=== PATIENT | male | born 1955 | race Hispanic/Latino ===

== ENCOUNTER 2019-08-21 10:08 | Inpatient (IN) | payer MEDICARE, OTHER ==
[~2019-08-21] VITALS: Ht 175.3 cm; Wt 75.7 kg
[~2019-08-21 10:08] MED LIST: Z.0.PREVACID30 MG PO; Z.0.TRICOR145 MG PO; Z.1.BENICAR HCT 401 PO
[2019-08-21] MEDS ORDERED: PANTOPRAZOLE 40 MG 10ML VIAL IV STA (10:33)
[2019-08-21] MEDS ORDERED: SODIUM CHLORIDE 0.9% 1000ML 1,000 ML IV STA (10:33)
[2019-08-21] MEDS ORDERED: ALBUTEROL SULFATE HFA 8GM INHALATION AEROSOL INH PRN (11:00)
[2019-08-21] MEDS ORDERED: SODIUM CHLORIDE 0.9% 1000ML 1,000 ML IV SCH (11:12)
[2019-08-21] MEDS ORDERED: ONDANSETRON HCL INJ 2MG/ML 2ML 2 MG/ML VIAL IV PRN ×2 (11:15→13:30)
[2019-08-21 11:18] LABS: BASOPHILS % 0.1 % (0.0-1.0); HEMATOCRIT 39.6 % (38.2-49.6); HEMOGLOBIN 13.7 g/dL (14.0-18.0); LYMPHOCYTES # (AUTO) 0.9 (1.0-3.2); LYMPHOCYTES % 6.6 % (18.0-39.1); MEAN CORPUSCULAR HEMOGLOBIN 29.2 pg (28-32); MEAN CORPUSCULAR HGB CONC 34.6 g/dL (31-35); MEAN CORPUSCULAR VOLUME 84.4 fL (81-99); MONOCYTES # (AUTO) 0.5 (0.2-0.8); MONOCYTES % 3.5 % (4.4-11.3); NEUTROPHILS # (AUTO) 12.1 (2.1-6.9); NEUTROPHILS % 88.3 % (38.7-80.0); PLATELET COUNT 240 x10e3/uL (140-360); RED BLOOD COUNT 4.69 x10e6/uL (4.3-5.7); RED CELL DISTRIBUTION WIDTH 12.9 % (11.7-14.4)
[2019-08-21 11:34] LABS: INFLUENZAE A&B ANTIGEN (RAPID) NEGATIVE (NEGATIVE)
[2019-08-21 11:35] LABS: STREPTOCOCCUS GRP A ANTIGEN NEGATIVE (NEGATIVE)
[2019-08-21 11:43] LABS: INR 1.09; PROTHROMBIN TIME 14.8 seconds (11.9-14.5)
[2019-08-21 11:44] LABS: PARTIAL THROMBOPLASTIN TIME 36.9 seconds (23.8-35.5)
[2019-08-21 11:55] LABS: ALANINE AMINOTRANSFERASE 24 IU/L (0-55); ALBUMIN 3.1 g/dL (3.5-5.0); ALBUMIN/GLOBULIN RATIO 0.7 (0.8-2.0); ALKALINE PHOSPHATASE 58 IU/L (40-150); ANION GAP 15.8 mmol/L (8-16); BLOOD UREA NITROGEN 8 mg/dL (7-26); BUN/CREATININE RATIO 8 (6-25); CALCIUM 9.1 mg/dL (8.4-10.2); CARBON DIOXIDE 22 mmol/L (22-29); CHLORIDE 101 mmol/L (98-107); CREATINE KINASE 26 IU/L (30-200); CREATININE, SERUM 0.95 mg/dL (0.72-1.25); EST GLOMERULAR FILTRATION RATE > 60 ML/MIN (60-); GLUCOSE 103 mg/dL (74-118); POTASSIUM 3.8 mmol/L (3.5-5.1); SODIUM 135 mmol/L (136-145)
[2019-08-21 12:01] LABS: B-TYPE NATRIURETIC PEPTIDE2 37.4 pg/mL (0-100)
[2019-08-21] MEDS: ASPIRIN 81 MG ENTERIC COATED PO SCH (12:07)
[2019-08-21] MEDS: AZITHROMYCIN 500MG/NS 250 ML 250 ML IV SCH (12:07)
[2019-08-21] MEDS: CEFTRIAXONE SOD 1 GM/NS 50 ML 50 ML IV SCH (12:07)
--- NOTE | 2019-08-21 12:11 | Diagnostic Imaging Report ---
EXAM: CHEST SINGLE (PORTABLE) DATE: 08/21/2019 10:33 AM INDICATION: Weakness COMPARISON: None FINDINGS: The trachea is midline. There are mildly prominent interstitial markings present. Lungs are otherwise symmetrically expanded without evidence for large focal consolidation, pneumothorax, or significant pleural effusion. The cardiomediastinal silhouette is within normal limits. Atherosclerotic calcifications are noted within the aortic arch. No acute osseous abnormality is identified. IMPRESSION: Mildly increased interstitial markings which are nonspecific but can be seen in the setting of edema. No other acute cardiopulmonary process identified. Signed by: Dr. Larry Lisa MD on 08/21/2019 12:07 PM
--- NOTE | 2019-08-21 12:21 | NUR ---
RT at bedside performing blood gas.
--- NOTE | 2019-08-21 12:57 | NUR ---
Nursing report called to Claudette SILVA.
[2019-08-21] MEDS ORDERED: ACETAMINOPHEN 325 MG TAB PO ONE (13:00)
[2019-08-21 13:52] LABS: ABG PCO2 29 mmHg (41-51); ABG PH 7.43 (7.31-7.41)
[2019-08-21 13:53] LABS: ABG HCO3 19 mmol/L (23-28)
[2019-08-21 14:05] VITALS: BP 136/68
[2019-08-21] MEDS: METRONIDAZOLE 500MG/NS 100ML 100 ML IV SCH ×3 (14:15→22:00)
[2019-08-21 14:18] VITALS: BP 136/68
--- NOTE | 2019-08-21 14:45 | NUR ---
patient arrived to unit via stretcher. patient ambulated from stretcher to bed without difficulty. o2 checked- 91 % on room air. placed on 2L via NC and o2 now at 96%. rr- 29. oriented to room and call light. patient instructed to place mask on face when staff enters his room. PHILIPP.
[2019-08-21] MEDS ORDERED: ALBUTEROL SULF 0.083% NEB SOLN 3 ML NEB NEB SCH (15:00)
--- NOTE | 2019-08-21 15:08 | Consultation ---
DATE OF CONSULTATION: REASON FOR CONSULTATION: Pneumonia, concern about COVID-19. HISTORY OF PRESENT ILLNESS: This is a 64-year-old male, who has history of throat cancer, was diagnosed in 2015, treated with surgery, comes in with 2 weeks of fever, chills, hurting all over, one episode of diarrhea yesterday, not feeling too well since we are in the mid of COVID-19 pandemic. The patient is being admitted. The patient who is just not feeling well in general. No other complaints except for what mentioned above. PAST MEDICAL HISTORY: As above. PAST SURGICAL HISTORY: As above. ALLERGIES: NKA. SOCIAL HISTORY: There is no smoking, drug abuse, or alcohol abuse. FAMILY HISTORY: Otherwise noncontributory. LABORATORY DATA: White count on admission 13.7, hemoglobin 13.7, platelet 240. All his upper respiratory panel are still pending. Influenza A and B antigen were negative. Group A was negative. His sodium 135, potassium 3.8, creatinine 0.95. His BNP was 37. He had chest x-ray, which was ordered and showed interstitial marking, nonspecific, could be edema versus other. PHYSICAL EXAMINATION: GENERAL: Currently alert, oriented. VITAL SIGNS: Temperature of 100.3, heart rate 118, respiration 24. HEENT: Normocephalic. NECK: Supple. CHEST: Few crackles bilateral. HEART: S1, S2. No S3, S4, or murmur. ABDOMEN: Soft. EXTREMITIES: No edema. SKIN: No rash. IMPRESSION: 1. Fever, chills, body aches, concerned about viral infection, concerned about COVID. We will place patient on isolation, test been sent. Unfortunately, it is taking us more than two days to get the result. 2. Concern about other infections such as bacterial. We will put the patient on Rocephin and azithromycin. Observe the patient clinically. Agree with IV fluid. Recheck CBC. Recheck chemistry panel. Discussed with the patient. Discussed with all the medical team. MD PATRICK Oakley/MALIA /[id number]
[2019-08-21 15:33] LABS: BILIRUBIN,URINE NEGATIVE (NEGATIVE); CLARITY,URINE SL CLOUDY (CLEAR); COLOR,URINE STRAW (YELLOW); KETONES,URINE TRACE (NEGATIVE); LEUKOCYTE ESTERASE ,URINE NEGATIVE (NEGATIVE); NITRITE,URINE NEGATIVE (NEGATIVE); PROTEIN,URINE DIPSTICK TRACE (NEGATIVE); URINE UROBILINOGEN 0.2 mg/dL (0.2 - 1)
[2019-08-21 15:54] LABS: BACTERIA,URINE FEW /HPF
--- NOTE | 2019-08-21 16:01 | NUR ---
patient's called. updated on plan of care.
--- NOTE | 2019-08-21 16:02 | NUR ---
per pharmacy staff, they will changing order for nebulizer to hand held inhaler with [facility] and will deliver to unit.
[2019-08-21] MEDS ORDERED: LOSARTAN POTAS100 MG PO (16:19)
[2019-08-21] MEDS ORDERED: PANTOPRAZOLE SO40 MG PO (16:19)
[2019-08-21 16:46] VITALS: BP 103/58
--- NOTE | 2019-08-21 18:18 | NUR ---
patient resting in bed, hr now 89. denies any concerns. states he does feel "a little better" patients son called and updated, per patient request.
[2019-08-21] MEDS: ALBUTEROL SULFATE HFA 8GM INHALATION AEROSOL INH SCH ×2 (19:00→23:00)
--- NOTE | 2019-08-21 19:00 | NUR ---
Report received from morning nurse. Pt alert, no acute distress. Denies pain at this time. Call light within reach. Will continue to monitor on isolation precautions.
--- NOTE | 2019-08-21 19:59 | History and Physical ---
PRIMARY CARE DOCTOR: Dr. Damon Larose. CHIEF COMPLAINT: Shortness of breath. HISTORY OF PRESENT ILLNESS: This is a 64-year-old male who started not feeling well about 10 days ago with some subjective warmth and headache. The patient also has some very mild cough, very mild myalgia. Subsequently through telemedicine, Dr. Larose prescribed some steroids and antibiotics, however it caused more headache and diarrhea. So, he stopped taking the antibiotics, but still the patient has diarrhea for the last two days. No abdominal pain. Last night, he thinks that he had about 10 bouts of diarrhea. This morning, he still is having diarrhea. The patient denies chest pain, some shortness of breath, again very mild cough and myalgia. The patient is also nauseated and vomited once. The patient lives with his who is feeling well at this time. In the emergency room, the patient had a temperature of 100.3. PAST MEDICAL AND SURGICAL HISTORY: 1. Hypertension. 2. Reflux. 3. Dyslipidemia. 4. Hypertension. 5. Throat cancer. 6. Appendectomy. SOCIAL HISTORY: He does not smoke. FAMILY HISTORY: Hypertension. REVIEW OF SYSTEMS: A 10-point review of system obtained and nothing else is significant other than what is stated in HPI. PHYSICAL EXAMINATION: VITAL SIGNS: Temperature 100.3, pulse 113, respiratory rate as high as 41, and blood pressure 118/69. GENERAL: No acute distress. HEENT: Anicteric. Oropharynx is dry. SKIN: No rash. LUNGS: Clear. HEART: Tachycardic. Normal S1, S2. ABDOMEN: Soft, nondistended, nontender. MUSCULOSKELETAL: Painless range of motion. NEUROLOGIC: Alert and oriented x3. Cranial nerves II through XII intact. PSYCHIATRIC: No depression. No hallucination. LABORATORY DATA: White count 13.7, hemoglobin 13.7, and platelet count 240. INR 1.09, PTT 37. Sodium 135, creatinine 0.95. Rapid influenza screen is negative. Chest x-ray shows possible edema. CPK is negative. Troponin is negative. ASSESSMENT: 1. Severe dehydration due to diarrhea given recent antibiotic and recent possibility of Clostridium difficile colitis, now I empirically started IV Flagyl. We discussed with Dr. Mckinney. Ideally, we would like to get an abdominal CT. However, potentially complete COVID test comes back. 2. Mild upper respiratory infection symptoms. Again, COVID test is pending. Empirically, the patient is on Rocephin and azithromycin. 3. Hypertension, stable. 4. Sinus tachycardia, again due to severe dehydration. 5. Shortness of breath could be respiratory compensation, specifically his tachypnea. 6. Gastrointestinal and deep venous thrombosis prophylaxis. We will start him on heparin subcu. MD PALMER Camacho/MALIA /[id number] cc: Damon Larose
[2019-08-21 20:00] VITALS: BP 118/63
--- NOTE | 2019-08-21 20:25 | Consultation ---
DATE OF CONSULTATION: 08/21/2019 Pulmonary Medicine Consult REASON FOR REFERRAL: Hypoxemia. HISTORY OF PRESENT ILLNESS: Mr. Marcus is a pleasant 64-year-old gentleman with shortness of breath. The patient originally was having myalgias and bony aches about a week ago. He had fever and cough at that time. The patient had about 10 days of symptoms he estimates and he even went to his doctor about a week ago. When he went to his doctor, he was found to have need for antibiotics and he was also given some prednisone. The antibiotic was Omnicef. The patient without significant respiratory distress at that time. He initially got better but than started to feel worse. The patient comes to the emergency room. He is hypoxemic with saturations in the high 80s percentile range, I am told. Chest x-ray, bilateral mild lung patchy infiltrates. The patient additionally has some associated diarrhea kind of symptoms. He is admitted and I am consulted. PAST MEDICAL HISTORY: 1. Hypertension. 2. Heart disease. 3. Throat cancer. 4. GERD. 5. Appendectomy. MEDICATIONS: Medication list reviewed per the chart record. ALLERGIES: FOR THE CHART RECORD. SOCIAL HISTORY: Smoking no history. No drugs. The patient lives with his , he is 64 years old, he live in single-story home. For about two months, he is living in house only once a week and he is not seeing his family as part of social distancing. He goes to [employer] about once weekly with his . REVIEW OF SYSTEMS: GENERAL: No weight changes. OPHTHALMOLOGIC: No double vision. ENT: No mouth ulcers. ENDOCRINE: No known thyroid disease. PULMONARY: No asthma. CARDIAC: No heart attack. GI: The patient has no blood in stool. : No blood in urine. DERMATOLOGIC: No rash. NEUROLOGIC: No seizures. PSYCHIATRIC: No depression. OBJECTIVE: VITAL SIGNS: Temperature 101.1 in emergency room. Vital signs as noted per the chart record. 88% saturation on room air FiO2. GENERAL: In no jenni respiratory distress, but he is pale in bed. HEENT: Normocephalic and atraumatic. NECK: Supple. Throat midline. LUNGS: Bilateral air entry with limited auscultation. No jenni wheezes. CARDIOVASCULAR: S1, S2. No murmurs, rubs, or gallops. ABDOMEN: Soft and nontender. EXTREMITIES: No clubbing, no cyanosis. There is no edema. INTEGUMENT: No rash or purpura. LABORATORY DATA: White count 14, hemoglobin 14. Sodium 135, albumin 3.1, lactic acid 1.9. Influenza antigen screening negative. Streptococcal throat screen negative. IMPRESSION AND PLAN: 1. Hypoxemia, presumed secondary to lung injury. 2. Atypical pneumonia, more likely influenza or post influenza pneumonitis. Onset of symptoms 10 days ago, rule out other atypical respiratory infections, which seem plausible and prevalent. COVID-19 in community pandemic. 3. Hypoxemia, moderate. 4. Reported diarrhea, possibly antibiotic associated versus secondary to atypical infection. 5. History of hypertension. 6. History of throat cancer. 7. History of gastroesophageal reflux disease. 8. Respiratory droplet isolation with adjustments for aerosolizing procedures. Empiric antibiotics for pneumonia. Get sputum cultures. Get respiratory PCR panel. The patient will also have COVID-19 PCR sent off. DVT prophylaxis. Follow up markers of DIC and systemic inflammation closely. For the short term, the patient will need more history regarding throat cancer, which I did not get initially while I was investigating the process. We will follow along closely. Thank you very much, Dr. Santos and Dr. Larose, for allowing me a chance to participate in care of Mr. Marcus. Please call for questions. MD BRANDON Vyas/MALIA /[id number]
[2019-08-21 20:59] VITALS: BP 118/63
[2019-08-21] MEDS: HEPARIN SOD (PORCINE) 5,000 UNIT/ML VIAL SC SCH (21:00)
[2019-08-22] VITALS (7 sets, daily range): BP systolic 126–177; BP diastolic 60–88
[2019-08-22] MEDS: ACETAMINOPHEN 325 MG TAB PO PRN (00:30)
--- NOTE | 2019-08-22 00:30 | NUR ---
Pt c/o headache 2/10 and being cold, shivering noted. Temp 99.8. Admin prn Tylenol. Bed low and locked. telephone within reach to call nurse.
[2019-08-22] MEDS: ALBUTEROL SULFATE HFA 8GM INHALATION AEROSOL INH SCH ×5 (03:00→19:00)
[2019-08-22] MEDS: METRONIDAZOLE 500MG/NS 100ML 100 ML IV SCH ×3 (06:00→21:43)
[2019-08-22 06:17] LABS: BASOPHILS % 0.1 % (0.0-1.0); HEMATOCRIT 33.2 % (38.2-49.6); HEMOGLOBIN 11.4 g/dL (14.0-18.0); LYMPHOCYTES # (AUTO) 0.9 (1.0-3.2); LYMPHOCYTES % 11.9 % (18.0-39.1); MEAN CORPUSCULAR HGB CONC 34.3 g/dL (31-35); MEAN CORPUSCULAR VOLUME 84.5 fL (81-99); MONOCYTES # (AUTO) 0.4 (0.2-0.8); MONOCYTES % 5.1 % (4.4-11.3); NEUTROPHILS # (AUTO) 5.9 (2.1-6.9); NEUTROPHILS % 82.2 % (38.7-80.0); PLATELET COUNT 235 x10e3/uL (140-360); RED BLOOD COUNT 3.93 x10e6/uL (4.3-5.7); RED CELL DISTRIBUTION WIDTH 13.1 % (11.7-14.4)
[2019-08-22 06:39] LABS: CREATINE KINASE MB 0.5 ng/mL (0-5.0)
--- NOTE | 2019-08-22 06:40 | NUR ---
Pt resting in bed with eyes closed, HOB 45 degrees, RR 34 unlabored. No acute distress noted.
[2019-08-22 06:46] LABS: FERRITIN 958.13 ng/mL (21.81-274.66)
--- NOTE | 2019-08-22 07:03 | NUR ---
received change of shift report from PM nurse. pt awake, alert, oriented X3, ambulating to bathroom. tachypnea noted with RR at 32. pt also c/o diarrhea at this time and worsening SOB with ambulation. will inform .
[2019-08-22 07:08] LABS: ALANINE AMINOTRANSFERASE 21 IU/L (0-55); ALBUMIN 2.4 g/dL (3.5-5.0); ALBUMIN/GLOBULIN RATIO 0.6 (0.8-2.0); ALKALINE PHOSPHATASE 46 IU/L (40-150); ANION GAP 12.9 mmol/L (8-16); BLOOD UREA NITROGEN 8 mg/dL (7-26); BUN/CREATININE RATIO 11 (6-25); CALCIUM 8.4 mg/dL (8.4-10.2); CARBON DIOXIDE 20 mmol/L (22-29); CHLORIDE 110 mmol/L (98-107); CREATININE, SERUM 0.72 mg/dL (0.72-1.25); EST GLOMERULAR FILTRATION RATE > 60 ML/MIN (60-); GLUCOSE 91 mg/dL (74-118); POTASSIUM 3.9 mmol/L (3.5-5.1); SODIUM 139 mmol/L (136-145)
[2019-08-22] MEDS: HEPARIN SOD (PORCINE) 5,000 UNIT/ML VIAL SC SCH ×2 (08:07→21:00)
--- NOTE | 2019-08-22 08:42 | NUR ---
Dr. Santos paged regarding pt's elevated D-Dimer result. left message; awaiting callback.
[2019-08-22] MEDS: CEFTRIAXONE SOD 1 GM/NS 50 ML 50 ML IV SCH (11:21)
[2019-08-22] MEDS: AZITHROMYCIN 500MG/NS 250 ML 250 ML IV SCH (12:41)
--- NOTE | 2019-08-22 13:46 | NUR ---
Pulmonary Medicine DATE 08/22/2019 SUBJECTIVE: Diarrhea this AM again NS at 100/hr energy overall very low, but minimally better no cough REVIEW OF SYSTEMS: No weight changes. no rash OBJECTIVE: VITAL SIGNS: Vital signs as noted per the chart record. GENERAL: no jenni respiratory distress, but he is pale and weak in bed HEENT: Normocephalic and atraumatic. NECK: Supple. Throat midline. LUNGS: Bilateral air entry with no rhonchi. No jenni wheezes. CARDIOVASCULAR: S1, S2. No murmurs, rubs, or gallops. ABDOMEN: Soft and nontender. EXTREMITIES: No clubbing, no cyanosis. no edema. INTEGUMENT: No rash or purpura. LABORATORY DATA: cr 0.72, wbc 7.2, hct 33, plt 235 IMPRESSION AND PLAN: 1. Hypoxemia, acute lung injury. 2. Atypical pneumonia, more likely influenza or post influenza pneumonitis. Onset of symptoms 7-10 days ago, rule out other atypical respiratory infections, which seem plausible and prevalent. COVID-19 actively in community pandemic. 3. Hypoxemia, moderate. 4. Reported diarrhea, possible antibiotic associated vs secondary to atypical infection. 5. History of hypertension. 6. History of throat cancer. 7. History of gastroesophageal reflux disease. Respiratory droplet isolation +/- adjustments for aerosolizing procedures. Empiric antibiotics for pneumonia. --F/u sputum cultures. --negative respiratory PCR panel. --follow up COVID-19 PCR --check legionella Ag DVT prophylaxis. Follow up markers of DIC and systemic inflammation closely. Thank you very much, Dr. Santos and Dr. Larose, for allowing me a chance to participate in care of Mr. Marcus. Please call for questions.
--- NOTE | 2019-08-22 17:07 | Diagnostic Imaging Report ---
EXAM: CHEST SINGLE (PORTABLE) DATE: 08/22/2019 5:00 AM INDICATION: Pneumonia COMPARISON: 08/21/2019 FINDINGS: There are increased interstitial and airspace opacities present bilaterally, slightly more prominent than the prior examination. There is no evidence for lobar consolidation, pneumothorax, or significant pleural effusion. The cardiomediastinal silhouette is stable in appearance. No acute osseous abnormality is identified. IMPRESSION: Increased bilateral interstitial airspace opacities. Findings are nonspecific but can be seen in the setting of edema versus an atypical or viral infectious/inflammatory process. Signed by: Dr. Larry Lisa MD on 08/22/2019 5:04 PM
--- NOTE | 2019-08-22 19:10 | NUR ---
Report received from morning nurse. Pt alert, no acute distress. Denies pain at this time. Call light within reach. Will continue to monitor on isolation precautions.
[2019-08-23] VITALS (8 sets, daily range): BP systolic 136–170; BP diastolic 68–97
[2019-08-23] MEDS: ALBUTEROL SULFATE HFA 8GM INHALATION AEROSOL INH SCH ×3 (03:00→10:39)
[2019-08-23] MEDS: ACETAMINOPHEN 325 MG TAB PO PRN (04:50)
--- NOTE | 2019-08-23 04:50 | NUR ---
Pt c/o headache 08/29. Admin prn Tylenol.
[2019-08-23] MEDS: METRONIDAZOLE 500MG/NS 100ML 100 ML IV SCH ×3 (05:45→21:05)
--- NOTE | 2019-08-23 06:25 | NUR ---
Pt lying in bed, HOB 45 degrees, RR 32 unlabored. No acute distress noted.
--- NOTE | 2019-08-23 07:04 | NUR ---
received change of shift report from PM nurse. pt resting in bed, Semi-wise's, RR even and nonlabored, no signs of distress. will continue to monitor.
[2019-08-23 07:34] LABS: BASOPHILS % 0.2 % (0.0-1.0); EOSINOPHILS % 0.2 % (0.0-6.0); HEMATOCRIT 32.9 % (38.2-49.6); HEMOGLOBIN 11.4 g/dL (14.0-18.0); LYMPHOCYTES # (AUTO) 0.8 (1.0-3.2); LYMPHOCYTES % 16.5 % (18.0-39.1); MEAN CORPUSCULAR HGB CONC 34.7 g/dL (31-35); MEAN CORPUSCULAR VOLUME 83.7 fL (81-99); MONOCYTES # (AUTO) 0.5 (0.2-0.8); MONOCYTES % 11.5 % (4.4-11.3); NEUTROPHILS # (AUTO) 3.2 (2.1-6.9); NEUTROPHILS % 70.7 % (38.7-80.0); PLATELET COUNT 265 x10e3/uL (140-360); RED BLOOD COUNT 3.93 x10e6/uL (4.3-5.7); RED CELL DISTRIBUTION WIDTH 12.9 % (11.7-14.4)
[2019-08-23 07:53] LABS: ALANINE AMINOTRANSFERASE 24 IU/L (0-55); ALBUMIN 2.3 g/dL (3.5-5.0); ALBUMIN/GLOBULIN RATIO 0.6 (0.8-2.0); ALKALINE PHOSPHATASE 43 IU/L (40-150); ANION GAP 14.5 mmol/L (8-16); BLOOD UREA NITROGEN 6 mg/dL (7-26); BUN/CREATININE RATIO 9 (6-25); CALCIUM 8.4 mg/dL (8.4-10.2); CARBON DIOXIDE 20 mmol/L (22-29); CHLORIDE 106 mmol/L (98-107); CREATININE, SERUM 0.65 mg/dL (0.72-1.25); EST GLOMERULAR FILTRATION RATE > 60 ML/MIN (60-); GLUCOSE 103 mg/dL (74-118); POTASSIUM 3.5 mmol/L (3.5-5.1); SODIUM 137 mmol/L (136-145)
[2019-08-23] MEDS: ASPIRIN 81 MG ENTERIC COATED PO SCH (08:50)
[2019-08-23] MEDS: HEPARIN SOD (PORCINE) 5,000 UNIT/ML VIAL SC SCH ×2 (09:05→21:32)
--- NOTE | 2019-08-23 10:04 | NUR ---
informed Dr. Santos of negative COVID results; he states Dr. Mckinney will decide on pt's placement. will page Dr. Mckinney.
--- NOTE | 2019-08-23 10:27 | NUR ---
still awaiting callback from Dr. Mckinney regarding negative COVID-19 results.
--- NOTE | 2019-08-23 10:35 | NUR ---
spoke with KAYLEY Maguire for Dr. Mckinney regarding pt's results; Luca states he will come see the patient shortly.
--- NOTE | 2019-08-23 11:20 | Diagnostic Imaging Report ---
EXAMINATION: CHEST SINGLE (PORTABLE) INDICATION: Pneumonia, hypoxia COMPARISON: Chest radiograph 08/22/2019 FINDINGS: LINES/TUBES:EKG leads overlie the chest. LUNGS:Slight interval increase in bilateral predominantly peripheral hazy airspace opacities. PLEURA:No pleural effusion or pneumothorax. MEDIASTINUM:The cardiomediastinal silhouette appears unchanged in size and shape. Atherosclerotic calcifications of the thoracic aorta. BONES/SOFT TISSUES:No acute osseous injury. ABDOMEN:No free air under the diaphragm. IMPRESSION: Slight increase in bilateral predominantly peripheral hazy airspace opacities, concerning for atypical pneumonia Signed by: Edu Whitney MD on 08/23/2019 11:17 AM
--- NOTE | 2019-08-23 11:42 | NUR ---
paged Dr. Santos regarding pt's elevated blood pressure of 170/83; awaiting callback.
[2019-08-23] MEDS: AZITHROMYCIN 500MG/NS 250 ML 250 ML IV SCH (11:58)
[2019-08-23] MEDS ORDERED: LOSARTAN POTASSIUM 100 MG TAB PO ONE (12:45)
--- NOTE | 2019-08-23 12:49 | NUR ---
report given to SHIRA Ramos on Med Surg 3. will transport pt to room 299 via wheelchair.
--- NOTE | 2019-08-23 13:11 | NUR ---
Pulmonary Medicine DATE 08/23/2019 SUBJECTIVE: 4 episodes of BMs soft, not watery CXR bilateral pneumonitis increased mildly pt still weak overall REVIEW OF SYSTEMS: No weight changes. no rash OBJECTIVE: VITAL SIGNS: Vital signs as noted per the chart record. GENERAL: no jenni respiratory distress, but he is pale and weak in bed HEENT: Normocephalic and atraumatic. NECK: Supple. Throat midline. LUNGS: Bilateral air entry with no rhonchi. No jenni wheezes. CARDIOVASCULAR: S1, S2. No murmurs, rubs, or gallops. ABDOMEN: Soft and nontender. EXTREMITIES: No clubbing, no cyanosis. no edema. INTEGUMENT: No rash or purpura. LABORATORY DATA: k 3.5, cr 0.66, hco3 20. wbc 4.5. hct 33, plt 265 IMPRESSION AND PLAN: 1. Hypoxemia, acute lung injury. 2. Atypical pneumonia, more likely influenza or post influenza pneumonitis. Onset of symptoms 7-10 days ago, rule out other atypical respiratory infections, which seem plausible and prevalent. COVID-19 actively in community pandemic. --COVID negative --respiratory PCR negative --influenza Ag negative 3. Hypoxemia, moderate. 4. Reported diarrhea, possible antibiotic associated vs secondary to atypical infection. 5. History of hypertension. 6. History of throat cancer. 7. History of gastroesophageal reflux disease. Respiratory droplet isolation Empiric antibiotics for pneumonia. --F/u sputum cultures. Pending ID & susc --follow up legionella Ag Check chest CT noncontrast DVT prophylaxis. Follow up markers of DIC and systemic inflammation closely. Thank you very much, Dr. Santos and Dr. Larose, for allowing me a chance to participate in care of Mr. Marcus. Please call for questions.
--- NOTE | 2019-08-23 13:45 | NUR ---
Pt received at this time. Pt is aox4 and able to verbalize needs. Denies any pain at this time. Pt continues on 2L/NC at this time. Pt continues to be short of breath at times. Pt continues on IV abt per ID at this time.
[2019-08-23] MEDS: CEFTRIAXONE SOD 1 GM/NS 50 ML 50 ML IV SCH (13:57)
--- NOTE | 2019-08-23 14:10 | NUR ---
called and spoke with pt's with pt's permission; informed her pt moved to [facility] and gave new room number and contact information.
--- NOTE | 2019-08-23 14:57 | Progress Note ---
DATE: SUBJECTIVE: Mr. Marcus still feeling about the same. Still having some shortness of breath and some cough. The patient has no fever since admission. REVIEW OF SYSTEMS: Otherwise unremarkable. His sputum cultures and blood cultures are negative. His serology came back all negative for viruses including COVID-19. PHYSICAL EXAMINATION: GENERAL: Alert and oriented. VITAL SIGNS: Stable, currently afebrile. HEENT: He is not icteric. NECK: Supple. CHEST: Few crackles. COR: S1 and S2. No S3, S4, or murmur. ABDOMEN: Soft. IMPRESSION: Community-acquired pneumonia, but I am concerned that the patient has history of cancer and this could be malignancy, it was spread, so we discussed with Pulmonary. We will keep him on antibiotic. We will get CT of the chest. Also, the patient can be removed from isolation at the present time. MD PATRICK Oakley/MALIA /[id number]
--- NOTE | 2019-08-23 15:10 | Diagnostic Imaging Report ---
EXAM: CT Chest WITHOUT intravenous contrast 08/23/2019 12:38 PM INDICATION: Pneumonia COMPARISON: Chest radiograph 08/23/2019 TECHNIQUE: Chest was scanned utilizing a multidetector helical scanner from the lung apex through the level of the adrenal glands without administration of IV contrast. Coronal and sagittal reformations were obtained. Routine protocol was performed. IV CONTRAST: None RADIATION DOSE: Total DLP: 560.8 mGy*cm. Dose modulation, iterative reconstruction, and/or weight based adjustment of the mA/kV was utilized to reduce the radiation dose to as low as reasonably achievable. COMPLICATIONS: None FINDINGS: LINES/ TUBES: None. LUNGS AND AIRWAYS: The central airways are patent. There are bilateral lower lung predominant and predominantly peripheral areas of groundglass opacity and consolidation. PLEURA: The pleural spaces are clear. HEART AND MEDIASTINUM: The thyroid gland is normal. No mediastinal, hilar or axillary lymphadenopathy. The heart is normal in size.. There is no pericardial effusion. UPPER ABDOMEN: Cholelithiasis without CT evidence of cholecystitis. No other acute findings. BONES: No acute osseous injury. No suspicious lytic or blastic lesions. SOFT TISSUES: Unremarkable. IMPRESSION: Bilateral lower lung and peripheral predominant areas of groundglass opacity and consolidation consistent with atypical viral pneumonia. Cholelithiasis without CT evidence of cholecystitis. Signed by: Edu Whitney MD on 08/23/2019 3:07 PM
[2019-08-23] MEDS ORDERED: POTASSIUM CHLORIDE 20 MEQ TAB CR PO SCH (15:45)
[2019-08-23] MEDS: CHOLESTYRAMINE 4 GM PACKET PO SCH (16:39)
--- NOTE | 2019-08-23 19:25 | NUR ---
received report from day nurse. patient is resting comfortably in the bed. bed is in the lowest position and call light is within reach. denies pain or discomfort. continues on oxygen via the nasal cannula. will continue to monitor patient.
[2019-08-24] VITALS (8 sets, daily range): BP systolic 122–176; BP diastolic 69–95
--- NOTE | 2019-08-24 04:30 | NUR ---
patients blood pressure has been rechecked and found to be 169/88. patient is resting comfortably in the bed. bed is in the lowest position and call light is within reach. will continue to monitor patient.
[2019-08-24] MEDS: METRONIDAZOLE 500MG/NS 100ML 100 ML IV SCH ×3 (05:46→21:58)
--- NOTE | 2019-08-24 06:45 | NUR ---
patient is resting comfortably in the bed. bed is in lowest position and call light is within reach. no complaints of pain or discomfort noted.
[2019-08-24 07:01] LABS: FREE THYROXINE INDEX 2.7706 (1.4-3.8); THYROID STIMULATING HORMONE 0.751 uIU/mL (0.350-4.940)
--- NOTE | 2019-08-24 07:40 | NUR ---
PATIENT IS AWAKE, ALERT, AND IN STABLE CONDITION WITH NO S/S OF RESPIRATORY DISTRESS. PATIENT C/O HEADACHE 07/29- PATIENT DOES NOT WANT ANY PAIN MEDICATION AT THIS TIME. O2 AND TELEMETRY APPLIED. CALL LIGHT IS WITHIN REACH, PATIENT INSTRUCTED TO CALL FOR ASSISTANCE NEEDED.
[2019-08-24] MEDS: LOSARTAN POTASSIUM 100 MG TAB PO SCH (08:20)
[2019-08-24] MEDS: ASPIRIN 81 MG ENTERIC COATED PO SCH (08:20)
[2019-08-24] MEDS: CHOLESTYRAMINE 4 GM PACKET PO SCH ×2 (08:20→17:29)
[2019-08-24] MEDS: HEPARIN SOD (PORCINE) 5,000 UNIT/ML VIAL SC SCH ×2 (08:22→21:59)
[2019-08-24] MEDS: CEFTRIAXONE SOD 1 GM/NS 50 ML 50 ML IV SCH (11:24)
[2019-08-24] MEDS: AZITHROMYCIN 500MG/NS 250 ML 250 ML IV SCH (12:50)
--- NOTE | 2019-08-24 19:20 | NUR ---
PATIENT IS AWAKE, ALERT, AND IN STABLE CONDITION WITH NO S/S OF RESPIRATORY DISTRESS.NO PAIN VOICED. O2 AND TELEMETRY APPLIED. CALL LIGHT IS WITHIN REACH, PATIENT INSTRUCTED TO CALL FOR ASSISTANCE NEEDED. BEDSIDE SHIFT REPORT GIVEN TO ONCOMING NURSE.
--- NOTE | 2019-08-24 19:30 | NUR ---
RECEIVED REPORT FROM DAY NURSE. PATIENT IS RESTING COMFORTABLY IN THE BED. BED IS IN LOWEST POSITION AND CALL LIGHT IS WITHIN REACH. WILL CONTINUE TO MONITOR PATIENT.
--- NOTE | 2019-08-24 20:16 | NUR ---
Pulmonary Medicine DATE 08/24/2019 SUBJECTIVE: Still weak CT chest noted- no surprises, diffuse ground glass opacities no resp distress eats some REVIEW OF SYSTEMS: No weight changes. no rash OBJECTIVE: VITAL SIGNS: Vital signs as noted per the chart record. GENERAL: no jenni respiratory distress, but he is pale and weak in bed HEENT: Normocephalic and atraumatic. NECK: Supple. Throat midline. LUNGS: Bilateral air entry with no rhonchi. No jenni wheezes. CARDIOVASCULAR: S1, S2. No murmurs, rubs, or gallops. ABDOMEN: Soft and nontender. EXTREMITIES: No clubbing, no cyanosis. no edema. INTEGUMENT: No rash or purpura. LABORATORY DATA: k 3.5, cr 0.65 IMPRESSION AND PLAN: 1. Hypoxemia, acute lung injury. 2. Atypical pneumonia, more likely viral (such as influenza or post influenza pneumonitis). Onset of symptoms 7-10 days ago, possible other atypical respiratory infections, which seem plausible and prevalent. COVID-19 actively in community pandemic. --COVID negative --respiratory PCR negative --influenza Ag negative 3. Hypoxemia, moderate. 4. Reported diarrhea, possible antibiotic associated vs secondary to atypical infection. 5. History of hypertension. 6. History of throat cancer. 7. History of gastroesophageal reflux disease. Respiratory droplet isolation Empiric antibiotics for pneumonia. --F/u sputum cultures. Pending ID & susc --follow up legionella Ag consider rechecking ldh level Check chest CT noncontrast DVT prophylaxis. Follow up markers of DIC and systemic inflammation closely. Thank you very much, Dr. Santos and Dr. Larose, for allowing me a chance to participate in care of Mr. Marcus. Please call for questions.
[2019-08-25] VITALS (10 sets, daily range): BP systolic 115–157; BP diastolic 66–83
[2019-08-25] MEDS: ACETAMINOPHEN 325 MG TAB PO PRN ×2 (01:05→08:14)
[2019-08-25] MEDS: METRONIDAZOLE 500MG/NS 100ML 100 ML IV SCH ×3 (05:22→21:48)
[2019-08-25] MEDS: ALBUTEROL SULFATE HFA 8GM INHALATION AEROSOL INH SCH ×5 (07:00→23:00)
[2019-08-25] MEDS ORDERED: METHYLPREDNISOLONE SOD SUCC 125 MG/2ML VIAL IV NR (08:11)
[2019-08-25] MEDS: CHOLESTYRAMINE 4 GM PACKET PO SCH ×2 (08:14→16:19)
[2019-08-25] MEDS: ASPIRIN 81 MG ENTERIC COATED PO SCH (08:14)
[2019-08-25] MEDS: LOSARTAN POTASSIUM 100 MG TAB PO SCH (08:14)
[2019-08-25] MEDS: HEPARIN SOD (PORCINE) 5,000 UNIT/ML VIAL SC SCH ×2 (08:15→21:48)
--- NOTE | 2019-08-25 08:38 | NUR ---
CALLED AND SPOKE WITH DR. ALEJANDRA REGARDING PATIENT'S CURRENT STATUS AND RR OF 40-44. PATIENT WAS ON 2L NC UPON RN'S ASSESSMENT BUT STARTED TO S/S OF LABORED BREATHING. RESP TECH INFORMED AND INCREASED 02 TO 5L NC. PATIENT IS RESPONSIVE TO VERBAL DEMANDS. PATIENT C/O HEADACHE. RECEIVED ORDER FOR STAT LAB ORDERS. DR. ALEJANDRA WILL CALL TO SPEAK WITH DR. CAMPOS REGARDING PATIENT'S CURRENT SITUATION AND CARE PLAN.
[2019-08-25 08:56] LABS: HEMOGLOBIN 9.7 g/dL (14.0-18.0); LYMPHOCYTES # (AUTO) 0.9 (1.0-3.2); MEAN CORPUSCULAR HGB CONC 33.4 g/dL (31-35); MEAN CORPUSCULAR VOLUME 83.8 fL (81-99); MONOCYTES # (AUTO) 0.8 (0.2-0.8); NEUTROPHILS # (AUTO) 7.8 (2.1-6.9); PLATELET COUNT 382 x10e3/uL (140-360); RED BLOOD COUNT 3.46 x10e6/uL (4.3-5.7)
[2019-08-25 09:20] LABS: ALANINE AMINOTRANSFERASE 23 IU/L (0-55); ALBUMIN 2.2 g/dL (3.5-5.0); ALBUMIN/GLOBULIN RATIO 0.5 (0.8-2.0); ALKALINE PHOSPHATASE 42 IU/L (40-150); ANION GAP 15.7 mmol/L (8-16); BLOOD UREA NITROGEN 7 mg/dL (7-26); BUN/CREATININE RATIO 10 (6-25); CALCIUM 8.7 mg/dL (8.4-10.2); CARBON DIOXIDE 19 mmol/L (22-29); CHLORIDE 104 mmol/L (98-107); CREATININE, SERUM 0.68 mg/dL (0.72-1.25); EST GLOMERULAR FILTRATION RATE > 60 ML/MIN (60-); GLUCOSE 92 mg/dL (74-118); POTASSIUM 3.7 mmol/L (3.5-5.1); SODIUM 135 mmol/L (136-145)
--- NOTE | 2019-08-25 09:22 | NUR ---
PATIENT TRANSFERRED TO [facility] ROOM 187 PER BED WITH RN, PCT, AND RESPIRATORY. PATIENT IN STABLE CONDITION AND TRANSPORTED WITH BIPAP. RR 36. PATIENT CHART AND INFORMATION GIVEN TO THE RECEIVING NURSE. NEW ORDER RECEIVED BY DR. ALEJANDRA UPON TRANSPORTATION TO SWAB THE PATIENT FOR COVID.
--- NOTE | 2019-08-25 10:23 | NUR ---
WAS CALLED TO ASSESS PATIENT BECAUSE OF SHORTNESS OF BREATH. FOUND PATIENT BREATHING 40+ BREATHS PER MINUTE AND OXYGEN SATURATION OF 81% ON 2L/ NC. SPOKE WITH NURSE JOHN AND ACCORDING TO THE COVID 19 TEST IT CAME BACK NEGATIVE. NURSE CALLED DR. ALEJANDRA AND HE ORDERED A BIPAP 15/5 100%. 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 SHE TOLD ME THAT SINCE HE IS ON A BIPAP HE NEEDED TO GO TO [facility]. PT TRANSFERRED TO [facility] PER HOSPITAL POLICY.
[2019-08-25] MEDS: AZITHROMYCIN 500MG/NS 250 ML 250 ML IV SCH (11:44)
[2019-08-25] MEDS: CEFTRIAXONE SOD 1 GM/NS 50 ML 50 ML IV SCH (11:44)
--- NOTE | 2019-08-25 14:05 | NUR ---
Pulmonary Medicine DATE 08/25/2019 SUBJECTIVE: patient with tachypnea on NC given bipap 15/5, 100% fio2. 16 rr RR in 30's but he is comfortable REVIEW OF SYSTEMS: No weight changes. no rash OBJECTIVE: VITAL SIGNS: Vital signs as noted per the chart record. GENERAL: weak in bed , ao x 3 HEENT: Normocephalic and atraumatic. NECK: Supple. Throat midline. LUNGS: Bilateral air entry with no rhonchi. No jenni wheezes. CARDIOVASCULAR: S1, S2. No murmurs, rubs, or gallops. ABDOMEN: Soft and nontender. EXTREMITIES: No clubbing, no cyanosis. no edema. INTEGUMENT: No rash or purpura. LABORATORY DATA: k 3.7, cr 0.68. wbc 9.65, hct 29, plt 382 IMPRESSION AND PLAN: 1. Hypoxemia, acute lung injury. 2. Atypical pneumonia, more likely viral (such as influenza or post influenza pneumonitis). Onset of symptoms 7-10 days ago, possible other atypical respiratory infections, which seem plausible and prevalent. COVID-19 actively in pandemic, COVID related family contact 08/05/19 --COVID PCR negative x 1 --respiratory PCR negative --influenza Ag negative 3. Hypoxemia, moderate. 4. Reported diarrhea, possible antibiotic associated vs secondary to atypical infection. 5. History of hypertension. 6. History of throat cancer. 7. History of gastroesophageal reflux disease. 8. acute respiratory failure, bipap salvage Respiratory droplet isolation Empiric antibiotics for pneumonia. --sputum cultures. yeast so far. check coccidio, cryptococcal, histoplasmosis ag --follow up legionella Ag recheck ldh, ddimer, lfts level bipap salvage DVT prophylaxis. Follow up markers of DIC and systemic inflammation closely. Thank you very much, Dr. Santos and Dr. Larose, for allowing me a chance to participate in care of Mr. Marcus. Please call for questions.
--- NOTE | 2019-08-25 14:29 | Progress Note ---
DATE: SUBJECTIVE: Mr. Mckinley Marcus became ill, but short of breath overnight, BiPAP was started. He was moved to telemetry unit. When I saw the patient, he was up in his bed, BiPAP on, to me he looks about the same in terms of shortness of breath. No new complaints. OBJECTIVE: VITAL SIGNS: Reviewed. He is afebrile. Heart rate is 104, respirations 26, and blood pressure 149/78. The patient had no fever since admission on August 20. Also, the patient is telling me now that his had COVID-19 back on August 01 and she has been sick. He did not tell me this information before. Discussed with Internal Medicine. Discussed with Pulmonary. His CAT scan showed bilateral lower lung and peripheral predominant areas, ground-glass opacities. IMPRESSION: Abnormal CAT scan, respiratory failure, whether or not this is an acute infection versus acute respiratory distress syndrome. The first COVID-19 was negative. We will repeat another one, preferably coughing. So, we can get a better sensitivity. In the meantime, we are going to move the patient to negative pressure airway room because there is a concern he may end up on a ventilator, should he infected, we can obtain a deep sample from his lung to be tested again. In the meantime, he is on azithromycin, ceftriaxone, and methylprednisolone. As expected that his white count will go up. LABORATORY DATA: Reviewed. White count 9.65, hemoglobin 9.7, and platelets of 282,000. We will keep a close eye on this patient. Case was discussed with medical team. MD PATRICK Oakley/MALIA /[id number]
[2019-08-25] MEDS ORDERED: METHYLPREDNISOLONE SOD SUCC 40 MG/ML VIAL 1ML IV NR (20:00)
[2019-08-26] VITALS (22 sets, daily range): BP systolic 78–154; BP diastolic 61–85
[2019-08-26] MEDS: ALBUTEROL SULFATE HFA 8GM INHALATION AEROSOL INH SCH ×5 (03:00→20:00)
[2019-08-26] MEDS: METRONIDAZOLE 500MG/NS 100ML 100 ML IV SCH ×3 (06:10→21:17)
[2019-08-26] MEDS: CHOLESTYRAMINE 4 GM PACKET PO SCH (09:00)
[2019-08-26] MEDS: LOSARTAN POTASSIUM 100 MG TAB PO SCH (09:55)
[2019-08-26] MEDS: HEPARIN SOD (PORCINE) 5,000 UNIT/ML VIAL SC SCH ×2 (09:55→21:18)
[2019-08-26] MEDS: ASPIRIN 81 MG ENTERIC COATED PO SCH (09:55)
[2019-08-26] MEDS: CEFTRIAXONE SOD 1 GM/NS 50 ML 50 ML IV SCH (12:30)
[2019-08-26] MEDS ORDERED: SODIUM CHLORIDE 0.9% 250ML 250 ML ONE (12:33)
[2019-08-26] MEDS: AZITHROMYCIN 500MG/NS 250 ML 250 ML IV SCH (13:00)
--- NOTE | 2019-08-26 13:30 | NUR ---
Pulmonary Medicine DATE 08/26/2019 SUBJECTIVE: eats well off bipap last night nrb 98-100% saturation RR 20-30's today REVIEW OF SYSTEMS: No weight changes. no rash OBJECTIVE: VITAL SIGNS: Vital signs as noted per the chart record. GENERAL: weak in bed , ao x 3 HEENT: Normocephalic and atraumatic. NECK: Supple. Throat midline. LUNGS: Bilateral air entry with no rhonchi. No jenni wheezes. CARDIOVASCULAR: S1, S2. No murmurs, rubs, or gallops. ABDOMEN: Soft and nontender. EXTREMITIES: No clubbing, no cyanosis. no edema. INTEGUMENT: No rash or purpura. LABORATORY DATA: k 3.7, cr 0.68, wbc 9.65, hct 29, plt 382 IMPRESSION AND PLAN: 1. Hypoxemia, acute lung injury. 2. Atypical pneumonia, more likely viral (such as influenza or post influenza pneumonitis). Onset of symptoms 7-10 days ago, possible other atypical respiratory infections, which seem plausible and prevalent. COVID-19 actively in pandemic, COVID related family contact 08/05/19 --COVID PCR negative x 1 --respiratory PCR negative --influenza Ag negative 3. Hypoxemia, moderate. 4. Reported diarrhea, possible antibiotic associated vs secondary to atypical infection. 5. History of hypertension. 6. History of throat cancer. 7. History of gastroesophageal reflux disease. 8. acute respiratory failure, bipap salvage Empiric antibiotics for pneumonia. --sputum cultures with bonny. --follow up legionella Ag --repeat COVID test sent. oxygen per protocol. sparing doses of steroids prn, no redose now DVT prophylaxis. Follow up markers of DIC and systemic inflammation closely. Thank you very much, Dr. Santos and Dr. Larose, for allowing me a chance to participate in care of Mr. Marcus. Please call for questions.
--- NOTE | 2019-08-26 15:57 | Progress Note ---
DATE: SUBJECTIVE: Mr. Marcus is feeling better today. His breathing is better. REVIEW OF SYSTEMS: Otherwise unremarkable. LABORATORY DATA: Still pending. White count 9.65. Serologies for PCR. COVID-19 still pending. PHYSICAL EXAMINATION: GENERAL: He is currently alert. VITAL SIGNS: Stable, currently afebrile. HEENT: Not icteric. NECK: Supple. CHEST: Few crackles. COR: S1, S2. ABDOMEN: Soft. IMPRESSION: Shortness of breath. Bilateral pulmonary infiltrate. It could be inflammatory process of the lungs. It could be due to some viral infection a couple of weeks ago since COVID-19 maybe it was, but so far there is no evidence of the virus infection, I will await the 2nd PCR, certainly that is negative then makes it less likely. From Infectious Disease point of view, continue supportive care. Today, he looks much better. Discussed with the medical team. We will follow with you. MD PATRICK Oakley/MALIA /[id number]
[2019-08-27] VITALS (25 sets, daily range): BP systolic 125–159; BP diastolic 60–95
[2019-08-27] MEDS: ALBUTEROL SULFATE HFA 8GM INHALATION AEROSOL INH SCH ×7 (03:00→23:00)
[2019-08-27] MEDS: METRONIDAZOLE 500MG/NS 100ML 100 ML IV SCH ×3 (05:10→22:00)
[2019-08-27] MEDS: HEPARIN SOD (PORCINE) 5,000 UNIT/ML VIAL SC SCH (09:00)
[2019-08-27] MEDS: LOSARTAN POTASSIUM 100 MG TAB PO SCH (09:00)
--- NOTE | 2019-08-27 09:19 | NUR ---
Dr. Luciano notified of pts decreased O2 sats and pt placed on Bipap at this time. Per Dr. Luciano keep pt on bipap, continue to monitor, notify MD of any further changes in status. will continue to monitor
[2019-08-27] MEDS: ASPIRIN 81 MG ENTERIC COATED PO SCH (10:21)
--- NOTE | 2019-08-27 11:49 | NUR ---
Dr. Luciano notified of SIRS/Sepsis code alert. may follow protocol except no IV fluids d/t ARDS per MD. waiting on COVID19 results, will place labs and continue to monitor
--- NOTE | 2019-08-27 12:33 | NUR ---
Pulmonary Medicine DATE 08/27/2019 SUBJECTIVE: patient walked to commode, went back on bipap with SOB after bipap ongoing 03/10, 16 rr hemodynamics stable REVIEW OF SYSTEMS: No weight changes. no rash OBJECTIVE: VITAL SIGNS: Vital signs as noted per the chart record. GENERAL: weak in bed , ao x 3 HEENT: Normocephalic and atraumatic. NECK: Supple. Throat midline. LUNGS: Bilateral air entry with no rhonchi. No jenni wheezes. CARDIOVASCULAR: S1, S2. No murmurs, rubs, or gallops. ABDOMEN: Soft, nontender. EXTREMITIES: No clubbing, no cyanosis. no edema. INTEGUMENT: No rash or purpura. LABORATORY DATA: no new updates IMPRESSION AND PLAN: 1. Hypoxemia, acute lung injury. 2. Atypical pneumonia, more likely viral (such as influenza or post influenza pneumonitis). Onset of symptoms 7-10 days ago, possible other atypical respiratory infections, which seem plausible and prevalent. COVID-19 actively in pandemic, COVID related family contact 08/05/19 --COVID PCR negative x 1 --respiratory PCR negative --influenza Ag negative 3. Hypoxemia, moderate. 4. Reported diarrhea, possible antibiotic associated vs secondary to atypical infection. 5. History of hypertension. 6. History of throat cancer. 7. History of gastroesophageal reflux disease. 8. acute respiratory failure, bipap salvage Empiric antibiotics for pneumonia. --sputum cultures with bonny. encourage expectoration --legionella Ag negative --repeat COVID test sent. follow up oxygen per protocol. sparing doses of steroids prn, no redose now Important that patient receives positive pressure to lungs when dyspneic. he should NOT overwork his lungs Bed positioning maneuvers encouraged DVT prophylaxis. Follow up markers of DIC and systemic inflammation closely. Thank you very much, Dr. Santos and Dr. Larose, for allowing me a chance to participate in care of Mr. Marcus. Please call for questions.
--- NOTE | 2019-08-27 12:35 | NUR ---
Dr. Santos notified of pt status. MD in house and will be here shortly to further assess pt. continue to monitor
[2019-08-27] MEDS: CEFTRIAXONE SOD 1 GM/NS 50 ML 50 ML IV SCH (13:00)
[2019-08-27] MEDS: AZITHROMYCIN 500MG/NS 250 ML 250 ML IV SCH (14:29)
--- NOTE | 2019-08-27 16:41 | Progress Note ---
DATE: SUBJECTIVE: Today, Mr. Marcus became of more short of breath. Again, discussed with critical Care at length again and reviewed all his lab. The repeat COVID19 is still pending. The patient also have some cough today. I again. I reviewed all his cultures still pending. LABORATORY DATA: I reviewed his lab. White count 9.065. Last time, his sodium 135, potassium 3.7. His BNP was 37 couple days ago. He had a chest CT on the 3rd, which showed bilateral lower lobe opacity. IMPRESSION: Arm become progressively worse concern of his fluid overload. His initial COVID19 is negative. We will recheck it again, who would change the antibiotic to vancomycin and cefepime because I am concerned about the healthcare associated pneumonia now. Discontinue with Rocephin and continue azithromycin. Continue supportive care. Discussed at length with Dr. Luciano. MD PATRICK Oakley/MALIA /[id number]
[2019-08-27] MEDS: VANCOMYCIN 1GM/NS 250 ML 250 ML IV SCH (16:59)
[2019-08-27] MEDS: ENOXAPARIN SOD INJ 40 MG/0.4 ML SYR SC SCH (16:59)
--- NOTE | 2019-08-27 18:13 | NUR ---
Nutrition Screen Note RD Recommendation for Physician: - Continue current diet Plan of Care: RD following, monitoring for tolerance and adequacy Nutrition reason for involvement: LOS Primary Diagnose(s): viral PNA, hypoxia, diarrhea, dehydration PMH: HTN, reflux, dyslipidemia, HTN, throat cancer Ht: 69 in Wt: 185.31 lb BMI: 27.4 kg/m2 IBW: [address] Assessment: (08/26) 64 YOM admitted for viral PNA, hypoxia, diarrhea, and dehydration. Pt evaluated today per LOS. Pt PUI for Covid-19, test results remain pending. Unable to speak with pt via phone 2/2 very SOB and requiring BiPAP. 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 Pt with 75% meal intake prior to BiPAP use. Chart reviewed. Labs and meds reviewed. Will monitor and continue to follow. Current Diet: Cardiac Malnutrition Evaluation (08/27/19) The patient does not meet criteria for a specified degree of malnutrition at this time. Will re-evaluate at follow-up as appropriate. Unable to complete assessment. Diet Education Needs Assessment: Diet education not indicated at this time. Diet tolerance: tolerating po Nutrition Care Level: Low Signed: Valarie Bridges RD, LD, [facility]
[2019-08-27] MEDS: CEFEPIME 2 GM/NS 0.9% 100 ML 100 ML IV SCH (22:00)
[2019-08-28] VITALS (26 sets, daily range): BP systolic 122–180; BP diastolic 71–99
[2019-08-28] MEDS: ALBUTEROL SULFATE HFA 8GM INHALATION AEROSOL INH SCH ×6 (03:00→23:00)
[2019-08-28] MEDS: VANCOMYCIN 1GM/NS 250 ML 250 ML IV SCH ×2 (03:00→15:00)
--- NOTE | 2019-08-28 05:42 | NUR ---
Received patient on Bipap, has remained on bipap the whole night, tachypneic saturations above 92 calm in bed, no complaints raised. Positive for covid 19
[2019-08-28] MEDS: METRONIDAZOLE 500MG/NS 100ML 100 ML IV SCH ×3 (06:00→21:08)
[2019-08-28] MEDS: CEFEPIME 2 GM/NS 0.9% 100 ML 100 ML IV SCH ×3 (06:00→23:15)
[2019-08-28 06:11] LABS: ALANINE AMINOTRANSFERASE 15 IU/L (0-55); ALBUMIN 2.1 g/dL (3.5-5.0); ALBUMIN/GLOBULIN RATIO 0.5 (0.8-2.0); ALKALINE PHOSPHATASE 50 IU/L (40-150); ANION GAP 13.3 mmol/L (8-16); BLOOD UREA NITROGEN 11 mg/dL (7-26); BUN/CREATININE RATIO 16 (6-25); CALCIUM 8.4 mg/dL (8.4-10.2); CARBON DIOXIDE 24 mmol/L (22-29); CHLORIDE 112 mmol/L (98-107); CREATININE, SERUM 0.69 mg/dL (0.72-1.25); EST GLOMERULAR FILTRATION RATE > 60 ML/MIN (60-); GLUCOSE 100 mg/dL (74-118); MAGNESIUM 2.4 MG/DL (1.3-2.1); PHOSPHORUS 3.1 MG/DL (2.3-4.7); POTASSIUM 4.3 mmol/L (3.5-5.1); SODIUM 145 mmol/L (136-145)
[2019-08-28 06:59] LABS: BASOPHILS % 0.1 % (0.0-1.0); EOSINOPHILS # (AUTO) 0.1 (0.0-0.4); EOSINOPHILS % 0.8 % (0.0-6.0); HEMATOCRIT 32.8 % (38.2-49.6); HEMOGLOBIN 11.3 g/dL (14.0-18.0); LYMPHOCYTES # (AUTO) 0.6 (1.0-3.2); LYMPHOCYTES % 6.5 % (18.0-39.1); MEAN CORPUSCULAR HGB CONC 34.5 g/dL (31-35); MEAN CORPUSCULAR VOLUME 84.3 fL (81-99); MONOCYTES # (AUTO) 0.5 (0.2-0.8); NEUTROPHILS # (AUTO) 8.5 (2.1-6.9); NEUTROPHILS % 86.6 % (38.7-80.0); PLATELET COUNT 388 x10e3/uL (140-360); RED BLOOD COUNT 3.89 x10e6/uL (4.3-5.7); RED CELL DISTRIBUTION WIDTH 13.2 % (11.7-14.4)
--- NOTE | 2019-08-28 08:00 | NUR ---
Took patient off BIPAP to asses for weaning. Placed patient on NRB mask at 100% with 15L flow. Patient rapidly deteriorated with increased RR 42 and decreased of Sp02 to 86%. I returned patient to BIPAP. Patient respiratory status improved on BIPAP. Patient is currently stable on BIPAP RN notified that only closed circuit/dual limb BIPAP/Vent is recommend for patients with positive COVID19.
[2019-08-28] MEDS: LOSARTAN POTASSIUM 100 MG TAB PO SCH ×2 (08:03→08:48)
[2019-08-28] MEDS: ASPIRIN 81 MG ENTERIC COATED PO SCH ×2 (08:03→08:48)
--- NOTE | 2019-08-28 09:58 | Diagnostic Imaging Report ---
EXAMINATION: CHEST SINGLE (PORTABLE) INDICATION: Respiratory distress COMPARISON: Chest CT 08/23/2019, chest radiograph 08/23/2019 FINDINGS: LINES/TUBES:EKG leads overlie the chest. LUNGS:Worsening bilateral airspace opacities left greater than right. PLEURA:No pleural effusion or pneumothorax. MEDIASTINUM:The cardiomediastinal silhouette appears unchanged in size and shape. Atherosclerotic calcifications of the thoracic aorta. BONES/SOFT TISSUES:No acute osseous injury. ABDOMEN:No free air under the diaphragm. IMPRESSION: Worsening bilateral airspace opacities. Signed by: Edu Whitney MD on 08/28/2019 9:54 AM
[2019-08-28] MEDS: AZITHROMYCIN 500MG/NS 250 ML 250 ML IV SCH (12:00)
--- NOTE | 2019-08-28 12:00 | Progress Note ---
DATE: SUBJECTIVE: Mr. Marcus' COVID-19 second test came back positive, which we suspected that. The patient has been on droplet isolation. His respiratory status remains about the same. His chest x-ray shows worsening opacities. PHYSICAL EXAMINATION: VITAL SIGNS: The patient is afebrile, but tachypneic. HEENT: He is not icteric. NECK: Supple. CHEST: Few crackles. IMPRESSION: 1. COVID-19, present on admission. 2. Acute respiratory distress syndrome, progressing. 3. Discussed with medical team, concerned about pneumonia. He is currently on vancomycin and cefepime. Supportive care as ordered. We will follow. MD PATRICK Oakley/MALIA /[id number]
--- NOTE | 2019-08-28 12:20 | NUR ---
1219: PT'S SPOUSE UPDATED ON PT'S CARE.
--- NOTE | 2019-08-28 15:07 | NUR ---
Pulmonary Medicine DATE 08/28/2019 SUBJECTIVE: not eating SOB, didnt come of bipap for more than a few minutes 15/8 bipap, 16 rr. 12 MV, leak 35, rr 28 REVIEW OF SYSTEMS: No weight changes. no rash OBJECTIVE: VITAL SIGNS: Vital signs as noted per the chart record. GENERAL: weak in bed , ao x 3 HEENT: Normocephalic and atraumatic. NECK: Supple. Throat midline. LUNGS: Bilateral air entry with no rhonchi. No jenni wheezes. CARDIOVASCULAR: S1, S2. No murmurs, rubs, or gallops. ABDOMEN: Soft, nontender. EXTREMITIES: No clubbing, no cyanosis. no edema. INTEGUMENT: No rash or purpura. LABORATORY DATA: k 4.3, cr 0.69. wbc 9.8. hct 33. plt 388. inr 1.09 IMPRESSION AND PLAN: 1. Hypoxemia, acute lung injury. ARDS in evolution 2. COVID pneumonitis 3. Hypoxemic respiratory failure, acute. bipap salvage 4. Reported diarrhea, possible antibiotic associated vs secondary to atypical infection. 5. History of hypertension. 6. History of throat cancer. 7. History of gastroesophageal reflux disease. 8. acute respiratory failure, bipap salvage Empiric antibiotics for pneumonia. oxygen per protocol. sparing doses of steroids prn, no redose now Important that patient receives positive pressure to lungs when dyspneic. he should NOT overwork his lungs --Bed positioning maneuvers encouraged --discussed advanced directives with the patient. Nursing discussed with the . need to clarify soon --bipap salvage, intubate if needed. --trial of diuretics --trial of steroid dosing DVT prophylaxis. Follow up markers of DIC and systemic inflammation closely. Thank you very much, Dr. Santos and Dr. Larose, for allowing me a chance to participate in care of Mr. Marcus. Please call for questions. >30 min direct care and assessment today, multiple coordination
[2019-08-28] MEDS ORDERED: FUROSEMIDE INJ 10 MG/ML 2 ML VIAL IV ONE (15:45)
[2019-08-28] MEDS: METHYLPREDNISOLONE SOD SUCC 125 MG/2ML VIAL IV SCH (16:45)
[2019-08-28] MEDS: ENOXAPARIN SOD INJ 40 MG/0.4 ML SYR SC SCH (16:45)
[2019-08-28] MEDS ORDERED: AMINO ACIDS IV SCH (17:00)
[2019-08-28] MEDS ORDERED: ELECTROLYTES IV SCH (17:00)
[2019-08-28] MEDS ORDERED: GLYCERIN IV SCH (17:00)
[2019-08-28] MEDS: PERIPHERAL TPN FORMULA 1 BAG IV SCH (19:40)
[2019-08-28] MEDS ORDERED: PERIPHERAL TPN FORMULA 1 BAG IV SCH (20:00)
[2019-08-28] MEDS ORDERED: SODIUM CHLORIDE 0.9% 250ML 250 ML ONE (20:59)
[2019-08-28] MEDS: ASCORBIC ACID 500 MG TAB PO SCH (21:00)
--- NOTE | 2019-08-28 23:06 | NUR ---
Read ABG results to Dr. Luciano. No new orders received. Addendum: 08/29/19 at 0238 by Donna Rai RN MD notified of tachypnea/O2 sats.
[2019-08-29] VITALS (28 sets, daily range): BP systolic 109–191; BP diastolic 62–87
[2019-08-29] MEDS: ALBUTEROL SULFATE HFA 8GM INHALATION AEROSOL INH SCH ×6 (03:00→23:00)
[2019-08-29] MEDS: METHYLPREDNISOLONE SOD SUCC 125 MG/2ML VIAL IV SCH (05:00)
[2019-08-29] MEDS: METRONIDAZOLE 500MG/NS 100ML 100 ML IV SCH ×3 (05:11→22:11)
[2019-08-29 05:24] LABS: BASOPHILS % 0.1 % (0.0-1.0); HEMATOCRIT 34.1 % (38.2-49.6); HEMOGLOBIN 11.5 g/dL (14.0-18.0); LYMPHOCYTES # (AUTO) 0.4 (1.0-3.2); LYMPHOCYTES % 2.9 % (18.0-39.1); MEAN CORPUSCULAR HEMOGLOBIN 28.8 pg (28-32); MEAN CORPUSCULAR HGB CONC 33.7 g/dL (31-35); MEAN CORPUSCULAR VOLUME 85.3 fL (81-99); MONOCYTES # (AUTO) 0.4 (0.2-0.8); MONOCYTES % 2.6 % (4.4-11.3); NEUTROPHILS # (AUTO) 13.9 (2.1-6.9); NEUTROPHILS % 93.7 % (38.7-80.0); PLATELET COUNT 396 x10e3/uL (140-360); RED CELL DISTRIBUTION WIDTH 13.2 % (11.7-14.4)
[2019-08-29 05:44] LABS: ANION GAP 13.1 mmol/L (8-16); BLOOD UREA NITROGEN 18 mg/dL (7-26); BUN/CREATININE RATIO 25 (6-25); CALCIUM 8.9 mg/dL (8.4-10.2); CARBON DIOXIDE 23 mmol/L (22-29); CHLORIDE 114 mmol/L (98-107); CREATININE, SERUM 0.72 mg/dL (0.72-1.25); EST GLOMERULAR FILTRATION RATE > 60 ML/MIN (60-); GLUCOSE 168 mg/dL (74-118); POTASSIUM 4.1 mmol/L (3.5-5.1); SODIUM 146 mmol/L (136-145)
[2019-08-29] MEDS: CEFEPIME 2 GM/NS 0.9% 100 ML 100 ML IV SCH ×3 (06:00→23:17)
[2019-08-29] MEDS: VANCOMYCIN 1GM/NS 250 ML 250 ML IV SCH ×2 (06:28→14:50)
[2019-08-29 08:08] LABS: ABG PCO2 35 mmHg (35-45)
[2019-08-29 08:09] LABS: ABG HCO3 21 mmol/L (21-29)
[2019-08-29 08:10] LABS: ABG BASE EXCESS -2.9 mmol/L (-2 - 3); ABG OXYGEN SATURATION 95.5 % (96-97)
--- NOTE | 2019-08-29 08:40 | NUR ---
RT IN RM. PT SWITCHED FROM BI-PAP TO NON-REBREATHER AT THIS TIME. O2 SAT 96%
[2019-08-29] MEDS: ASCORBIC ACID 500 MG TAB PO SCH ×3 (09:00→23:17)
[2019-08-29] MEDS: LOSARTAN POTASSIUM 100 MG TAB PO SCH (09:00)
[2019-08-29] MEDS: ASPIRIN 81 MG ENTERIC COATED PO SCH (09:00)
[2019-08-29] MEDS: ZINC SULFATE 50 MG CAP PO SCH (09:00)
--- NOTE | 2019-08-29 09:00 | NUR ---
PT REFUSED ZINC PO CAPSULES. PT STATES, "THEY ARE TO BIG."
--- NOTE | 2019-08-29 09:40 | NUR ---
SUPPLIES FOR MOUTH CARE GIVEN TO PT.
--- NOTE | 2019-08-29 10:06 | Diagnostic Imaging Report ---
EXAM: CHEST SINGLE (PORTABLE) DATE: 08/29/2019 5:00 AM INDICATION: Pneumonia, hypoxia COMPARISON: 08/28/2019 FINDINGS: The trachea is midline. Again identified are patchy bilateral, left greater than right-sided, airspace opacities which are grossly unchanged from the prior examination. There is no evidence for pneumothorax or significant pleural effusion. The cardiomediastinal silhouette is stable in appearance. No acute osseous abnormality is identified. IMPRESSION: No significant interval change from 08/28/2019. Grossly stable appearing bilateral airspace opacities. Signed by: Dr. Larry Lisa MD on 08/29/2019 10:03 AM
[2019-08-29] MEDS ORDERED: DEXTROSE 50% SYRINGE 50 ML IV PRN (11:15)
--- NOTE | 2019-08-29 11:20 | NUR ---
DR. ALEJANDRA AT BS SPEAKING WITH PT
[2019-08-29] MEDS: AZITHROMYCIN 500MG/NS 250 ML 250 ML IV SCH (11:52)
[2019-08-29] MEDS: INSULIN REGULAR, HUMAN 100 UNIT/1 ML 3ML VIAL SQ SCH ×3 (12:24→21:00)
--- NOTE | 2019-08-29 12:24 | NUR ---
REG INSULIN 3U SUB Q GIVEN TO PT'S RUE. PT TOLERATED WELL
--- NOTE | 2019-08-29 12:31 | NUR ---
DR. CAMPOS INFORMED OF PT'S LAB VALUES AND OVERALL CONDITION. DR. CAMPOS IN PT'S RM SPEAKING WITH PT
--- NOTE | 2019-08-29 13:11 | Progress Note ---
DATE: SUBJECTIVE: Mr. Marcus seems a bit better today. Oxygenation seems to be doing better. He seems more comfortable. He is complaining of difficulty with swallowing. There was yeast in the culture. LABORATORY DATA: His labs today; white count 14.7, hemoglobin 11. Sodium 146, creatinine 0.72. PHYSICAL EXAMINATION: GENERAL: He is currently alert, comfortable. VITAL SIGNS: Stable, currently afebrile. HEENT: Not icteric. NECK: Supple. CHEST: Clear. COR: S1, S2. No S3, S4, or murmur. ABDOMEN: Soft. IMPRESSION: 1. COVID-19 infection, acute pneumonia. 2. Concern to early acute respiratory distress syndrome. 3. Concern to esophagitis. We will start him on Diflucan. 4. Concern to healthcare associated pneumonia. Continue current IV antibiotic. Clinically, seems to be better. 5. The patient having some brownish sputum, coughing. I think that is progress bacterial pneumonia. Discussed with the patient. Clinically, seems to be getting better today. MD PATRICK Oakley/MALIA /[id number]
--- NOTE | 2019-08-29 13:51 | NUR ---
demonstrated to pt deep breathing exercises to increase spo2. encouraged pt not to take nrb off due to significant decreases in o2 sat. pt demonstarted deep breathing exercise. 02 sat 92%. will monitor closely.
--- NOTE | 2019-08-29 14:00 | NUR ---
Pulmonary Medicine DATE 08/29/2019 SUBJECTIVE: npo now off bipap ppn at 42/ hr iv bm x 1 slightly better CXR no changes, bilateral mod to large pneumonia REVIEW OF SYSTEMS: No weight changes. no rash OBJECTIVE: VITAL SIGNS: Vital signs as noted per the chart record. GENERAL: weak in bed , ao x 3 HEENT: Normocephalic and atraumatic. NECK: Supple. Throat midline. LUNGS: Bilateral air entry with no rhonchi. No jenni wheezes. CARDIOVASCULAR: S1, S2. No murmurs, rubs, or gallops. ABDOMEN: Soft, nontender. EXTREMITIES: No clubbing, no cyanosis. no edema. INTEGUMENT: No rash or purpura. LABORATORY DATA: k 4.1, hco3 23, cr 0.72. wbc 1.47. hct 34, plt 396 IMPRESSION AND PLAN: 1. Hypoxemia, acute lung injury. ARDS in evolution 2. COVID pneumonitis 3. Hypoxemic respiratory failure, acute. bipap salvage / off bipap? 4. diarrhea, COVID related 5. hypertension. 6. History of throat cancer. 7. gastroesophageal reflux disease. 8. acute respiratory failure, bipap salvage Empiric antibiotics for pneumonia., stop when ID ok oxygen per protocol. --escalate diet as feasible sparing doses of steroids prn, no redose now sparing doses of diuretics prn, not now Important that patient receives positive pressure to lungs when dyspneic. he should NOT overwork his lungs --Bed positioning maneuvers encouraged --discussed advanced directives with the patient. Nursing discussed with the . --bipap salvage prn, intubate prn. Hopefully he is starting to improve? DVT prophylaxis. Follow up markers of DIC and systemic inflammation closely. Thank you very much, Dr. Santos and Dr. Larose, for allowing me a chance to participate in care of Mr. Marcus. Please call for questions.
[2019-08-29] MEDS: FLUCONAZOLE 200 MG/100 ML 100 ML IV SCH (16:55)
[2019-08-29] MEDS: PERIPHERAL TPN FORMULA 1 BAG IV SCH (20:00)
[2019-08-29] MEDS: ENOXAPARIN INJ 80 MG/0.8 ML SYR SC SCH (22:10)
[2019-08-30] VITALS (16 sets, daily range): BP systolic 84–176; BP diastolic 57–92
[2019-08-30] MEDS: ALBUTEROL SULFATE HFA 8GM INHALATION AEROSOL INH SCH ×4 (03:00→15:00)
[2019-08-30] MEDS: VANCOMYCIN 1GM/NS 250 ML 250 ML IV SCH ×2 (04:00→15:21)
[2019-08-30 04:38] LABS: BASOPHILS % 0.1 % (0.0-1.0); HEMATOCRIT 35.9 % (38.2-49.6); HEMOGLOBIN 11.9 g/dL (14.0-18.0); LYMPHOCYTES # (AUTO) 0.6 (1.0-3.2); LYMPHOCYTES % 2.4 % (18.0-39.1); MEAN CORPUSCULAR HEMOGLOBIN 28.4 pg (28-32); MEAN CORPUSCULAR HGB CONC 33.1 g/dL (31-35); MEAN CORPUSCULAR VOLUME 85.7 fL (81-99); MONOCYTES # (AUTO) 1.1 (0.2-0.8); MONOCYTES % 4.3 % (4.4-11.3); NEUTROPHILS # (AUTO) 24.5 (2.1-6.9); NEUTROPHILS % 92.4 % (38.7-80.0); PLATELET COUNT 418 x10e3/uL (140-360); RED BLOOD COUNT 4.19 x10e6/uL (4.3-5.7); RED CELL DISTRIBUTION WIDTH 13.2 % (11.7-14.4)
[2019-08-30 04:56] LABS: BLOOD UREA NITROGEN 23 mg/dL (7-26); BUN/CREATININE RATIO 34 (6-25); CALCIUM 8.8 mg/dL (8.4-10.2); CARBON DIOXIDE 20 mmol/L (22-29); CHLORIDE 121 mmol/L (98-107); CREATININE, SERUM 0.68 mg/dL (0.72-1.25); EST GLOMERULAR FILTRATION RATE > 60 ML/MIN (60-); GLUCOSE 151 mg/dL (74-118); SODIUM 150 mmol/L (136-145)
[2019-08-30] MEDS: METRONIDAZOLE 500MG/NS 100ML 100 ML IV SCH ×3 (06:00→21:42)
[2019-08-30] MEDS: LOSARTAN POTASSIUM 100 MG TAB PO SCH (06:00)
[2019-08-30] MEDS: CEFEPIME 2 GM/NS 0.9% 100 ML 100 ML IV SCH ×3 (06:33→21:42)
[2019-08-30] MEDS: INSULIN REGULAR, HUMAN 100 UNIT/1 ML 3ML VIAL SQ SCH ×4 (07:30→23:00)
--- NOTE | 2019-08-30 09:01 | NUR ---
Spoke with Dr Luciano, made aware of patient condition and VS. Orders rec'd. PRN Hydralazine IV administered. RT to bedside.
[2019-08-30] MEDS ORDERED: HYDRALAZINE HCL 20 MG/ML VIAL IV PRN (09:15)
[2019-08-30] MEDS: ASCORBIC ACID 500 MG TAB PO SCH ×3 (09:36→21:00)
[2019-08-30] MEDS: ZINC SULFATE 50 MG CAP PO SCH (09:36)
[2019-08-30] MEDS: ASPIRIN 81 MG ENTERIC COATED PO SCH (09:36)
[2019-08-30] MEDS: ENOXAPARIN INJ 80 MG/0.8 ML SYR SC SCH ×2 (09:37→21:00)
[2019-08-30] MEDS ORDERED: EPINEPHRINE HCL SYRINGE ONE (10:51)
[2019-08-30] MEDS ORDERED: PROPOFOL IV EMULSION 10MG/ML 100 ML ONE ×2 (10:52→15:59)
[2019-08-30] MEDS ORDERED: SUCCINYLCHOLINE 200 MG/10 ML SYR IV STA (12:56)
[2019-08-30] MEDS ORDERED: VECURONIUM BROMIDE FOR INJ 20 MG VIAL IV STA (13:09)
[2019-08-30] MEDS ORDERED: ETOMIDATE 2 MG/ML 10 ML INJ IV ONE (13:15)
[2019-08-30] MEDS ORDERED: METHYLPREDNISOLONE SOD SUCC 40 MG/ML VIAL 1ML IV ONE (13:15)
[2019-08-30] MEDS ORDERED: FUROSEMIDE INJ 10 MG/ML 2 ML VIAL IV ONE (13:15)
--- NOTE | 2019-08-30 13:57 | NUR ---
Pulmonary Medicine DATE 08/30/2019 SUBJECTIVE: patient worse. daughter in law updated. on NRB much of yesterday. some bipap today, poor tolerance due to dryness/salivary issues eventually needing intubation this AM. he was not ready for extended palliation. no difficulty on tube insertion reported. on ppn 42/hr REVIEW OF SYSTEMS: No weight changes. no rash OBJECTIVE: VITAL SIGNS: Vital signs as noted per the chart record. GENERAL: increased RR HEENT: Normocephalic and atraumatic. NECK: Supple. Throat midline. LUNGS: Bilateral air entry with no rhonchi. No jenni wheezes. CARDIOVASCULAR: S1, S2. No murmurs, rubs, or gallops. ABDOMEN: Soft, nontender. EXTREMITIES: No clubbing, no cyanosis. no edema. INTEGUMENT: No rash or purpura. LABORATORY DATA: k 4.0, cr 0.68. wbc 27, hct 35, plt 418 IMPRESSION AND PLAN: 1. Hypoxemia, acute lung injury. ARDS 2. COVID pneumonitis 3. Hypoxemic respiratory failure, acute. bipap salvage / off bipap? 4. diarrhea, COVID related 5. hypertension. 6. History of throat cancer. 7. gastroesophageal reflux disease. 8. acute respiratory failure, intubated Intubated Ventilator management, start PEEP 10, routinely titrate FIO2 first and then PEEP Empiric antibiotics per ID finish PPN start NGT feeds sparing doses of steroids prn, rx 1 dose sparing doses of diuretics, rx 1 dose DVT prophylaxis. Follow up markers of DIC and systemic inflammation closely. Empiric anticoagulation Very guarded prognosis, single organ failure Thank you very much, Dr. Santos and Dr. Larose, for allowing me a chance to participate in care of Mr. Marcus. Please call for questions.
--- NOTE | 2019-08-30 13:58 | NUR ---
PULMONARY/CCM >80 MIN IN DIRECT care today, coordination and management. see associated progress note from today 08/30/19 for further details.
[2019-08-30] MEDS: AZITHROMYCIN 500MG/NS 250 ML 250 ML IV SCH (14:05)
[2019-08-30] MEDS ORDERED: METOPROLOL TARTRATE INJ 1 MG/ML VIAL IV PRN (14:30)
--- NOTE | 2019-08-30 14:50 | Diagnostic Imaging Report ---
History: Status post endotracheal intubation, viral pneumonia Comparison: 08/29/2019 Findings: Interval endotracheal intubation. The tip of the endotracheal tube is 3.4 cm proximal to the shruthi. There is moderate subcutaneous emphysema in the neck. This appears new since the prior study. No pneumothorax is identified. There are diffuse bilateral pulmonary opacities, similar in appearance allowing for differences in technique. No pleural effusions or pneumothorax are identified. Heart shadow normal in size. Thoracic aorta tortuous. Partially imaged nasogastric tube passes below the diaphragm with the tip in the region of the stomach or duodenum. Signed by: Antwon Mario MD on 08/30/2019 2:47 PM
[2019-08-30] MEDS: FLUCONAZOLE 200 MG/100 ML 100 ML IV SCH (17:54)
[2019-08-30] MEDS: PROPOFOL IV EMULSION 10MG/ML 100 ML IV SCH (17:54)
--- NOTE | 2019-08-30 18:50 | Progress Note ---
DATE: SUBJECTIVE: Mr. Marcus is getting progressively worse. He is going to be intubated, discussed with critical care. He is on full-dose Lovenox. His blood cultures showed enterococcus. Sputum showed Bess parapsilosis. His white count today is 26, hemoglobin 11.9. Clostridium difficile is negative. COVID was positive. PHYSICAL EXAMINATION: GENERAL: He is intubated. VITAL SIGNS: Stable. HEENT: Not icteric. CHEST: Few crackles. COR: S1, S2. ABDOMEN: Soft. IMPRESSION: 1. Sepsis. 2. Respiratory failure. 3. The patient comes in with COVID-19, bacteremia contamination versus true. The patient is currently on vancomycin and cefepime. Continue the same. 4. Hypernatremia, to be addressed by critical care. 5. Diabetes. We will follow. Beverley Mckinney MD ZS/MODL /[id number]
--- NOTE | 2019-08-30 19:12 | Diagnostic Imaging Report ---
EXAMINATION: CHEST SINGLE (PORTABLE) INDICATION: ^compare ^[id number] ^[id number] COMPARISON: None FINDINGS: AP view TUBES and LINES: Stable position of the endotracheal and infradiaphragmatic NG/OG tube. LUNGS: Lungs are well inflated. Worsening diffuse bilateral central and peripheral consolidations. PLEURA: No pleural effusion or pneumothorax. HEART AND MEDIASTINUM: The cardiomediastinal silhouette is unremarkable. BONES AND SOFT TISSUES: No acute osseous lesion. Soft tissues are unremarkable. UPPER ABDOMEN: No free air under the diaphragm. IMPRESSION: Worsening diffuse bilateral central and peripheral consolidations. Signed by: Dr. Rae Figueroa M.D. on 08/30/2019 7:09 PM
[2019-08-30] MEDS: PERIPHERAL TPN FORMULA 1 BAG IV SCH (20:29)
[2019-08-30] MEDS: HYDROXYCHLOROQUINE SULFATE 200 MG TAB PO SCH (21:00)
[2019-08-31] VITALS (25 sets, daily range): BP systolic 85–152; BP diastolic 50–80
[2019-08-31 00:14] LABS: HEMOGLOBIN 9.7 g/dL (14.0-18.0)
[2019-08-31] MEDS: VANCOMYCIN 1GM/NS 250 ML 250 ML IV SCH ×2 (03:39→15:00)
[2019-08-31 05:38] LABS: BASOPHILS % 0.1 % (0.0-1.0); HEMATOCRIT 28.7 % (38.2-49.6); HEMOGLOBIN 9.5 g/dL (14.0-18.0); LYMPHOCYTES # (AUTO) 0.7 (1.0-3.2); LYMPHOCYTES % 3.7 % (18.0-39.1); MEAN CORPUSCULAR HGB CONC 33.1 g/dL (31-35); MEAN CORPUSCULAR VOLUME 87.5 fL (81-99); MONOCYTES # (AUTO) 0.8 (0.2-0.8); MONOCYTES % 4.2 % (4.4-11.3); NEUTROPHILS # (AUTO) 16.6 (2.1-6.9); NEUTROPHILS % 91.3 % (38.7-80.0); PLATELET COUNT 288 x10e3/uL (140-360); RED BLOOD COUNT 3.28 x10e6/uL (4.3-5.7); RED CELL DISTRIBUTION WIDTH 13.9 % (11.7-14.4)
[2019-08-31] MEDS: CEFEPIME 2 GM/NS 0.9% 100 ML 100 ML IV SCH ×3 (06:00→22:02)
[2019-08-31] MEDS: METRONIDAZOLE 500MG/NS 100ML 100 ML IV SCH (06:00)
[2019-08-31 06:01] LABS: ALANINE AMINOTRANSFERASE 8 IU/L (0-55); ALBUMIN 1.8 g/dL (3.5-5.0); ALBUMIN/GLOBULIN RATIO 0.5 (0.8-2.0); ALKALINE PHOSPHATASE 52 IU/L (40-150); ANION GAP 8.5 mmol/L (8-16); BLOOD UREA NITROGEN 35 mg/dL (7-26); BUN/CREATININE RATIO 41 (6-25); CALCIUM 7.9 mg/dL (8.4-10.2); CARBON DIOXIDE 23 mmol/L (22-29); CHLORIDE 124 mmol/L (98-107); CREATINE KINASE 27 IU/L (30-200); CREATININE, SERUM 0.85 mg/dL (0.72-1.25); EST GLOMERULAR FILTRATION RATE > 60 ML/MIN (60-); GLUCOSE 145 mg/dL (74-118); LACTATE DEHYDROGENASE 307 IU/L (125-220); MAGNESIUM 2.8 MG/DL (1.3-2.1); PHOSPHORUS 4.3 MG/DL (2.3-4.7); POTASSIUM 4.5 mmol/L (3.5-5.1); SODIUM 151 mmol/L (136-145)
--- NOTE | 2019-08-31 06:38 | NUR ---
Patient on sedation, fentanyl and propofol. Vitals stable
--- NOTE | 2019-08-31 06:53 | Consultation ---
DATE OF CONSULTATION: 08/29/2019 Pulmonary Medicine Consult REASON FOR REFERRAL: Abnormal chest radiography. HISTORY OF PRESENT ILLNESS: Mr. Marcus is a pleasant 64-year-old gentleman with DICTATION ENDS HERE MD BRANDON Vyas/MALIA /[id number]
[2019-08-31] MEDS: ALBUTEROL SULFATE HFA 8GM INHALATION AEROSOL INH SCH ×3 (07:00→11:27)
[2019-08-31] MEDS: ASPIRIN 81 MG ENTERIC COATED PO SCH (09:00)
[2019-08-31] MEDS: ASCORBIC ACID 500 MG TAB PO SCH ×3 (09:00→21:00)
[2019-08-31] MEDS: HYDROXYCHLOROQUINE SULFATE 200 MG TAB PO SCH ×2 (09:00→18:27)
[2019-08-31] MEDS: FAMOTIDINE 20 MG/2 ML VIAL IV SCH (09:00)
[2019-08-31] MEDS: LOSARTAN POTASSIUM 100 MG TAB PO SCH (09:00)
[2019-08-31] MEDS: ZINC SULFATE 50 MG CAP PO SCH (09:00)
[2019-08-31] MEDS: ENOXAPARIN INJ 80 MG/0.8 ML SYR SC SCH ×2 (09:00→21:00)
--- NOTE | 2019-08-31 10:07 | Diagnostic Imaging Report ---
EXAMINATION: CHEST SINGLE (PORTABLE) INDICATION: ^resp failure ^[id number] ^[id number] COMPARISON: 4 03/10/2004 at 02/09/2020 FINDINGS: AP view TUBES and LINES: Stable endotracheal and NG/OG tubes. LUNGS: Lungs are well inflated. Worsening bilateral, mainly peripheral, alveolar consolidations. PLEURA: No pleural effusion or pneumothorax. HEART AND MEDIASTINUM: The cardiac silhouette is prominent. Stable small amount of bilateral pneumomediastinum. BONES AND SOFT TISSUES: No acute osseous lesion. Moderate amount of subcutaneous emphysema in both supraclavicular regions remain unchanged. UPPER ABDOMEN: No free air under the diaphragm. IMPRESSION: Worsening bilateral mainly peripheral consolidations consistent with worsening bilateral pneumonia. Stable bilateral supraclavicular subcutaneous emphysema and small bilateral pneumomediastinum. Signed by: Dr. Rae Figueroa M.D. on 08/31/2019 10:04 AM
--- NOTE | 2019-08-31 13:29 | Progress Note ---
DATE: SUBJECTIVE: Mr. Marcus is in intensive care unit. He is intubated. LABORATORY DATA: Reviewed. His cultures showed Enterococcus. His white count is 18.19, hemoglobin 9.5 with a platelet of 288. His sodium 151, potassium 4.5 with a creatinine of 0.85. PHYSICAL EXAMINATION: GENERAL: He is intubated, sedated. VITAL SIGNS: Stable. There is no fever. HEENT: Normocephalic. CHEST: Few crackles. COR: S1 and S2. No S3, S4, or murmur. ABDOMEN: Soft. Bowel sounds present. No tenderness. EXTREMITIES: No edema. IMPRESSION: 1. COVID-19. 2. Respiratory failure. 3. Acute respiratory distress syndrome, bacteremia. 4. History of hypertension. 5. History of throat cancer, status post radiation, status post chemo years ago, which I think is adding to the current complicated situation we are dealing with him. Continue supportive care. MD PATRICK Oakley/MALIA /[id number]
[2019-08-31] MEDS: INSULIN REGULAR, HUMAN 100 UNIT/1 ML 3ML VIAL SQ SCH ×4 (13:51→18:26)
[2019-08-31] MEDS: VECURONIUM BROMIDE FOR INJ 20 MG VIAL IV PRN (14:00)
--- NOTE | 2019-08-31 16:09 | NUR ---
Pulmonary Medicine DATE 08/31/2019 SUBJECTIVE: 96% saturation low normal bp tube feeds 20/hr now propofol 20/ + fentanyl 175/. patient with mild awakening trial. 22/420/95/10. pk 27, mv 9, rrr 22 REVIEW OF SYSTEMS: No weight changes. no rash OBJECTIVE: VITAL SIGNS: Vital signs as noted per the chart record. GENERAL: intubated, on ventilator HEENT: Normocephalic and atraumatic. NECK: Supple. Throat midline. LUNGS: Bilateral air entry with no rhonchi. No jenni wheezes. CARDIOVASCULAR: S1, S2. No murmurs, rubs, or gallops. ABDOMEN: Soft, nontender. EXTREMITIES: No clubbing, no cyanosis. no edema. INTEGUMENT: No rash or purpura. LABORATORY DATA: k 4.5, cr 0.86. wbc 18, hct 28, plt 288. IMPRESSION AND PLAN: 1. Hypoxemia, acute lung injury. ARDS 2. COVID pneumonitis 3. Hypoxemic respiratory failure, acute. bipap salvage / off bipap? 4. diarrhea, COVID related 5. hypertension. 6. History of throat cancer. 7. gastroesophageal reflux disease. 8. acute respiratory failure, intubated 9. enterococcus bacteremia NOS Intubated Ventilator management, routinely titrate down FIO2 first and then PEEP Empiric antibiotics per ID Continue NGT feeds, dc PPN sparing doses of steroids prn sparing doses of diuretics DVT prophylaxis. Follow up markers of DIC and systemic inflammation closely. Empiric anticoagulation Very guarded prognosis, single organ failure Thank you very much, Dr. Santos and Dr. Larose, for allowing me a chance to participate in care of Mr. Marcus. Please call for questions.
[2019-08-31 17:00] LABS: ABG HCO3 22 mmol/L (22-26); ABG PCO2 47 mmHg (35-45); ABG PH 7.29 (7.35-7.45)
[2019-08-31] MEDS: FENTANYL CITRATE INJ 2,000 MCG in SODIUM CHLORIDE 0.9% 250ML 210 ML IV PRN (17:00)
[2019-08-31] MEDS: PROPOFOL IV EMULSION 10MG/ML 100 ML IV SCH ×2 (17:15→23:00)
[2019-08-31] MEDS ORDERED: ETOMIDATE 2 MG/ML 10 ML INJ IV ONE (17:28)
[2019-08-31] MEDS ORDERED: WATER STERILE 10 ML VIAL ONE (17:28)
[2019-08-31] MEDS ORDERED: SUCCINYLCHOLINE CHLORIDE 20 MG/ML 10ML VIAL ONE (17:28)
[2019-08-31] MEDS: FLUCONAZOLE 200 MG/100 ML 100 ML IV SCH (18:27)
[2019-09-01] VITALS (21 sets, daily range): BP systolic 98–149; BP diastolic 52–68
[2019-09-01] MEDS: VANCOMYCIN 1GM/NS 250 ML 250 ML IV SCH ×2 (03:00→14:12)
[2019-09-01] MEDS: FENTANYL CITRATE INJ 2,000 MCG in SODIUM CHLORIDE 0.9% 250ML 210 ML IV PRN (05:00)
[2019-09-01 05:55] LABS: BASOPHILS % 0.1 % (0.0-1.0); EOSINOPHILS # (AUTO) 0.1 (0.0-0.4); EOSINOPHILS % 0.7 % (0.0-6.0); HEMATOCRIT 31.2 % (38.2-49.6); HEMOGLOBIN 10.1 g/dL (14.0-18.0); LYMPHOCYTES # (AUTO) 0.6 (1.0-3.2); MEAN CORPUSCULAR HEMOGLOBIN 28.9 pg (28-32); MEAN CORPUSCULAR HGB CONC 32.4 g/dL (31-35); MEAN CORPUSCULAR VOLUME 89.4 fL (81-99); MONOCYTES # (AUTO) 0.7 (0.2-0.8); MONOCYTES % 4.5 % (4.4-11.3); NEUTROPHILS # (AUTO) 14.3 (2.1-6.9); NEUTROPHILS % 89.6 % (38.7-80.0); PLATELET COUNT 285 x10e3/uL (140-360); RED BLOOD COUNT 3.49 x10e6/uL (4.3-5.7); RED CELL DISTRIBUTION WIDTH 14.4 % (11.7-14.4)
[2019-09-01] MEDS: INSULIN REGULAR, HUMAN 100 UNIT/1 ML 3ML VIAL SQ SCH ×4 (06:00→18:00)
[2019-09-01] MEDS: CEFEPIME 2 GM/NS 0.9% 100 ML 100 ML IV SCH ×3 (06:00→22:30)
[2019-09-01 06:21] LABS: ANION GAP 10.2 mmol/L (8-16); BLOOD UREA NITROGEN 32 mg/dL (7-26); BUN/CREATININE RATIO 43 (6-25); CALCIUM 7.8 mg/dL (8.4-10.2); CARBON DIOXIDE 22 mmol/L (22-29); CHLORIDE 126 mmol/L (98-107); CREATININE, SERUM 0.74 mg/dL (0.72-1.25); EST GLOMERULAR FILTRATION RATE > 60 ML/MIN (60-); GLUCOSE 126 mg/dL (74-118); POTASSIUM 4.2 mmol/L (3.5-5.1); SODIUM 154 mmol/L (136-145)
[2019-09-01] MEDS: PROPOFOL IV EMULSION 10MG/ML 100 ML IV SCH ×3 (07:07→23:00)
[2019-09-01] MEDS: ASPIRIN 81 MG ENTERIC COATED PO SCH (08:06)
[2019-09-01] MEDS: ASCORBIC ACID 500 MG TAB PO SCH ×3 (08:37→21:30)
[2019-09-01] MEDS: FAMOTIDINE 20 MG/2 ML VIAL IV SCH (08:37)
[2019-09-01] MEDS: HYDROXYCHLOROQUINE SULFATE 200 MG TAB PO SCH ×2 (08:37→18:46)
[2019-09-01] MEDS: ZINC SULFATE 50 MG CAP PO SCH (08:38)
[2019-09-01] MEDS: ENOXAPARIN INJ 80 MG/0.8 ML SYR SC SCH ×2 (08:38→21:30)
[2019-09-01] MEDS: LOSARTAN POTASSIUM 100 MG TAB PO SCH (09:34)
[2019-09-01] MEDS: ALBUTEROL SULFATE HFA 8GM INHALATION AEROSOL INH SCH ×2 (09:34→09:35)
[2019-09-01] MEDS: WATER STERILE FOR IRRIG 1000 ML PLCT IR SCH ×2 (14:12→18:46)
--- NOTE | 2019-09-01 16:12 | Progress Note ---
DATE: History and Physical and Progress Note SUBJECTIVE: Mr. Marcus remains in Intensive Care Unit on the vent. However, his vent setting is improving. His oxygenation also seemed to show some sign of improvement. His white count is down to 16.01. PHYSICAL EXAMINATION: GENERAL: Intubated, sedated. VITAL SIGNS: Stable, running 101. HEENT: He is not icteric. NECK: Supple. CHEST: Crackles bilaterally. HEART: S1, S2. No S3, S4, murmurs. ABDOMEN: Soft. Positive bowel sounds. No tenderness. EXTREMITIES: No edema. IMPRESSION: 1. COVID-19 present on admission. 2. Respiratory failure. 3. Concern about aspiration pneumonia. PLAN: Continue with IV antibiotics as ordered. He is on cefepime and vancomycin for 7 days and fluconazole for additional 14 days for possibility of esophagitis. Continue supportive care. MD PATRICK Oakley/MALIA /[id number]
--- NOTE | 2019-09-01 16:15 | NUR ---
Pulmonary Medicine DATE 09/01/2019 SUBJECTIVE: 22/420/65/10 pk 18-30, mv 9 tube feeds 40/hr water 40q 2 hrs 92% sat hastings in place propofol 35/ fentanyl 175/ REVIEW OF SYSTEMS: No weight changes. no rash OBJECTIVE: VITAL SIGNS: Vital signs as noted per the chart record. GENERAL: intubated, on ventilator HEENT: Normocephalic and atraumatic. NECK: Supple. Throat midline. LUNGS: Bilateral air entry with no rhonchi. No jenni wheezes. CARDIOVASCULAR: S1, S2. No murmurs, rubs, or gallops. ABDOMEN: Soft, nontender. EXTREMITIES: No clubbing, no cyanosis. no edema. INTEGUMENT: No rash or purpura. LABORATORY DATA: k 4.2, cr 0.74. wbc 16, hct 31, plt 285. IMPRESSION AND PLAN: 1. Hypoxemia, acute lung injury. ARDS 2. COVID pneumonitis 3. Hypoxemic respiratory failure, acute. Intubated 4. diarrhea, COVID related 5. hypertension. 6. History of throat cancer. 7. gastroesophageal reflux disease. 8. acute respiratory failure, intubated 9. enterococcus bacteremia NOS Intubated Ventilator management, routinely titrate down FIO2 first and then PEEP Empiric antibiotics per ID Continue NGT feeds sparing doses of steroids prn sparing doses of diuretics mild water replacement DVT prophylaxis. Follow up markers of DIC and systemic inflammation closely. Empiric anticoagulation Very guarded prognosis, single organ failure Thank you very much, Dr. Santos and Dr. Larose, for allowing me a chance to participate in care of Mr. Marcus. Please call for questions.
[2019-09-01] MEDS: FLUCONAZOLE 200 MG/100 ML 100 ML IV SCH (16:54)
[2019-09-01] MEDS: ACETAMINOPHEN 325 MG TAB PO PRN (22:00)
[2019-09-02] VITALS (24 sets, daily range): BP systolic 84–147; BP diastolic 46–67
[2019-09-02] MEDS: FENTANYL CITRATE INJ 2,000 MCG in SODIUM CHLORIDE 0.9% 250ML 210 ML IV PRN ×2 (02:40→15:00)
[2019-09-02] MEDS: VANCOMYCIN 1GM/NS 250 ML 250 ML IV SCH ×2 (03:47→14:09)
[2019-09-02] MEDS: PROPOFOL IV EMULSION 10MG/ML 100 ML IV SCH ×4 (04:00→22:30)
[2019-09-02 05:27] LABS: BASOPHILS % 0.1 % (0.0-1.0); EOSINOPHILS # (AUTO) 0.3 (0.0-0.4); EOSINOPHILS % 1.8 % (0.0-6.0); HEMATOCRIT 30.7 % (38.2-49.6); HEMOGLOBIN 9.8 g/dL (14.0-18.0); LYMPHOCYTES # (AUTO) 0.9 (1.0-3.2); LYMPHOCYTES % 5.4 % (18.0-39.1); MEAN CORPUSCULAR HEMOGLOBIN 28.8 pg (28-32); MEAN CORPUSCULAR HGB CONC 31.9 g/dL (31-35); MEAN CORPUSCULAR VOLUME 90.3 fL (81-99); MONOCYTES # (AUTO) 0.4 (0.2-0.8); MONOCYTES % 2.4 % (4.4-11.3); NEUTROPHILS # (AUTO) 14.8 (2.1-6.9); PLATELET COUNT 218 x10e3/uL (140-360); RED CELL DISTRIBUTION WIDTH 14.6 % (11.7-14.4)
[2019-09-02 05:46] LABS: ANION GAP 9.3 mmol/L (8-16); BLOOD UREA NITROGEN 36 mg/dL (7-26); BUN/CREATININE RATIO 32 (6-25); CALCIUM 7.5 mg/dL (8.4-10.2); CARBON DIOXIDE 21 mmol/L (22-29); CHLORIDE 124 mmol/L (98-107); EST GLOMERULAR FILTRATION RATE > 60 ML/MIN (60-); GLUCOSE 140 mg/dL (74-118); POTASSIUM 4.3 mmol/L (3.5-5.1); SODIUM 150 mmol/L (136-145)
[2019-09-02 05:54] LABS: CREATININE, SERUM 1.14 mg/dL (0.72-1.25)
[2019-09-02] MEDS: INSULIN REGULAR, HUMAN 100 UNIT/1 ML 3ML VIAL SQ SCH ×5 (06:00→23:46)
[2019-09-02] MEDS: CEFEPIME 2 GM/NS 0.9% 100 ML 100 ML IV SCH ×2 (06:18→13:30)
[2019-09-02] MEDS: WATER STERILE FOR IRRIG 1000 ML PLCT IR SCH ×2 (06:18)
[2019-09-02] MEDS: FAMOTIDINE 20 MG/2 ML VIAL IV SCH (08:00)
[2019-09-02] MEDS: ENOXAPARIN INJ 80 MG/0.8 ML SYR SC SCH ×2 (08:00→20:37)
[2019-09-02] MEDS: LOSARTAN POTASSIUM 100 MG TAB PO SCH (09:00)
--- NOTE | 2019-09-02 10:15 | Diagnostic Imaging Report ---
EXAMINATION: CHEST SINGLE (PORTABLE) INDICATION: Endotracheal tube placement COMPARISON: Chest radiograph 08/31/2019 FINDINGS: LINES/TUBES:ET tube terminates 5.5 cm above the shruthi. Enteric tube with tip and side-port in the stomach. EKG leads overlie the chest. LUNGS:The lungs are moderately inflated. Persistent diffuse bilateral airspace opacities. PLEURA:No pleural effusion or pneumothorax. MEDIASTINUM:The cardiomediastinal silhouette appears normal in size and shape. BONES/SOFT TISSUES:No acute osseous injury. ABDOMEN:No free air under the diaphragm. IMPRESSION: Lines and tubes as above. Unchanged diffuse bilateral airspace opacities, consistent with pneumonia/ARDS. Signed by: Edu Whitney MD on 09/02/2019 10:12 AM
[2019-09-02] MEDS: ASPIRIN 81 MG ENTERIC COATED PO SCH (10:49)
[2019-09-02] MEDS: ASCORBIC ACID 500 MG TAB PO SCH ×3 (10:49→20:37)
[2019-09-02] MEDS: ZINC SULFATE 50 MG CAP PO SCH (10:49)
[2019-09-02] MEDS: HYDROXYCHLOROQUINE SULFATE 200 MG TAB PO SCH ×2 (10:49→16:06)
[2019-09-02] MEDS ORDERED: SODIUM CHLORIDE 0.9% 250ML 250 ML ONE (12:29)
[2019-09-02 12:35] LABS: ABG PH 7.34 (7.35-7.45)
[2019-09-02 12:36] LABS: ABG BASE EXCESS -5.1 mmol/L (-2 - 3); ABG HCO3 20 mmol/L (21-29); ABG OXYGEN SATURATION 92.4 % (96-97); ABG PCO2 38 mmHg (35-45)
--- NOTE | 2019-09-02 13:08 | NUR ---
Pulmonary Medicine DATE 09/02/2019 SUBJECTIVE: 22/420/60/12 7.34/38/67/20 tube feeds held, OGT out. 40cc/hr vital 1.2 water 35/hr + 600/day flushes SVT 9 beats REVIEW OF SYSTEMS: No weight changes. no rash OBJECTIVE: VITAL SIGNS: Vital signs as noted per the chart record. GENERAL: intubated, on ventilator HEENT: Normocephalic and atraumatic. NECK: Supple. Throat midline. LUNGS: Bilateral air entry with no rhonchi. No jenni wheezes. CARDIOVASCULAR: S1, S2. No murmurs, rubs, or gallops. ABDOMEN: Soft, nontender. EXTREMITIES: No clubbing, no cyanosis. no edema. INTEGUMENT: No rash or purpura. LABORATORY DATA: k 4.3, cr 1.14. wbc 16.6. hct 30, plt 218. IMPRESSION AND PLAN: 1. Hypoxemia, acute lung injury. ARDS 2. COVID pneumonitis 3. Hypoxemic respiratory failure, acute. Intubated 4. diarrhea, COVID related 5. hypertension. 6. History of throat cancer. 7. gastroesophageal reflux disease. 8. acute respiratory failure, intubated 9. enterococcus bacteremia NOS 10. SVT 8 beats Intubated maintain Ventilator management, routinely titrate down FIO2 first and then PEEP Empiric antibiotics per ID Continue NGT feeds sparing doses of steroids prn intermittent doses of diuretics, sparing fluid loading DVT prophylaxis. Follow up markers of DIC and systemic inflammation closely. Empiric anticoagulation Very guarded prognosis, single organ failure Thank you very much, Dr. Santos and Dr. Larose, for allowing me a chance to participate in care of Mr. Marcus. Please call for questions.
--- NOTE | 2019-09-02 13:57 | NUR ---
Nutrition Intervention Note RD Recommendation for Physician: - In light of Propofol dose, recommend TF change to Vital HP with goal rate of 50 ml/hr (provides 1200 kcal and 105 gm protein)- provides adequate protein. Additional kcal to come from Propofol. - Water flushes and fluid management per MD. Plan of Care: RD following, monitoring for tolerance and adequacy. TF rec's. Nutrition reason for involvement: Follow up Primary Diagnose(s): viral PNA, hypoxia, diarrhea, dehydration PMH: HTN, reflux, dyslipidemia, HTN, throat cancer GI: LBM 09/01 Skin: wound to face, no PU Labs: 09/01: Na 150, KJ 4.3, BUN 36, Cr 1.14, Gluc 140, POC Gluc 125-165, Ca 7.5 Meds: plaquenil, vitamin C 500 mg TID, zinc sulfate, pepcid, abx, zofran Ht: 69 in Wt: 185.31 lb BMI: 27.4 kg/m2 IBW: [address] Assessment: 09/01: Follow up. Pt re-evaluated today for follow up and now due to intubation. Pt intubated 08/29, remains on vent and sedated with propofol and fentanyl. No pressors currently. Pt on TF of Vital AF infusing at goal rate per documentation in chart. TF rec's discussed with SHIRA Kerns. Attempted to call MD, no answer. TF rec's provided pending pt continues on Propofol. Chart reviewed. Will continue to monitor. (08/26) 64 YOM admitted for viral PNA, hypoxia, diarrhea, and dehydration. Pt evaluated today per LOS. Pt PUI for Covid-19, test results remain pending. Unable to speak with pt via phone 2/2 very SOB and requiring BiPAP. 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 Pt with 75% meal intake prior to BiPAP use. Chart reviewed. Labs and meds reviewed. Will monitor and continue to follow. Malnutrition Evaluation (08/27/19) The patient does not meet criteria for a specified degree of malnutrition at this time. Will re-evaluate at follow-up as appropriate. Unable to complete assessment. Nutrition Prescription (Diet Order): TF of Vital AF at 50 ml/hr Estimated Nutritional Needs: 5211-5486 calories/day (18-20 kcal/kg CBW) 106-162 g protein/day (1.5-2 g pro/kg CBW) Diet Adequacy: Meeting calorie needs, not meeting protein needs Diet Tolerance: tolerating TF Diet Education Needs Assessment: Diet education not indicated at this time. Nutrition Care Level: Mod Nutrition Diagnosis: Inadequate energy and protein intake related to respiratory status as evidenced by progression of BiPAP to intubation currently requiring EN. Goal: Patient will meet 75-100% of estimated needs by follow up Progress: Progressing Interventions: - Composition, Rate, Route, IVF, Prescription medications, Recommended Modifications, Collaboration with other providers Monitoring/Evaluation: - Total energy intake, Total protein intake, Formula/Solution, Prescription medication Signed: Valarie Bridges RD, LD, CNSC
[2019-09-02] MEDS: FLUCONAZOLE 200 MG/100 ML 100 ML IV SCH (16:06)
--- NOTE | 2019-09-02 17:12 | NUR ---
Chest x ray ordered this AM along with KUB to check NGT and ETT placement. FIO2 weaned to 60%. Wound care order placed per protocol due to open skin breakdown noted on nose. Per Dr. Luciano cancel additional Water flushes q6 and decrease tube feeding hourly flushes to 25 ml/hr. TF goal 50ml/hr per Dr. Luciano. Pt had one loose BM during shift, marco care done. Will continue to monitor the patient.
--- NOTE | 2019-09-02 19:17 | Progress Note ---
DATE: SUBJECTIVE: Mr. Marcus remains in intensive care unit, intubated. PHYSICAL EXAMINATION: GENERAL: He is currently sedated. VITAL SIGNS: Stable, afebrile. His vent setting reviewed. HEENT: Not icteric. NECK: Supple. CHEST: Crackles, bilateral coarse. ABDOMEN: Soft. Bowel sounds present. No tenderness. EXTREMITIES: No edema. IMPRESSION: COVID-19 present on admission, respiratory failure, acute respiratory distress syndrome, concerned about aspiration pneumonia. I am going to discontinue the cefepime, vancomycin, and chloroquine. Reassess in the morning. We will follow up clinically. MD PATRICK Oakley/MALIA /[id number]
[2019-09-03] VITALS (25 sets, daily range): BP systolic 84–137; BP diastolic 48–71
[2019-09-03] MEDS: INSULIN REGULAR, HUMAN 100 UNIT/1 ML 3ML VIAL SQ SCH ×3 (06:00→18:00)
[2019-09-03 06:50] LABS: ANION GAP 10.6 mmol/L (8-16); CALCIUM 7.5 mg/dL (8.4-10.2); CREATININE, SERUM 2.72 mg/dL (0.72-1.25); POTASSIUM 4.6 mmol/L (3.5-5.1)
[2019-09-03] MEDS: LOSARTAN POTASSIUM 100 MG TAB PO SCH (08:29)
[2019-09-03] MEDS: ASCORBIC ACID 500 MG TAB PO SCH ×3 (08:32→21:33)
[2019-09-03] MEDS: PROPOFOL IV EMULSION 10MG/ML 100 ML IV SCH ×3 (08:33→18:25)
[2019-09-03] MEDS: ZINC SULFATE 50 MG CAP PO SCH (08:46)
[2019-09-03] MEDS: ASPIRIN 81 MG ENTERIC COATED PO SCH (08:46)
[2019-09-03] MEDS: FAMOTIDINE 20 MG/2 ML VIAL IV SCH (08:46)
[2019-09-03] MEDS: ENOXAPARIN INJ 80 MG/0.8 ML SYR SC SCH (08:46)
[2019-09-03] MEDS ORDERED: ALBUMIN 5% 0.05 GM/ML BTL IV ONE ×2 (11:15)
[2019-09-03] MEDS ORDERED: BUMETANIDE INJ 0.25MG/ML 4ML VIAL IV ONE (11:15)
[2019-09-03 12:34] LABS: CLARITY,URINE CLOUDY (CLEAR); COLOR,URINE YELLOW (YELLOW); LEUKOCYTE ESTERASE ,URINE NEGATIVE (NEGATIVE); NITRITE,URINE NEGATIVE (NEGATIVE)
[2019-09-03 12:35] LABS: BILIRUBIN,URINE NEGATIVE (NEGATIVE); KETONES,URINE TRACE (NEGATIVE); PROTEIN,URINE DIPSTICK 1+ (NEGATIVE); URINE UROBILINOGEN 0.2 mg/dL (0.2 - 1)
[2019-09-03 12:43] LABS: BACTERIA,URINE MANY /HPF; EPITHELIAL CELLS,URINE FEW /LPF; RBC,URINE 21-50 /HPF (0-5)
--- NOTE | 2019-09-03 12:58 | NUR ---
Pulmonary Medicine DATE 09/03/2019 SUBJECTIVE: 22/420/65/12 93% sat UOP dropped in the morning, creatinine elevated tube feeds 50/hr water 25/hr propofol 30/, fentanyl 100/hr REVIEW OF SYSTEMS: No weight changes. no rash OBJECTIVE: VITAL SIGNS: Vital signs as noted per the chart record. GENERAL: intubated, on ventilator HEENT: Normocephalic and atraumatic. NECK: Supple. Throat midline. LUNGS: Bilateral air entry with no rhonchi. No jenni wheezes. CARDIOVASCULAR: S1, S2. No murmurs, rubs, or gallops. ABDOMEN: Soft, nontender. EXTREMITIES: No clubbing, no cyanosis. no edema. INTEGUMENT: No rash or purpura. LABORATORY DATA: k 4.6, cr 2.7, bun 55. wbc 17,hct 31, plt 218 IMPRESSION AND PLAN: 1. Hypoxemia, acute lung injury. ARDS 2. COVID pneumonitis 3. Hypoxemic respiratory failure, acute. Intubated 4. diarrhea, COVID related 5. hypertension. 6. History of throat cancer. 7. gastroesophageal reflux disease. 8. acute respiratory failure, intubated 9. enterococcus bacteremia NOS 10. SVT 8 beats 11. jocy, ?toxic Intubated maintain Ventilator management, routinely titrate down FIO2 first and then PEEP Empiric antibiotics per ID Continue NGT feeds sparing doses of steroids prn intermittent doses of diuretics, sparing fluid loading DVT prophylaxis. Follow up markers of DIC and systemic inflammation closely. Empiric anticoagulation Very guarded prognosis Thank you very much, Dr. Santos and Dr. Larose, for allowing me a chance to participate in care of Mr. Marcus. Please call for questions.
--- NOTE | 2019-09-03 13:00 | Diagnostic Imaging Report ---
HISTORY: ^ELEVATED CREAT COMPARISON: None. TECHNIQUE: Grayscale and color spectral Doppler ultrasound of the kidneys and bladder. FINDINGS: The right kidney measures 11.9 x 6 x 4.4 cm. Cortical thickness measures 1.5 cm. Dromedary hump. No sonographically evident mass or hydronephrosis. Renal artery and vein are patent. The left kidney measures 11.6 x 6.5 x 6.1 cm. Cortical thickness measures 1.6 cm. Dromedary hump. No sonographically evident mass or hydronephrosis. Renal artery and vein are patent. Bladder: Unremarkable. IMPRESSION : Normal renal ultrasound. Signed by: Jeffery Candelario MD on 09/03/2019 12:57 PM
--- NOTE | 2019-09-03 13:05 | NUR ---
WOUND CARE CONSULT FOR 69 YO MALE HX OF VIRAL PNEU,HYPOXIA, DIARRHEA,DEHYDRATION STEPHANY 12 ON MODERATE PUP STATUS AND INTERVENTIONS AND ALTERNATING PRESSURE MATTRESS LABS: WBC-16.60 HGB_9.8 GLUCOSE-135 SKIN ASSESSMENT COMPLETE PATIENT PRESENTS WITH HEALING STAGE 2 PRESSURE INSULT R/T MASK AREA HAS NO DEPTH WITH NEW EPITHELIAL TISSUE PRESENT MEASUREMENT 2CM X.5CM SHINEY PINK SURFACE RECOMMENDATIONS: NURSING TO CONTINUE TO MAINTAIN STRICT PUP STATUS AND INTERVENTIONS AND ALTERNATING PRESSURE MATTRESS NURSING TO CONTINUE TO ASSIST PATIENT OUT OF BED FOR MEALS AND MUCH TOLERATED NURSING TO CONTINUE TO ASSIST PATIENT NEEDED WITH MEALS AND NUTRITIONAL SUPPLEMENTS TO ENSURE PROPER REQUIREMENTS FOR HEALING NURSING TO CONTINUE TO OFFLOAD FEET AND HEELS NEEDED WITH PILLOW SUSPENSION WHEN IN BED NURSING TO CLEAN AREA ON NOSE WITH NORMAL SALINE DAILY AND LEAVE OPEN TO AIR PROTENT WITH FOAM OR DUODERM IF MASK NEEDED AGAIN Addendum: 09/03/19 at 1314 by Georges Luna RN Amended: Links added.
--- NOTE | 2019-09-03 13:57 | Diagnostic Imaging Report ---
TECHNIQUE: Frontal view of the chest. INDICATION: ^ett ^[id number] ^[id number] COMPARISON: Prior day. IMPRESSION: Lines and hardware: Stable. Heart and mediastinum: Stable. Lungs and pleura: Slight improved aeration of the lung apices. Otherwise, stable bilateral patchy airspace opacities. No pleural effusion. No pneumothorax. Soft tissues and bones: No acute abnormality. Signed by: Jeffery Candelario MD on 09/03/2019 1:53 PM
[2019-09-03] MEDS ORDERED: DEXTROSE 5% 1,000 ML IV SCH (14:15)
[2019-09-03] MEDS: DEXTROSE 5% 1,000 ML IV SCH (15:45)
--- NOTE | 2019-09-03 16:41 | NUR ---
[facility] CALLED TO DR. OG
[2019-09-03] MEDS ORDERED: FLUCONAZOLE 100 MG/NS 50 ML 50 ML IV SCH (17:00)
[2019-09-03] MEDS: VECURONIUM BROMIDE FOR INJ 20 MG VIAL IV PRN ×2 (17:22→17:29)
--- NOTE | 2019-09-03 17:44 | NUR ---
Dr. Santos notified of low urine output and pt's AM creatinine and bun. RN reviewed pt's medications being given and doses were changed per Dr. Santos's orders. Dr. Luciano ordered proning for 12-16 hrs, Dr. Luciano aware of morning lab results. Orders given to consult Dr. Ramos. Dr. Ramos called and informed of new consult. Orders given for renal US, urinalysis, BNP, CK, Albumin and bumex. Dr. Ramos at bedside giving orders for NGT free water flushes and D5W drip. Pt desaturated while turning, FIO2 increased to 80% by respiratory at bedside. Will continue to monitor. Plans to prone patient at 1900.
--- NOTE | 2019-09-03 19:05 | NUR ---
Dr. Ramos informed of maintaining low urine output and poor access venous access. gave orders for trialysis catheter.
[2019-09-03 20:06] LABS: CREATININE,URINE RANDOM 109.61 mg/dL (63-166)
--- NOTE | 2019-09-03 20:17 | Consultation ---
DATE OF CONSULTATION: 09/03/2019 HISTORY OF PRESENT ILLNESS: This is a 64-year-old gentleman, currently in the ICU, critically ill with acute respiratory failure, hypoxia, underlying ARDS secondary to COVID-19 also bacteremic with enterococcus faecalis, complicated UTI with Bess in his urine, has worsening kidney function, decreased urine output, which is why renal has been consulted. He is currently intubated, sedated. He is not on any pressors. Has an indwelling Malagon catheter. Apparently for details as far as history of presenting illness is concerned please see Dr. Mckinney, Dr. Luciano and Dr. Santos's note, but apparently patient and his both attended a of their aunt, who of COVID-19 and then shortly a few days later started developing fever, diarrhea, headache, myalgia and cough, which is why he presented to the hospital and then progressive worsening of respiratory status was subsequently transferred to ICU and intubated, found to have COVID-19 positive. His is also COVID-19 positive in the hospital. He has past history of throat cancer status post XRT, history of prior hypertension, dyslipidemia. He is not a smoker. No history of any alcohol use. No history of recent kidney problem. LABORATORY TEST: At the moment shows a white count of 16.6 with 89% neutrophilia, 5.4% lymphocytes. Lymphocytes had been lower 2.4% on the and what appears to be on the differential the lymphocytes 0.6 and has persistently been a bit lymphopenic. His last blood gas done on the , 7.34, 38, 67, bicarb 20. His chemistry shows sodium 148, potassium 4.6, chloride 124, bicarbonate 18, anion gap 10.6, BUN 55, creatinine 2.7, glucose 135. He has a BNP level of 338. He has a C-reactive protein of 22.3. He has a CK of 338, and glucose of 135, has a calcium of 7.5. He has a BNP level of 22. He has an LDH of 349. He has a C-reactive protein which is elevated at 95, this was on the . ALLERGIES: HE HAS NO DRUG ALLERGIES. MEDICATIONS: He was on Plaquenil, which was stopped on the . He was on losartan, which was stopped today. His enoxaparin was DC'd also. He has was on vancomycin, which has been stopped as well. He is on cefepime, which was stopped earlier. But he has been on fluconazole, cefepime, and vancomycin. He is also receiving enteric-coated aspirin, ascorbic acid 500 mg daily. He is on enoxaparin 80 mg subcu daily. He is on Pepcid IV. He is on insulin sliding scale protocol, ondansetron p.r.n., metoprolol p.r.n., as well as zinc sulfate. His last Vanco level was 4 on the . Rheumatoid factor 33. EARL screen was negative. C diff was negative. Initially, he had presented with dehydration and diarrhea. Urine Legionella was negative. Initial coronavirus on the was negative and then on the it was repeated, it was positive. He has not had any noncontrast procedure done. His last CT chest was on the . Recently, he just had a kidney ultrasound, shows 11.9 cm and 11.6 cm kidneys. Bladder was unremarkable. SOCIAL HISTORY: As above. FAMILY HISTORY: Negative for kidney disease. PHYSICAL EXAMINATION: GENERAL: The patient remains intubated, bearded gentleman, sedated. VITAL SIGNS: Blood pressure 91/55, pulse rate 79, afebrile, oxygen saturation 95%. He is on 64% FiO2. Otherwise, orally intubated. LUNGS: Harsh vesicular breath sounds. Air entry equal bilaterally. HEART: S1, S2 audible. ABDOMEN: Soft, nontender. LOWER EXTREMITY: No edema. Ankle protectors noted. IMPRESSION AND PLAN: Hypernatremia, hyperkalemia, free water deficit. Sodium 148, chloride 124 with evidence of normal anion gap acidosis, likely distal renal tubular acidosis, multifactorial. Creatinine 2.7 started rising from the 13th. The patient has several episodes of hypotension, systolic blood pressure dropping in the 80s. I have sent urine studies included urine electrolytes. He has an elevated CK, enterococcus faecalis in the blood as well as urine culture positive. No recent blood gas with his multiorgan the etiology of hypernatremia, hyperkalemia, free water deficit, multifactorial acute rise in serum creatinine, likely due to ATN, probably perfusion related ischemic acute tubular necrosis due to hypotension, it could be due to sepsis as well. Must rule out drug toxicity. We will plan on obtaining a vancomycin level, must also rule out drug-induced nephropathies but there is no peripheral eosinophilia noted. Plan on hydrating entirely with free water. Discussed with RN. IV albumin for now. Start dextrose 5%. Consider repeating blood gas. Overall prognosis is extremely poor given his age, comorbidities, multiorgan failure, COVID positivity, enterococcus bacteremia. Currently no acute indications for dialysis. Discussed with Dr. Santos. Discussed with Dr. Mckinney. The LDH and CRP also impart a relatively poor prognosis given his COVID positivity and CT scan findings. Anyways, I will attempt to correct dehydration and convert oliguric phase to nonoliguric phase. Bere Ramos MD SAK/MODL /[id number]
[2019-09-03] MEDS: FENTANYL CITRATE INJ 2,000 MCG in SODIUM CHLORIDE 0.9% 250ML 210 ML IV PRN (20:51)
[2019-09-04] VITALS (23 sets, daily range): BP systolic 88–128; BP diastolic 51–70
[2019-09-04] MEDS: DEXTROSE 5% 1,000 ML IV SCH (00:39)
[2019-09-04] MEDS: PROPOFOL IV EMULSION 10MG/ML 100 ML IV SCH (01:51)
[2019-09-04] MEDS: INSULIN REGULAR, HUMAN 100 UNIT/1 ML 3ML VIAL SQ SCH ×6 (06:00→23:15)
[2019-09-04 06:20] LABS: BASOPHILS % 0.1 % (0.0-1.0); EOSINOPHILS # (AUTO) 0.3 (0.0-0.4); EOSINOPHILS % 1.9 % (0.0-6.0); HEMATOCRIT 30.7 % (38.2-49.6); HEMOGLOBIN 9.5 g/dL (14.0-18.0); LYMPHOCYTES # (AUTO) 0.8 (1.0-3.2); MEAN CORPUSCULAR HEMOGLOBIN 28.1 pg (28-32); MEAN CORPUSCULAR HGB CONC 30.9 g/dL (31-35); MEAN CORPUSCULAR VOLUME 90.8 fL (81-99); MONOCYTES # (AUTO) 0.5 (0.2-0.8); MONOCYTES % 3.7 % (4.4-11.3); NEUTROPHILS # (AUTO) 11.9 (2.1-6.9); NEUTROPHILS % 85.7 % (38.7-80.0); PLATELET COUNT 237 x10e3/uL (140-360); RED BLOOD COUNT 3.38 x10e6/uL (4.3-5.7); RED CELL DISTRIBUTION WIDTH 15.3 % (11.7-14.4)
[2019-09-04 06:25] LABS: ALBUMIN 1.3 g/dL (3.5-5.0); ALBUMIN/GLOBULIN RATIO 0.3 (0.8-2.0); ANION GAP 12.2 mmol/L (8-16); CREATININE, SERUM 4.57 mg/dL (0.72-1.25); POTASSIUM 5.2 mmol/L (3.5-5.1)
[2019-09-04] MEDS ORDERED: SOD POLYSTYRENE SULFONATE SUSP 15 GM/60 ML BTL PO ONE (08:10)
[2019-09-04] MEDS ORDERED: LACTULOSE SYRUP 20 GM/30 ML UDC PO ONE (08:10)
[2019-09-04] MEDS ORDERED: BUMETANIDE INJ 0.25MG/ML 4ML VIAL IV ONE (08:15)
[2019-09-04] MEDS ORDERED: NOREPINEPHRINE 8 MG/D5W 250 ML 250 ML ONE (08:44)
[2019-09-04] MEDS: ASPIRIN 81 MG ENTERIC COATED PO SCH (09:00)
[2019-09-04 09:21] LABS: ANISOCYTOSIS SLIGHT; EOSINOPHILS % (MANUAL) 4 % (0-7); LYMPHOCYTES % (MANUAL) 13 % (19-48); MONOCYTES % (MANUAL) 6 % (3.4-9.0); NEUTROPHILS % (MANUAL) 77 % (40-74); PLATELET ESTIMATE ADEQUATE; PLATELET MORPHOLOGY COMMENT FEW LARGE; RBC MORPHOLOGY COMMENT NORMAL
[2019-09-04 09:22] LABS: PLATELET CLUMPS FEW
[2019-09-04] MEDS ORDERED: MANNITOL 25% 12.5GM/50ML 50 ML ONE (09:33)
[2019-09-04] MEDS ORDERED: HEPARIN SOD (PORCINE) 1000 UNIT/ML SDV ONE (09:33)
[2019-09-04 09:46] LABS: INR 1.31; PROTHROMBIN TIME 17.2 seconds (11.9-14.5)
[2019-09-04] MEDS ORDERED: MANNITOL 25% 12.5GM/50 ML VIAL IV ONE (09:50)
[2019-09-04] MEDS: SODIUM BICARBONATE 8.4% 150 ML in DEXTROSE 5% 1,000 ML IV SCH ×2 (10:48→22:55)
[2019-09-04] MEDS: ENOXAPARIN INJ 80 MG/0.8 ML SYR SC SCH (10:48)
[2019-09-04] MEDS: FAMOTIDINE 20 MG/2 ML VIAL IV SCH (10:49)
[2019-09-04] MEDS: ASCORBIC ACID 500 MG TAB PO SCH ×3 (10:49→20:12)
--- NOTE | 2019-09-04 11:54 | NUR ---
Pulmonary Medicine DATE 09/04/2019 SUBJECTIVE: pressors started this AM levophed 10/ d5w + hco3 iv at 70/hr fentanyl 200/ propofol 25/ REVIEW OF SYSTEMS: No weight changes. no rash OBJECTIVE: VITAL SIGNS: Vital signs as noted per the chart record. GENERAL: intubated, on ventilator HEENT: Normocephalic and atraumatic. NECK: Supple. Throat midline. LUNGS: Bilateral air entry with no rhonchi. No jenni wheezes. CARDIOVASCULAR: S1, S2. No murmurs, rubs, or gallops. ABDOMEN: Soft, nontender. EXTREMITIES: No clubbing, no cyanosis. no edema. INTEGUMENT: No rash or purpura. LABORATORY DATA: k 5.2, cr 4.5. hco3 17. wbc 14, hct 31, plt 237. IMPRESSION AND PLAN: 1. Hypoxemia, acute lung injury. ARDS 2. COVID pneumonitis 3. Hypoxemic respiratory failure, acute. Intubated 4. diarrhea, COVID related 5. hypertension. 6. History of throat cancer. 7. gastroesophageal reflux disease. 8. acute respiratory failure, intubated 9. enterococcus bacteremia NOS 10. SVT 8 beats 11. JULIETTE, ?toxic 12. shock, distributive/septic Intubated maintain Ventilator management, routinely titrate down FIO2 first and then PEEP Pressors titrate Continue proning, goal 16 hrs / day Empiric antibiotics per ID Continue NGT feeds sparing doses of steroids prn intermittent doses of diuretics, sparing fluid loading DVT prophylaxis. Follow up markers of DIC and systemic inflammation closely. Empiric anticoagulation Thank you very much, Dr. Santos and Dr. Larose, for allowing me a chance to participate in care of Mr. Marcus. Please call for questions.
--- NOTE | 2019-09-04 12:08 | Diagnostic Imaging Report ---
PROCEDURE: Non-tunneled dialysis catheter placement Procedural Personnel Attending physician(s): Edu Whitney MD Fellow physician(s): None Resident physician(s): None Advanced practice provider(s): None Pre-procedure diagnosis: Acute kidney injury, hypotension Post-procedure diagnosis: Same Indication: Performance of hemodialysis Additional clinical history: None Complications: No immediate complications. IMPRESSION: Insertion of right-sided non-tunneled triple-lumen temporary dialysis catheter. Plan: Chest radiograph to confirm positioning prior to use. PROCEDURE SUMMARY: - Venous access with ultrasound guidance - Non-tunneled central venous catheter insertion with sonographic guidance - Additional procedure(s): None PROCEDURE DETAILS: Pre-procedure Consent: Informed consent for the procedure including risks, benefits and alternatives was obtained and time-out was performed prior to the procedure. Preparation (MIPS): The site was prepared and draped using all elements of maximal sterile barrier technique including sterile gloves, sterile gown, cap, mask, large sterile sheet, sterile ultrasound probe cover, hand hygiene and cutaneous antisepsis with 2% chlorhexidine. Medical reason for site preparation exception (MIPS): Not applicable Anesthesia/sedation Level of anesthesia/sedation: No sedation Anesthesia/sedation administered by: Independent trained observer under attending supervision with continuous monitoring of the patient?s level of consciousness and physiologic status Access Local anesthesia was administered. The vessel was sonographically evaluated and determined to be patent. Real time ultrasound was used to visualize needle entry into the vessel and a permanent image was stored. Vein accessed: Internal jugular vein Access technique: Micropuncture set with 21 gauge needle Catheter placement The access site was dilated and the catheter was placed into the vein over a wire. A sterile dressing was applied. Catheter placed: Bard Trialysis Catheter size (Hungarian): 14 Catheter length (cm): 15 Catheter flush: Heparin (1000 units/mL) Catheter securement technique: Non-absorbable suture Contrast Contrast agent: None Contrast volume (mL): NA Radiation Dose None Additional Details Additional description of procedure: None Equipment details: None Specimens removed: None Estimated blood loss (mL): Less than 10 Standardized report: [email or web address] Attestation Signer name: Edu Whitney MD I attest that I was present for the entire procedure. I reviewed the stored images and agree with the report as written. Signed by: Edu Whitney MD on 09/04/2019 12:05 PM
--- NOTE | 2019-09-04 12:16 | Diagnostic Imaging Report ---
EXAMINATION: CHEST XRAY LINE PLACEMENT INDICATION: Line placement COMPARISON: Chest radiograph 09/03/2019 FINDINGS: LINES/TUBES:Endotracheal tube terminates 5.5 cm above the shruthi. Interval placement of right IJ temporary dialysis catheter with tip in the superior vena cava. Enteric tube courses below the diaphragm with side port in the stomach and tip not visualized. EKG leads overlie the chest. LUNGS:Lung volumes are low. Unchanged bilateral airspace and interstitial opacities. PLEURA:No pleural effusion or pneumothorax. MEDIASTINUM:The cardiomediastinal silhouette appears unchanged in size and shape. Atherosclerotic calcifications of the thoracic aorta. BONES/SOFT TISSUES:No acute osseous injury. ABDOMEN:No free air under the diaphragm. IMPRESSION: Right IJ nontunneled dialysis catheter terminates in the superior vena cava. Catheter is ready for immediate use. Other lines and tubes unchanged. Unchanged bilateral airspace and interstitial opacities, consistent with known atypical pneumonia. Signed by: Edu Whitney MD on 09/04/2019 12:12 PM
--- NOTE | 2019-09-04 13:00 | Progress Note ---
DATE: SUBJECTIVE: Mr. Marcus remains in intensive care unit, intubated. Discussed with Pulmonary. Discuss with Renal. His vent settings reviewed. Laboratory data reviewed. OBJECTIVE: VITAL SIGNS: Reviewed. No fever. Heart rate 123, respirations 22. HEENT: Intubated and sedated. CHEST: Few rhonchi. HEART: S1 and S2. ABDOMEN: Soft. LABORATORY DATA: His white count is 13.93, hemoglobin 9.5. Sodium 133, potassium 4.2 with creatinine 4.6. IMPRESSION: 1. Coronavirus disease 2019 pneumonia. 2. Acute respiratory distress syndrome. 3. Oahhw-jb-yavtvwx kidney disease. 4. History of throat cancer, status post radiation. PLAN: Continue supportive care. Recheck CBC. Recheck Chem panel. MD PATRICK Oakley/MODL /[id number]
[2019-09-04] MEDS ORDERED: SODIUM CHLORIDE 0.9% 1000ML 1,000 ML ONE (13:11)
[2019-09-04] MEDS: FUROSEMIDE INJ 400 MG in MANNITOL 20% 500ML 500 ML IV SCH (14:00)
[2019-09-04] MEDS ORDERED: SODIUM CHLORIDE 0.9% 1000ML 1,000 ML IV ONE (15:40)
--- NOTE | 2019-09-04 19:00 | NUR ---
Report received from Herb Barfield RN.
[2019-09-04] MEDS: PROPOFOL IV EMULSION 10 MG/ML 50 ML VIAL IV SCH (20:13)
--- NOTE | 2019-09-04 21:00 | NUR ---
Please note that when turning position is documented as "CHAIR" it means the pt is in PRONE position per MD orders.
[2019-09-04] MEDS ORDERED: ONDANSETRON HCL INJ 2MG/ML 2ML 2 MG/ML VIAL IV PRN (21:30)
[2019-09-05] VITALS (22 sets, daily range): BP systolic 84–162; BP diastolic 50–82
--- NOTE | 2019-09-05 | NUR ---
Pts son and daughter in law present on outside of hospital (pts room window) viewing the pt. (D/t COVID-19 visitation restrictions.)
[2019-09-05] MEDS: PROPOFOL IV EMULSION 10 MG/ML 50 ML VIAL IV SCH ×2 (01:15→20:06)
[2019-09-05] MEDS: FENTANYL CITRATE INJ 2,000 MCG in SODIUM CHLORIDE 0.9% 250ML 210 ML IV PRN ×2 (01:39→20:06)
[2019-09-05 05:50] LABS: BASOPHILS % 0.1 % (0.0-1.0); EOSINOPHILS # (AUTO) 0.1 (0.0-0.4); EOSINOPHILS % 1.1 % (0.0-6.0); HEMATOCRIT 27.6 % (38.2-49.6); LYMPHOCYTES # (AUTO) 0.5 (1.0-3.2); LYMPHOCYTES % 4.8 % (18.0-39.1); MEAN CORPUSCULAR HEMOGLOBIN 29.1 pg (28-32); MEAN CORPUSCULAR HGB CONC 32.6 g/dL (31-35); MEAN CORPUSCULAR VOLUME 89.3 fL (81-99); MONOCYTES # (AUTO) 0.6 (0.2-0.8); MONOCYTES % 5.4 % (4.4-11.3); NEUTROPHILS # (AUTO) 9.6 (2.1-6.9); NEUTROPHILS % 86.2 % (38.7-80.0); PLATELET COUNT 235 x10e3/uL (140-360); RED BLOOD COUNT 3.09 x10e6/uL (4.3-5.7); RED CELL DISTRIBUTION WIDTH 15.5 % (11.7-14.4)
[2019-09-05] MEDS: INSULIN REGULAR, HUMAN 100 UNIT/1 ML 3ML VIAL SQ SCH ×3 (06:00→18:00)
[2019-09-05 06:14] LABS: ANION GAP 15.9 mmol/L (8-16); CALCIUM 7.6 mg/dL (8.4-10.2); CREATININE, SERUM 5.66 mg/dL (0.72-1.25); POTASSIUM 5.9 mmol/L (3.5-5.1)
--- NOTE | 2019-09-05 07:00 | NUR ---
Bedside report given to Herb Barfield RN. Reminded him the 12 hour shlomo for prone position stops at 0900.
[2019-09-05 07:51] LABS: MAGNESIUM 2.2 MG/DL (1.3-2.1); PHOSPHORUS 9.6 MG/DL (2.3-4.7)
[2019-09-05] MEDS: ASPIRIN 81 MG ENTERIC COATED PO SCH (09:00)
[2019-09-05] MEDS: FAMOTIDINE 20 MG/2 ML VIAL IV SCH (09:43)
[2019-09-05] MEDS: FUROSEMIDE INJ 400 MG in MANNITOL 20% 500ML 500 ML IV SCH (09:43)
[2019-09-05 09:54] LABS: ALBUMIN 1.2 g/dL (3.5-5.0); BILIRUBIN,DIRECT 0.8 mg/dL (0.0-0.5)
--- NOTE | 2019-09-05 09:57 | Diagnostic Imaging Report ---
EXAM: CHEST SINGLE (PORTABLE) DATE: 09/05/2019 5:00 AM INDICATION: Pneumonia COMPARISON: 09/04/2019 FINDINGS: Endotracheal tube terminates approximately 5.5 cm above the shruthi. Right IJ tunnel dialysis catheter identified in stable position. Enteric tube noted coursing below the diaphragm. There are unchanged diffusely increased airspace and interstitial opacities present bilaterally. There is no evidence for pneumothorax or significant pleural effusion. The cardiomediastinal silhouette is partially obscured but appears grossly stable in appearance. No acute osseous abnormality is identified. IMPRESSION: No significant interval change from 09/04/2019. Unchanged diffusely increased bilateral airspace and interstitial opacities. Signed by: Dr. Larry Lisa MD on 09/05/2019 9:54 AM
[2019-09-05 10:32] LABS: EOSINOPHILS % (MANUAL) 1 % (0-7); LYMPHOCYTES % (MANUAL) 6 % (19-48); MONOCYTES % (MANUAL) 11 % (3.4-9.0); MYELOCYTES % (MANUAL) 1 % (0-0); NEUTROPHILS % (MANUAL) 76 % (40-74); NUCLEATED RED BLOOD CELLS 2
[2019-09-05 10:33] LABS: ANISOCYTOSIS SLIGHT; PLATELET ESTIMATE ADEQUATE; PLATELET MORPHOLOGY COMMENT FEW EDTA CLUMPING; RBC MORPHOLOGY COMMENT NORMAL
[2019-09-05 10:34] LABS: METAMYELOCYTES % (MANUAL) 3 % (0-0)
[2019-09-05] MEDS ORDERED: INSULIN REGULAR, HUMAN 100 UNIT/1 ML 3ML VIAL IV ONE (10:45)
[2019-09-05] MEDS ORDERED: DEXTROSE 50% SYRINGE 50 ML IV ONE (10:45)
[2019-09-05] MEDS ORDERED: LACTULOSE SYRUP 20 GM/30 ML UDC PO ONE (11:00)
[2019-09-05] MEDS ORDERED: SOD POLYSTYRENE SULFONATE SUSP 15 GM/60 ML BTL PO ONE (11:00)
[2019-09-05] MEDS ORDERED: CALCIUM GLUCONATE 10% INJ 4.65 MEQ in SODIUM CHLORIDE 0.9% 50ML 50 ML IV ONE (11:00)
[2019-09-05] MEDS: ENOXAPARIN INJ 80 MG/0.8 ML SYR SC SCH (11:19)
--- NOTE | 2019-09-05 11:52 | NUR ---
Pulmonary Medicine DATE 09/05/2019 SUBJECTIVE: vasopressin 0.06/. off levophed due to tachycardia tube feels tolerated, 40/hr water 400 cc q 4 hrs intubated on ventilator 22/420/70/12 patient proned yesterday evening fentanyl 250/, propofol 17. hypotension considerations. patient does awaken sufficiently per nurse REVIEW OF SYSTEMS: No weight changes. no rash OBJECTIVE: VITAL SIGNS: Vital signs as noted per the chart record. GENERAL: intubated, on ventilator HEENT: Normocephalic, atraumatic. NECK: Supple. Throat midline. LUNGS: Bilateral air entry with no rhonchi. No jenni wheezes. CARDIOVASCULAR: S1, S2. No murmurs, rubs, or gallops. ABDOMEN: Soft, nontender. EXTREMITIES: No clubbing, no cyanosis. no edema. INTEGUMENT: No rash or purpura. LABORATORY DATA: k 5.9, hco3 19, cr 5.6, bun 66 wbc 11, hct 28, plt 235 IMPRESSION AND PLAN: 1. Hypoxemia, acute lung injury. ARDS 2. COVID pneumonitis 3. Hypoxemic respiratory failure, acute. Intubated 4. diarrhea, COVID related 5. hypertension. 6. History of throat cancer. 7. gastroesophageal reflux disease. 8. acute respiratory failure, intubated 9. enterococcus bacteremia NOS 10. SVT 8 beats 11. JULIETTE, ?toxic ?hypotensive 12. shock, distributive/septic Intubated maintain Ventilator management, routinely titrate down FIO2 first and then PEEP Pressors titrate recheck ABG with renal failure nephrology management of acidosis, potassium noted Continue proning, goal 16 hrs / day Empiric antibiotics per ID Continue NGT feeds sparing doses of steroids prn DVT prophylaxis. Follow up markers of DIC and systemic inflammation closely. Empiric anticoagulation Thank you very much, Dr. Santos and Dr. Larose, for allowing me a chance to participate in care of Mr. Marcus. Please call for questions.
[2019-09-05] MEDS: ASCORBIC ACID 500 MG TAB PO SCH ×3 (11:55→20:05)
--- NOTE | 2019-09-05 12:18 | NUR ---
WOUND CARE CONSULT FOR 64 YO MALE HX OF VIRAL PNEU POSITIVE COVID 19 STEPHANY 10 ON STRICT PUP STATUS AND INTERVENTIONS AND ALTERNATING MATTRESS LABS: WBC-11.17 HGB_9 GLUCOSE-127 SKIN ASSESSMENT COMPLETE PATIENT PRESENTS WITH SACRAL DTI 8CM X 12.5CM DARK PURPLE LEFT EAR DTI 2.5CM X1CM DARK PURPLE PATIENT DEBILITATED STATUS SECONDARY TO HIGHLY IMPAIRED TISSUE PERFUSION AND COMPENSATORY SHUNTING MINIMAL PRESSURE TO AREAS REQUIRE MINIMAL TIME FOR TISSUE INSULT NURSING CONTINUE FREQUENT TURNS AND OFFLOADING MUCH PATIENT CAN SAFELY TOLERATE PRESSURE POINT ASSESSMENT RECOMMENDATIONS: NURSING TO CONTINUE TO MAINTAIN STRICT PUP STATUS AND INTERVENTIONS AND ALTERNATING PRESSURE MATTRESS NURSING TO CONTINUE TO ASSIST PATIENT WITH NUTRITION AND SUPPLEMENTS TO ENSURE PROPER REQUIREMENTS FOR HEALING NURSING TO CONTINUE TO OFFLOAD FEET AND HEELS NEEDED WITH PILLOW SUSPENSION WHEN IN BED NURSING TO CLEAN SACRAL DTI WITH NORMAL SALINE DAILY AND APPLY VENELEX OINTMENT AND ALLEVYN FOAM DRESSING NURSING TO CLEAN LEFT EAR DTI WITH NORMAL SALINE DAILY AND APPLY VENELEX OINTMENT AND LEAVE OPEN TO AIR MAINTAIN OFFLOADING Addendum: 09/05/19 at 1234 by Georges Luna RN Amended: Links added.
--- NOTE | 2019-09-05 12:43 | Progress Note ---
DATE: SUBJECTIVE: Mr. Marcus remains in intensive care unit. Remains on the ventilator. He is not making urine output. His laboratory data reviewed. His chart reviewed. Discussed with medical team. PHYSICAL EXAMINATION: GENERAL: Intubated and sedated. VITAL SIGNS: Stable. HEENT: Not icteric. NECK: Supple. CHEST: Few crackles. COR: S1-S2. No murmurs. ABDOMEN: Soft. IMPRESSION: 1. Respiratory failure. 2. Renal failure. 3. COVID-19, present on admission. 4. History of throat cancer, status post radiation. PLAN: Prognosis is poor. We will obtain a PCR of COVID-19 from the endotracheal site to see if there is any infection. MD PATRICK Oakley/MODL /[id number]
[2019-09-05] MEDS ORDERED: ALBUMIN 25% 12.5GM 50ML 150 ML IV ONE (13:32)
[2019-09-05] MEDS ORDERED: NOREPINEPHRINE 8 MG/D5W 250 ML 250 ML ONE (13:33)
[2019-09-05] MEDS ORDERED: SODIUM CHLORIDE 0.9% 1000ML 2,000 ML IV PRN (16:30)
[2019-09-05] MEDS ORDERED: HEPARIN SOD (PORCINE) 1000 UNIT/ML SDV IV PRN (16:30)
[2019-09-05] MEDS ORDERED: ALBUMIN 25% 12.5GM 0.25 GM/ML BTL IV PRN (16:30)
[2019-09-05] MEDS: SODIUM BICARBONATE 8.4% 150 ML in DEXTROSE 5% 1,000 ML IV SCH (17:22)
--- NOTE | 2019-09-05 19:00 | NUR ---
Bedside report received from Herb Barfield RN. HD completed today per report and 2L was removed per report.
--- NOTE | 2019-09-05 19:16 | NUR ---
Per shift report from Herb Barfield RN the pt is not tolerating prone position at this time. Addendum: 09/05/19 at 1916 by Venessa Low RN Amended: Links added.
[2019-09-05] MEDS: VASOPRESSIN 100 UNIT in DEXTROSE 5% 100ML 100 ML IV PRN (20:06)
[2019-09-06] VITALS (23 sets, daily range): BP systolic 82–186; BP diastolic 51–94
[2019-09-06] MEDS: PROPOFOL IV EMULSION 10 MG/ML 50 ML VIAL IV SCH ×5 (04:15→22:30)
[2019-09-06] MEDS: FENTANYL CITRATE INJ 2,000 MCG in SODIUM CHLORIDE 0.9% 250ML 210 ML IV PRN ×3 (04:15→21:08)
[2019-09-06] MEDS: INSULIN REGULAR, HUMAN 100 UNIT/1 ML 3ML VIAL SQ SCH ×4 (05:41→18:00)
[2019-09-06] MEDS: VECURONIUM BROMIDE FOR INJ 20 MG VIAL IV PRN ×2 (05:41→23:37)
--- NOTE | 2019-09-06 06:47 | NUR ---
Saumya SILVA to receive report on the pt.
[2019-09-06 08:12] LABS: ABG HCO3 23 mmol/L (22-26); ABG PCO2 50 mmHg (35-45); ABG PH 7.26 (7.35-7.45)
[2019-09-06] MEDS: ASCORBIC ACID 500 MG TAB PO SCH ×3 (08:33→22:05)
[2019-09-06] MEDS: BALSAM PERU/CASTOR OIL 60 GM OINT...G. TP SCH (08:33)
[2019-09-06] MEDS: ASPIRIN 81 MG ENTERIC COATED PO SCH (08:33)
[2019-09-06] MEDS: FAMOTIDINE 20 MG/2 ML VIAL IV SCH (08:33)
--- NOTE | 2019-09-06 09:14 | NUR ---
PROGRESS [id number]
[2019-09-06 10:18] LABS: BASOPHILS % 0.3 % (0.0-1.0); EOSINOPHILS # (AUTO) 0.4 (0.0-0.4); EOSINOPHILS % 5.3 % (0.0-6.0); HEMATOCRIT 24.6 % (38.2-49.6); HEMOGLOBIN 8.1 g/dL (14.0-18.0); LYMPHOCYTES # (AUTO) 0.6 (1.0-3.2); LYMPHOCYTES % 7.2 % (18.0-39.1); MEAN CORPUSCULAR HEMOGLOBIN 28.4 pg (28-32); MEAN CORPUSCULAR HGB CONC 32.9 g/dL (31-35); MEAN CORPUSCULAR VOLUME 86.3 fL (81-99); MONOCYTES # (AUTO) 0.4 (0.2-0.8); MONOCYTES % 5.3 % (4.4-11.3); NEUTROPHILS # (AUTO) 6.3 (2.1-6.9); NEUTROPHILS % 79.7 % (38.7-80.0); PLATELET COUNT 190 x10e3/uL (140-360); RED BLOOD COUNT 2.85 x10e6/uL (4.3-5.7); RED CELL DISTRIBUTION WIDTH 14.9 % (11.7-14.4)
--- NOTE | 2019-09-06 10:22 | Diagnostic Imaging Report ---
EXAMINATION: CHEST SINGLE (PORTABLE) INDICATION: Pneumonia COMPARISON: Chest radiograph 09/05/2019 FINDINGS: LINES/TUBES:Right IJ temp or dialysis catheter terminates at the superior cavoatrial junction. Endotracheal tube terminates 5 cm above the shruthi. Enteric tube projects below the diaphragm with tip not visualized. EKG leads overlie the chest. LUNGS:The lungs are moderately inflated. Unchanged bilateral airspace opacities. PLEURA:No pleural effusion or pneumothorax. MEDIASTINUM:The cardiomediastinal silhouette appears unchanged in size and shape. Atherosclerotic calcifications of the thoracic aorta. BONES/SOFT TISSUES:No acute osseous injury. ABDOMEN:No free air under the diaphragm. IMPRESSION: No significant interval change. Signed by: Edu Whitney MD on 09/06/2019 10:19 AM
[2019-09-06 10:24] LABS: ANION GAP 13.8 mmol/L (8-16); CALCIUM 7.8 mg/dL (8.4-10.2); CREATININE, SERUM 5.53 mg/dL (0.72-1.25); POTASSIUM 3.8 mmol/L (3.5-5.1)
[2019-09-06] MEDS ORDERED: ALTEPLASE RECOMBINANT 2 MG/2 ML VIAL IV ONE (10:25)
[2019-09-06 12:44] LABS: ANISOCYTOSIS SLIGHT; EOSINOPHILS % (MANUAL) 2 % (0-7); LYMPHOCYTES % (MANUAL) 10 % (19-48); MONOCYTES % (MANUAL) 4 % (3.4-9.0); MYELOCYTES % (MANUAL) 2 % (0-0); NEUTROPHILS % (MANUAL) 82 % (40-74); NUCLEATED RED BLOOD CELLS 1; PLATELET ESTIMATE ADEQUATE; PLATELET MORPHOLOGY COMMENT NORMAL; RBC MORPHOLOGY COMMENT NORMAL
--- NOTE | 2019-09-06 12:56 | NUR ---
Pulmonary Medicine DATE 09/06/2019 SUBJECTIVE: vasopressin 0.03/min HD yesterday 2 Liters off intubated, on ventilator 22/420/65/12 bicarbonate 50/hr iv fentanyl 250/, propofol 25/ --> held now tube feeds with 120 cc residual, slowed to 15/ hr REVIEW OF SYSTEMS: No weight changes. no rash OBJECTIVE: VITAL SIGNS: Vital signs as noted per the chart record. GENERAL: intubated, on ventilator HEENT: Normocephalic, atraumatic. NECK: Supple. Throat midline. LUNGS: Bilateral air entry with no rhonchi. No jenni wheezes. CARDIOVASCULAR: S1, S2. No murmurs, rubs, or gallops. ABDOMEN: Soft, nontender. EXTREMITIES: No clubbing, no cyanosis. no edema. INTEGUMENT: No rash or purpura. LABORATORY DATA: k 3.8, cr 5.53. wbc 8, hct 24, plt 190. IMPRESSION AND PLAN: 1. Hypoxemia, acute lung injury. ARDS 2. COVID pneumonitis 3. Hypoxemic respiratory failure, acute. Intubated 4. diarrhea, COVID related 5. hypertension. 6. History of throat cancer. 7. gastroesophageal reflux disease. 8. acute respiratory failure, intubated 9. enterococcus bacteremia NOS 10. SVT 8 beats 11. JULIETTE, toxic/hypotensive 12. shock, distributive/septic Intubated maintain Ventilator management, routinely titrate down FIO2 first and then PEEP Continue proning, goal 16 hrs / day Pressors titrate, wean off as tolerated recheck ABG with renal failure nephrology providing intermittent HD as needed Empiric antibiotics per ID Continue NGT feeds as tolerated sparing doses of steroids prn DVT prophylaxis. Follow up markers of DIC and systemic inflammation closely. Consider resuming anticoagulation once safe Thank you very much, Dr. Santos and Dr. Larose, for allowing me a chance to participate in care of Mr. Marcus. Please call for questions.
[2019-09-06] MEDS ORDERED: FUROSEMIDE INJ 10 MG/ML 10 ML VIAL IV ONE (15:15)
[2019-09-06] MEDS: SODIUM BICARBONATE 8.4% 150 ML in DEXTROSE 5% 1,000 ML IV SCH (15:15)
--- NOTE | 2019-09-06 16:02 | NUR ---
Nutrition Intervention Note RD Recommendation for Physician: - Continue Nepro. Recommend decreasing goal rate to 40 mL/hr due to propofol rate (provides 1728 kcal, 78 g protein, and 698 mL water) meets 100% estimated kcal needs and 74% of estimated protein needs -Recommend providing 3 packets/day of Beneprotein as medically appropriate which would meet 91% of estimated protein needs - Water flushes and fluid management per MD. Plan of Care: RD following, monitoring for tolerance and adequacy. TF rec's. Nutrition reason for involvement: Follow up Primary Diagnose(s): viral PNA, hypoxia, diarrhea, dehydration PMH: HTN, reflux, dyslipidemia, HTN, throat cancer GI: Last recorded BM 09/05 x 2 Skin: sacral and left ear deep tissue injury per wound care note Labs: 09/05: Na 134, BUN 54, Cr 5.53, Glu 147, Ca 7.8, Phos 9.6 (09/04), Mg 2.2 (09/04) 09/01: Na 150, K 4.3, BUN 36, Cr 1.14, Gluc 140, POC Gluc 125-165, Ca 7.5 Meds: insulin, propofol, fentanyl, Vitamin C, vasopressin, metoprolol, hydralazine, zofran Ht: 69 in Wt: 215 lbs (09/05) 179 lbs (09/01) 185.31 lb (08/25) Suspect possible weight error or fluid related BMI: 31.8 kg/m2 IBW: [address] Assessment: 09/05: Follow up. Pt remains mechanically ventilated with propofol and fentanyl. Pt is now receiving HD due to renal failure. Pt was also previously in the prone position as mentioned in pts chart. Spoke to RN, who stated that pt is receiving 15 mL/hr of propofol (provides 396 kcal) and is not in the prone position at this time. Pt is also receiving Nepro @ 30 mL/hr per RN and tolerating tube feeding. Will continue to monitor. 09/01: Follow up. Pt re-evaluated today for follow up and now due to intubation. Pt intubated 08/29, remains on vent and sedated with propofol and fentanyl. No pressors currently. Pt on TF of Vital AF infusing at goal rate per documentation in chart. TF rec's discussed with SHIRA Kerns. Attempted to call MD, no answer. TF rec's provided pending pt continues on Propofol. Chart reviewed. Will continue to monitor. (08/26) 64 YOM admitted for viral PNA, hypoxia, diarrhea, and dehydration. Pt evaluated today per LOS. Pt PUI for Covid-19, test results remain pending. Unable to speak with pt via phone 2/2 very SOB and requiring BiPAP. 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 Pt with 75% meal intake prior to BiPAP use. Chart reviewed. Labs and meds reviewed. Will monitor and continue to follow. Malnutrition Evaluation (08/27/19) The patient does not meet criteria for a specified degree of malnutrition at this time. Will re-evaluate at follow-up as appropriate. Unable to complete assessment. Nutrition Prescription (Diet Order): Nepro @ goal rate of 50 mL/hr and water flush of 25 mL/hr Estimated Nutritional Needs: 0234-0308 calories/day (20-25 kcal/kg) Weight used: 179 lbs 106-162 g protein/day (1.3-2 g pro/kg) Weight used: 179 lbs Diet Adequacy: Meeting calorie needs, not meeting protein needs Diet Tolerance: tolerating TF Diet Education Needs Assessment: Diet education not indicated at this time. Nutrition Care Level: Mod Nutrition Diagnosis: Inadequate energy and protein intake related to respiratory status as evidenced by progression of BiPAP to intubation currently requiring EN. Goal: Patient will meet 75-100% of estimated needs by follow up Progress: Progressing Interventions: - Composition, Rate, Route, Recommended Modifications, Collaboration with other providers Monitoring/Evaluation: - Total energy intake, Total protein intake, Formula/Solution, Prescription medication Signed: Kathy Rojas RD, LD
--- NOTE | 2019-09-06 16:03 | Progress Note ---
DATE: SUBJECTIVE: Mr. Marcus remains in Intensive Care Unit. He is intubated. PHYSICAL EXAMINATION: VITAL SIGNS: Stable. Afebrile. Temperature 97.7, heart rate 95, and respiration 22. HEENT: Normocephalic, intubated. CHEST: Few rhonchi. COR: S1, S2. No S3, S4, or murmur. ABDOMEN: Soft. LABORATORY DATA: White count 7.9, hemoglobin 8.1. Sodium 134, creatinine 5.53. The patient did have hemodialysis yesterday. IMPRESSION: 1. COVID-19 sepsis. 2. COVID-19 pneumonia with acute respiratory distress syndrome. 3. His repeat PCR was positive on . He is currently on hemodialysis and on ventilator. Continue with supportive care. 4. Bacteremia contamination, probably we will recheck blood cultures. MD PATRICK Oakley/MODL /[id number]
[2019-09-06] MEDS: FUROSEMIDE INJ 100 MG in SODIUM CHLORIDE 0.9% 100 ML 90 ML IV SCH ×2 (17:00→22:45)
--- NOTE | 2019-09-06 17:54 | Diagnostic Imaging Report ---
EXAMINATION: CHEST XRAY LINE PLACEMENT INDICATION: ^CENTRAL LINE PLACEMENT ^[id number] ^[id number] ^Y COMPARISON: 09/06/2019 FINDINGS: TUBES and LINES: Right internal jugular central venous catheter with distal tip at the right atrial/superior vena cava junction. Left internal jugular central venous catheter with distal tip at the right atrial/superior vena cava junction. Endotracheal tube with distal tip 5 cm above the shruthi. Enteric tube with distal tip not seen below the [id number] of the image. LUNGS:The lungs are moderately inflated. Unchanged bilateral airspace opacities. PLEURA:No pleural effusion or pneumothorax. MEDIASTINUM:The cardiomediastinal silhouette appears unchanged in size and shape. Atherosclerotic calcifications of the thoracic aorta. BONES/SOFT TISSUES:No acute osseous injury. ABDOMEN:No free air under the diaphragm. IMPRESSION: Right internal jugular central venous catheter with distal tip at the right atrial/superior vena cava junction. Left internal jugular central venous catheter with distal tip at the right atrial/superior vena cava junction. Endotracheal tube with distal tip 5 cm above the shruthi. Enteric tube with distal tip not seen below the [id number] of the image. Unchanged bilateral airspace opacities. Signed by: Dr. Judah Mtz M.D. on 09/06/2019 5:51 PM
[2019-09-06] MEDS ORDERED: NOREPINEPHRINE 8 MG/D5W 250 ML 250 ML IV PRN (18:45)
--- NOTE | 2019-09-06 19:04 | NUR ---
R Trialysis catheter not giving back blood, Dr. Santos informed and gave orders for cath nuris. Dr. Santos notified of poor venous access. gave orders central line placement. Pt's called and telephone consent obtained with Mikayla SILVA. Dr. Ramos called with lab results, no orders for dialysis today, Bicarb drip decreased to 50ml/hr. Per Dr. Santos and rashida hold sedation to see pt response to stimuli. Sedation held pt did not respond to stimuli, HR became elevated 120's, BP 180's systolic, and respirations in 30's breathing over the vent. Sedation restarted due to vital signs. Orders given to give Lasix slow iv push and start drip. Per Dr. Luciano ok for Dr. Cathy Hernandez to insert central line. Dr. Cathy Hernandez inserted Left triple lumen IJ at bedside. Chest x ray obtained for placement. Dr. Luciano informed of x ray results, orders given to use line. notified of low blood pressure 80/53 with Vasopressin running, MD gave orders for Levophed. Levophed drip started. Pt to be proned tonight per Dr. Luciano.
--- NOTE | 2019-09-06 19:58 | Operative Report ---
DATE OF PROCEDURE: SURGEON: Idris Hernandez MD PROCEDURE: Central line placement under ultrasound guidance. PREOPERATIVE DIAGNOSIS: Respiratory failure and COVID-19. POSTOPERATIVE DIAGNOSIS: Respiratory failure and COVID-19. CONSENT: Consent was obtained from the next of kin. ANESTHESIA: 1% lidocaine was used for local anesthesia. DESCRIPTION OF PROCEDURE: The patient was placed in a supine position. The left neck was prepped sterilely. Full-length sterile drape, sterile gown, and sterile gloves were used. The left internal jugular vein was located with the ultrasound machine. 1% lidocaine was used to localize skin. Ultrasound was then used to localize the left internal jugular vein. The left internal jugular vein was cannulated under direct visualization on the first attempt. A wire was passed through the needle. Skin was then dilated. A triple-lumen catheter was passed over the wire by the Seldinger technique. All the ports flushed. COMPLICATIONS: None. ESTIMATED BLOOD LOSS: None. Idris Hernandez MD [facility]LIN[facility] /[id number]
[2019-09-06] MEDS: NOREPINEPHRINE 8 MG/D5W 250 ML 250 ML IV PRN (23:40)
[2019-09-07] VITALS (39 sets, daily range): BP systolic 73–222; BP diastolic 52–95
[2019-09-07] MEDS: PROPOFOL IV EMULSION 10 MG/ML 50 ML VIAL IV SCH ×4 (02:40→20:15)
[2019-09-07] MEDS: FUROSEMIDE INJ 100 MG in SODIUM CHLORIDE 0.9% 100 ML 90 ML IV SCH (04:15)
[2019-09-07] MEDS: VASOPRESSIN 100 UNIT in DEXTROSE 5% 100ML 100 ML IV PRN (05:05)
[2019-09-07] MEDS: INSULIN REGULAR, HUMAN 100 UNIT/1 ML 3ML VIAL SQ SCH ×5 (06:10→23:47)
[2019-09-07 06:39] LABS: ALBUMIN 1.7 g/dL (3.5-5.0); ALBUMIN/GLOBULIN RATIO 0.4 (0.8-2.0); ANION GAP 15.8 mmol/L (8-16); CREATININE, SERUM 6.33 mg/dL (0.72-1.25); POTASSIUM 3.8 mmol/L (3.5-5.1)
[2019-09-07] MEDS: FAMOTIDINE 20 MG/2 ML VIAL IV SCH (08:05)
[2019-09-07] MEDS: BALSAM PERU/CASTOR OIL 60 GM OINT...G. TP SCH (08:05)
[2019-09-07] MEDS: VECURONIUM BROMIDE FOR INJ 20 MG VIAL IV PRN (08:30)
[2019-09-07] MEDS: ASCORBIC ACID 500 MG TAB PO SCH ×3 (08:49→23:47)
[2019-09-07] MEDS: ASPIRIN 81 MG ENTERIC COATED PO SCH (08:49)
--- NOTE | 2019-09-07 11:00 | NUR ---
Dr. Luciano informed of ABG results and D Dimer results.
[2019-09-07] MEDS ORDERED: MORPHINE SULFATE INJ 4 MG/ML INJ 1ML IV PRN (11:30)
--- NOTE | 2019-09-07 11:46 | Progress Note ---
DATE: 09/07/2019 Nephrology Followup Note SUBJECTIVE: The patient was in prone position in the ICU on pressors on the vent in view of COVID-19 positivity. I saw the patient from outside the glass doors. No issues reported overnight after talking to the nurse. I's and O's 3598 in and 90 out. OBJECTIVE: VITAL SIGNS: Blood pressure 133/66, respirations 22, heart rate 91, temperature 95.8. GENERAL: The patient was seen from outside of the glass doors in prone position on the vent, sedated and intubated. LABS: Sodium 133, potassium 3.8, chloride 94, CO2 of 27, BUN 62, creatinine 6.3, glucose 142, albumin 1.7. Hemoglobin yesterday 8.1, hematocrit 24.6. IMPRESSION: 1. Acute kidney injury requiring dialysis with no significant urine output. 2. Anemia. 3. COVID-19 positive, sepsis and septic shock with multisystem organ failure. 4. Respiratory failure, intubated. PLAN: Dialysis later today. Continue present treatment. Further recommendations to follow. The patient will be dialyzed for 3 hours since this is his 2nd treatment. 140 sodium, 35 bicarb, 3 potassium, 2.5 calcium, 250-300 blood flow, 500-600 dialysate flow with UF of 1-2 L as tolerated. Further recommendations to follow. Franchesca Corona MD [facility]/MODL /[id number]
[2019-09-07] MEDS: SODIUM BICARBONATE 8.4% 150 ML in DEXTROSE 5% 1,000 ML IV SCH (15:15)
[2019-09-07] MEDS: FENTANYL CITRATE INJ 2,000 MCG in SODIUM CHLORIDE 0.9% 250ML 210 ML IV PRN (15:18)
[2019-09-07] MEDS ORDERED: DEXMEDETOMIDINE 200MCG/NS 50ML 50 ML IV PRN (16:15)
--- NOTE | 2019-09-07 16:32 | NUR ---
Pulmonary Medicine DATE 09/07/2019 SUBJECTIVE: VENTILATOR adjusted peak pressures increased to 45-48 proned PRVC /420/55/12 , adjusted to PC AC //12 off pressors transiently, vasopressin 0.02/, levophed 2/ small airway secretions usually, but seen to plug requiring emergent suctioning REVIEW OF SYSTEMS: cant get, intubated OBJECTIVE: VITAL SIGNS: Vital signs as noted per the chart record. GENERAL: intubated, on ventilator HEENT: Normocephalic, atraumatic. NECK: Supple. Throat midline. LUNGS: Bilateral air entry with no rhonchi. No jenni wheezes. CARDIOVASCULAR: S1, S2. No murmurs, rubs, or gallops. ABDOMEN: Soft, nontender. EXTREMITIES: No clubbing, no cyanosis. no edema. INTEGUMENT: No rash or purpura. LABORATORY DATA: k 3.8, hco3 27, bun 62, cr 6.33. wbc 7.9, hct 24.6. plt 190. IMPRESSION AND PLAN: 1. Hypoxemia, acute lung injury. ARDS 2. COVID pneumonitis 3. Hypoxemic respiratory failure, acute. Intubated 4. diarrhea, COVID related 5. hypertension. 6. History of throat cancer. 7. gastroesophageal reflux disease. 8. acute respiratory failure, intubated 9. enterococcus bacteremia NOS 10. SVT 8 beats 11. JULIETTE, toxic/hypotensive 12. shock, distributive/septic Intubated maintain Ventilator management, routinely titrate down FIO2 first and then PEEP lung protective ventilation. today goal about 9-12 L/min minute ventilation --ABG prn --suction prn --paralyze prn with backup rate and MV observation for variable mechanics when paralyzed add mucomyst for secretions will give a dose of steroids for increasing pressures. unclear benefit for ATC steroids, pt would be in late ARDS timeframe clearly Continue proning, goal 16 hrs / day Pressors titrate, wean off as tolerated recheck ABG PRN with renal failure nephrology providing intermittent HD as needed Empiric antibiotics per ID Continue NGT feeds as tolerated DVT prophylaxis. Follow up markers of DIC and systemic inflammation closely. Consider resuming anticoagulation once safe Thank you very much, Dr. Santos and Dr. Larose, for allowing me a chance to participate in care of Mr. Marcus. Please call for questions.
--- NOTE | 2019-09-07 16:37 | NUR ---
pulmonary medicine seen and examined today. see earlier note for details. resume anticoagulation >30 min direct care and coordination today.
[2019-09-07] MEDS ORDERED: METHYLPREDNISOLONE SOD SUCC 125 MG/2ML VIAL IV NR (17:00)
[2019-09-07] MEDS ORDERED: VECURONIUM BROMIDE FOR INJ 20 MG VIAL IV NR (17:00)
[2019-09-07] MEDS: ENOXAPARIN INJ 80 MG/0.8 ML SYR SC SCH (17:19)
--- NOTE | 2019-09-07 17:58 | NUR ---
Dr. Ramos informed of AM lab results, MD order dialysis for today. RN explained to doctor that pt has been placed in prone position for next 12 hrs. MD stated to do dialysis tonight once placed in supine position. Orders given to d/c lasix drip. Pt had low core temp and RN was unable to get axillary temp reading. Pt placed on john hugger at this time. John hugger removed when pt temp 98.6. Wound care done to sacral wound. Pt placed on pressure support ventilation per Dr. Luciano (RT at bedside), orders given to give additional dose of paralytic at this time and start on Precedex drip.
[2019-09-07] MEDS ORDERED: ACETYLCYSTEINE 200 MG/ML 4ML VIAL INH SCH (19:00)
[2019-09-07] MEDS ORDERED: SODIUM CHLORIDE 0.9% 1000ML 1,000 ML ONE (22:31)
[2019-09-08] VITALS (53 sets, daily range): BP systolic 106–191; BP diastolic 57–96
[2019-09-08] MEDS ORDERED: DEXMEDETOMIDINE HCL 200 MCG in SODIUM CHLORIDE 0.9% 50ML 48 ML IV PRN (00:15)
[2019-09-08] MEDS: PROPOFOL IV EMULSION 10 MG/ML 50 ML VIAL IV SCH ×6 (01:20→22:13)
[2019-09-08] MEDS: FENTANYL CITRATE INJ 2,000 MCG in SODIUM CHLORIDE 0.9% 250ML 210 ML IV PRN ×3 (02:00→22:13)
[2019-09-08] MEDS: VECURONIUM BROMIDE FOR INJ 20 MG VIAL IV PRN ×2 (02:08→11:56)
[2019-09-08 05:37] LABS: BASOPHILS % 0.3 % (0.0-1.0); EOSINOPHILS % 0.1 % (0.0-6.0); HEMATOCRIT 25.1 % (38.2-49.6); HEMOGLOBIN 8.4 g/dL (14.0-18.0); LYMPHOCYTES # (AUTO) 0.5 (1.0-3.2); LYMPHOCYTES % 4.7 % (18.0-39.1); MEAN CORPUSCULAR HEMOGLOBIN 28.5 pg (28-32); MEAN CORPUSCULAR HGB CONC 33.5 g/dL (31-35); MEAN CORPUSCULAR VOLUME 85.1 fL (81-99); MONOCYTES # (AUTO) 0.2 (0.2-0.8); MONOCYTES % 1.4 % (4.4-11.3); NEUTROPHILS # (AUTO) 9.9 (2.1-6.9); NEUTROPHILS % 87.3 % (38.7-80.0); PLATELET COUNT 237 x10e3/uL (140-360); RED BLOOD COUNT 2.95 x10e6/uL (4.3-5.7); RED CELL DISTRIBUTION WIDTH 14.6 % (11.7-14.4)
--- NOTE | 2019-09-08 05:50 | NUR ---
Placed back into prone position at 0500 with RT and multiple nurses at beside.
[2019-09-08] MEDS: INSULIN REGULAR, HUMAN 100 UNIT/1 ML 3ML VIAL SQ SCH ×3 (06:00→18:00)
[2019-09-08 06:01] LABS: ANION GAP 18.1 mmol/L (8-16); CALCIUM 7.9 mg/dL (8.4-10.2); CREATININE, SERUM 4.76 mg/dL (0.72-1.25); POTASSIUM 4.1 mmol/L (3.5-5.1)
[2019-09-08 06:20] LABS: ABG HCO3 26 mmol/L (22-26); ABG PCO2 56 mmHg (35-45); ABG PH 7.27 (7.35-7.45)
[2019-09-08] MEDS: ASCORBIC ACID 500 MG TAB PO SCH ×3 (08:24→22:12)
[2019-09-08] MEDS: BALSAM PERU/CASTOR OIL 60 GM OINT...G. TP SCH (08:24)
[2019-09-08] MEDS: FAMOTIDINE 20 MG/2 ML VIAL IV SCH (08:24)
[2019-09-08] MEDS: ASPIRIN 81 MG ENTERIC COATED PO SCH (08:25)
--- NOTE | 2019-09-08 08:40 | Diagnostic Imaging Report ---
EXAMINATION: CHEST SINGLE (PORTABLE) INDICATION: ^pneumonia ^[id number] ^[id number] COMPARISON: 09/06/2019 FINDINGS: TUBES and LINES: Stable lines: Right internal jugular central venous catheter with distal tip at the right atrial/superior vena cava junction. Left internal jugular central venous catheter with distal tip at the right atrial/superior vena cava junction. Endotracheal tube with distal tip 4.6 cm above the shruthi. Enteric tube with distal tip not included, below the [id number] of the image. LUNGS:The lungs are moderately inflated. Stable extensive bilateral airspace opacities. Bilateral small pleural effusions. PLEURA:No pneumothorax. MEDIASTINUM:The cardiomediastinal silhouette is mildly enlarged. Atherosclerotic calcifications of the thoracic aorta. BONES/SOFT TISSUES:No acute osseous injury. ABDOMEN:No free air under the diaphragm. IMPRESSION: 1. Stable supporting tubes and lines. 2. No significant change in extensive bilateral airspace opacities and bilateral small pleural effusions. Signed by: Dr. Osito Hunter M.D. on 09/08/2019 8:36 AM
[2019-09-08] MEDS: ENOXAPARIN INJ 80 MG/0.8 ML SYR SC SCH (16:17)
--- NOTE | 2019-09-08 18:00 | NUR ---
Pt laying in prone position. Dr. Luciano informed of ABG results this morning. No new orders. Will continue to monitor patient.
--- NOTE | 2019-09-08 18:02 | NUR ---
Pulmonary Medicine DATE 09/08/2019 SUBJECTIVE: Ventilator PC AC 30//60/12 MV 11 L/.min pk 40 TV 370 HD 2 L out yesterday UOP 100 cc yesterday tube feeds tolerated, being held often when proned out of caution propofol 20, fentanyl 250/ off pressors REVIEW OF SYSTEMS: cant get, intubated OBJECTIVE: VITAL SIGNS: Vital signs as noted per the chart record. GENERAL: intubated, on ventilator HEENT: Normocephalic, atraumatic. NECK: Supple. Throat midline. LUNGS: Bilateral air entry with no rhonchi. No jenni wheezes. CARDIOVASCULAR: S1, S2. No murmurs, rubs, or gallops. ABDOMEN: Soft, nontender. EXTREMITIES: No clubbing, no cyanosis. no edema. INTEGUMENT: No rash or purpura. LABORATORY DATA: k 4.1, cr 4.76, wbc 11, hct 25, plt 237. IMPRESSION AND PLAN: 1. Hypoxemia, acute lung injury. ARDS. 2. COVID pneumonitis 3. Hypoxemic respiratory failure, acute. Intubated 4. diarrhea, COVID related 5. hypertension. 6. History of throat cancer. 7. gastroesophageal reflux disease. 8. acute respiratory failure, intubated 9. enterococcus bacteremia NOS 10. SVT 8 beats 11. JULIETTE, toxic/hypotensive 12. shock, distributive/septic Intubated maintain Ventilator management, routinely titrate down FIO2 first and then PEEP. On PC AC, maintain minute ventilation goals lung protective ventilation. todays goal about 9-12 L/min minute ventilation --ABG prn --suction prn --paralyze prn with backup rate and MV observation for variable mechanics when paralyzed add mucomyst nebulized for secretions PRN steroids for increasing pressures. unclear benefit for ATC steroids, pt is in the late ARDS timeframe Continue proning, goal 16 hrs / day Pressors maintain off as tolerated recheck ABG PRN with renal failure and PC AC ventilation nephrology providing intermittent HD as needed Empiric antibiotics per ID Continue NGT feeds as tolerated DVT prophylaxis. Follow up markers of DIC and systemic inflammation closely. Consider resuming anticoagulation once safe Thank you very much, Dr. Santos and Dr. Larose, for allowing me a chance to participate in care of Mr. Marcus. Please call for questions.
[2019-09-09] VITALS (45 sets, daily range): BP systolic 72–184; BP diastolic 45–88
[2019-09-09] MEDS: PROPOFOL IV EMULSION 10 MG/ML 50 ML VIAL IV SCH ×7 (02:06→21:28)
[2019-09-09 05:06] LABS: BASOPHILS % 0.3 % (0.0-1.0); EOSINOPHILS % 0.2 % (0.0-6.0); HEMATOCRIT 23.7 % (38.2-49.6); HEMOGLOBIN 8.1 g/dL (14.0-18.0); LYMPHOCYTES # (AUTO) 0.9 (1.0-3.2); LYMPHOCYTES % 6.2 % (18.0-39.1); MEAN CORPUSCULAR HEMOGLOBIN 28.7 pg (28-32); MEAN CORPUSCULAR HGB CONC 34.2 g/dL (31-35); MONOCYTES # (AUTO) 0.7 (0.2-0.8); NEUTROPHILS # (AUTO) 11.6 (2.1-6.9); NEUTROPHILS % 80.4 % (38.7-80.0); PLATELET COUNT 301 x10e3/uL (140-360); RED BLOOD COUNT 2.82 x10e6/uL (4.3-5.7); RED CELL DISTRIBUTION WIDTH 14.3 % (11.7-14.4)
[2019-09-09 05:25] LABS: CALCIUM 7.7 mg/dL (8.4-10.2); CREATININE, SERUM 5.91 mg/dL (0.72-1.25)
[2019-09-09] MEDS: VECURONIUM BROMIDE FOR INJ 20 MG VIAL IV PRN (05:45)
[2019-09-09] MEDS: INSULIN REGULAR, HUMAN 100 UNIT/1 ML 3ML VIAL SQ SCH ×4 (06:00→17:33)
--- NOTE | 2019-09-09 06:42 | NUR ---
Patient turned to prone position at 0600. RT and multiple RNs at the bedside.
[2019-09-09 08:07] LABS: BAND NEUTROPHILS % (MANUAL) 2 %; LYMPHOCYTES % (MANUAL) 6 % (19-48); MONOCYTES % (MANUAL) 1 % (3.4-9.0); MYELOCYTES % (MANUAL) 2 % (0-0); NEUTROPHILS % (MANUAL) 89 % (40-74); NUCLEATED RED BLOOD CELLS 2
[2019-09-09 08:08] LABS: POLYCHROMASIA FEW
[2019-09-09 08:09] LABS: POIKILOCYTOSIS SLIGHT
[2019-09-09 08:10] LABS: PLATELET ESTIMATE ADEQUATE; PLATELET MORPHOLOGY COMMENT FEW GIANT; RBC MORPHOLOGY COMMENT NORMAL; TEAR DROP CELLS FEW
[2019-09-09 08:11] LABS: ABG HCO3 27 mmol/L (22-26); ABG PCO2 58 mmHg (35-45); ABG PH 7.28 (7.35-7.45)
[2019-09-09] MEDS: FENTANYL CITRATE INJ 2,000 MCG in SODIUM CHLORIDE 0.9% 250ML 210 ML IV PRN ×2 (08:30→15:00)
--- NOTE | 2019-09-09 08:59 | Diagnostic Imaging Report ---
History: Pneumonia Comparison: 08/30/2019 chest radiograph Findings: A left jugular catheter is present, with its tip in the superior vena cava region. Right jugular catheter tip is also in the SVC region. Endotracheal tube tip is 5 cm proximal to the shruthi. Question small left apical pneumothorax, projecting in the medial left supraaortic region and possibly overlying the left posterior third rib. There are diffuse bilateral pulmonary opacities suggestive of pneumonia and/or pulmonary edema. These are more diffuse than on the prior radiograph. No pleural effusions. The heart shadow is normal in size. Thoracic aorta mildly tortuous. Nasogastric tube is in the region of the stomach. Impression: 1. Question small left apical pneumothorax. 2. Diffuse bilateral pulmonary opacities, increased since the prior study. Signed by: Antwon Mario MD on 09/09/2019 8:56 AM
[2019-09-09] MEDS: ASCORBIC ACID 500 MG TAB PO SCH ×2 (09:00→15:00)
[2019-09-09] MEDS: ASPIRIN 81 MG ENTERIC COATED PO SCH (09:00)
[2019-09-09] MEDS: FAMOTIDINE 20 MG/2 ML VIAL IV SCH (09:44)
[2019-09-09] MEDS: BALSAM PERU/CASTOR OIL 60 GM OINT...G. TP SCH (09:45)
[2019-09-09] MEDS ORDERED: DILTIAZEM HCL 5 MG/ML 5 ML VIAL IV STA (11:00)
--- NOTE | 2019-09-09 14:31 | NUR ---
Pulmonary Medicine DATE 09/09/2019 SUBJECTIVE: Ventilator PC AC //60/12 MV 9 L/.min pk 38-40 TV 310 fentanyl 275/ propofol 50/ tube feeds tolerated, being held often when proned out of caution REVIEW OF SYSTEMS: cant get, intubated OBJECTIVE: VITAL SIGNS: Vital signs as noted per the chart record. GENERAL: intubated, on ventilator HEENT: Normocephalic, atraumatic. NECK: Supple. Throat midline. LUNGS: Bilateral air entry with no rhonchi. No jenni wheezes. CARDIOVASCULAR: S1, S2. No murmurs, rubs, or gallops. ABDOMEN: Soft, nontender. EXTREMITIES: No clubbing, no cyanosis. no edema. INTEGUMENT: No rash or purpura. LABORATORY DATA: na 133, k 4.0, hco3 26. bun 71, cr 5.91. wbc 14, hct 24, plt 301. IMPRESSION AND PLAN: 1. Hypoxemia, acute lung injury. ARDS. 2. COVID pneumonitis 3. Hypoxemic respiratory failure, acute. Intubated 4. diarrhea, COVID related 5. hypertension. 6. History of throat cancer. 7. gastroesophageal reflux disease. 8. acute respiratory failure, intubated 9. enterococcus bacteremia NOS 10. SVT 8 beats 11. JULIETTE, toxic/hypotensive 12. shock, distributive/septic 13. suspected pneumothorax Intubated maintain Ventilator management, routinely titrate down FIO2 first and then PEEP. On PC AC, maintain minute ventilation goals lung protective ventilation. todays goal about 9-12 L/min minute ventilation --ABG prn --suction prn --paralyze prn with backup rate and MV observation for variable mechanics when paralyzed continue mucomyst nebulized for secretions PRN steroids for increasing pressures. unclear benefit for ATC steroids, pt is in the late ARDS timeframe Continue proning, goal 16 hrs / day Pressors maintain off as tolerated recheck ABG PRN with renal failure and PC AC ventilation nephrology providing intermittent HD as needed Empiric antibiotics per ID Continue NGT feeds as tolerated DVT prophylaxis. Follow up markers of DIC and systemic inflammation closely. anticoagulation continue repeat CXR, place chest tube if indicated Thank you very much, Dr. Santos and Dr. Larose, for allowing me a chance to participate in care of Mr. Marcus. Please call for questions. >30 min direct care today, multiple overview and coordination
[2019-09-09] MEDS ORDERED: AMIODARONE HCL 900 MG in DEXTROSE 5% 500ML 500 ML IV SCH (15:00)
[2019-09-09 16:01] LABS: ABG HCO3 24 mmol/L (22-26); ABG PCO2 70 mmHg (35-45); ABG PH 7.14 (7.35-7.45)
--- NOTE | 2019-09-09 17:12 | Diagnostic Imaging Report ---
EXAMINATION: CHEST SINGLE (PORTABLE) INDICATION: Pneumonia, pneumothorax COMPARISON: Multiple prior chest radiograph most recently 09/09/2019 FINDINGS: LINES/TUBES:Endotracheal tube, enteric tube, left IJ central venous catheter, and right IJ temporary dialysis catheter all appear unchanged. EKG leads overlie the chest. LUNGS:The lungs are moderately inflated. Unchanged bilateral airspace opacities. PLEURA:Unchanged left apical pneumothorax measures up to 16 mm maximal thickness. MEDIASTINUM:The cardiomediastinal silhouette appears unchanged in size and shape. BONES/SOFT TISSUES:No acute osseous injury. ABDOMEN:No free air under the diaphragm. IMPRESSION: Stable left apical pneumothorax measures up to 16 mm in maximal thickness. Unchanged bilateral airspace opacities consistent with known atypical pneumonia. Signed by: Edu Whitney MD on 09/09/2019 5:09 PM
[2019-09-09] MEDS: NOREPINEPHRINE 8 MG/D5W 250 ML 250 ML IV PRN ×2 (17:33→23:20)
[2019-09-09] MEDS: ENOXAPARIN INJ 80 MG/0.8 ML SYR SC SCH (18:22)
--- NOTE | 2019-09-09 18:58 | Progress Note ---
DATE: SUBJECTIVE: Mr. Marcus remains intubated. OBJECTIVE: GENERAL: Intubated. HEENT: Not icteric. NECK: Supple. CHEST: Crackles bilaterally. COR: S1, S2. ABDOMEN: Soft. LABORATORY DATA: His white count is 14 and hemoglobin 8. Sodium 133. The patient's airway pressure revealed increased pressure. IMPRESSION: 1. ARDS, probably fibrotic change in state, COVID-19. 2. Acute on chronic kidney disease, now on dialysis. PLAN: Prognosis is extremely poor. Concerned also about aspiration pneumonia. We will follow. Family aware. MD PATRICK Oakley/MODL /[id number]
--- NOTE | 2019-09-09 19:22 | NUR ---
Notified Dr. Luciano of repeat CXR results reading pneumothorax- MD already aware. No new orders received.
[2019-09-10] VITALS (40 sets, daily range): BP systolic 100–148; BP diastolic 45–76
[2019-09-10] MEDS: ASCORBIC ACID 500 MG TAB PO SCH ×4 (00:08→21:00)
[2019-09-10] MEDS: FENTANYL CITRATE INJ 2,000 MCG in SODIUM CHLORIDE 0.9% 250ML 210 ML IV PRN ×3 (00:08→18:15)
[2019-09-10] MEDS: PROPOFOL IV EMULSION 10 MG/ML 50 ML VIAL IV SCH ×4 (01:16→18:15)
[2019-09-10] MEDS: NOREPINEPHRINE 8 MG/D5W 250 ML 250 ML IV PRN (01:31)
[2019-09-10 05:23] LABS: BASOPHILS # (AUTO) 0.1 (0.0-0.1); BASOPHILS % 0.6 % (0.0-1.0); EOSINOPHILS # (AUTO) 0.4 (0.0-0.4); EOSINOPHILS % 2.6 % (0.0-6.0); HEMATOCRIT 23.7 % (38.2-49.6); LYMPHOCYTES # (AUTO) 1.9 (1.0-3.2); MEAN CORPUSCULAR HEMOGLOBIN 29.1 pg (28-32); MEAN CORPUSCULAR HGB CONC 33.8 g/dL (31-35); MEAN CORPUSCULAR VOLUME 86.2 fL (81-99); MONOCYTES # (AUTO) 0.8 (0.2-0.8); MONOCYTES % 4.8 % (4.4-11.3); NEUTROPHILS # (AUTO) 10.6 (2.1-6.9); PLATELET COUNT 283 x10e3/uL (140-360); RED BLOOD COUNT 2.75 x10e6/uL (4.3-5.7); RED CELL DISTRIBUTION WIDTH 14.6 % (11.7-14.4)
[2019-09-10 05:40] LABS: ANION GAP 14.6 mmol/L (8-16); CALCIUM 7.7 mg/dL (8.4-10.2); CREATININE, SERUM 4.73 mg/dL (0.72-1.25); POTASSIUM 3.6 mmol/L (3.5-5.1)
[2019-09-10] MEDS: INSULIN REGULAR, HUMAN 100 UNIT/1 ML 3ML VIAL SQ SCH ×4 (05:46→18:00)
--- NOTE | 2019-09-10 06:01 | Diagnostic Imaging Report ---
EXAMINATION: CHEST SINGLE (PORTABLE) INDICATION: Query pneumothorax COMPARISON: Chest radiograph 09/08/2019. FINDINGS: LINES/TUBES:Endotracheal tube, enteric tube, left IJ central venous catheter, and right IJ temporary dialysis catheter all appear unchanged. EKG leads overlie the chest. LUNGS:The lungs are moderately inflated. Slightly improved bilateral bilateral airspace opacities. PLEURA:Unchanged left apical pneumothorax measures up to 16 mm maximal thickness. MEDIASTINUM:The cardiomediastinal silhouette appears unchanged in size and shape. BONES/SOFT TISSUES:No acute osseous injury. ABDOMEN:No free air under the diaphragm. IMPRESSION: Stable left apical pneumothorax measures up to 16 mm in maximal thickness. Slightly improved bilateral airspace opacities consistent with known atypical pneumonia. Signed by: Dr. Jeff Briggs MD on 09/10/2019 5:58 AM
--- NOTE | 2019-09-10 07:00 | NUR ---
Received report from SHIRA Thompson.
[2019-09-10 07:58] LABS: ABG HCO3 27 mmol/L (22-26); ABG PCO2 49 mmHg (35-45); ABG PH 7.35 (7.35-7.45)
[2019-09-10] MEDS: ASPIRIN 81 MG ENTERIC COATED PO SCH (08:56)
[2019-09-10] MEDS: FAMOTIDINE 20 MG/2 ML VIAL IV SCH (08:56)
[2019-09-10] MEDS: BALSAM PERU/CASTOR OIL 60 GM OINT...G. TP SCH (08:57)
--- NOTE | 2019-09-10 10:19 | NUR ---
Dr. Gan at bedside. Continue I.V. amiodarone for one more bag and start overlapping PO amiodarone therapy per MD order. Stop i.v. amiodarone after next bag.
[2019-09-10] MEDS ORDERED: LIDOCAINE HCL 2% LOCAL 20 ML VIAL ONE (13:06)
[2019-09-10] MEDS ORDERED: AMIODARONE HCL 360MG 200 ML IV ONE (14:15)
--- NOTE | 2019-09-10 14:56 | NUR ---
OPERATIVE / PROCEDURE NOTE Date: 09/10/19 Procedure: tube thoracostomy, left indication: resp failure, pneumothorax Minute ventilation falling to 4-6 L/min, presumed severe acidosis consent: from family, also emergent anesthesia: 2% lidocaine, 10 cc local Findings: after sterile preparation and drape, the patient had lidocaine injected into ~6 ICS in left mid-axillary line. patient with blunt dissection after the initial superficial scalpel cut, reaching the pleural. Finger inserted and easily swept in place, thereafter the 24 Fr chest tube was inserted at 16 cm and suture at the skin with Silk 0 suture. No large gush of air noted, and no change in ventilator mechanics upon tube insertion. Focus placed on other elements of respiratory care for the low minute ventilation.. EBL: <2 cc Complications: none Impression: successful placement of 24 Fr left chest tube
[2019-09-10] MEDS: AMIODARONE HCL 200 MG TAB PO SCH ×2 (15:00→21:00)
--- NOTE | 2019-09-10 15:00 | NUR ---
Left chest tube inserted by Dr. Luciano at bedside for left sided Pneumothorax and consistent low minute ventilation. Consent obtained from pts. daughter in law. Patient tolerated procedure well, no s/s of distress. Chest tube was connected to low intermittent wall suction at 1345 for one hour. At 1445 chest tube was take off suction and just connected to water seal per Dr. Luciano. Minute ventilation is now improved significantly from 5L to 10.8L.
--- NOTE | 2019-09-10 15:04 | NUR ---
Pulmonary Medicine DATE 09/10/2019 SUBJECTIVE: Ventilator PC AC /60/10 pk 37-40 MV 4-6 L/min TV 200 fentanyl 250 propofol 30/ REVIEW OF SYSTEMS: cant get, intubated OBJECTIVE: VITAL SIGNS: Vital signs as noted per the chart record. GENERAL: intubated, on ventilator HEENT: Normocephalic, atraumatic. NECK: Supple. Throat midline. LUNGS: Bilateral air entry with no rhonchi. No jenni wheezes. CARDIOVASCULAR: S1, S2. No murmurs, rubs, or gallops. ABDOMEN: Soft, nontender. EXTREMITIES: No clubbing, no cyanosis. no edema. INTEGUMENT: No rash or purpura. LABORATORY DATA: na 133, cr 4.73, wbc 16, hct 24, plt 283 IMPRESSION AND PLAN: 1. Hypoxemia, acute lung injury. ARDS. 2. COVID pneumonitis 3. Hypoxemic respiratory failure, acute. Intubated 4. diarrhea, COVID related 5. hypertension. 6. History of throat cancer. 7. gastroesophageal reflux disease. 8. acute respiratory failure, intubated 9. enterococcus bacteremia NOS 10. SVT 8 beats 11. JULIETTE, toxic/hypotensive 12. shock, distributive/septic 13. suspected pneumothorax Intubated maintain Ventilator management, routinely titrate down FIO2 first and then PEEP. On PC AC, maintain minute ventilation goals. d/w RT and nursing. Emergent interventions today to remedy. There was excess cuff leak, no ET tube exchange was warranted. lung protective ventilation. todays goal about 9-12 L/min minute ventilation --ABG prn --suction prn, continue mucomyst nebulized for secretions --paralyze prn with backup rate and MV observation for variable mechanics when paralyzed --permissive hypercapnea PRN steroids for increasing pulmonary pressures. unclear benefit for ATC steroids, pt is in the late ARDS timeframe Pressors maintain off as tolerated recheck ABG PRN with renal failure and PC AC ventilation nephrology providing intermittent HD as needed Empiric antibiotics per ID Continue NGT feeds as tolerated DVT prophylaxis. Follow up markers of DIC and systemic inflammation closely. anticoagulation continue chest tube today Thank you very much, Dr. Santos and Dr. Larose, for allowing me a chance to participate in care of Mr. Marcus. Please call for questions. >30 min direct care today, multiple overview and coordination
--- NOTE | 2019-09-10 16:17 | Diagnostic Imaging Report ---
Chest, portable AP view History: Chest Comparison: 09/09/2019 IMPRESSION: There is been interval insertion of a left chest. No significant residual is identified. The tip of the endotracheal tube terminates 7.7 cm above the shruthi. Left IJ central venous catheter tip terminates at the cavoatrial junction. Right IJ temporary hemodialysis tip terminates at the cavoatrial junction. The lungs demonstrate diffuse interstitial airspace opacity which can be seen in a areas, pulmonary edema, or atypical infection. Signed by: Hill Hou MD on 09/10/2019 4:14 PM
[2019-09-10] MEDS: ENOXAPARIN INJ 80 MG/0.8 ML SYR SC SCH (18:14)
--- NOTE | 2019-09-10 18:45 | NUR ---
Minute volume dropped to 8 again. RT notified. He will come check on patient.
[2019-09-10] MEDS: ACETYLCYSTEINE 200 MG/ML 4ML VIAL INH SCH (19:00)
--- NOTE | 2019-09-10 19:53 | Progress Note ---
DATE: SUBJECTIVE: Mr. Marcus remains on the ventilator, remains on dialysis. LABORATORY DATA: His white count is 15.7, hemoglobin 8.0. The last echo that was done on 16 was detected. PHYSICAL EXAMINATION: GENERAL: Intubated, sedated. VITAL SIGNS: Stable, on ventilator, on hemodialysis. HEENT: Normocephalic. CHEST: Few rhonchi. COR: S1, S2. No S3, S4, or murmur. ABDOMEN: Soft. IMPRESSION: Respiratory failure, COVID-19. Renal failure. We will recheck PCR. We will try to see if we can get him on a study for plasma treatment. We will follow. MD PATRICK Oakley/MODL /[id number]
[2019-09-11] VITALS (25 sets, daily range): BP systolic 89–178; BP diastolic 48–80
[2019-09-11] MEDS: PROPOFOL IV EMULSION 10 MG/ML 50 ML VIAL IV SCH ×5 (01:00→22:32)
[2019-09-11] MEDS: FENTANYL CITRATE INJ 2,000 MCG in SODIUM CHLORIDE 0.9% 250ML 210 ML IV PRN ×3 (02:00→18:16)
[2019-09-11 05:18] LABS: ANION GAP 17.6 mmol/L (8-16); CALCIUM 7.8 mg/dL (8.4-10.2); CREATININE, SERUM 5.85 mg/dL (0.72-1.25); POTASSIUM 3.6 mmol/L (3.5-5.1)
[2019-09-11] MEDS: INSULIN REGULAR, HUMAN 100 UNIT/1 ML 3ML VIAL SQ SCH ×4 (05:57→17:14)
--- NOTE | 2019-09-11 06:13 | Diagnostic Imaging Report ---
EXAMINATION: CHEST SINGLE (PORTABLE) INDICATION: Pneumonia. COMPARISON: Chest radiograph 09/10/2019. FINDINGS: LINES/TUBES:Endotracheal tube, left chest tube, enteric tube, left IJ central venous catheter, and right IJ temporary dialysis catheter all appear unchanged. EKG leads overlie the chest. LUNGS:The lungs are moderately inflated. Persistent bilateral multifocal airspace opacities. PLEURA: Small residual left apical pneumothorax measuring 0.9 cm. MEDIASTINUM:The cardiomediastinal silhouette appears unchanged in size and shape. BONES/SOFT TISSUES:No acute osseous abnormality. ABDOMEN:No free air under the diaphragm. IMPRESSION: Left sided chest tube with small residual 0.9 cm left apical pneumothorax. Other lines and tubes as above. Persistent bilateral airspace opacities consistent with known atypical pneumonia. Signed by: Dr. Jeff Briggs MD on 09/11/2019 6:09 AM
[2019-09-11 06:51] LABS: BASOPHILS # (AUTO) 0.1 (0.0-0.1); BASOPHILS % 0.3 % (0.0-1.0); EOSINOPHILS # (AUTO) 0.8 (0.0-0.4); EOSINOPHILS % 5.2 % (0.0-6.0); HEMATOCRIT 21.4 % (38.2-49.6); HEMOGLOBIN 7.1 g/dL (14.0-18.0); LYMPHOCYTES # (AUTO) 1.4 (1.0-3.2); LYMPHOCYTES % 8.5 % (18.0-39.1); MEAN CORPUSCULAR HEMOGLOBIN 29.1 pg (28-32); MEAN CORPUSCULAR HGB CONC 33.2 g/dL (31-35); MEAN CORPUSCULAR VOLUME 87.7 fL (81-99); MONOCYTES # (AUTO) 0.6 (0.2-0.8); MONOCYTES % 3.7 % (4.4-11.3); NEUTROPHILS # (AUTO) 11.8 (2.1-6.9); PLATELET COUNT 260 x10e3/uL (140-360); RED BLOOD COUNT 2.44 x10e6/uL (4.3-5.7); RED CELL DISTRIBUTION WIDTH 15.2 % (11.7-14.4)
[2019-09-11] MEDS: ACETYLCYSTEINE 200 MG/ML 4ML VIAL INH SCH ×2 (07:00→19:00)
[2019-09-11 07:39] LABS: ANISOCYTOSIS SLIGHT; BAND NEUTROPHILS % (MANUAL) 2 %; EOSINOPHILS % (MANUAL) 1 % (0-7); LYMPHOCYTES % (MANUAL) 9 % (19-48); METAMYELOCYTES % (MANUAL) 1 % (0-0); MONOCYTES % (MANUAL) 4 % (3.4-9.0); MYELOCYTES % (MANUAL) 5 % (0-0); NEUTROPHILS % (MANUAL) 78 % (40-74); NUCLEATED RED BLOOD CELLS 6; POLYCHROMASIA FEW
[2019-09-11 07:41] LABS: PLATELET ESTIMATE ADEQUATE; PLATELET MORPHOLOGY COMMENT FEW LARGE; RBC MORPHOLOGY COMMENT ABNORMAL; TEAR DROP CELLS FEW
[2019-09-11 07:42] LABS: GIANT PLATELETS FEW
[2019-09-11] MEDS: ASPIRIN 81 MG ENTERIC COATED PO SCH (08:15)
[2019-09-11] MEDS: BALSAM PERU/CASTOR OIL 60 GM OINT...G. TP SCH (08:15)
[2019-09-11] MEDS: AMIODARONE HCL 200 MG TAB PO SCH ×3 (08:15→21:20)
[2019-09-11] MEDS: FAMOTIDINE 20 MG/2 ML VIAL IV SCH (08:15)
[2019-09-11] MEDS: ASCORBIC ACID 500 MG TAB PO SCH ×3 (08:15→21:20)
[2019-09-11] MEDS ORDERED: SODIUM CHLORIDE 0.9% 250ML 250 ML IV SCH (09:45)
--- NOTE | 2019-09-11 12:43 | NUR ---
Pulmonary Medicine DATE 09/11/2019 SUBJECTIVE: tube feeds 25/ water 25/hr HD today, 4 L goal COVID negative pc ac /50/10 REVIEW OF SYSTEMS: cant get, intubated OBJECTIVE: VITAL SIGNS: Vital signs as noted per the chart record. GENERAL: intubated, on ventilator HEENT: Normocephalic, atraumatic. NECK: Supple. Throat midline. LUNGS: Bilateral air entry with no rhonchi. No jenni wheezes. CARDIOVASCULAR: S1, S2. No murmurs, rubs, or gallops. ABDOMEN: Soft, nontender. EXTREMITIES: No clubbing, no cyanosis. no edema. INTEGUMENT: No rash or purpura. LABORATORY DATA: na 132, k 3.6, cr 5.86. wbc 16. hct 21, plt 260. 1.31 inr IMPRESSION AND PLAN: 1. Hypoxemia, acute lung injury. ARDS. 2. COVID pneumonitis 3. Hypoxemic respiratory failure, acute. Intubated 4. diarrhea, COVID related 5. hypertension. 6. History of throat cancer. 7. gastroesophageal reflux disease. 8. acute respiratory failure, intubated 9. enterococcus bacteremia NOS 10. SVT 8 beats 11. JULIETTE, toxic/hypotensive 12. shock, distributive/septic 13. suspected pneumothorax Intubated maintain Ventilator management, routinely titrate down FIO2 first and then PEEP. On PC AC, maintain minute ventilation goals. -update ABG, attempt to down titrate minute ventilation if safe lung protective ventilation. todays goal about 9-12 L/min minute ventilation? --ABG prn --suction prn, continue mucomyst nebulized for secretions --paralyze prn with backup rate and MV observation for variable mechanics when paralyzed --permissive hypercapnea PRBC transfuse today x 1 nephrology providing intermittent HD as needed Empiric antibiotics per ID Continue NGT feeds as tolerated DVT prophylaxis. Follow up markers of DIC and systemic inflammation closely. anticoagulation continue continue chest tube Thank you very much, Dr. Santos and Dr. Larose, for allowing me a chance to participate in care of Mr. Marcus. Please call for questions.
[2019-09-11] MEDS: ENOXAPARIN INJ 80 MG/0.8 ML SYR SC SCH (16:06)
[2019-09-11] MEDS: VECURONIUM BROMIDE FOR INJ 20 MG VIAL IV PRN (16:06)
--- NOTE | 2019-09-11 16:13 | NUR ---
Nutrition Intervention Note RD Recommendation for Physician: - Continue Nepro. Recommend goal rate of 35 mL/hr at this time due to current propofol rate (provides 1512 kcal, 68 g protein, and 611 mL water) Recommend providing 3 packets/day of Beneprotein (75 kcal and 18 g protein) as medically appropriate. This would meet 100% estimated kcal and 81% estimated protein needs with tube feeding at goal while on current propofol rate - Recommend to obtain an updated Phos level - Water flushes and fluid management per MD. Plan of Care: RD following, monitoring for tolerance and adequacy. TF rec's. Nutrition reason for involvement: Follow up Primary Diagnose(s): viral PNA, hypoxia, diarrhea, dehydration PMH: HTN, reflux, dyslipidemia, HTN, throat cancer GI: Last recorded BM 09/06 Skin: sacral and left ear deep tissue injury per wound care note Labs: 09/10: Na 132, BUN 64, Creat 5.85, Cl 94, Ca 7.8, Phos 9.6 (09/04) 09/05: Na 134, BUN 54, Cr 5.53, Glu 147, Ca 7.8, Phos 9.6 (09/04), Mg 2.2 (09/04) 09/01: Na 150, K 4.3, BUN 36, Cr 1.14, Gluc 140, POC Gluc 125-165, Ca 7.5 Meds: pepcid, vitamin C, propofol, fentanyl, norepinephrine, vasopressin, insulin, heparin, zofran Ht: 69 in Wt: 221 lbs (09/10) 215 lbs (09/05) 179 lbs (09/01) 185.31 lb (08/25) Suspect possible weight error or fluid related BMI: 32.6 kg/m2 IBW: [address] Assessment: 09/10: Follow up. Pt remains mechanically ventilated and is receiving dialysis. Pt is currently receiving propofol @ 20 mL/hr which provides 528 kcal and is not currently in the prone position. Pt is tolerating tube feeding of Nepro @ 25 mL/hr. Recommend increasing tube feeding rate towards goal as medically appropriate. Provided TF recommendation to RN. Will continue to monitor. 09/05: Follow up. Pt remains mechanically ventilated with propofol and fentanyl. Pt is now receiving HD due to renal failure. Pt was also previously in the prone position as mentioned in pts chart. Spoke to RN, who stated that pt is receiving 15 mL/hr of propofol (provides 396 kcal) and is not in the prone position at this time. Pt is also receiving Nepro @ 30 mL/hr per RN and tolerating tube feeding. Will continue to monitor. 09/01: Follow up. Pt re-evaluated today for follow up and now due to intubation. Pt intubated 08/29, remains on vent and sedated with propofol and fentanyl. No pressors currently. Pt on TF of Vital AF infusing at goal rate per documentation in chart. TF rec's discussed with RN Saumya. Attempted to call MD, no answer. TF rec's provided pending pt continues on Propofol. Chart reviewed. Will continue to monitor. (08/26) 64 YOM admitted for viral PNA, hypoxia, diarrhea, and dehydration. Pt evaluated today per LOS. Pt PUI for Covid-19, test results remain pending. Unable to speak with pt via phone 2/2 very SOB and requiring BiPAP. 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 Pt with 75% meal intake prior to BiPAP use. Chart reviewed. Labs and meds reviewed. Will monitor and continue to follow. Malnutrition Evaluation (08/27/19) The patient does not meet criteria for a specified degree of malnutrition at this time. Will re-evaluate at follow-up as appropriate. Unable to complete assessment. Nutrition Prescription (Diet Order): Nepro @ goal rate of 50 mL/hr and water flush of 25 mL/hr Estimated Nutritional Needs: 3418-7423 calories/day (20-25 kcal/kg) Weight used: 179 lbs 106-162 g protein/day (1.3-2 g pro/kg) Weight used: 179 lbs Diet Adequacy: Not meeting calorie needs, not meeting protein needs Diet Tolerance: tolerating TF Diet Education Needs Assessment: Diet education not indicated at this time. Nutrition Care Level: Moderate Nutrition Diagnosis: Inadequate energy and protein intake related to respiratory status as evidenced by progression of BiPAP to intubation currently requiring EN. Goal: Patient will meet 75-100% of estimated needs by follow up Progress: Progressing Interventions: - Composition, Rate, Route, Recommended Modifications, Collaboration with other providers Monitoring/Evaluation: - Total energy intake, Total protein intake, Formula/Solution, Prescription medication Signed: Kathy Rojas RD, LD
--- NOTE | 2019-09-11 17:07 | NUR ---
Per Dr. Ramos dialysis today and infuse 1 unit PRBC during dialysis. Type and screen sent to lab. Telephone consent for blood transfusion with Sanjuana Marcus done by primary RN and Mikayla SILVA. computer science professor removed 3L and gave [address] Luciano informed of large air leak in chest tube. Md ordered RN to do dressing change on site and order chest x ray. Sedation held per Dr. Luciano's orders. Pt biting tube when suctioned (no gag reflex noted). Pt began to desaturate to 80% and HR increased to 130's, BP systolic 170's. informed of these changes orders to resume sedation. Dr. Luciano informed of ABG results by RT, orders given to RT to wean FIO2 to 40%, Peep decreased to 8, RR increased to 30, Pressure control 26. Awaiting chest x ray findings. Addendum: 09/11/19 at 1914 by Saumya Bronson RN Dr. Mckinney informed of WBC count this AM.
--- NOTE | 2019-09-11 17:16 | Consultation ---
DATE OF CONSULTATION: 09/09/2019 REASON FOR CONSULTATION: COVID positive pneumonia and atrial fibrillation. CHIEF COMPLAINT: COVID positive pneumonia and atrial fibrillation. HISTORY OF PRESENT ILLNESS: This is a 64-year-old male with history of hypertension, reflux, hyperlipidemia, throat cancer, who presented originally to the [facility] ER with complaints of cough, shortness of breath for several days. He was found to have COVID positive. Currently, he is intubated, sedated on prone position. Today, the patient was noted to have runs of atrial fibrillation. Cardiology was consulted to evaluate the patient. He was given Cardizem x1. Currently in sinus rhythm with PACs. Unable to obtain information from family. PAST MEDICAL HISTORY: Hypertension, reflux, hyperlipidemia, throat cancer. PAST SURGICAL HISTORY: Appendectomy. FAMILY HISTORY: Positive for hypertension. SOCIAL HISTORY: No reports of alcohol or tobacco use. REVIEW OF SYSTEMS: Unable to obtain. PHYSICAL EXAMINATION: VITAL SIGNS: Height 69 inches, weight 209 pounds, temperature 98, pulse 119, respiratory rate 28, blood pressure 169/68, pulse ox 97% on the ventilator. GENERAL: The patient is intubated and sedated. No rashes or bruises noted. HEENT: Normocephalic. Right IJ triple-lumen catheter. HEART: Irregular rhythm. LUNGS: Bilateral breath sounds with rhonchi, intubated, sedated. ABDOMEN: Soft, nontender, nondistended. MUSCULOSKELETAL: Sedated. VASCULAR: +2 radial pulses. NEUROLOGIC: Unable to assess. LABORATORY DATA: White count 14, hemoglobin 8.1, hematocrit 23, platelets of 301. Sodium 133, potassium 4.0, chloride 93, bicarb 26, BUN 71, and creatinine is 5.9. COVID positive. Chest x-ray showing small left apical pneumothorax. ASSESSMENT: 1. Positive COVID-19. 2. Pneumonia. 3. Respiratory failure. 4. Acute renal failure, intermittent hemodialysis therapy. 5. Atrial fibrillation. PLAN: The patient presents with cough and shortness of breath. Positive COVID and respiratory failure, vented and sedated. He was noted to have runs of AFib today. Cardiology was consulted. Currently in sinus rhythm, PACs. We will start amiodarone drip for rhythm control. Intermittent Cardizem for heart rate control. We will continue to monitor and further recommendations as course progresses. Thank you very much for this consult. Dictated by Antwon Condado, CATEGORY MANAGER Lynette Gan MD DC/MALIA /[id number]
[2019-09-11 17:24] LABS: ABG HCO3 29 mmol/L (22-26); ABG PCO2 73 mmHg (35-45)
--- NOTE | 2019-09-11 17:26 | Diagnostic Imaging Report ---
EXAMINATION: CHEST SINGLE (PORTABLE) INDICATION: ^Air leak in Chest tube ^[id number] ^1700 COMPARISON: 09/11/2019 at 5:29 AM FINDINGS: AP view TUBES and LINES: Stable endotracheal tube, left IJ central line, right IJ dialysis catheter, and left chest tube. LUNGS: Lungs are well inflated. Diffuse bilateral airspace opacities. PLEURA: Left apical pneumothorax with air gap of 1.7 cm, previously 0.9 cm. Suspected small bilateral pleural effusions. HEART AND MEDIASTINUM: The cardiomediastinal silhouette is enlarged. BONES AND SOFT TISSUES: No acute osseous lesion. Soft tissues are unremarkable. UPPER ABDOMEN: No free air under the diaphragm. IMPRESSION: Left apical pneumothorax, slightly increased when compared to prior x-ray. Unchanged diffuse bilateral airspace opacities, representing edema and/or pneumonia. Signed by: Dr. Shahid Leonard MD on 09/11/2019 5:22 PM
--- NOTE | 2019-09-11 18:38 | NUR ---
Dr. Luciano informed of chest x ray impression, pts vitals and vent settings.
--- NOTE | 2019-09-11 18:52 | Progress Note ---
DATE: SUBJECTIVE: Mr. Marcus remains in intensive care unit intubated. His white count 16.1, hemoglobin 7.1. His COVID-19 repeat on September 09 came back negative on dialysis. PHYSICAL EXAMINATION: GENERAL: Intubated, sedated. VITALS: Stable. Currently, afebrile. HEENT: . NECK: Supple. CHEST: Crackles bilaterally. HEART: S1, S2. No S3, S4. ABDOMEN: Soft. Bowel sounds present. EXTREMITIES: No edema. SKIN: No rash. IMPRESSION: 1. Respiratory failure. 2. COVID-19 present on admission. 3. Acute respiratory distress syndrome. 4. Acute on chronic kidney disease. 5. Renal failure. 6. Anemia. Continue with supportive care. 7. Diabetes. 8. History of pharyngeal cancer, status post radiation. We will follow. MD PATRICK Oakley/MALIA /[id number]
[2019-09-12] VITALS (45 sets, daily range): BP systolic 122–160; BP diastolic 56–82
[2019-09-12] MEDS: FENTANYL CITRATE INJ 2,000 MCG in SODIUM CHLORIDE 0.9% 250ML 210 ML IV PRN (02:44)
[2019-09-12 05:27] LABS: BASOPHILS % 0.3 % (0.0-1.0); EOSINOPHILS # (AUTO) 0.6 (0.0-0.4); HEMATOCRIT 25.7 % (38.2-49.6); HEMOGLOBIN 8.3 g/dL (14.0-18.0); LYMPHOCYTES # (AUTO) 0.7 (1.0-3.2); LYMPHOCYTES % 4.2 % (18.0-39.1); MEAN CORPUSCULAR HEMOGLOBIN 28.6 pg (28-32); MEAN CORPUSCULAR HGB CONC 32.3 g/dL (31-35); MEAN CORPUSCULAR VOLUME 88.6 fL (81-99); MONOCYTES # (AUTO) 0.6 (0.2-0.8); MONOCYTES % 3.8 % (4.4-11.3); NEUTROPHILS # (AUTO) 12.7 (2.1-6.9); NEUTROPHILS % 79.9 % (38.7-80.0); PLATELET COUNT 215 x10e3/uL (140-360); RED CELL DISTRIBUTION WIDTH 16.7 % (11.7-14.4)
[2019-09-12 05:46] LABS: ALBUMIN 1.8 g/dL (3.5-5.0); ALBUMIN/GLOBULIN RATIO 0.4 (0.8-2.0); ANION GAP 13.8 mmol/L (8-16); CALCIUM 8.4 mg/dL (8.4-10.2); CREATININE, SERUM 4.4 mg/dL (0.72-1.25); POTASSIUM 3.8 mmol/L (3.5-5.1)
[2019-09-12] MEDS: INSULIN REGULAR, HUMAN 100 UNIT/1 ML 3ML VIAL SQ SCH ×4 (06:00→17:59)
[2019-09-12] MEDS: ACETYLCYSTEINE 200 MG/ML 4ML VIAL INH SCH ×2 (07:00→19:00)
--- NOTE | 2019-09-12 07:00 | Diagnostic Imaging Report ---
EXAMINATION: CHEST SINGLE (PORTABLE) INDICATION: Pneumonia. COMPARISON: Chest radiograph 09/11/2019. FINDINGS: LINES/TUBES:Endotracheal tube, left chest tube, enteric tube, left IJ central venous catheter, and right IJ temporary dialysis catheter all appear unchanged. EKG leads overlie the chest. LUNGS:The lungs are moderately inflated. Bilateral airspace opacities, slightly decreased on the left. PLEURA: Decreased small left apical pneumothorax, now measuring 0.6 cm. MEDIASTINUM:The cardiomediastinal silhouette appears unchanged in size and shape. BONES/SOFT TISSUES:No acute osseous abnormality. ABDOMEN:No free air under the diaphragm. IMPRESSION: Left sided chest tube with decreased small 0.6 cm left apical pneumothorax. Other lines and tubes as above. Bilateral airspace opacities, slightly decreased on the left compatible with atypical pneumonia. Signed by: Dr. Jeff Briggs MD on 09/12/2019 6:57 AM
[2019-09-12] MEDS: FAMOTIDINE 20 MG/2 ML VIAL IV SCH (08:07)
[2019-09-12] MEDS: BALSAM PERU/CASTOR OIL 60 GM OINT...G. TP SCH (08:07)
[2019-09-12] MEDS: ASCORBIC ACID 500 MG TAB PO SCH ×3 (08:07→21:00)
[2019-09-12] MEDS: AMIODARONE HCL 200 MG TAB PO SCH ×3 (08:07→21:58)
[2019-09-12] MEDS: ASPIRIN 81 MG ENTERIC COATED PO SCH (08:07)
[2019-09-12] MEDS: PROPOFOL IV EMULSION 10 MG/ML 50 ML VIAL IV SCH ×3 (08:13→13:31)
[2019-09-12 11:45] LABS: ANISOCYTOSIS SLIGHT; EOSINOPHILS % (MANUAL) 4 % (0-7); LYMPHOCYTES % (MANUAL) 4 % (19-48); MONOCYTES % (MANUAL) 2 % (3.4-9.0); MYELOCYTES % (MANUAL) 2 % (0-0); NEUTROPHILS % (MANUAL) 87 % (40-74); NUCLEATED RED BLOOD CELLS 7
[2019-09-12 11:46] LABS: POLYCHROMASIA FEW
[2019-09-12 11:48] LABS: PLATELET ESTIMATE ADEQUATE; PLATELET MORPHOLOGY COMMENT NORMAL; POIKILOCYTOSIS SLIGHT; RBC MORPHOLOGY COMMENT NORMAL
--- NOTE | 2019-09-12 13:49 | NUR ---
Pulmonary Medicine DATE 09/12/2019 SUBJECTIVE: propofol 14/ fentanyl 125/ tube feeds 35/hr water 35/hr chest tube with small air leak, reports was possible larger yesterday PM (?PEEP was higher) intubated, on ventilator 20/26/40/5 PC AC PEEP and oxygen significantly decreased since yesterday REVIEW OF SYSTEMS: cant get, intubated OBJECTIVE: VITAL SIGNS: Vital signs as noted per the chart record. GENERAL: intubated, on ventilator HEENT: Normocephalic, atraumatic. NECK: Supple. Throat midline. LUNGS: Bilateral air entry, decreased exam. CARDIOVASCULAR: S1, S2. No murmurs, rubs, or gallops. ABDOMEN: Soft, nontender. EXTREMITIES: No clubbing, no cyanosis. no edema. INTEGUMENT: No rash or purpura. LABORATORY DATA: Na 133, k 3.8, cr 4.4. wbc 15.9, hct 26, plt 215 IMPRESSION AND PLAN: 1. Hypoxemia, acute lung injury. ARDS. 2. COVID pneumonitis 3. Hypoxemic respiratory failure, acute. Intubated 4. diarrhea, COVID related 5. hypertension. 6. History of throat cancer. 7. gastroesophageal reflux disease. 8. acute respiratory failure, intubated 9. enterococcus bacteremia NOS 10. SVT 8 beats 11. JULIETTE, toxic/hypotensive 12. shock, distributive/septic 13. suspected pneumothorax Intubated maintain Ventilator management --continue to downtitrate FiO2 to 40% or less --goal of zero PEEP with pneumothorax if tolerated --Intermittent ABG, attempt to down titrate minute ventilation if safe. todays goal about 9-12 L/min minute ventilation. --If intermittent ABG's show heavy CO2 retention, we will recommend tracheostomy for facilitating management of the fibrotic lungs. ID / infection control managing infection risk --suction prn, continue mucomyst nebulized for secretions --paralyze prn with backup rate and MV observation for variable mechanics when paralyzed nephrology providing intermittent HD as needed Empiric antibiotics per ID Continue NGT feeds as tolerated DVT prophylaxis. Follow up markers of DIC and systemic inflammation closely. anticoagulation continue continue chest tube, follow air leak Thank you very much, Dr. Santos and Dr. Larose, for allowing me a chance to participate in care of Mr. Marcus. Please call for questions.
[2019-09-12] MEDS: ENOXAPARIN INJ 80 MG/0.8 ML SYR SC SCH (16:14)
[2019-09-13] VITALS (24 sets, daily range): BP systolic 105–170; BP diastolic 57–88
[2019-09-13] MEDS: FENTANYL CITRATE INJ 2,000 MCG in SODIUM CHLORIDE 0.9% 250ML 210 ML IV PRN (02:33)
[2019-09-13] MEDS: PROPOFOL IV EMULSION 10 MG/ML 50 ML VIAL IV SCH ×4 (02:35→20:09)
[2019-09-13 05:41] LABS: BASOPHILS % 0.3 % (0.0-1.0); EOSINOPHILS # (AUTO) 0.5 (0.0-0.4); EOSINOPHILS % 3.3 % (0.0-6.0); HEMATOCRIT 26.9 % (38.2-49.6); HEMOGLOBIN 8.7 g/dL (14.0-18.0); LYMPHOCYTES # (AUTO) 0.6 (1.0-3.2); MEAN CORPUSCULAR HEMOGLOBIN 28.6 pg (28-32); MEAN CORPUSCULAR HGB CONC 32.3 g/dL (31-35); MEAN CORPUSCULAR VOLUME 88.5 fL (81-99); MONOCYTES # (AUTO) 0.7 (0.2-0.8); MONOCYTES % 4.6 % (4.4-11.3); NEUTROPHILS # (AUTO) 12.7 (2.1-6.9); NEUTROPHILS % 82.9 % (38.7-80.0); PLATELET COUNT 239 x10e3/uL (140-360); RED BLOOD COUNT 3.04 x10e6/uL (4.3-5.7); RED CELL DISTRIBUTION WIDTH 17.6 % (11.7-14.4)
[2019-09-13 06:00] LABS: ANION GAP 15.3 mmol/L (8-16); CALCIUM 8.7 mg/dL (8.4-10.2); CREATININE, SERUM 5.27 mg/dL (0.72-1.25); MAGNESIUM 2.3 MG/DL (1.3-2.1); PHOSPHORUS 8.6 MG/DL (2.3-4.7); POTASSIUM 4.3 mmol/L (3.5-5.1)
[2019-09-13] MEDS: INSULIN REGULAR, HUMAN 100 UNIT/1 ML 3ML VIAL SQ SCH ×5 (06:00→23:24)
[2019-09-13] MEDS: ACETYLCYSTEINE 200 MG/ML 4ML VIAL INH SCH (07:00)
--- NOTE | 2019-09-13 07:10 | Diagnostic Imaging Report ---
EXAMINATION: CHEST SINGLE (PORTABLE) INDICATION: Chest tube. COMPARISON: Chest radiograph 09/12/2019. FINDINGS: LINES/TUBES:Endotracheal tube, left chest tube, enteric tube, left IJ central venous catheter, and right IJ temporary dialysis catheter all appear unchanged. EKG leads overlie the chest. LUNGS:The lungs are moderately inflated. Slightly increased bilateral diffuse airspace opacities. PLEURA: Decreased trace left pneumothorax. MEDIASTINUM:The cardiomediastinal silhouette appears unchanged in size and shape. BONES/SOFT TISSUES:No acute osseous abnormality. ABDOMEN:No free air under the diaphragm. IMPRESSION: Left sided chest tube with decreased now trace left pneumothorax. Other lines and tubes as above. Bilateral airspace opacities, slightly increased, compatible with atypical pneumonia, possibly with superimposed pulmonary edema. Signed by: Dr. Jeff Briggs MD on 09/13/2019 7:07 AM
[2019-09-13] MEDS ORDERED: HEPARIN SOD (PORCINE) 1000 UNIT/ML SDV ONE (07:52)
--- NOTE | 2019-09-13 08:17 | Progress Note ---
DATE: SUBJECTIVE: Mr. Marcus remains in intensive care unit, very slow weaning. His repeat COVID-19 was negative. Discussed with the critical care. PHYSICAL EXAMINATION: GENERAL: Intubated and sedated. VITAL SIGNS: Stable, currently afebrile. HEENT: Not icteric. NECK: Supple. CHEST: Few crackles bilateral. HEART: S1 and S2. No S3, S4, or murmurs. ABDOMEN: Soft. IMPRESSION: 1. Acute respiratory distress syndrome, concerned that he may be going to the fibrotic stage. 2. End-stage renal disease, on hemodialysis. 3. COVID-19. 4. History of hypertension. 5. History of throat cancer. 6. We will recheck COVID-19 on Monday. He is off antibiotics so far stable. We will follow. MD PATRICK Oakley/MODL /[id number]
[2019-09-13] MEDS ORDERED: HEPARIN SOD (PORCINE) 1000 UNIT/ML SDV IV PRN (08:30)
[2019-09-13] MEDS: BALSAM PERU/CASTOR OIL 60 GM OINT...G. TP SCH (09:00)
[2019-09-13] MEDS: ASPIRIN 81 MG ENTERIC COATED PO SCH (09:00)
[2019-09-13] MEDS: AMIODARONE HCL 200 MG TAB PO SCH ×3 (09:00→21:00)
[2019-09-13] MEDS: FAMOTIDINE 20 MG/2 ML VIAL IV SCH (09:00)
[2019-09-13] MEDS: ASCORBIC ACID 500 MG TAB PO SCH ×3 (09:00→21:00)
[2019-09-13 09:33] LABS: ABG PO2 77 mmHg (80-90)
[2019-09-13 10:40] LABS: ABG PO2 67 mmHg (80-90)
[2019-09-13 10:47] LABS: ABG PO2 68 mmHg (80-105)
[2019-09-13 11:01] LABS: ABG PO2 84 mmHg (80-105)
[2019-09-13 11:04] LABS: ABG PO2 64 mmHg (80-105)
[2019-09-13 11:08] LABS: ABG PO2 85 mmHg (80-105)
--- NOTE | 2019-09-13 14:36 | NUR ---
Pulmonary Medicine DATE 09/13/2019 SUBJECTIVE: HD today, 5 L negative, 3.5 hrs duration tube feeds 35/hr, water 25/hr propofol 20, fentanyl 125/ intubated, on ventilator 30/26/40/4 some nouth bleeding REVIEW OF SYSTEMS: cant get, intubated OBJECTIVE: VITAL SIGNS: Vital signs as noted per the chart record. GENERAL: intubated, on ventilator HEENT: Normocephalic, atraumatic. NECK: Supple. Throat midline. LUNGS: Bilateral air entry, decreased exam. CARDIOVASCULAR: S1, S2. No murmurs, rubs, or gallops. ABDOMEN: Soft, nontender. EXTREMITIES: No clubbing, no cyanosis. no edema. INTEGUMENT: No rash or purpura. LABORATORY DATA: na 132, k 4.3, bun 60, cr 6.27. wbc 15, hct 27, plt 239. IMPRESSION AND PLAN: 1. Hypoxemia, acute lung injury. ARDS. 2. COVID pneumonitis 3. Hypoxemic respiratory failure, acute. Intubated 4. diarrhea, COVID related 5. hypertension. 6. History of throat cancer. 7. gastroesophageal reflux disease. 8. acute respiratory failure, intubated 9. enterococcus bacteremia NOS 10. SVT 8 beats 11. JULIETTE, toxic/hypotensive 12. shock, distributive/septic 13. pneumothorax s/p left chest tube Intubated maintain Ventilator management --continue to downtitrate FiO2 to 40% or less --goal of zero PEEP for pneumothorax if tolerated --Intermittent ABG, attempt to down titrate minute ventilation if safe. todays goal about 9-12 L/min minute ventilation. --If intermittent ABG's show heavy CO2 retention, we will recommend tracheostomy for facilitating management of the fibrotic lungs. ID / infection control managing infection risk, another COVID test was sent yesterday --suction prn, dc mucomyst --paralyze prn with backup rate and MV observation for variable mechanics when paralyzed nephrology providing intermittent HD as needed --renal to try lasix iv drip to acheive renal recovery Empiric antibiotics per ID Continue NGT feeds as tolerated DVT prophylaxis. Follow up markers of DIC and systemic inflammation closely. anticoagulation decrease, restore when bleeding better continue chest tube, follow air leak Thank you very much, Dr. Santos and Dr. Larose, for allowing me a chance to participate in care of Mr. Marcus. Please call for questions.
[2019-09-13] MEDS: FUROSEMIDE INJ 250 MG in SODIUM CHLORIDE 0.9% 250ML 225 ML IV SCH (18:44)
[2019-09-13] MEDS: ENOXAPARIN 30 MG/0.3 ML SYR SC SCH (18:44)
--- NOTE | 2019-09-13 19:03 | Progress Note ---
DATE: SUBJECTIVE: Mr. Marcus remains in intensive care unit, slowly being weaned. OBJECTIVE: GENERAL: Intubated and sedated. VITAL SIGNS: Stable. HEENT: Not icteric. NECK: Supple. CHEST: Few crackles. HEART: S1, S2. ABDOMEN: Soft. IMPRESSION: Coronavirus disease-19, acute respiratory distress syndrome, slowly improving. White count is coming down, looks stable. We will recheck Coronavirus disease-19 again. The last one on the was negative, is pending. On hemodialysis. Stable from Infectious Disease's point of view so far. Await the test. MD PATRICK Oakley/MODL /[id number]
[2019-09-13] MEDS ORDERED: FENTANYL CITRATE/PF 100MCG/2 ML INJ IV PRN (20:30)
[2019-09-14] VITALS (21 sets, daily range): BP systolic 98–163; BP diastolic 56–88
[2019-09-14 05:13] LABS: BASOPHILS % 0.2 % (0.0-1.0); EOSINOPHILS # (AUTO) 0.7 (0.0-0.4); EOSINOPHILS % 5.3 % (0.0-6.0); HEMATOCRIT 25.9 % (38.2-49.6); HEMOGLOBIN 8.3 g/dL (14.0-18.0); LYMPHOCYTES # (AUTO) 0.4 (1.0-3.2); LYMPHOCYTES % 2.9 % (18.0-39.1); MEAN CORPUSCULAR HEMOGLOBIN 28.8 pg (28-32); MEAN CORPUSCULAR VOLUME 89.9 fL (81-99); MONOCYTES # (AUTO) 0.9 (0.2-0.8); MONOCYTES % 6.8 % (4.4-11.3); NEUTROPHILS # (AUTO) 10.9 (2.1-6.9); NEUTROPHILS % 81.6 % (38.7-80.0); PLATELET COUNT 257 x10e3/uL (140-360); RED BLOOD COUNT 2.88 x10e6/uL (4.3-5.7); RED CELL DISTRIBUTION WIDTH 18.2 % (11.7-14.4)
[2019-09-14 05:33] LABS: CALCIUM 8.7 mg/dL (8.4-10.2); CREATININE, SERUM 4.2 mg/dL (0.72-1.25)
[2019-09-14] MEDS: INSULIN REGULAR, HUMAN 100 UNIT/1 ML 3ML VIAL SQ SCH ×3 (06:00→18:00)
[2019-09-14] MEDS: FUROSEMIDE INJ 250 MG in SODIUM CHLORIDE 0.9% 250ML 225 ML IV SCH ×2 (06:35→19:04)
[2019-09-14] MEDS: PROPOFOL IV EMULSION 10 MG/ML 50 ML VIAL IV SCH ×4 (07:32→22:21)
[2019-09-14] MEDS: ASPIRIN 81 MG ENTERIC COATED PO SCH (09:00)
[2019-09-14] MEDS: ASCORBIC ACID 500 MG TAB PO SCH ×3 (10:12→20:07)
[2019-09-14] MEDS: AMIODARONE HCL 200 MG TAB PO SCH ×3 (10:12→20:07)
[2019-09-14] MEDS: FAMOTIDINE 20 MG/2 ML VIAL IV SCH (10:12)
--- NOTE | 2019-09-14 11:34 | NUR ---
progress note [id number]
[2019-09-14] MEDS: BALSAM PERU/CASTOR OIL 60 GM OINT...G. TP SCH (13:16)
--- NOTE | 2019-09-14 13:41 | Progress Note ---
DATE: SUBJECTIVE: Mr. Marcus remains in intensive care unit. He is intubated. He is showing signs of improvement. He has no fever. His repeat COVID-19 is still pending, but he is overall improving. OBJECTIVE: VITAL SIGNS: Stable, afebrile. HEENT: Not icteric. NECK: Supple. CHEST: Crackles bilateral. HEART: S1 and S2. No S3, S4, or murmurs. ABDOMEN: Soft. IMPRESSION: 1. Acute respiratory distress syndrome, COVID-19, slowly better. 2. [id number] kidney disease also seems to be improving. Sodium 139, his creatinine 4.2. 3. Diabetes. 4. From Infectious Disease point of view, continue supportive care. Await recheck. We will follow. MD PATRICK Oakley/MODL /[id number]
--- NOTE | 2019-09-14 16:49 | NUR ---
Pulmonary Medicine DATE 09/14/2019 SUBJECTIVE: /40/4 pc ac mv 12 now, earlier was to 7 pH ~7.23 feeds 35/hr, water 25/hr propofol 40/ fentanyl 125/ lasix 20/ UOP ~10 ml / hr REVIEW OF SYSTEMS: cant get, intubated OBJECTIVE: VITAL SIGNS: Vital signs as noted per the chart record. GENERAL: intubated, on ventilator HEENT: Normocephalic, atraumatic. NECK: Supple. Throat midline. LUNGS: Bilateral air entry, decreased exam. CARDIOVASCULAR: S1, S2. No murmurs, rubs, or gallops. ABDOMEN: Soft, nontender. EXTREMITIES: No clubbing, no cyanosis. no edema. INTEGUMENT: No rash or purpura. LABORATORY DATA: na 133, k 4.0, cr 4.2 wbc 13, hct 26, plt 257. IMPRESSION AND PLAN: 1. Hypoxemia, acute lung injury. ARDS, evolving fibrosis 2. COVID pneumonitis 3. Hypoxemic respiratory failure, acute. Intubated 4. diarrhea, COVID related 5. hypertension. 6. Hx throat cancer. 7. gastroesophageal reflux disease. 8. acute respiratory failure, intubated 9. enterococcus bacteremia NOS 10. SVT 8 beats 11. JULIETTE, toxic/hypotensive 12. shock, distributive/septic. resolved. 13. pneumothorax s/p left chest tube Intubated maintain Ventilator management --continue to downtitrate FiO2 to 40% or less --goal of zero PEEP for pneumothorax if tolerated --Intermittent ABG, attempt to down titrate minute ventilation if safe. todays goal about 9-12 L/min minute ventilation. --Recommend tracheostomy for facilitating management of the fibrotic lungs. ID / infection control managing infection risk, another COVID test pending --suction prn, dc mucomyst nephrology providing intermittent HD as needed --renal to try lasix iv drip to acheive renal recovery Empiric antibiotics per ID Continue NGT feeds as tolerated DVT prophylaxis. Follow up markers of DIC and systemic inflammation closely. anticoagulation decrease, restore when bleeding better continue chest tube, follow air leak next abg tonight Thank you very much, Dr. Santos and Dr. Larose, for allowing me a chance to participate in care of Mr. Marcus. Please call for questions. >30 min in direct care/coordination including with laboratory, RT, RT director for blood gas and safety issues
[2019-09-14] MEDS: ENOXAPARIN 30 MG/0.3 ML SYR SC SCH (18:45)
--- NOTE | 2019-09-14 19:00 | NUR ---
Report received from Herb Barfield RN. Pt on propofol, fentanyl, and lasix infusions. Left chest tube to water seal he reported 25ml out during am shift. Malagon to gravity - 225ml output during am shift. No proning pt at this time d/t chest as reported. SPO2% low 90's per report. Episodes of ST reported during am shift. Last HD 4-24 with reported 5L removed.
--- NOTE | 2019-09-14 20:09 | NUR ---
RT collecting ABG at this time.
[2019-09-14 20:56] LABS: ABG HCO3 26 mmol/L (22-26); ABG PCO2 50 mmHg (35-45); ABG PH 7.32 (7.35-7.45)
--- NOTE | 2019-09-14 23:08 | NUR ---
Pts SPO2 is 87%. RT present and assessing the pt. Peep now at 2 (previously decreased by RT to 0).
[2019-09-15] VITALS (23 sets, daily range): BP systolic 80–126; BP diastolic 49–65
[2019-09-15] MEDS: PROPOFOL IV EMULSION 10 MG/ML 50 ML VIAL IV SCH ×6 (02:38→22:30)
[2019-09-15] MEDS: FENTANYL 2,000 MCG/250 ML BAG IV PRN ×2 (03:42→15:35)
--- NOTE | 2019-09-15 04:35 | NUR ---
AM blood specimen collected and given to filling station laborer/signing agent.
[2019-09-15] MEDS: INSULIN REGULAR, HUMAN 100 UNIT/1 ML 3ML VIAL SQ SCH ×4 (06:00→18:33)
[2019-09-15 06:22] LABS: ANION GAP 15.2 mmol/L (8-16); CALCIUM 8.8 mg/dL (8.4-10.2); CREATININE, SERUM 4.98 mg/dL (0.72-1.25); POTASSIUM 4.2 mmol/L (3.5-5.1)
--- NOTE | 2019-09-15 06:24 | Diagnostic Imaging Report ---
EXAMINATION: CHEST SINGLE (PORTABLE) INDICATION: CHF. COMPARISON: Chest radiograph 09/13/19. FINDINGS: LINES/TUBES:Endotracheal tube, left chest tube, enteric tube, left IJ central venous catheter, and right IJ temporary dialysis catheter all appear unchanged. EKG leads overlie the chest. LUNGS:The lungs are moderately inflated. Slightly increased bilateral diffuse airspace opacities. PLEURA: Slightly increased 0.6 cm left apical pneumothorax. MEDIASTINUM:The cardiomediastinal silhouette appears unchanged in size and shape. BONES/SOFT TISSUES:No acute osseous abnormality. ABDOMEN:No free air under the diaphragm. IMPRESSION: Left sided chest tube with slightly increased, now 0.6 cm left apical pneumothorax. Other lines and tubes as above. Unchanged bilateral airspace opacities, compatible with atypical pneumonia, possibly with superimposed pulmonary edema. Signed by: Dr. Jeff Briggs MD on 09/15/2019 6:21 AM
[2019-09-15] MEDS: FUROSEMIDE INJ 250 MG in SODIUM CHLORIDE 0.9% 250ML 225 ML IV SCH (08:01)
[2019-09-15] MEDS: BALSAM PERU/CASTOR OIL 60 GM OINT...G. TP SCH (09:00)
[2019-09-15] MEDS: AMIODARONE HCL 200 MG TAB PO SCH ×3 (09:00→21:23)
[2019-09-15] MEDS: FAMOTIDINE 20 MG/2 ML VIAL IV SCH (09:00)
[2019-09-15] MEDS: ASPIRIN 81 MG ENTERIC COATED PO SCH (09:00)
--- NOTE | 2019-09-15 09:49 | NUR ---
INFECTIOUS DISEASE PROGRESS NOTE CC: COVID19 SUBJECTIVE: Mr. Marcus remains in intensive care unit. He is intubated. He is showing signs of improvement. He has no fever. His repeat COVID-19 is still pending, but he is overall improving. ROS: unable to obtain due to condition PHYSICAL EXAM: OBJECTIVE: intubated, sedated VITAL SIGNS: Stable, afebrile. HEENT: Not icteric. NECK: Supple. no JVD CHEST: Crackles bilateral, vent support HEART: S1 and S2. No S3, S4, or murmurs. ABDOMEN: Soft, non-distended LABS: REVIEWED MEDS: PER JUL IMPRESSION: 1. Acute respiratory distress syndrome 2. COVID 19 pneumonitis 3. Hvrcp-dl-ksjuxdb kidney disease 4. Diabetes. 5. Acute Hypoxemic Respiratory failure 6. Enterococcus Bacteremia 7. Pneumothorax s/p left chest tube PLAN: 09/15/19 Supportive care per critical care medicine. Repeat COVID19 test pending. Remains afebrile. DISCUSSED WITH DR NG
[2019-09-15] MEDS ORDERED: SODIUM CHLORIDE 0.9% 1000ML 1,000 ML ONE (16:42)
[2019-09-15] MEDS ORDERED: NOREPINEPHRINE INJ 4MG/4ML 8 MG in DEXTROSE 5% 250ML 242 ML IV SCH (17:00)
[2019-09-15] MEDS ORDERED: VASOPRESSIN 100 UNIT in DEXTROSE 5% 100ML 100 ML IV PRN ×2 (17:00→18:45)
[2019-09-15] MEDS: NOREPINEPHRINE 8 MG/D5W 250 ML 250 ML IV SCH (17:45)
--- NOTE | 2019-09-15 17:45 | NUR ---
Pulmonary Medicine DATE 09/15/2019 SUBJECTIVE: slightly worse blood gas 7. venous pc ac 32 24/45/2 tube feeds 35/hr water 25/hr flushes lasix 20/. UOP ~ 18 cc / hr propofol iv fentanyl patient with asynchronous breathing on weaning meds cvp 10 REVIEW OF SYSTEMS: cant get, intubated OBJECTIVE: VITAL SIGNS: Vital signs as noted per the chart record. GENERAL: intubated, on ventilator HEENT: Normocephalic, atraumatic. NECK: Supple. Throat midline. LUNGS: Bilateral air entry, decreased exam. CARDIOVASCULAR: S1, S2. No murmurs, rubs, or gallops. ABDOMEN: Soft, nontender. EXTREMITIES: No clubbing, no cyanosis. no edema. INTEGUMENT: No rash or purpura. LABORATORY DATA: na 130, k 4.2, co2 24, bun 62, cr 4.98. wbc 13, hct 26, plt 257 IMPRESSION AND PLAN: 1. Hypoxemia, acute lung injury. ARDS, evolving fibrosis 2. COVID pneumonitis 3. Hypoxemic respiratory failure, acute. Intubated 4. diarrhea, COVID related 5. hypertension. 6. Hx throat cancer. 7. gastroesophageal reflux disease. 8. acute respiratory failure, intubated 9. enterococcus bacteremia NOS 10. SVT 8 beats 11. JULIETTE, toxic/hypotensive 12. shock, distributive/septic. resolved. 13. pneumothorax s/p left chest tube Intubated maintain Ventilator management --continue to down titrate FiO2 to 40% or less as tolerated --goal of zero PEEP for pneumothorax if tolerated --Intermittent ABG, attempt to down-titrate minute ventilation if safe. todays goal about 9-12 L/min minute ventilation. --Recommend tracheostomy for facilitating management of the fibrotic lungs. ID / infection control managing infection risk, another COVID test pending --suction prn nephrology providing intermittent HD as needed --dc lasix iv drip for now, not working sufficiently Empiric antibiotics per ID Continue NGT feeds as tolerated DVT prophylaxis. Follow up markers of DIC and systemic inflammation closely. anticoagulation decrease, restore when bleeding better follow BP, pressors if needed continue chest tube, follow air leak. Minimize ventilator pressures as feasible Thank you very much, Dr. Santos and Dr. Larose, for allowing me a chance to participate in care of Mr. Marcus. Please call for questions. >30 min in direct care/coordination
[2019-09-15] MEDS: ENOXAPARIN 30 MG/0.3 ML SYR SC SCH (18:33)
--- NOTE | 2019-09-15 18:55 | Progress Note ---
DATE: Nephrology Dialysis Progress Note SUBJECTIVE: Nephrology events noted and reviewed. Discussed with RN at the bedside and with intensive care physician. The patient is intubated on ventilator. The patient is on COVID-19 isolation. OBJECTIVE: VITAL SIGNS: Blood pressure 101/49, heart rate 90 per minute, and temperature 96.8 degrees Fahrenheit. LUNGS: Diffuse bilateral rales. No breath sounds on the left lung due to pneumothorax. HEART: Normal heart sounds. ABDOMEN: Soft. EXTREMITIES: No edema. LABORATORY FINDINGS: Noted and reviewed. ASSESSMENT AND PLAN: 1. Acute kidney injury secondary to severe sepsis, multiorgan system failure, acute tubular necrosis, ischemic, poor perfusion, dialysis-dependant. The patient will receive hemodialysis per orders. Ultrafiltration as tolerated. 2. Hypotension. Recently, the patient had become hypotensive and is requiring pressor support. 3. Acid base. The patient has a combination of severe respiratory acidosis and a mild high anion gap elevation metabolic acidosis. The patient cannot provide renal compensation, as he is in acute tubular necrosis and he is almost anuric. 4. Monovalent electrolyte. Potassium in range. 5. Anemia. The patient is anemic secondary to acute illness. He may benefit from transfusion for hemodynamic support. 6. Disposition. Treatment of this case is bothering futile treatment, as the patient has advanced age and multisystem organ failure. He is dialysis-dependant and has a pneumothorax. Discussed in details with RN at the bedside and the intensive care physician, and with vocational ed instructor. All questions answered to their satisfaction until they had none. MD JIMMIE Mitchell/MODL /[id number]
--- NOTE | 2019-09-15 19:30 | NUR ---
Received patient on sedation and vasopressin, awaiting dialysis
--- NOTE | 2019-09-15 23:00 | NUR ---
Dialysis ended well, vitals stable UF of 2L
[2019-09-16] VITALS (25 sets, daily range): BP systolic 85–164; BP diastolic 45–74
[2019-09-16] MEDS: FENTANYL 2,000 MCG/250 ML BAG IV PRN ×3 (01:00→22:37)
[2019-09-16] MEDS: PROPOFOL IV EMULSION 10 MG/ML 50 ML VIAL IV SCH ×4 (04:00→17:30)
--- NOTE | 2019-09-16 05:00 | NUR ---
Patient with a large BM, full bath given, dirty linens changed. Remains stable
[2019-09-16 05:01] LABS: BASOPHILS % 0.2 % (0.0-1.0); EOSINOPHILS # (AUTO) 1.3 (0.0-0.4); EOSINOPHILS % 9.6 % (0.0-6.0); HEMATOCRIT 26.3 % (38.2-49.6); HEMOGLOBIN 8.2 g/dL (14.0-18.0); LYMPHOCYTES # (AUTO) 0.7 (1.0-3.2); LYMPHOCYTES % 5.3 % (18.0-39.1); MEAN CORPUSCULAR HEMOGLOBIN 28.9 pg (28-32); MEAN CORPUSCULAR HGB CONC 31.2 g/dL (31-35); MEAN CORPUSCULAR VOLUME 92.6 fL (81-99); MONOCYTES # (AUTO) 1.1 (0.2-0.8); MONOCYTES % 8.5 % (4.4-11.3); NEUTROPHILS # (AUTO) 9.8 (2.1-6.9); NEUTROPHILS % 74.7 % (38.7-80.0); PLATELET COUNT 271 x10e3/uL (140-360); RED BLOOD COUNT 2.84 x10e6/uL (4.3-5.7); RED CELL DISTRIBUTION WIDTH 19.2 % (11.7-14.4)
[2019-09-16 05:21] LABS: ALBUMIN 2.4 g/dL (3.5-5.0); ALBUMIN/GLOBULIN RATIO 0.6 (0.8-2.0); ANION GAP 13.3 mmol/L (8-16); CALCIUM 8.8 mg/dL (8.4-10.2); CREATININE, SERUM 3.34 mg/dL (0.72-1.25); MAGNESIUM 2.2 MG/DL (1.3-2.1); PHOSPHORUS 5.5 MG/DL (2.3-4.7); POTASSIUM 4.3 mmol/L (3.5-5.1)
[2019-09-16] MEDS: INSULIN REGULAR, HUMAN 100 UNIT/1 ML 3ML VIAL SQ SCH ×4 (06:00→17:19)
--- NOTE | 2019-09-16 06:55 | Diagnostic Imaging Report ---
EXAMINATION: CHEST SINGLE (PORTABLE) INDICATION: ARDS. COMPARISON: Chest radiograph 09/15/19. FINDINGS: LINES/TUBES:Endotracheal tube, left chest tube, enteric tube, left IJ central venous catheter, and right IJ temporary dialysis catheter all appear unchanged. EKG leads overlie the chest. LUNGS:The lungs are moderately inflated. Increased diffuse bilateral diffuse airspace opacities. PLEURA: Slightly increased 0.9 cm left apical pneumothorax. MEDIASTINUM:The cardiomediastinal silhouette appears unchanged in size and shape. BONES/SOFT TISSUES:No acute osseous abnormality. ABDOMEN:No free air under the diaphragm. IMPRESSION: Left sided chest tube with slightly increased, now 0.9 cm left apical pneumothorax. Other lines and tubes as above. Increased diffuse bilateral airspace opacities, compatible with atypical pneumonia and ARDS. Signed by: Dr. Jeff Briggs MD on 09/16/2019 6:52 AM
[2019-09-16] MEDS: BALSAM PERU/CASTOR OIL 60 GM OINT...G. TP SCH (08:12)
[2019-09-16] MEDS: ASPIRIN 81 MG ENTERIC COATED PO SCH (08:12)
[2019-09-16] MEDS: AMIODARONE HCL 200 MG TAB PO SCH ×3 (08:12→20:46)
[2019-09-16] MEDS: FAMOTIDINE 20 MG/2 ML VIAL IV SCH (08:12)
[2019-09-16 08:56] LABS: ABG HCO3 31 mmol/L (22-26)
[2019-09-16 09:10] LABS: ABG PCO2 70 mmHg (35-45); ABG PH 7.25 (7.35-7.45)
--- NOTE | 2019-09-16 10:23 | NUR ---
INFECTIOUS DISEASE PROGRESS NOTE CC: COVID19 SUBJECTIVE: Mr. Marcus remains in intensive care unit. He is intubated. He is showing signs of improvement. He has no fever. His repeat COVID-19 is still pending, but he is overall improving. ROS: unable to obtain due to condition PHYSICAL EXAM: GENERAL: intubated, sedated VITAL SIGNS: 96.9, 146/60, 90, 32 HEENT: Not icteric. NECK: Supple. no JVD CV: S1 and S2. No S3, S4, or murmurs. CHEST: Crackles bilateral, vent support ABDOMEN: Soft, non-distended LABS: REVIEWED MEDS: PER [facility] RADIOLOGY: IMPRESSION: Left sided chest tube with slightly increased, now 0.9 cm left apical pneumothorax. Other lines and tubes as above. Increased diffuse bilateral airspace opacities, compatible with atypical pneumonia and ARDS. IMPRESSION: 1. Acute respiratory distress syndrome 2. COVID 19 pneumonitis 3. Itabo-mj-bjrmpyn kidney disease 4. Diabetes. 5. Acute Hypoxemic Respiratory failure 6. Enterococcus Bacteremia (suspected contamination) 7. Pneumothorax s/p left chest tube PLAN: 09/16/19: Repeat COVID19 pending, leukocytosis resolving slowly. Supportive care per critical care team. At this time, no need for antibiotics. 09/15/19 Supportive care per critical care medicine. Repeat COVID19 test pending. Remains afebrile. DISCUSSED WITH DR NG
--- NOTE | 2019-09-16 13:04 | NUR ---
Pulmonary Medicine DATE 09/16/2019 SUBJECTIVE: tube feeds 35/hr on ventilator 32/28/50/5, mv 10, pk 34, rr 32 borderline low oxygen saturations, increasing fio2 today ABG 7.25/70/ CVP 10-14 cm CXR worse milldy infiltrates, 0.9 cm PTX stable HD 2 L off yesterday levophed 1/ vasopressin 0.03/ propofol 40/ fentanyl 200 REVIEW OF SYSTEMS: cant get, intubated OBJECTIVE: VITAL SIGNS: Vital signs as noted per the chart record. GENERAL: intubated, on ventilator HEENT: Normocephalic, atraumatic. NECK: Supple. Throat midline. LUNGS: Bilateral air entry, decreased exam. CARDIOVASCULAR: S1, S2. No murmurs, rubs, or gallops. ABDOMEN: Soft, nontender. EXTREMITIES: No clubbing, no cyanosis. no edema. INTEGUMENT: No rash or purpura. LABORATORY DATA: na 134, k 4.3, cr 3.3, bun 37. wbc 13, hct 26, plt 271. IMPRESSION AND PLAN: 1. Hypoxemia, acute lung injury. ARDS, evolving fibrosis 2. COVID pneumonitis 3. Hypoxemic respiratory failure, acute. Intubated 4. diarrhea, COVID related 5. hypertension. 6. Hx throat cancer. 7. gastroesophageal reflux disease. 8. acute respiratory failure, intubated 9. enterococcus bacteremia NOS 10. SVT 8 beats 11. JULIETTE, toxic/hypotensive 12. shock, distributive/septic. resolved. 13. pneumothorax s/p left chest tube Intubated maintain Ventilator management --continue to down titrate FiO2 to 40% or less as tolerated --goal of zero PEEP for pneumothorax if tolerated. Increased today mildly with hypoxemia increases --Intermittent ABG, attempt to down-titrate minute ventilation if safe. todays goal about 9-12 L/min minute ventilation. --Recommend tracheostomy when oxygenation and BP stabilized-- for facilitating management of the fibrotic lungs. --suction prn nephrology providing intermittent HD as needed Empiric antibiotics per ID Continue NGT feeds as tolerated DVT prophylaxis. Follow up markers of DIC and systemic inflammation closely. anticoagulation decrease, restore when bleeding better follow BP, pressors titrate as needed continue chest tube, follow air leak. Minimize ventilator pressures as feasible Thank you very much, Dr. Santos and Dr. Larose, for allowing me a chance to participate in care of Mr. Marcus. Please call for questions.
--- NOTE | 2019-09-16 13:10 | NUR ---
WOUND CARE CONSULT FOR F/U 64 YO MALE HX OF HYPOX AND VIRAL PNEU STEPHANY 8 0N STRICT PUP STATUS AND INTERVENTIONS AND ALTERNATING PRESSURE MATTRESS SKIN ASSESSMENT COMPLETE PATIENT PRESENTS WITH DARK UNOPENED DISCOLORATION TO BILATERAL KNEES 4CM X4CM LEFT EAR DTI 1CM X.5CM DARK NON DRAINING AREA LEFT HEEL RESOLVED DTI ORIGINALLY DARK BLUISH NOW LIGHT AND BLANCHING 3CM X3CM SACRAL STAGE 2 ULCERATION [id number] X.2CM PINK WOUND BASE DARK EDGES RECOMMENDATIONS: NURSING TO CONTINUE TO MAINTAIN STRICT PUP STATUS AND INTERVENTIONS AND ALTERNATING MATTRESS NURSING TO CONTINUE TO ASSIST PATIENT OUT OF BED FOR MEALS AND MUCH TOLERATED NURSING TO CONTINUE TO ASSIST PATIENT NEEDED WITH MEALS AND NUTRITIONAL SUPPLEMENTS TO ENSURE PROPER REQUIREMENTS FOR HEALING NURSING TO CONTINUE TO OFFLOAD FEET AND HEELS NEEDED WITH PILLOW SUSPENSION WHEN IN BED NURSING TO CLEAN_LEFT EAR DTI WITH NORMAL SALINE DAILY AND APPLY VENELEX OINTMENT AND LEAVE OPEN TO AIR NURSING TO CLEAN SACRAL STAGE 2 ULCERATION WITH NORMAL SALINE DAILY AND APPLY COLLAGEN (FLASH) AND COVER WITH ALLEVYN FOAM DRESSING Addendum: 09/16/19 at 1321 by Georges Luna RN Amended: Links added.
[2019-09-16] MEDS ORDERED: BUMETANIDE INJ 0.25MG/ML 4ML VIAL IV ONE (14:15)
--- NOTE | 2019-09-16 15:40 | NUR ---
Nutrition Intervention Note RD Recommendation for Physician: - In light of HD and Propofol rate, recommend TF change to Vital HP at 55 ml/hr to better meet needs and prevent overfeeding on vent (1320 kcal and 116 gm protein). - Water flushes and fluid management per MD. - Propofol providing an additional 528 lipid kcal/day currently. Plan of Care: RD following, monitoring for tolerance and adequacy. TF rec's. Nutrition reason for involvement: Follow up Primary Diagnose(s): viral PNA, hypoxia, diarrhea, dehydration PMH: HTN, reflux, dyslipidemia, HTN, throat cancer GI: Last recorded BM 09/06 Skin: sacral stage II PU, L heel DTI, L ear DTI Labs: 09/15: Na 134, K 4.3, BUN 37, Cr 3.3, Gluc 166, POC Gluc 180, Phos 5.5, Mg 2.2 09/10: Na 132, BUN 64, Creat 5.85, Cl 94, Ca 7.8, Phos 9.6 (09/04) 09/05: Na 134, BUN 54, Cr 5.53, Glu 147, Ca 7.8, Phos 9.6 (09/04), Mg 2.2 (09/04) 09/01: Na 150, K 4.3, BUN 36, Cr 1.14, Gluc 140, POC Gluc 125-165, Ca 7.5 Meds: amiodarone, insulin, pepcid, zofran IV/Drips: Propofol at 20 ml/hr (providing 528 lipid kcal/day), Fentanyl, Norcuron Ht: 69 in Wt: 221 lbs (09/10) 215 lbs (09/05) 179 lbs (09/01) 185.31 lb (08/25) Suspect possible weight error or fluid related BMI: 32.6 kg/m2 IBW: [address] Assessment: 09/15: Follow up. Pt remains intubated and sedated on fentanyl and propofol. No pressors. Pt received HD yesterday with 2L fluid removal, plan for HD tomorrow per RN. Spoke with SHIRA Kerns regarding TF change to Vital HP to better meet needs with vent and HD as Vital HP will provide adequate protein and prevent overfeeding per current propofol dosage. Change in order pending. No plan to prone at this time per RN. Nepro infusing at 35 ml/hr currently, tolerating per RN. Will continue to monitor. 09/10: Follow up. Pt remains mechanically ventilated and is receiving dialysis. Pt is currently receiving propofol @ 20 mL/hr which provides 528 kcal and is not currently in the prone position. Pt is tolerating tube feeding of Nepro @ 25 mL/hr. Recommend increasing tube feeding rate towards goal as medically appropriate. Provided TF recommendation to RN. Will continue to monitor. 09/05: Follow up. Pt remains mechanically ventilated with propofol and fentanyl. Pt is now receiving HD due to renal failure. Pt was also previously in the prone position as mentioned in pts chart. Spoke to RN, who stated that pt is receiving 15 mL/hr of propofol (provides 396 kcal) and is not in the prone position at this time. Pt is also receiving Nepro @ 30 mL/hr per RN and tolerating tube feeding. Will continue to monitor. 09/01: Follow up. Pt re-evaluated today for follow up and now due to intubation. Pt intubated 08/29, remains on vent and sedated with propofol and fentanyl. No pressors currently. Pt on TF of Vital AF infusing at goal rate per documentation in chart. TF rec's discussed with RN Saumya. Attempted to call MD, no answer. TF rec's provided pending pt continues on Propofol. Chart reviewed. Will continue to monitor. (08/26) 64 YOM admitted for viral PNA, hypoxia, diarrhea, and dehydration. Pt evaluated today per LOS. Pt PUI for Covid-19, test results remain pending. Unable to speak with pt via phone 2/2 very SOB and requiring BiPAP. 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 Pt with 75% meal intake prior to BiPAP use. Chart reviewed. Labs and meds reviewed. Will monitor and continue to follow. Malnutrition Evaluation (09/16/19) The patient does not meet criteria for a specified degree of malnutrition at this time. Will re-evaluate at follow-up as appropriate. Unable to complete assessment. Nutrition Prescription (Diet Order): Nepro at 35 ml/hr at time of visit. Goal rate of 50 ml/hr per current order. (Nepro at 35 ml/hr providing 1512 kcal and 68 gm protein) Estimated Nutritional Needs: 7464-6254 calories/day (20-25 kcal/kg) Weight used: 179 lbs 106-162 g protein/day (1.3-2 g pro/kg) Weight used: 179 lbs Diet Adequacy: Meeting calorie needs (TF + propofol), not meeting protein needs Diet Tolerance: tolerating TF Diet Education Needs Assessment: Diet education not indicated at this time. Nutrition Care Level: Moderate Nutrition Diagnosis: Inadequate energy and protein intake related to respiratory status as evidenced by progression of BiPAP to intubation currently requiring EN. Goal: Patient will meet 75-100% of estimated needs by follow up Progress: Progressing Interventions: - Composition, Rate, Route, Recommended Modifications, Collaboration with other providers Monitoring/Evaluation: - Total energy intake, Total protein intake, Formula/Solution, Prescription medication Signed: Valarie Bridges RD, LD, CNSC
[2019-09-16] MEDS: NOREPINEPHRINE 8 MG/D5W 250 ML 250 ML IV SCH (16:16)
[2019-09-16] MEDS: ENOXAPARIN 30 MG/0.3 ML SYR SC SCH (16:16)
--- NOTE | 2019-09-16 17:30 | NUR ---
Dr. Ramos notified of lab values, chest x ray impression and ordered ABG. ABG results called to dr. Wheat and dr. Luciano. Sedation held this morning at 0900. amf mechanic assessed sacral wound, wound care done to site. Dr. Mckinney notified of latest COVID 19 test results, orders given to d/c isolation. Dr. Mckinney and Dr. Luciano aware of hypotension, orders given to monitor for fevers and CVP. Dr. Luciano informed of dietary's recommendations, no new orders at this time. Dr. Ramos ordered Bumex IV push and was then called later in shift with urine output. ordered Bumex drip. Left chest tube put out 50 ml serous drainage, chest tube at 1450ml, dressing CDI.
[2019-09-16] MEDS: BUMETANIDE 10 MG in SODIUM CHLORIDE 0.9% 100 ML 60 ML IV SCH ×2 (17:32→22:37)
[2019-09-17] VITALS (36 sets, daily range): BP systolic 81–143; BP diastolic 43–73
[2019-09-17] MEDS: PROPOFOL IV EMULSION 10 MG/ML 50 ML VIAL IV SCH ×4 (00:09→19:42)
[2019-09-17] MEDS: BUMETANIDE 10 MG in SODIUM CHLORIDE 0.9% 100 ML 60 ML IV SCH ×4 (04:00→19:42)
[2019-09-17] MEDS: INSULIN REGULAR, HUMAN 100 UNIT/1 ML 3ML VIAL SQ SCH ×4 (06:00→18:00)
[2019-09-17 06:25] LABS: BASOPHILS % 0.3 % (0.0-1.0); EOSINOPHILS # (AUTO) 1.3 (0.0-0.4); EOSINOPHILS % 11.5 % (0.0-6.0); HEMATOCRIT 24.8 % (38.2-49.6); HEMOGLOBIN 7.6 g/dL (14.0-18.0); LYMPHOCYTES # (AUTO) 0.4 (1.0-3.2); LYMPHOCYTES % 3.2 % (18.0-39.1); MEAN CORPUSCULAR HEMOGLOBIN 28.5 pg (28-32); MEAN CORPUSCULAR HGB CONC 30.6 g/dL (31-35); MEAN CORPUSCULAR VOLUME 92.9 fL (81-99); MONOCYTES # (AUTO) 1.1 (0.2-0.8); NEUTROPHILS # (AUTO) 8.1 (2.1-6.9); NEUTROPHILS % 73.4 % (38.7-80.0); PLATELET COUNT 326 x10e3/uL (140-360); RED BLOOD COUNT 2.67 x10e6/uL (4.3-5.7); RED CELL DISTRIBUTION WIDTH 18.8 % (11.7-14.4)
--- NOTE | 2019-09-17 06:37 | Diagnostic Imaging Report ---
EXAMINATION: CHEST SINGLE (PORTABLE) INDICATION: ^chf ^[id number] ^[id number] COMPARISON: 09/16/2019 IMPRESSION: Unchanged endotracheal tube, partially visualized nasogastric tube, right IJ central line, left IJ central line, and left chest tube. Unchanged severe diffuse bilateral lung airspace disease suggestive of severe pulmonary edema and/or pneumonia. Unchanged tiny left apical pneumothorax. Signed by: Corey Perez MD on 09/17/2019 6:34 AM
[2019-09-17] MEDS: FENTANYL 2,000 MCG/250 ML BAG IV PRN ×2 (07:09→17:06)
[2019-09-17] MEDS: VECURONIUM BROMIDE FOR INJ 20 MG VIAL IV PRN (07:29)
[2019-09-17] MEDS: AMIODARONE HCL 200 MG TAB PO SCH ×3 (08:03→20:41)
[2019-09-17] MEDS: BALSAM PERU/CASTOR OIL 60 GM OINT...G. TP SCH (08:03)
[2019-09-17] MEDS: FAMOTIDINE 20 MG/2 ML VIAL IV SCH (08:03)
[2019-09-17] MEDS: ASPIRIN 81 MG ENTERIC COATED PO SCH (08:03)
[2019-09-17 08:27] LABS: ANION GAP 15.7 mmol/L (8-16); CALCIUM 9.4 mg/dL (8.4-10.2); CREATININE, SERUM 4.29 mg/dL (0.72-1.25); POTASSIUM 4.7 mmol/L (3.5-5.1)
--- NOTE | 2019-09-17 11:25 | NUR ---
INFECTIOUS DISEASE PROGRESS NOTE CC: COVID19 SUBJECTIVE: Mr. Marcus remains in intensive care unit. He is intubated. He is showing signs of improvement. He has no fever. His repeat COVID-19 is still pending, but he is overall improving. ROS: unable to obtain due to condition PHYSICAL EXAM: GENERAL: intubated, sedated VITAL SIGNS: 96.9, 146/60, 90, 32 HEENT: Not icteric. NECK: Supple. no JVD CV: S1 and S2. No S3, S4, or murmurs. CHEST: Crackles bilateral, vent support ABDOMEN: Soft, non-distended LABS: REVIEWED MEDS: PER [facility] RADIOLOGY:IMPRESSION: Unchanged endotracheal tube, partially visualized nasogastric tube, right IJ central line, left IJ central line, and left chest tube. Unchanged severe diffuse bilateral lung airspace disease suggestive of severe pulmonary edema and/or pneumonia. Unchanged tiny left apical pneumothorax. IMPRESSION: 1. Acute respiratory distress syndrome 2. COVID 19 pneumonitis 3. Afzhm-vm-ytftaoo kidney disease 4. Diabetes. 5. Acute Hypoxemic Respiratory failure 6. Enterococcus Bacteremia (suspected contamination) 7. Pneumothorax s/p left chest tube PLAN: 09/17/19 Repeat COVID19 both negative. Can d/c droplet precautions. supportive care per ICU team. OFF IV ABT, improving leukocytosis. Monitor clinically. 09/16/19: Repeat COVID19 pending, leukocytosis resolving slowly. Supportive care per critical care team. At this time, no need for antibiotics. 09/15/19 Supportive care per critical care medicine. Repeat COVID19 test pending. Remains afebrile. DISCUSSED WITH DR NG
--- NOTE | 2019-09-17 13:05 | NUR ---
Pulmonary Medicine DATE 09/17/2019 SUBJECTIVE: off pressors tube feeds 35/hr prpofol 30/ fentanyl 200/ nepro 30/ UOP 110/12 hrs 32/28/60/5 PC AC MV 10, rr 33. chest tube x 1 , stable no large air leak gets tachypneic off sedation REVIEW OF SYSTEMS: cant get, intubated OBJECTIVE: VITAL SIGNS: Vital signs as noted per the chart record. GENERAL: intubated, on ventilator HEENT: Normocephalic, atraumatic. NECK: Supple. Throat midline. LUNGS: Bilateral air entry, decreased exam. CARDIOVASCULAR: S1, S2. No murmurs, rubs, or gallops. ABDOMEN: Soft, nontender. EXTREMITIES: No clubbing, no cyanosis. no edema. INTEGUMENT: No rash or purpura. LABORATORY DATA: k 4.7, cr 4.3. wbc 11, hct 24, plt 326 IMPRESSION AND PLAN: 1. Hypoxemia, acute lung injury. evolving ARDS 2. COVID pneumonitis 3. Hypoxemic respiratory failure, acute. Intubated 4. diarrhea, COVID related 5. hypertension. 6. Hx throat cancer. 7. gastroesophageal reflux disease. 8. acute respiratory failure, intubated 9. enterococcus bacteremia NOS 10. SVT 8 beats 11. JULIETTE, toxic/hypotensive 12. shock, distributive/septic. resolved. 13. pneumothorax s/p left chest tube Intubated maintain Ventilator management --continue to down titrate FiO2 to 40% or less as tolerated --goal of zero PEEP for pneumothorax if tolerated. Increased today mildly with hypoxemia increases --Intermittent ABG, attempt to down-titrate minute ventilation if safe. todays goal about 9-12 L/min minute ventilation. --Recommend tracheostomy when oxygenation and BP stabilized-- for facilitating management --suction prn nephrology providing intermittent HD as needed. today goal ~ -3 liters with HD Empiric antibiotics per ID Continue NGT feeds as tolerated DVT prophylaxis. Follow up markers of DIC and systemic inflammation as needed. DVT ppx continue, restore when bleeding better continue chest tube, follow air leak. Minimize ventilator pressures as feasible Thank you very much, Dr. aSntos and Dr. Larose, for allowing me a chance to participate in care of Mr. Marcus. Please call for questions.
[2019-09-17] MEDS: ENOXAPARIN 30 MG/0.3 ML SYR SC SCH (16:06)
[2019-09-17] MEDS ORDERED: MIDAZOLAM HCL 50 MG in SODIUM CHLORIDE 0.9% 100 ML 90 ML IV PRN (16:45)
[2019-09-17] MEDS: NOREPINEPHRINE 8 MG/D5W 250 ML 250 ML IV SCH (17:32)
--- NOTE | 2019-09-17 19:00 | NUR ---
Report received from Saumya SILVA. I was informed that the pt is not tolerating turning on his left side and to only turn him to his back and right side for now.
--- NOTE | 2019-09-17 19:00 | NUR ---
Upon arrival to shift pt desaturating to 85%, RT called to bedside, FIO2 increased to 60%. Dialysis done today 3L removed. Pt became hypotensive after dialysis and core temp dropped below 96F. Pt placed on vasopressin and bairhugger. Dr. Mckinney aware of situation. Pt unable to tolerate turning to left side (begins to desaturate). Dr. Santos updated the family. Pt had 20ml of urine output for the shift.
--- NOTE | 2019-09-17 19:08 | Progress Note ---
DATE: SUBJECTIVE: Mr. Marcus remains in intensive care unit, slowly getting better. PHYSICAL EXAMINATION: GENERAL: He is currently alert. VITAL SIGNS: Stable, afebrile. HEENT: Not icteric. NECK: Supple. CHEST: Few crackles. COR: S1 and S2. No S3, S4, or murmurs. ABDOMEN: Soft. IMPRESSION: 1. COVID-19 and pneumonia, present on admission, seems to be better. 2. Acute kidney injury on chronic kidney disease. 3. Concern about pulmonary fibrosis. 4. Diabetes mellitus. 5. History of throat cancer, status post radiation chemotherapy several years ago. The patient is planned to have trach possibly. Discussed with Critical Care. Currently off antibiotic. We will follow. MD PATRICK Oakley/MODL /[id number]
[2019-09-17] MEDS: MIDAZOLAM HCL 5MG/ML 10ML VIAL 100 ML BAG IV PRN (19:42)
[2019-09-18] VITALS (22 sets, daily range): BP systolic 97–124; BP diastolic 53–66
[2019-09-18] MEDS: FENTANYL 2,000 MCG/250 ML BAG IV PRN ×2 (00:08→09:17)
[2019-09-18] MEDS: BUMETANIDE 10 MG in SODIUM CHLORIDE 0.9% 100 ML 60 ML IV SCH ×6 (00:08→21:09)
[2019-09-18] MEDS: MIDAZOLAM HCL 5MG/ML 10ML VIAL 100 ML BAG IV PRN ×2 (03:12→09:16)
[2019-09-18] MEDS: INSULIN REGULAR, HUMAN 100 UNIT/1 ML 3ML VIAL SQ SCH ×5 (06:00→23:59)
--- NOTE | 2019-09-18 06:24 | Diagnostic Imaging Report ---
EXAMINATION: CHEST SINGLE (PORTABLE) INDICATION: ^ards ^[id number] ^[id number] COMPARISON: 09/17/2019 FINDINGS: AP view TUBES and LINES: Unchanged endotracheal tube, partially visualized nasogastric tube, right IJ central line, left IJ central line, and left chest tube. LUNGS: Unchanged severe diffuse bilateral lung airspace disease. PLEURA: Unchanged tiny left apical pneumothorax. No identifiable right pneumothorax. HEART AND MEDIASTINUM: The cardiomediastinal silhouette remains mostly obscured. BONES AND SOFT TISSUES: No new acute osseous lesion. UPPER ABDOMEN: No free air under the diaphragm. IMPRESSION: Unchanged appearance of the chest. Stable severe bilateral lung airspace disease suggestive of severe pulmonary edema/ARDS. Unchanged tiny left apical pneumothorax. Unchanged chest tubes. Signed by: Corey Perez MD on 09/18/2019 6:21 AM
[2019-09-18] MEDS: ASPIRIN 81 MG ENTERIC COATED PO SCH (09:00)
[2019-09-18] MEDS: BALSAM PERU/CASTOR OIL 60 GM OINT...G. TP SCH (10:03)
[2019-09-18] MEDS: AMIODARONE HCL 200 MG TAB PO SCH ×3 (12:53→21:08)
[2019-09-18] MEDS: FAMOTIDINE 20 MG/2 ML VIAL IV SCH (12:53)
--- NOTE | 2019-09-18 13:07 | NUR ---
Pulmonary Medicine DATE 09/18/2019 SUBJECTIVE: vasopressin 0.01/min bumex 2 / hr, only with 180 cc output tube feeds 35/hr, water 15 cc q 3 hrs versed 8/ fentanyl 200/ 32/28/45%/5 PC AC MV 11, rr 35, pk ~34. chest tube x 1 , no large air leak REVIEW OF SYSTEMS: cant get, intubated OBJECTIVE: VITAL SIGNS: Vital signs as noted per the chart record. GENERAL: intubated, on ventilator HEENT: Normocephalic, atraumatic. NECK: Supple. Throat midline. LUNGS: Bilateral air entry, decreased exam. CARDIOVASCULAR: S1, S2. No murmurs, rubs, or gallops. ABDOMEN: Soft, nontender. EXTREMITIES: No clubbing, no cyanosis. no edema. INTEGUMENT: No rash or purpura. LABORATORY DATA: no new updates IMPRESSION AND PLAN: 1. Hypoxemia, acute lung injury. evolving ARDS 2. COVID pneumonitis 3. Hypoxemic respiratory failure, acute. Intubated 4. diarrhea, COVID related 5. hypertension. 6. Hx throat cancer. 7. gastroesophageal reflux disease. 8. acute respiratory failure, intubated 9. enterococcus bacteremia NOS 10. SVT 8 beats 11. JULIETTE, toxic/hypotensive 12. shock, distributive/septic. resolved. 13. pneumothorax s/p left chest tube Intubated maintain Ventilator management --continue to down titrate FiO2 to 40% or less as tolerated --goal of zero PEEP for pneumothorax if tolerated. --Intermittent ABG, attempt to down-titrate minute ventilation if safe. todays goal about 9-12 L/min minute ventilation. --Recommend tracheostomy for facilitating management --suction prn nephrology providing intermittent HD as needed. Trial of bumex done, to be stopped per report Empiric antibiotics per ID Continue NGT feeds as tolerated DVT prophylaxis. Follow up markers of DIC and systemic inflammation as needed. DVT ppx continue, restore when bleeding better continue chest tube, follow air leak. Minimize ventilator pressures as feasible Thank you very much, Dr. Santos and Dr. Larose, for allowing me a chance to participate in care of Mr. Marcus. Please call for questions.
--- NOTE | 2019-09-18 13:08 | NUR ---
Spoke to Dr. Santos regarding dc plan. States pt will need LTAC eventually, but will need peg/trach first. He has spoken with family regarding prognosis and options and they want to proceed with peg/trach.
--- NOTE | 2019-09-18 15:03 | NUR ---
CALLED [facility] [phone] SPOKE WITH HER ABOUT THE LTAC ORDER, SHE IS GIVING VERBAL PERMISSION FOR RECORDS AND TRANSFER TO [facility].
--- NOTE | 2019-09-18 15:31 | NUR ---
progress [id number]
[2019-09-18] MEDS: NOREPINEPHRINE 8 MG/D5W 250 ML 250 ML IV SCH (17:45)
[2019-09-18] MEDS: ENOXAPARIN 30 MG/0.3 ML SYR SC SCH (17:51)
--- NOTE | 2019-09-18 18:12 | Progress Note ---
DATE: SUBJECTIVE: Mr. Mckinley Marcus remains in intensive care unit, intubated. We have 2 negative COVID-19 and PCR on him. We will repeat his blood culture today to make sure there is no bacteremia, but clinically, he seems to be slowly better. The family decided to go to an LTAC. The patient continued to be on dialysis. Discussed with the medical team my plans. LABORATORY DATA: White count 11.09 and hemoglobin 7.6. He is currently stable, off antibiotic, low-dose vasopressors. IMPRESSION: COVID-19, acute renal failure, acute kidney injury, clinically slowly better. To proceed with the trach and PEG, and then placement to possibly LTAC. MD PATRICK Oakley/MODL /[id number]
[2019-09-19] VITALS (22 sets, daily range): BP systolic 97–172; BP diastolic 50–87
[2019-09-19] MEDS: FENTANYL 2,000 MCG/250 ML BAG IV PRN ×2 (01:33→21:45)
[2019-09-19] MEDS: BUMETANIDE 10 MG in SODIUM CHLORIDE 0.9% 100 ML 60 ML IV SCH (02:02)
[2019-09-19] MEDS: MIDAZOLAM HCL 5MG/ML 10ML VIAL 100 ML BAG IV PRN (03:17)
[2019-09-19 05:28] LABS: BASOPHILS % 0.2 % (0.0-1.0); EOSINOPHILS # (AUTO) 1.3 (0.0-0.4); EOSINOPHILS % 15.6 % (0.0-6.0); LYMPHOCYTES # (AUTO) 0.5 (1.0-3.2); LYMPHOCYTES % 6.2 % (18.0-39.1); MEAN CORPUSCULAR HEMOGLOBIN 28.3 pg (28-32); MEAN CORPUSCULAR HGB CONC 30.1 g/dL (31-35); MEAN CORPUSCULAR VOLUME 93.9 fL (81-99); MONOCYTES % 11.9 % (4.4-11.3); NEUTROPHILS # (AUTO) 5.3 (2.1-6.9); NEUTROPHILS % 64.4 % (38.7-80.0); PLATELET COUNT 391 x10e3/uL (140-360); RED BLOOD COUNT 2.44 x10e6/uL (4.3-5.7); RED CELL DISTRIBUTION WIDTH 18.5 % (11.7-14.4)
[2019-09-19 05:46] LABS: HEMATOCRIT 22.9 % (38.2-49.6); HEMOGLOBIN 6.9 g/dL (14.0-18.0)
[2019-09-19 05:50] LABS: ANION GAP 13.3 mmol/L (8-16); CALCIUM 9.4 mg/dL (8.4-10.2); CREATININE, SERUM 4.08 mg/dL (0.72-1.25); POTASSIUM 4.3 mmol/L (3.5-5.1)
[2019-09-19] MEDS: INSULIN REGULAR, HUMAN 100 UNIT/1 ML 3ML VIAL SQ SCH ×4 (06:00→23:44)
--- NOTE | 2019-09-19 06:27 | Diagnostic Imaging Report ---
EXAMINATION: CHEST SINGLE (PORTABLE) INDICATION: ^pneumothorax COMPARISON: 09/18/2019 FINDINGS: AP view TUBES and LINES: Tubes and lines are unchanged. Endotracheal tube, right IJ central line, left IJ central line, nasogastric tube, and left chest tube. Interval removal of the right chest tube/mediastinal drain. LUNGS: Unchanged diffuse pulmonary airspace disease. PLEURA: The previously seen tiny left apical pneumothorax is no longer discretely identified. HEART AND MEDIASTINUM: The cardiac silhouette is again obscured. BONES AND SOFT TISSUES: No acute osseous lesion. Soft tissues are unremarkable. UPPER ABDOMEN: No free air under the diaphragm. IMPRESSION: The previously seen tiny left apical pneumothorax is no longer discretely identified. Unchanged diffuse pulmonary airspace disease suggestive of severe pulmonary edema/ARDS. Signed by: Corey Perez MD on 09/19/2019 6:24 AM
--- NOTE | 2019-09-19 06:36 | NUR ---
Call to Dr. Rmaos re: am labs. Awaiting call back.
--- NOTE | 2019-09-19 06:37 | NUR ---
Dr. Corona returned called for Dr. Ramos. Advised of am labs. States Dr. aRmos will be in this am an he'll take care of them.
[2019-09-19] MEDS: ASPIRIN 81 MG ENTERIC COATED PO SCH (09:00)
[2019-09-19] MEDS: FAMOTIDINE 20 MG/2 ML VIAL IV SCH (09:00)
[2019-09-19] MEDS: AMIODARONE HCL 200 MG TAB PO SCH ×3 (09:00→21:45)
[2019-09-19] MEDS: BALSAM PERU/CASTOR OIL 60 GM OINT...G. TP SCH (09:00)
[2019-09-19 09:47] LABS: ANISOCYTOSIS MODERATE; BAND NEUTROPHILS % (MANUAL) 1 %; EOSINOPHILS % (MANUAL) 16 % (0-7); LYMPHOCYTES % (MANUAL) 9 % (19-48); MONOCYTES % (MANUAL) 10 % (3.4-9.0); MYELOCYTES % (MANUAL) 2 % (0-0); NEUTROPHILS % (MANUAL) 62 % (40-74)
[2019-09-19 09:48] LABS: OVALOCYTES FEW; POLYCHROMASIA FEW
[2019-09-19 09:49] LABS: PLATELET ESTIMATE SLIGHTLY INCREASED; PLATELET MORPHOLOGY COMMENT FEW GIANT; RBC MORPHOLOGY COMMENT ABNORMAL
--- NOTE | 2019-09-19 10:50 | NUR ---
INFECTIOUS DISEASE PROGRESS NOTE CC: COVID19 SUBJECTIVE: Mr. Marcus remains in intensive care unit. He is intubated. He is showing signs of improvement. He has no fever. His repeat COVID-19 is still pending, but he is overall improving. ROS: unable to obtain due to condition PHYSICAL EXAM: GENERAL: intubated, sedated VITAL SIGNS: 97.5, 101/50, 95, 29 HEENT: Not icteric, normocephalic, atraumatic NECK: Supple. no JVD CV: S1 and S2. No S3, S4 CHEST: Crackles bilateral, vent support ABDOMEN: Soft, non-distended LABS: REVIEWED MEDS: PER [facility] RADIOLOG[facility]:IMPRESSION: The previously seen tiny left apical pneumothorax is no longer discretely identified. Unchanged diffuse pulmonary airspace disease suggestive of severe pulmonary edema/ARDS. IMPRESSION: 1. Acute respiratory distress syndrome 2. COVID 19 pneumonitis 3. Uisfp-qy-yuuaqfj kidney disease on HD 4. Diabetes. 5. Acute Hypoxemic Respiratory failure 6. Enterococcus Bacteremia (suspected contamination) 7. Pneumothorax s/p left chest tube PLAN: 09/19/19: Leukocytosis resolved at this time, afebrile. Droplet precautions D/C'd. On HD per others, right trailysis cath in place. Pending repeat blood cultures. Trach and PEG planned for the future. Monitor off IV ABT. Vent weaning per pulmonary. Supportive care per ICU team. 09/17/19 Repeat COVID19 both negative. Can d/c droplet precautions. supportive care per ICU team. OFF IV ABT, improving leukocytosis. Monitor clinically. 09/16/19: Repeat COVID19 pending, leukocytosis resolving slowly. Supportive care per critical care team. At this time, no need for antibiotics. 09/15/19 Supportive care per critical care medicine. Repeat COVID19 test pending. Remains afebrile. DISCUSSED WITH DR NG
--- NOTE | 2019-09-19 11:41 | NUR ---
FAXED CLINICAL UPDATES TO [facility]
[2019-09-19] MEDS: NOREPINEPHRINE 8 MG/D5W 250 ML 250 ML IV SCH (17:45)
[2019-09-19] MEDS: ENOXAPARIN 30 MG/0.3 ML SYR SC SCH (18:50)
--- NOTE | 2019-09-19 19:00 | NUR ---
Report received. Assumed care. Assessment done. See interventions. Vent settings: FIO2 45%, PEEP 5cm, Rate 32 & Pressure control 26.
--- NOTE | 2019-09-19 19:06 | Consultation ---
DATE OF CONSULTATION: 09/19/2019 CHIEF COMPLAINT: Respiratory failure. HISTORY OF PRESENT ILLNESS: The patient is a 64-year-old male, admitted with progressive respiratory distress and hypoxemia, requiring intubation. Approximately 3 weeks ago, he was found to have ARDS with testing positive for COVID-19. The patient is a candidate for a tracheostomy for continued ventilator management. PAST MEDICAL HISTORY: Significant for hypertension, coronary artery disease, history of throat cancer, treated with radiation therapy, and GERD. PAST SURGICAL HISTORY: Positive for appendectomy. ALLERGIES: NO DRUG ALLERGIES. SOCIAL HABITS: No history of smoking or alcohol use. REVIEW OF SYSTEMS: Unobtainable. PHYSICAL EXAMINATION: VITAL SIGNS: The patient is afebrile. Vital signs are stable. GENERAL: The patient is sedated and intubated. HEENT: He is sedated and intubated. LABORATORY DATA: His chest x-ray show bilateral infiltrates. Lab work revealed white cell count of 8, hemoglobin of 7, and platelet count of 391. INR of 1.3. Creatinine of 4.0. Liver function tests within normal limits. ASSESSMENT: COVID-19 pneumonia with ventilator dependence and multiorgan failure. PLAN: Given the negative COVID-19 testing, the patient is a candidate for tracheostomy and PEG tube placement. We discussed with family. Antwon Garcia MD DNL/MODL /[id number]
--- NOTE | 2019-09-19 19:07 | NUR ---
Pulmonary Medicine DATE 09/19/2019 SUBJECTIVE: versed 4/ fentanyl 175/ hastings in place tube feeds tolerated 32/28/45/5. mv 13 L/min, rr 37, pk 34 low UOP, on Hd REVIEW OF SYSTEMS: cant get, intubated OBJECTIVE: VITAL SIGNS: Vital signs as noted per the chart record. GENERAL: intubated, on ventilator HEENT: Normocephalic, atraumatic. NECK: Supple. Throat midline. LUNGS: Bilateral air entry, decreased exam. CARDIOVASCULAR: S1, S2. No murmurs, rubs, or gallops. ABDOMEN: Soft, nontender. EXTREMITIES: No clubbing, no cyanosis. edema INTEGUMENT: No rash or purpura. LABORATORY DATA: no new updates IMPRESSION AND PLAN: 1. Hypoxemia, acute lung injury. ARDS 2. COVID pneumonitis 3. Hypoxemic respiratory failure, acute/chronic. Intubated 4. diarrhea, COVID related 5. hypertension. 6. Hx throat cancer. 7. gastroesophageal reflux disease. 8. acute respiratory failure, intubated 9. enterococcus bacteremia NOS 10. SVT 8 beats 11. JULIETTE, toxic/hypotensive 12. shock, distributive/septic. resolved. 13. pneumothorax s/p left chest tube Intubated maintain Ventilator management --continue to down titrate FiO2 to 40% or less as tolerated --goal of zero PEEP for pneumothorax if tolerated. --Intermittent ABG, attempt to down-titrate minute ventilation if safe. todays goal about 9-12 L/min minute ventilation. --Recommend tracheostomy for facilitating management --suction prn nephrology providing intermittent HD as needed. Empiric antibiotics per ID Continue NGT feeds as tolerated DVT prophylaxis. Follow up markers of DIC and systemic inflammation as needed. DVT ppx continue, restore when bleeding better continue chest tube, follow air leak. Minimize ventilator pressures as feasible Thank you very much, Dr. Santos and Dr. Larose, for allowing me a chance to participate in care of Mr. Marcus. Please call for questions
[2019-09-20] VITALS (26 sets, daily range): BP systolic 96–153; BP diastolic 50–79
[2019-09-20] MEDS: MIDAZOLAM HCL 5MG/ML 10ML VIAL 100 ML BAG IV PRN ×2 (00:18→14:15)
--- NOTE | 2019-09-20 01:35 | NUR ---
CVP drsg change to left IJ.
--- NOTE | 2019-09-20 03:00 | NUR ---
Complete bed bath given. Cleaned for small loose brown stool. Bed linens changed. Wound care to sacral stage 2 ulcer. Karri alford applied
[2019-09-20] MEDS: INSULIN REGULAR, HUMAN 100 UNIT/1 ML 3ML VIAL SQ SCH ×3 (05:47→16:32)
[2019-09-20] MEDS: FAMOTIDINE 20 MG/2 ML VIAL IV SCH (08:18)
[2019-09-20] MEDS: AMIODARONE HCL 200 MG TAB PO SCH (08:19)
[2019-09-20] MEDS: BALSAM PERU/CASTOR OIL 60 GM OINT...G. TP SCH (08:19)
[2019-09-20] MEDS: FENTANYL 2,000 MCG/250 ML BAG IV PRN ×2 (08:19→18:49)
[2019-09-20] MEDS: ASPIRIN 81 MG ENTERIC COATED PO SCH (08:19)
[2019-09-20 08:32] LABS: BASOPHILS % 0.2 % (0.0-1.0); EOSINOPHILS % 11.3 % (0.0-6.0); HEMATOCRIT 27.2 % (38.2-49.6); HEMOGLOBIN 8.7 g/dL (14.0-18.0); LYMPHOCYTES # (AUTO) 0.7 (1.0-3.2); LYMPHOCYTES % 7.5 % (18.0-39.1); MEAN CORPUSCULAR HEMOGLOBIN 28.9 pg (28-32); MEAN CORPUSCULAR VOLUME 90.4 fL (81-99); MONOCYTES # (AUTO) 1.1 (0.2-0.8); MONOCYTES % 12.5 % (4.4-11.3); NEUTROPHILS % 66.6 % (38.7-80.0); PLATELET COUNT 375 x10e3/uL (140-360); RED BLOOD COUNT 3.01 x10e6/uL (4.3-5.7); RED CELL DISTRIBUTION WIDTH 17.5 % (11.7-14.4)
[2019-09-20 08:51] LABS: ANION GAP 13.1 mmol/L (8-16); CALCIUM 9.4 mg/dL (8.4-10.2); CREATININE, SERUM 3.19 mg/dL (0.72-1.25); POTASSIUM 4.1 mmol/L (3.5-5.1)
--- NOTE | 2019-09-20 10:09 | Diagnostic Imaging Report ---
EXAMINATION: CHEST SINGLE (PORTABLE) INDICATION: ARDS COMPARISON: Multiple prior chest radiograph, most recently 09/19/2019 FINDINGS: LINES/TUBES:Endotracheal tube terminates 4.5 cm above the shruthi. Right IJ central venous catheter terminates in the superior vena cava. Left IJ central venous catheter terminates in the superior vena cava. Left apical chest tube in place. EKG leads overlie the chest. LUNGS:The lung volumes are low. Persistent bilateral diffuse airspace opacities. PLEURA:No pleural effusion or pneumothorax. MEDIASTINUM:The cardiomediastinal silhouette appears unchanged in size and shape. BONES/SOFT TISSUES:No acute osseous injury. ABDOMEN:No free air under the diaphragm. IMPRESSION: Lines and tubes as above. Unchanged bilateral diffuse airspace opacities consistent with clinical picture of ARDS/multifocal pneumonia. Signed by: Edu Whitney MD on 09/20/2019 10:06 AM
--- NOTE | 2019-09-20 14:15 | NUR ---
PT WAS DENIED LTAC DR ALEJANDRA DID A PEER TO PEER, KYRIE DETERMINED PT IS TOO SICK TO GO. WILL RESTART AFTER TRACH PUT BACK IN. CALLED MAU SUTTON SO DR CAMPOS COULD SPEAK ABOUT THE RESPIRATORY DEPARTMENT AT [facility]. MAU WILL CLIRIFY QUESTION AND RETURN HIS CALL WITH ANSWER.
--- NOTE | 2019-09-20 14:36 | NUR ---
Nutrition Intervention Note RD Recommendation for Physician: -In light of HD, recommend modifying tube feeding to Vital AF 1.2 @ goal rate of 65 ml/hr to better meet pt's estimated nutrition needs (provides 1872 kcal and 117 gm protein). - Water flushes and fluid management per MD. Plan of Care: RD following, monitoring for tolerance and adequacy. TF rec's. Nutrition reason for involvement: Follow up Primary Diagnose(s): viral PNA, hypoxia, diarrhea, dehydration PMH: HTN, reflux, dyslipidemia, HTN, throat cancer GI: Last recorded BM 09/16 Skin: sacral stage II PU, L heel DTI, L ear DTI Labs: 09/22: Na 135, K 4.1, BUN 48, Cr 3.19, Glu 102 09/15: Na 134, K 4.3, BUN 37, Cr 3.3, Gluc 166, POC Gluc 180, Phos 5.5, Mg 2.2 09/10: Na 132, BUN 64, Creat 5.85, Cl 94, Ca 7.8, Phos 9.6 (09/04) 09/05: Na 134, BUN 54, Cr 5.53, Glu 147, Ca 7.8, Phos 9.6 (09/04), Mg 2.2 (09/04) 09/01: Na 150, K 4.3, BUN 36, Cr 1.14, Gluc 140, POC Gluc 125-165, Ca 7.5 Meds: fentanyl, pepcid, lovenox, norepinephrine, lovenox, vasopressin, zofran Ht: 69 in Wt: 199 lbs (09/19) 221 lbs (09/10) 215 lbs (09/05) 179 lbs (09/01) 185.31 lb (08/25) Suspect possible weight error or fluid related BMI: 29.4 kg/m2 IBW: [address] Assessment: 09/19: Follow up. Pt remains intubated and is no longer on propofol. Pt is tolerating tube feeding of Nepro @ 35 mL/hr. Pt continues to receive dialysis. Spoke to RN regarding recommendation of modifying formula to Vital AF 1.2 to better meet pt's nutrition needs. Will continue to monitor. 09/15: Follow up. Pt remains intubated and sedated on fentanyl and propofol. No pressors. Pt received HD yesterday with 2L fluid removal, plan for HD tomorrow per RN. Spoke with SHIRA Kerns regarding TF change to Vital HP to better meet needs with vent and HD as Vital HP will provide adequate protein and prevent overfeeding per current propofol dosage. Change in order pending. No plan to prone at this time per RN. Nepro infusing at 35 ml/hr currently, tolerating per RN. Will continue to monitor. 09/10: Follow up. Pt remains mechanically ventilated and is receiving dialysis. Pt is currently receiving propofol @ 20 mL/hr which provides 528 kcal and is not currently in the prone position. Pt is tolerating tube feeding of Nepro @ 25 mL/hr. Recommend increasing tube feeding rate towards goal as medically appropriate. Provided TF recommendation to RN. Will continue to monitor. 09/05: Follow up. Pt remains mechanically ventilated with propofol and fentanyl. Pt is now receiving HD due to renal failure. Pt was also previously in the prone position as mentioned in pts chart. Spoke to RN, who stated that pt is receiving 15 mL/hr of propofol (provides 396 kcal) and is not in the prone position at this time. Pt is also receiving Nepro @ 30 mL/hr per RN and tolerating tube feeding. Will continue to monitor. 09/01: Follow up. Pt re-evaluated today for follow up and now due to intubation. Pt intubated 08/29, remains on vent and sedated with propofol and fentanyl. No pressors currently. Pt on TF of Vital AF infusing at goal rate per documentation in chart. TF rec's discussed with SHIRA Kerns. Attempted to call MD, no answer. TF rec's provided pending pt continues on Propofol. Chart reviewed. Will continue to monitor. (08/26) 64 YOM admitted for viral PNA, hypoxia, diarrhea, and dehydration. Pt evaluated today per LOS. Pt PUI for Covid-19, test results remain pending. Unable to speak with pt via phone 2/2 very SOB and requiring BiPAP. 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 Pt with 75% meal intake prior to BiPAP use. Chart reviewed. Labs and meds reviewed. Will monitor and continue to follow. Malnutrition Evaluation (09/16/19) The patient does not meet criteria for a specified degree of malnutrition at this time. Will re-evaluate at follow-up as appropriate. Unable to complete assessment. Nutrition Prescription (Diet Order): Nepro at 35 ml/hr at time of visit. Goal rate of 50 ml/hr per current order. Estimated Nutritional Needs: [id number] calories/day (20-25 kcal/kg) Weight used: 179 lbs 106-162 g protein/day (1.3-2 g pro/kg) Weight used: 179 lbs Diet Adequacy: Not meeting calorie needs, not meeting protein needs Diet Tolerance: tolerating TF Diet Education Needs Assessment: Diet education not indicated at this time. Nutrition Care Level: Moderate Nutrition Diagnosis: Inadequate energy and protein intake related to respiratory status as evidenced by progression of BiPAP to intubation currently requiring EN. Goal: Patient will meet 75-100% of estimated needs by follow up Progress: Progressing Interventions: - Composition, Rate, Route, Recommended Modifications, Collaboration with other providers Monitoring/Evaluation: - Total energy intake, Total protein intake, Formula/Solution, Prescription medication Signed: Kathy Rojas RD, LD
--- NOTE | 2019-09-20 15:46 | NUR ---
Pulmonary Medicine DATE 09/20/2019 SUBJECTIVE: fentanyl 200/ versed 4/ UOP low 97% saturation, ventilator 32/26/45/5 HD 4 L out yesterday chest tube no air leak water 15 q 3 hrs REVIEW OF SYSTEMS: cant get, intubated OBJECTIVE: VITAL SIGNS: Vital signs as noted per the chart record. GENERAL: intubated, on ventilator HEENT: Normocephalic, atraumatic. NECK: Supple. Throat midline. LUNGS: Bilateral air entry, decreased exam. CARDIOVASCULAR: S1, S2. No murmurs, rubs, or gallops. ABDOMEN: Soft, nontender. EXTREMITIES: No clubbing, no cyanosis. edema INTEGUMENT: No rash or purpura. LABORATORY DATA: no new updates IMPRESSION AND PLAN: 1. Hypoxemia, acute lung injury. ARDS 2. COVID pneumonitis 3. Hypoxemic respiratory failure, acute/chronic. Intubated 4. diarrhea, COVID related 5. hypertension. 6. Hx throat cancer. 7. gastroesophageal reflux disease. 8. acute respiratory failure, intubated 9. enterococcus bacteremia NOS 10. SVT 8 beats 11. JULIETTE, toxic/hypotensive 12. shock, distributive/septic. resolved. 13. pneumothorax s/p left chest tube Intubated maintain Ventilator management --continue to down titrate FiO2 to 40% or less as tolerated --goal of zero PEEP for pneumothorax if tolerated. --Intermittent ABG, attempt to down-titrate minute ventilation if safe. NEXT blood gas today --Recommend tracheostomy for facilitating management . PEG being recommended --suction prn nephrology providing intermittent HD as needed. Empiric antibiotics per ID Continue NGT feeds as tolerated DVT prophylaxis. Follow up markers of DIC and systemic inflammation as needed. DVT ppx continue continue chest tube, follow air leak. Minimize ventilator pressures as feasible Thank you very much, Dr. Santos and Dr. Larose, for allowing me a chance to participate in care of Mr. Marcus. Please call for questions
[2019-09-20] MEDS: ENOXAPARIN 30 MG/0.3 ML SYR SC SCH (16:35)
--- NOTE | 2019-09-20 17:06 | Progress Note ---
DATE: SUBJECTIVE: Mr. Mckinley Marcus remains in the intensive care unit, slowly being weaned. He is on FiO2 of 45%. He is off the pressors today. His PEEP of 5. LABORATORY DATA: White count 9.03, hemoglobin 8.7. His repeat blood cultures no growth. PHYSICAL EXAMINATION: GENERAL: He is intubated, sedated. VITAL SIGNS: Stable, afebrile. HEENT: Not icteric. NECK: Supple. CHEST: Clear bilateral. COR: S1, S2. No S3, S4, or murmur. ABDOMEN: Soft. Bowel sounds present. No tenderness. EXTREMITIES: No edema. SKIN: No rash. IMPRESSION: 1. COVID-19, clinically better. 2. Acute respiratory distress syndrome, seem to be slowly better. He is going to have a PEG and trach next week and probably LTAC for prolonged weaning. 3. Acute kidney injury, seems to be better. 4. Underlying history of throat cancer. 5. History of gastroesophageal reflux disease. 6. 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 7. Bacteremia contamination, stable from Infectious Disease point of view. No new recommendation. MD PATRICK Oakley/MALIA /[id number]
[2019-09-20] MEDS: NOREPINEPHRINE 8 MG/D5W 250 ML 250 ML IV SCH (17:45)
[2019-09-20] MEDS ORDERED: FENTANYL CITRATE INJ 2,000 MCG in SODIUM CHLORIDE 0.9% 250ML 210 ML IV PRN (21:15)
--- NOTE | 2019-09-20 23:41 | NUR ---
Dr. Akins notified of consult.
[2019-09-21] VITALS (25 sets, daily range): BP systolic 103–143; BP diastolic 55–77
[2019-09-21] MEDS: MIDAZOLAM HCL 5MG/ML 10ML VIAL 100 ML BAG IV PRN ×2 (02:45→20:09)
[2019-09-21 05:15] LABS: BASOPHILS % 0.3 % (0.0-1.0); EOSINOPHILS # (AUTO) 1.5 (0.0-0.4); EOSINOPHILS % 17.1 % (0.0-6.0); HEMATOCRIT 28.1 % (38.2-49.6); HEMOGLOBIN 8.4 g/dL (14.0-18.0); LYMPHOCYTES # (AUTO) 0.7 (1.0-3.2); LYMPHOCYTES % 7.8 % (18.0-39.1); MEAN CORPUSCULAR HGB CONC 29.9 g/dL (31-35); MEAN CORPUSCULAR VOLUME 93.7 fL (81-99); MONOCYTES % 11.8 % (4.4-11.3); NEUTROPHILS # (AUTO) 5.3 (2.1-6.9); NEUTROPHILS % 61.4 % (38.7-80.0); PLATELET COUNT 383 x10e3/uL (140-360); RED CELL DISTRIBUTION WIDTH 17.4 % (11.7-14.4)
[2019-09-21 05:45] LABS: ALBUMIN 1.9 g/dL (3.5-5.0); ALBUMIN/GLOBULIN RATIO 0.4 (0.8-2.0); ANION GAP 13.4 mmol/L (8-16); CALCIUM 10.2 mg/dL (8.4-10.2); CREATININE, SERUM 3.9 mg/dL (0.72-1.25); POTASSIUM 4.4 mmol/L (3.5-5.1)
[2019-09-21] MEDS: INSULIN REGULAR, HUMAN 100 UNIT/1 ML 3ML VIAL SQ SCH ×4 (06:00→17:28)
[2019-09-21 06:11] LABS: MAGNESIUM 2.5 MG/DL (1.3-2.1); PHOSPHORUS 7.2 MG/DL (2.3-4.7)
[2019-09-21] MEDS: FENTANYL 2,000 MCG/250 ML BAG IV PRN ×2 (06:35→20:09)
[2019-09-21] MEDS: BALSAM PERU/CASTOR OIL 60 GM OINT...G. TP SCH (08:08)
[2019-09-21] MEDS: FAMOTIDINE 20 MG/2 ML VIAL IV SCH (08:08)
[2019-09-21] MEDS: AMIODARONE HCL 200 MG TAB PO SCH (09:13)
[2019-09-21] MEDS ORDERED: HEPARIN SOD (PORCINE) 1000 UNIT/ML SDV IV PRN (10:00)
--- NOTE | 2019-09-21 16:28 | NUR ---
Pulmonary Medicine DATE 09/21/2019 SUBJECTIVE: vbg 7.23/71 32/26/40/5 pc ac ---> pk 21, rr 39, mv 13 versed 3, fentanyl 150/ hd 3.5 L negative today reported with lots of urine yesterday? CXR with large pneumonitis tube feeds 35/ water 15 q 3 hrs REVIEW OF SYSTEMS: cant get, intubated OBJECTIVE: VITAL SIGNS: Vital signs as noted per the chart record. GENERAL: intubated, on ventilator HEENT: Normocephalic, atraumatic. NECK: Supple. Throat midline. LUNGS: Bilateral air entry, decreased exam. CARDIOVASCULAR: S1, S2. No murmurs, rubs, or gallops. ABDOMEN: Soft, nontender. EXTREMITIES: No clubbing, no cyanosis. edema INTEGUMENT: No rash or purpura. LABORATORY DATA: k 3.4, bun 61, cr 3.9. wbc 9, hct 28 IMPRESSION AND PLAN: 1. Hypoxemia, acute lung injury. ARDS 2. COVID pneumonitis 3. Hypoxemic respiratory failure, acute/chronic. Intubated 4. diarrhea, COVID related 5. hypertension. 6. Hx throat cancer. 7. gastroesophageal reflux disease. 8. acute respiratory failure, intubated 9. enterococcus bacteremia NOS 10. SVT 8 beats 11. JULIETTE, toxic/hypotensive 12. shock, distributive/septic. resolved. 13. pneumothorax s/p left chest tube Intubated maintain Ventilator management --lowest PEEP for pneumothorax as tolerated. --Intermittent ABG, attempt to down-titrate minute ventilation if safe. NEXT blood gas prior to possible surgery given the mildly acidotic baseline --Recommend tracheostomy for facilitating management. --suction prn nephrology providing intermittent HD as needed. Continue NGT feeds as tolerated, PEG being recommended DVT prophylaxis. Follow up markers of DIC and systemic inflammation as needed. DVT ppx continue continue chest tube, follow air leak. Minimize ventilator pressures as feasible Thank you very much, Dr. Santos and Dr. Larose, for allowing me a chance to participate in care of Mr. Marcus. Please call for questions
[2019-09-21] MEDS: NOREPINEPHRINE 8 MG/D5W 250 ML 250 ML IV SCH (17:24)
[2019-09-22] VITALS (26 sets, daily range): BP systolic 100–189; BP diastolic 53–97
[2019-09-22 05:17] LABS: BASOPHILS # (AUTO) 0.1 (0.0-0.1); BASOPHILS % 0.6 % (0.0-1.0); EOSINOPHILS # (AUTO) 1.3 (0.0-0.4); EOSINOPHILS % 14.3 % (0.0-6.0); HEMATOCRIT 28.8 % (38.2-49.6); HEMOGLOBIN 9.1 g/dL (14.0-18.0); LYMPHOCYTES # (AUTO) 0.9 (1.0-3.2); LYMPHOCYTES % 9.9 % (18.0-39.1); MEAN CORPUSCULAR HEMOGLOBIN 28.7 pg (28-32); MEAN CORPUSCULAR HGB CONC 31.6 g/dL (31-35); MEAN CORPUSCULAR VOLUME 90.9 fL (81-99); MONOCYTES # (AUTO) 1.1 (0.2-0.8); MONOCYTES % 11.8 % (4.4-11.3); NEUTROPHILS # (AUTO) 5.5 (2.1-6.9); NEUTROPHILS % 61.7 % (38.7-80.0); PLATELET COUNT 400 x10e3/uL (140-360); RED BLOOD COUNT 3.17 x10e6/uL (4.3-5.7); RED CELL DISTRIBUTION WIDTH 17.4 % (11.7-14.4)
[2019-09-22 05:45] LABS: ANION GAP 11.7 mmol/L (8-16); CALCIUM 9.2 mg/dL (8.4-10.2); CREATININE, SERUM 3.14 mg/dL (0.72-1.25); POTASSIUM 3.7 mmol/L (3.5-5.1)
[2019-09-22] MEDS: INSULIN REGULAR, HUMAN 100 UNIT/1 ML 3ML VIAL SQ SCH ×4 (06:00→16:27)
--- NOTE | 2019-09-22 06:16 | Diagnostic Imaging Report ---
EXAMINATION: CHEST SINGLE (PORTABLE) INDICATION: ^pneumonia ^[id number] ^0500 COMPARISON: 09/20/2019 FINDINGS: AP view TUBES and LINES: Unchanged endotracheal tube, bilateral internal jugular vein central lines, left chest tube, and nasogastric tube. LUNGS: Unchanged severe bilateral pulmonary airspace disease. PLEURA: Unchanged small left apical pneumothorax with maximum gap of 1.2 cm. HEART AND MEDIASTINUM: The cardiomediastinal silhouette remains mostly obscured. BONES AND SOFT TISSUES: No acute osseous lesion. Soft tissues are unremarkable. UPPER ABDOMEN: No free air under the diaphragm. IMPRESSION: No interval changes. Stable severe pulmonary airspace disease again consistent with multifocal pneumonia and ARDS. Unchanged small left apical pneumothorax. The left chest tube is in unchanged position. Signed by: Corey Perez MD on 09/22/2019 6:13 AM
--- NOTE | 2019-09-22 06:30 | NUR ---
This AM, patient's BP suddenly elevated to 200/100, HR 120s, O2 sats dropped- all sustained. Increased FiO2 per protocol. Notified Dr. Luciano, no new orders received.
--- NOTE | 2019-09-22 06:35 | Diagnostic Imaging Report ---
EXAMINATION: CHEST SINGLE (PORTABLE) INDICATION: ^DESAT ON VENT, CHEST TUBE ^[id number] ^0610 COMPARISON: 09/22/2019 FINDINGS: AP view TUBES and LINES: Unchanged endotracheal tube, bilateral internal jugular vein central lines, left chest tube, and nasogastric tube. LUNGS: Unchanged severe bilateral pulmonary airspace disease. PLEURA: Unchanged small left apical pneumothorax. HEART AND MEDIASTINUM: The cardiac silhouette remains mostly obscured. BONES AND SOFT TISSUES: No acute osseous lesion. Soft tissues are unremarkable. UPPER ABDOMEN: No free air under the diaphragm. IMPRESSION: No interval change when compared to the previous radiograph from earlier this morning. Unchanged severe pulmonary airspace disease consistent with multifocal pneumonia and ARDS. Unchanged small left apical pneumothorax with stable chest tube. Signed by: Corey Perez MD on 09/22/2019 6:32 AM
[2019-09-22] MEDS: AMIODARONE HCL 200 MG TAB PO SCH (08:07)
[2019-09-22] MEDS: BALSAM PERU/CASTOR OIL 60 GM OINT...G. TP SCH (08:07)
[2019-09-22] MEDS: FENTANYL 2,000 MCG/250 ML BAG IV PRN ×2 (08:07→22:15)
[2019-09-22] MEDS: FAMOTIDINE 20 MG/2 ML VIAL IV SCH (08:07)
[2019-09-22] MEDS: MIDAZOLAM HCL 5MG/ML 10ML VIAL 100 ML BAG IV PRN ×2 (09:35→22:15)
[2019-09-22] MEDS: NOREPINEPHRINE 8 MG/D5W 250 ML 250 ML IV SCH (13:35)
--- NOTE | 2019-09-22 16:41 | NUR ---
Pulmonary Medicine DATE 09/21/2019 SUBJECTIVE: transient elevated bp to 200 NOS Pupils equals, normal dolls eyes. limited neuro eval 32/26/40/5 pk 35, rr 39, mv 13 chest tube x 1 tube feeds 35/hr versed 4,fentanyl 150/ some fever 100.6 yesterday pm REVIEW OF SYSTEMS: cant get, intubated OBJECTIVE: VITAL SIGNS: Vital signs as noted per the chart record. GENERAL: intubated, on ventilator HEENT: Normocephalic, atraumatic. NECK: Supple. Throat midline. LUNGS: Bilateral air entry, decreased exam. CARDIOVASCULAR: S1, S2. No murmurs, rubs, or gallops. ABDOMEN: Soft, nontender. EXTREMITIES: No clubbing, no cyanosis. edema INTEGUMENT: No rash or purpura. LABORATORY DATA: k 4.3, cr 0.56 wbc 9.5, hct 30, plt 283 IMPRESSION AND PLAN: 1. Hypoxemia, acute lung injury. ARDS 2. COVID pneumonitis 3. Hypoxemic respiratory failure, acute/chronic. Intubated 4. diarrhea, COVID related 5. hypertension. 6. Hx throat cancer. 7. gastroesophageal reflux disease. 8. acute respiratory failure, intubated 9. enterococcus bacteremia NOS 10. SVT 8 beats 11. JULIETTE, toxic/hypotensive 12. shock, distributive/septic. resolved. 13. pneumothorax s/p left chest tube Intubated maintain Ventilator management --lowest PEEP for pneumothorax as tolerated. --Intermittent ABG, down-titrate minute ventilation if safe. NEXT blood gas prior to possible surgery given the mildly acidotic baseline --Recommend tracheostomy for facilitating management. Trying to optimize for anesthesia, surgeon to discuss. Consider repeat blood gas prior to OR. --suction prn nephrology providing intermittent HD as needed. Continue NGT feeds as tolerated, PEG being recommended DVT prophylaxis. Follow up markers of DIC and systemic inflammation as needed. DVT ppx continue continue chest tube, follow air leak. Minimize ventilator pressures as feasible Thank you very much, Dr. Santos and Dr. Larose, for allowing me a chance to participate in care of Mr. Marcus. Please call for questions
[2019-09-23] VITALS (24 sets, daily range): BP systolic 69–173; BP diastolic 45–85
[2019-09-23 05:31] LABS: BASOPHILS # (AUTO) 0.1 (0.0-0.1); BASOPHILS % 0.6 % (0.0-1.0); EOSINOPHILS # (AUTO) 1.5 (0.0-0.4); EOSINOPHILS % 18.7 % (0.0-6.0); HEMATOCRIT 29.1 % (38.2-49.6); LYMPHOCYTES # (AUTO) 0.8 (1.0-3.2); LYMPHOCYTES % 9.9 % (18.0-39.1); MEAN CORPUSCULAR HEMOGLOBIN 28.4 pg (28-32); MEAN CORPUSCULAR HGB CONC 30.9 g/dL (31-35); MEAN CORPUSCULAR VOLUME 91.8 fL (81-99); MONOCYTES # (AUTO) 0.9 (0.2-0.8); NEUTROPHILS # (AUTO) 4.6 (2.1-6.9); NEUTROPHILS % 58.8 % (38.7-80.0); PLATELET COUNT 389 x10e3/uL (140-360); RED BLOOD COUNT 3.17 x10e6/uL (4.3-5.7); RED CELL DISTRIBUTION WIDTH 17.3 % (11.7-14.4)
[2019-09-23 05:44] LABS: INR 1.11
[2019-09-23 05:45] LABS: PARTIAL THROMBOPLASTIN TIME 38.3 seconds (23.8-35.5)
[2019-09-23 05:50] LABS: ANION GAP 13.8 mmol/L (8-16); CALCIUM 9.8 mg/dL (8.4-10.2); CREATININE, SERUM 3.68 mg/dL (0.72-1.25); POTASSIUM 3.8 mmol/L (3.5-5.1)
[2019-09-23] MEDS: INSULIN REGULAR, HUMAN 100 UNIT/1 ML 3ML VIAL SQ SCH ×5 (06:00→23:57)
--- NOTE | 2019-09-23 06:25 | NUR ---
Paged Dr. Akins through answering service regarding this AM's labs/PT value per Md's request. Awaiting return call.
[2019-09-23] MEDS: MIDAZOLAM HCL 5MG/ML 10ML VIAL 100 ML BAG IV PRN ×2 (07:33→19:06)
[2019-09-23] MEDS: FAMOTIDINE 20 MG/2 ML VIAL IV SCH (08:08)
[2019-09-23] MEDS: AMIODARONE HCL 200 MG TAB PO SCH (08:08)
--- NOTE | 2019-09-23 09:20 | NUR ---
ASSESSMENT: Spiritual distress Telephonic visit-Pt's anxious concerning her 's illness. Pt's states, "this (COVID-19) has been a life changing experience." Pt's states their family and friends "have been praying" and she "believes in miracles." Pt's states her recovered from cancer diagnosed in 2012. Pt's states she and her brother (lives w/ them) have recovered. Intervention: Provided empathic listening and facilitated storytelling and illness review. 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 Outcome: Pt's expressed appreciation for call. Will continue to follow as able. DANIELLE ESTEVEZ Traveling Phlebotomist Spiritual Care Department O: [phone]
[2019-09-23] MEDS: BALSAM PERU/CASTOR OIL 60 GM OINT...G. TP SCH (09:50)
[2019-09-23] MEDS: FENTANYL 2,000 MCG/250 ML BAG IV PRN ×2 (09:59→23:15)
--- NOTE | 2019-09-23 11:47 | NUR ---
Updated clinicals faxed to [facility] at [phone].
[2019-09-23] MEDS: NOREPINEPHRINE 8 MG/D5W 250 ML 250 ML IV SCH ×2 (11:59→22:24)
[2019-09-23] MEDS ORDERED: FUROSEMIDE INJ 100 MG in SODIUM CHLORIDE 0.9% 100 ML 90 ML IV SCH (12:15)
--- NOTE | 2019-09-23 13:34 | Diagnostic Imaging Report ---
Bilateral chest ultrasound History: Pleural effusion Technique/findings: Limited bilateral chest ultrasound was performed to evaluate for pleural effusion. This demonstrated no left pleural effusion and a tiny trace right pleural effusion. IMPRESSION: Tiny trace right pleural effusion, insufficient for safe performance of thoracentesis. No left pleural effusion. Signed by: Edu Whitney MD on 09/23/2019 1:31 PM
--- NOTE | 2019-09-23 13:46 | NUR ---
Pulmonary Medicine DATE 09/23/2019 SUBJECTIVE: versed 4, fentanyl 150/ tube feeds tolerated, now on hold URINE continues 950/12hrs, 700 / 12 hrs US with small right pleural effusion pcac 32/26/40/5 REVIEW OF SYSTEMS: cant get, intubated OBJECTIVE: VITAL SIGNS: Vital signs as noted per the chart record. GENERAL: intubated, on ventilator HEENT: Normocephalic, atraumatic. NECK: Supple. Throat midline. LUNGS: Bilateral air entry, decreased exam. CARDIOVASCULAR: S1, S2. No murmurs, rubs, or gallops. ABDOMEN: Soft, nontender. EXTREMITIES: No clubbing, no cyanosis. edema INTEGUMENT: No rash or purpura. LABORATORY DATA: k 3.8, cr 3.68, wbc 8, hct 29, plt 389. IMPRESSION AND PLAN: 1. Hypoxemia, acute lung injury. ARDS 2. COVID pneumonitis 3. Hypoxemic respiratory failure, acute/chronic. Intubated 4. diarrhea, COVID related 5. hypertension. 6. Hx throat cancer. 7. gastroesophageal reflux disease. 8. acute respiratory failure, intubated 9. enterococcus bacteremia NOS 10. SVT 8 beats 11. JULIETTE, toxic/hypotensive 12. shock, distributive/septic. resolved. 13. pneumothorax s/p left chest tube Intubated maintain Ventilator management --lowest PEEP for pneumothorax as tolerated. --Intermittent ABG, down-titrate minute ventilation if safe. --Recommend tracheostomy for facilitating management. Trying to optimize for anesthesia, surgeon discussing. --suction prn nephrology providing intermittent HD as needed. Continue NGT feeds as tolerated, PEG being recommended DVT prophylaxis. Follow up markers of DIC and systemic inflammation as needed. DVT ppx continue continue chest tube, follow air leak. Minimize ventilator pressures as feasible Thank you very much, Dr. Santos and Dr. Larose, for allowing me a chance to participate in care of Mr. Marcus. Please call for questions
[2019-09-23] MEDS: BUMETANIDE 10 MG in SODIUM CHLORIDE 0.9% 100 ML 60 ML IV SCH (14:07)
[2019-09-23] MEDS ORDERED: BUPIVACAINE 0.5%/EPI 30 ML SDV INJ ONE (14:12)
--- NOTE | 2019-09-23 16:43 | NUR ---
Pt returned from OR. S/P peg and trach. Vitals 97.9, 128, 167/80, O2 sat 82. Anesthesia and respiratory therapy present. FIO2 increased, fentanyl increased to 200mcg, versed increased to 6mg. Scant bleeding to the surgical sites. Will monitor.
[2019-09-23] MEDS: DILTIAZEM HCL 5 MG/ML 5 ML VIAL IV PRN (18:14)
[2019-09-23] MEDS ORDERED: ROCURONIUM BROMIDE 10 MG/ML 5ML VIAL IV ONE (18:37)
[2019-09-23] MEDS ORDERED: SEVOFLURANE INHAL SOLN 250 ML PEN BTL ONE (18:37)
--- NOTE | 2019-09-23 18:37 | Progress Note ---
DATE: SUBJECTIVE: Mr. Marcus is going for surgery today. He is going to have trach and PEG placement. Remains sedated and intubated. There is nothing new. LABORATORY DATA: His blood cultures repeatedly are negative. His white count 7.8 with a hemoglobin of 9. His sodium 141, potassium 3.8, and creatinine 3.68. PHYSICAL EXAMINATION: GENERAL: Intubated and sedated. VITAL SIGNS: Stable, currently afebrile. HEENT: He is not icteric. NECK: Supple. CHEST: Few crackles. COR: S1 and S2. No S3, S4, or murmur. ABDOMEN: Soft. Bowel sounds present. No tenderness. EXTREMITIES: No edema. IMPRESSION: 1. COVID-19, present on admission. 2. History of throat cancer, status post radiation, status post chemo . 3. Respiratory failure, on ventilator. 4. Awqzr-zv-bznspoc kidney disease. 5. Pneumothorax, status post left chest tube. 6. Off antibiotic, stable. Continue supportive care. Going to have tracheostomy and PEG placement and he is going for an LTAC. We will follow. MD PATRICK Oakley/MALIA /[id number]
[2019-09-23] MEDS ORDERED: MIDAZOLAM HCL 2 MG/2 ML VIAL ONE (18:45)
[2019-09-23] MEDS ORDERED: FENTANYL CITRATE/PF 100MCG/2 ML INJ ONE (18:45)
--- NOTE | 2019-09-23 19:27 | Operative Report ---
DATE OF PROCEDURE: 09/23/2019 SURGEON: Antwon Garcia MD PREOPERATIVE DIAGNOSIS: Respiratory failure with ventilator dependence. POSTOPERATIVE DIAGNOSIS: Respiratory failure with ventilator dependence. OPERATIVE PROCEDURE: Tracheostomy tube placement. ANESTHESIA: General. INDICATIONS: A 64-year-old male with history of COVID-19 pneumonia, who has been intubated for more than 3 weeks. The patient's COVID testing had returned negative x2. He is a candidate for tracheostomy for continued ventilator management DESCRIPTION OF PROCEDURE: The patient was brought to the OR and placed in the supine position. The neck was extended with shoulder lift. Neck was prepped with alcohol and draped in sterile fashion. A transverse incision was made one fingerbreadth above the suprasternal notch extending through skin and subcutaneous tissue. Strap muscle was split in the midline. The anterior aspect of the trachea was exposed after dividing the thyroid isthmus with the Harmonic Scalpel. We proceeded to make a transverse incision in the space between the 3rd and 4th tracheal ring transversely and the 4th ring was divided with scissors on both sides laterally. Bleeding was controlled with the Harmonic Scalpel. The tracheal simplex operator was inserted and an extended 8-Telugu tracheostomy tube was inserted under direct vision and connected to ventilator registering the tidal volume. Hemostasis achieved. Dressing applied. Tracheal tie inserted. The patient was then transported back to ICU in guarded condition. Blood loss 10 mL. The procedure was carried out under strict COVID-19 safety protocol. Antwon Garcia MD DNL/MODL /[id number]
[2019-09-23] MEDS ORDERED: NOREPINEPHRINE 8 MG/D5W 250 ML 8 MG in DEXTROSE 5% 250ML 0 ML IV PRN (22:15)
--- NOTE | 2019-09-23 22:30 | NUR ---
New central line placed by Dr. Luciano.
--- NOTE | 2019-09-23 22:33 | NUR ---
Brief Operative note [id number] dictated Left subclavian 3 lumen CVC placed Indication: fevers, hypotension Anesthesia: lidocaine 1%, 5 cc local Complications none, no air leak on chest tube, CXR pending EBL 2 cc
--- NOTE | 2019-09-23 22:40 | NUR ---
CXR done. Drsg to site done with CVP kit.
--- NOTE | 2019-09-23 23:13 | Operative Report ---
DATE OF PROCEDURE: 09/23/2019 SURGEON: Steve Luciano MD OPERATIVE PROCEDURE: Central venous catheter placement. INDICATION: Fevers, hypotension. CONSENT: Informed consent from . ANESTHESIA: Lidocaine 1%, 5 mL. OPERATIVE FINDINGS: The patient with sterile prep and drape, after time-out localization. The patient noted with bilateral central lines in the internal jugular area, therefore, subclavian route was performed. After assessing it, the landmarks of left subclavian area under the clavicle. Local lidocaine was provided. The patient with insertion of central venous line catheter under reverse Seldinger technique in the left subclavian vein. Blood draw back was very light and only came out with negative suction. The patient with good flushing ports. Subclavian line was sutured in place at 15 cm, but with a triple-lumen catheter. Thereafter, the procedure was terminated and line was left with nursing for dressing. ESTIMATED BLOOD LOSS: 2 mL. COMPLICATIONS: None clinically. No air leak noted on chest tube on the ipsilateral side. Chest x-ray pending. SUMMARY: Successful implantation of left subclavian triple-lumen central venous catheter. MD BRANDON Vyas/MODL /[id number]
[2019-09-24] VITALS (25 sets, daily range): BP systolic 92–117; BP diastolic 50–70
--- NOTE | 2019-09-24 01:00 | NUR ---
Amiodarone decreased to 0.5mg/hr. Addendum: 09/24/19 at 0250 by Rachel Kenyon RN error wrong chart.
[2019-09-24] MEDS: BUMETANIDE 10 MG in SODIUM CHLORIDE 0.9% 100 ML 60 ML IV SCH ×3 (02:27→20:49)
--- NOTE | 2019-09-24 02:31 | Diagnostic Imaging Report ---
EXAMINATION: CHEST SINGLE (PORTABLE) INDICATION: Left IJ central venous catheter, tip in the COMPARISON: Chest x-ray 09/22/2019 FINDINGS: TUBES and LINES: New left subclavian central venous catheter, tip at the left brachiocephalic/superior vena cava junction. Unchanged bilateral internal jugular vein central lines, and left chest tube. New tracheostomy tube. Enteric tube has been removed. LUNGS/PLEURA: Persistent diffuse airspace haziness. HEART AND MEDIASTINUM: The cardiomediastinal silhouette is mostly obscured by airspace disease.. BONES AND SOFT TISSUES: No acute osseous lesion. Soft tissues are unremarkable. UPPER ABDOMEN: No free air under the diaphragm. IMPRESSION: New left subclavian central venous catheter, tip at the left brachiocephalic/superior vena cava junction. Persistent diffuse airspace disease. Signed by: Joon Michael DO on 09/24/2019 2:28 AM
--- NOTE | 2019-09-24 02:48 | NUR ---
CXR read and ok to use new TLC. All IVs moved to subclavian site. Dcd LIJ with catheter intact. Drsg applied.
--- NOTE | 2019-09-24 03:37 | NUR ---
ABG results called to Dr. Luciano by Desmond CLEMENS
[2019-09-24] MEDS: MIDAZOLAM HCL 5MG/ML 10ML VIAL 100 ML BAG IV PRN ×2 (03:55→20:22)
[2019-09-24 05:38] LABS: BASOPHILS % 0.5 % (0.0-1.0); EOSINOPHILS # (AUTO) 0.4 (0.0-0.4); EOSINOPHILS % 4.4 % (0.0-6.0); HEMATOCRIT 30.5 % (38.2-49.6); HEMOGLOBIN 8.8 g/dL (14.0-18.0); LYMPHOCYTES # (AUTO) 0.9 (1.0-3.2); MEAN CORPUSCULAR HEMOGLOBIN 27.6 pg (28-32); MEAN CORPUSCULAR HGB CONC 28.9 g/dL (31-35); MONOCYTES # (AUTO) 1.1 (0.2-0.8); MONOCYTES % 12.7 % (4.4-11.3); NEUTROPHILS # (AUTO) 6.2 (2.1-6.9); NEUTROPHILS % 71.4 % (38.7-80.0); PLATELET COUNT 383 x10e3/uL (140-360); RED BLOOD COUNT 3.19 x10e6/uL (4.3-5.7); RED CELL DISTRIBUTION WIDTH 17.3 % (11.7-14.4)
[2019-09-24 05:49] LABS: MEAN CORPUSCULAR VOLUME 95.6 fL (81-99)
--- NOTE | 2019-09-24 05:49 | Operative Report ---
DATE OF PROCEDURE: 09/23/2019 SURGEON: Rashid Akins MD PROCEDURES PERFORMED: Esophagogastroduodenoscopy and percutaneous endoscopic gastrostomy tube insertion. INDICATIONS FOR PROCEDURE: The patient is vent and NG tube feeding dependent. He is in for EGD and PEG tube insertion. MEDICATIONS: The patient was done under general endotracheal anesthesia, please see anesthesiologist's note. PROCEDURE IN DETAIL: With the patient in the supine position, the flexible fiberoptic Olympus gastroscope was introduced into the esophagus under direct visualization without any difficulty. There was some patchy erythema noted in distal esophagus. The scope was then advanced with ease into the stomach. Mucosa overlying the antrum and the body revealed some diffuse intense erythema. Pylorus was of normal contour and shape, was intubated with ease and the scope was advanced all the way to the second portion of the duodenum. The scope was then withdrawn slowly. Mucosa overlying the proximal second portion and the duodenal bulb appeared to be within normal limits. The scope was then withdrawn back into the stomach and retroflexed and the mucosa overlying the fundus and cardia appeared to be within normal limits. The scope was then straightened out and after delineation of a safe entry point per external digital palpation and transabdominal illumination, PEG tube insertion was carried out in the usual fashion. The scope was subsequently withdrawn after documenting a good positioning of the intragastric bumper. The patient tolerated the procedure well. IMPRESSION: 1. Distal esophagitis. 2. Gastritis. 3. Percutaneous endoscopic gastrostomy tube insertion carried out in the usual fashion. The patient tolerated the procedure well. PLAN: G-tube to drain to gravity x24 hours, then can use. Rashid Akins MD [facility]/MALIA /[id number] cc: MD Antwon Camacho MD
[2019-09-24] MEDS: INSULIN REGULAR, HUMAN 100 UNIT/1 ML 3ML VIAL SQ SCH ×3 (05:50→18:00)
[2019-09-24 05:57] LABS: ALBUMIN/GLOBULIN RATIO 0.4 (0.8-2.0); CALCIUM 9.6 mg/dL (8.4-10.2); CREATININE, SERUM 3.87 mg/dL (0.72-1.25); MAGNESIUM 2.5 MG/DL (1.3-2.1); PHOSPHORUS 9.6 MG/DL (2.3-4.7)
[2019-09-24] MEDS ORDERED: SODIUM CHLORIDE 0.9% 1000ML 2,000 ML IV PRN (07:45)
[2019-09-24] MEDS ORDERED: SODIUM CHLORIDE 0.9% 250ML 500 ML IV PRN (07:45)
[2019-09-24] MEDS ORDERED: HEPARIN SOD (PORCINE) 1000 UNIT/ML SDV IV PRN (07:45)
[2019-09-24] MEDS ORDERED: MANNITOL 25% 12.5GM/50 ML VIAL IV PRN (07:45)
[2019-09-24] MEDS ORDERED: ALBUMIN 25% 12.5GM 0.25 GM/ML BTL IV PRN (07:45)
[2019-09-24] MEDS: FENTANYL 2,000 MCG/250 ML BAG IV PRN (08:35)
[2019-09-24] MEDS: FAMOTIDINE 20 MG/2 ML VIAL IV SCH (08:36)
[2019-09-24] MEDS: BALSAM PERU/CASTOR OIL 60 GM OINT...G. TP SCH (08:36)
[2019-09-24] MEDS: AMIODARONE HCL 200 MG TAB PO SCH (08:36)
--- NOTE | 2019-09-24 09:29 | Diagnostic Imaging Report ---
EXAM: CHEST SINGLE (PORTABLE) DATE: 09/24/2019 5:00 AM INDICATION: Pneumonia COMPARISON: 09/23/2019 FINDINGS: Tracheostomy cannula, right IJ nontunneled dialysis, left subclavian central venous catheter, and left-sided chest tube catheter identified in stable position. Again identified are diffusely increased bilateral interstitial and airspace opacities, unchanged from prior examination. There is no evidence for pneumothorax or significant pleural effusion. The cardiomediastinal silhouette is stable in appearance. No acute osseous abnormality is identified. IMPRESSION: No significant interval change from 09/23/2019. Persistent bilateral airspace opacities. Signed by: Dr. Larry Lisa MD on 09/24/2019 9:26 AM
--- NOTE | 2019-09-24 14:39 | NUR ---
Pulmonary Medicine DATE 09/24/2019 SUBJECTIVE: versed, fentanyl tube feeds on hold URINE continues back on transient levophed up to 5 mcg, now 1 mcg/ pc ac but with LOW MV yesterday and pH 7.12 patient with adjustments made. pk 41, mv 15, rr 36 now down titrated to 28/26/40/5 chest tube no air leak REVIEW OF SYSTEMS: cant get, intubated OBJECTIVE: VITAL SIGNS: Vital signs as noted per the chart record. GENERAL: intubated, on ventilator HEENT: Normocephalic, atraumatic. NECK: Supple. Throat midline. LUNGS: Bilateral air entry, decreased exam. CARDIOVASCULAR: S1, S2. No murmurs, rubs, or gallops. ABDOMEN: Soft, nontender. EXTREMITIES: No clubbing, no cyanosis. edema INTEGUMENT: No rash or purpura. LABORATORY DATA: k 5.0, cr 3.87. wbc 8.64, hct 31 IMPRESSION AND PLAN: 1. Hypoxemia, acute/chronic respiratory failure. ARDS s/p tracheostomy 2. COVID pneumonitis 3. Hypoxemic respiratory failure, acute/chronic. Intubated 4. diarrhea, COVID related 5. hypertension. 6. Hx throat cancer. 7. gastroesophageal reflux disease. 8. acute respiratory failure, intubated 9. enterococcus bacteremia NOS 10. dense JULIETTE, toxic/hypotensive. Now polyuric 12. shock, distributive/septic. resolving 13. pneumothorax s/p left chest tube 14. dysphagia s/p peg tube Intubated maintain Ventilator management --lowest PEEP for pneumothorax as tolerated. --Intermittent ABG, down-titrate minute ventilation if safe. --continue tracheostomy --suction prn Likely to start PEG feeds today nephrology providing intermittent HD as needed. DVT prophylaxis. Follow up markers of DIC and systemic inflammation as needed. DVT ppx continue wean off pressors as tolerated continue chest tube, follow air leak. Minimize ventilator pressures as feasible Thank you very much, Dr. Santos and Dr. Larose, for allowing me a chance to participate in care of Mr. Marcus. Please call for questions
--- NOTE | 2019-09-24 15:35 | NUR ---
Right arm with diffuse small smooth spots. Has been viewed by Dr Luciano and Dr Mckinney. Unknown origin. The blood pressure cuff has been moved to the left arm. Dr Mckinney has ordered ultrasound R/O DVT.
--- NOTE | 2019-09-24 16:57 | Progress Note ---
DATE: SUBJECTIVE: Mr. Marcus remains in the intensive care unit, status post trach, status post PEG. It was noted that there is a rash today on his right upper extremity. It seems like purpura. The patient is otherwise stable. LABORATORY DATA: White count 8.6, hemoglobin of 8.8 with a platelet of 283. PHYSICAL EXAMINATION: Otherwise unchanged. HEENT: Not icteric. NECK: Supple. CHEST: Clear. COR: S1 and S2. No S3, S4, or murmurs. ABDOMEN: Soft. Bowel sounds present. No tenderness. No hepatomegaly. EXTREMITIES: No edema in the right upper extremity. There is a small purpuric rash noted. IMPRESSION: Rash upper extremity. It could be from pressure. We will follow. I told our nurse to remove the pressure cuff from the arm. Obtain a Doppler to rule out deep vein thrombosis. Recheck in the morning. MD PATRICK Oakley/MALIA /[id number]
--- NOTE | 2019-09-24 19:00 | NUR ---
Report received from Sergio Capellan RN. paged by Sergio SILVA and she is taking orders from him now. Please refer to order to delivery supervisor and physician notification.
--- NOTE | 2019-09-24 19:47 | NUR ---
Pt with elevating temperature this afternoon at 100.6. Dr Luciano and Dr Mckinney aware. Dr Mckinney was paged to notify of continued elevation at 1700 and again at 1830. Received call back and orders received for blood cultures and antibiotics.
[2019-09-24] MEDS: CEFEPIME 1GM/NS 0.9% 50 ML 50 ML IV SCH (20:22)
[2019-09-24] MEDS: LINEZOLID 600 MG/D5W 300ML 300 ML IV SCH (20:49)
--- NOTE | 2019-09-24 23:00 | NUR ---
Tube feeding increased to 35ml/hr (goal 50 ml/hr) no residuals at this time.
[2019-09-25] VITALS (33 sets, daily range): BP systolic 86–184; BP diastolic 50–83
[2019-09-25] MEDS: FENTANYL 2,000 MCG/250 ML BAG IV PRN (03:15)
--- NOTE | 2019-09-25 04:34 | NUR ---
Dr. Hakan Akins present and assessing the pt. Addendum: 09/25/19 at 0436 by Venessa Low RN Dr. Akins notified of tube feedings and rate and that the pt has not had a bowel movement in last 24 hours.
[2019-09-25] MEDS: INSULIN REGULAR, HUMAN 100 UNIT/1 ML 3ML VIAL SQ SCH ×4 (06:00→17:44)
[2019-09-25] MEDS: BUMETANIDE 10 MG in SODIUM CHLORIDE 0.9% 100 ML 60 ML IV SCH ×2 (06:05→14:40)
[2019-09-25] MEDS: LINEZOLID 600 MG/D5W 300ML 300 ML IV SCH ×2 (07:24→19:40)
[2019-09-25] MEDS: FAMOTIDINE 20 MG/2 ML VIAL IV SCH (08:14)
[2019-09-25] MEDS: BALSAM PERU/CASTOR OIL 60 GM OINT...G. TP SCH (08:14)
[2019-09-25] MEDS: AMIODARONE HCL 200 MG TAB PO SCH (08:14)
--- NOTE | 2019-09-25 09:10 | Diagnostic Imaging Report ---
Examination: Single AP view of the chest. COMPARISON: 09/24/2019 INDICATION: CHF DISCUSSION: See impression IMPRESSION: 1. Tracheostomy, left subclavian central venous catheter, left chest tube, and right internal jugular high flow central venous catheter are unchanged in position. 2. Stable confluent coarse opacities and consolidations. No pneumothorax or sizable pleural effusion. 3. Stable cardiomediastinal contour. No acute osseous abnormality. Signed by: Dr. Antwon Espinosa M.D. on 09/25/2019 9:07 AM
[2019-09-25] MEDS: MIDAZOLAM HCL 5MG/ML 10ML VIAL 100 ML BAG IV PRN (12:00)
[2019-09-25 12:17] LABS: ABG PCO2 99 mmHg (35-45); ABG PH 7.13 (7.35-7.45); ABG PO2 141 mmHg (80-105)
[2019-09-25 12:18] LABS: ABG HCO3 33 mmol/L (22-26)
--- NOTE | 2019-09-25 12:29 | NUR ---
Updated clinicals faxed to [place] at [phone].
--- NOTE | 2019-09-25 12:45 | Progress Note ---
DATE: SUBJECTIVE: Mr. Marcus remains in intensive care unit. He looks comfortable. Discussed with Pulmonary. Discussed with Renal. PHYSICAL EXAMINATION: GENERAL: Alert. VITAL SIGNS: Stable, afebrile. HEENT: Not icteric. NECK: Supple. CHEST: Few crackles. HEART: S1, S2. No S3, S4, or murmur. ABDOMEN: Soft. IMPRESSION: I think the patient is improving slowly. He remains with pulmonary infiltrate. Remains with renal disease, but overall is improving. Continue supportive care. Further recommendations to follow. MD PATRICK Oakley/MODL /[id number]
--- NOTE | 2019-09-25 12:48 | NUR ---
Pulmonary Medicine DATE 09/25/2019 SUBJECTIVE: versed 4/, fentanyl 100/ vacations bumex 1/ levophed 5/ UOP large tube feeds 35/hr water 15 q 3 hrs CXR decreased pneumonia slowly 22/24/40/5 pc ac, mv 11, pk 33, rr 25 chest tube no air leak REVIEW OF SYSTEMS: cant get, intubated OBJECTIVE: VITAL SIGNS: Vital signs as noted per the chart record. GENERAL: intubated, on ventilator HEENT: Normocephalic, atraumatic. NECK: Supple. Throat midline. LUNGS: Bilateral air entry, decreased exam. CARDIOVASCULAR: S1, S2. No murmurs, rubs, or gallops. ABDOMEN: Soft, nontender. EXTREMITIES: No clubbing, no cyanosis. edema INTEGUMENT: No rash or purpura. LABORATORY DATA: k 5.0, bun 79, cr 3.87, wbc 8.63, hct 30, plt 383 IMPRESSION AND PLAN: 1. Hypoxemia, acute/chronic respiratory failure. ARDS s/p tracheostomy 2. COVID pneumonitis 3. Hypoxemic respiratory failure, acute/chronic. Intubated 4. diarrhea, COVID related 5. hypertension. 6. Hx throat cancer. 7. gastroesophageal reflux disease. 8. acute respiratory failure, intubated 9. enterococcus bacteremia NOS 10. dense JULIETTE, toxic/hypotensive. Now polyuric 12. shock, distributive/septic. resolving 13. pneumothorax s/p left chest tube 14. dysphagia s/p peg tube Intubated maintain Ventilator management --lowest PEEP for pneumothorax as tolerated. --Intermittent ABG, down-titrate minute ventilation if safe. --continue tracheostomy --suction prn PEG feeds nephrology providing intermittent HD as needed. DVT prophylaxis. Follow up markers of DIC and systemic inflammation as needed. DVT ppx continue wean off pressors as tolerated continue chest tube, follow air leak. Minimize ventilator pressures as feasible Thank you very much, Dr. Santos and Dr. Larose, for allowing me a chance to participate in care of Mr. Marcus. Please call for questions
[2019-09-25] MEDS ORDERED: ALBUMIN 25% 25GM 100ML 0.25 GM/ML BTL IV ONE (14:00)
[2019-09-25] MEDS ORDERED: ALBUMIN 25% 25GM 100ML 100 ML IV ONE (14:30)
--- NOTE | 2019-09-25 16:36 | NUR ---
Nutrition Intervention Note RD Recommendation for Physician: - Recommend to continue Nepro at this time with goal rate of 50 mL/hr (provides 2160 kcal, 97 g protein, and 872 mL water) - Water flushes and fluid management per MD. Plan of Care: RD following, monitoring for tolerance and adequacy. TF rec's. Nutrition reason for involvement: Follow up Primary Diagnose(s): viral PNA, hypoxia, diarrhea, dehydration PMH: HTN, reflux, dyslipidemia, HTN, throat cancer GI: Last recorded BM 09/16, soft, round abdomen, flatus + Skin: sacral stage II PU, L heel DTI, L ear DTI Labs: 09/23: Na 142, BUN 79, Cr 3.87, Phos 9.6, Mg 2.5 09/22: Na 135, K 4.1, BUN 48, Cr 3.19, Glu 102 09/15: Na 134, K 4.3, BUN 37, Cr 3.3, Gluc 166, POC Gluc 180, Phos 5.5, Mg 2.2 09/10: Na 132, BUN 64, Creat 5.85, Cl 94, Ca 7.8, Phos 9.6 (09/04) 09/05: Na 134, BUN 54, Cr 5.53, Glu 147, Ca 7.8, Phos 9.6 (09/04), Mg 2.2 (09/04) 09/01: Na 150, K 4.3, BUN 36, Cr 1.14, Gluc 140, POC Gluc 125-165, Ca 7.5 Meds: bumetanide, insulin, amiodarone, famotidine, fentanyl, cefepime, norepinephrine, heparin, mannitol, vasopressin, zofran Ht: 69 in Wt: 179 lbs (09/24) 199 lbs (09/19) 221 lbs (09/10) 215 lbs (09/05) 179 lbs (09/01) 185.31 lb (08/25) Suspect weight difference to be possible weight error or fluid related BMI: 26.5 kg/m2 IBW: [address] Assessment: 09/24: Follow up. Pt received a trach and PEG. Pt is tolerating tube feeding of Nepro @ 35 mL/hr per nursing. Updated labs on 09/23 indicate Phos 9.6, BUN 79, and Cr 3.87, therefore, recommend to continue Nepro at this time and increase to goal rate as medically appropriate. Will continue to monitor. 09/19: Follow up. Pt remains intubated and is no longer on propofol. Pt is tolerating tube feeding of Nepro @ 35 mL/hr. Pt continues to receive dialysis. Spoke to RN regarding recommendation of modifying formula to Vital AF 1.2 to better meet pt's nutrition needs. Will continue to monitor. 09/15: Follow up. Pt remains intubated and sedated on fentanyl and propofol. No pressors. Pt received HD yesterday with 2L fluid removal, plan for HD tomorrow per RN. Spoke with SHIRA Kerns regarding TF change to Vital HP to better meet needs with vent and HD as Vital HP will provide adequate protein and prevent overfeeding per current propofol dosage. Change in order pending. No plan to prone at this time per RN. Nepro infusing at 35 ml/hr currently, tolerating per RN. Will continue to monitor. 09/10: Follow up. Pt remains mechanically ventilated and is receiving dialysis. Pt is currently receiving propofol @ 20 mL/hr which provides 528 kcal and is not currently in the prone position. Pt is tolerating tube feeding of Nepro @ 25 mL/hr. Recommend increasing tube feeding rate towards goal as medically appropriate. Provided TF recommendation to RN. Will continue to monitor. 09/05: Follow up. Pt remains mechanically ventilated with propofol and fentanyl. Pt is now receiving HD due to renal failure. Pt was also previously in the prone position as mentioned in pts chart. Spoke to RN, who stated that pt is receiving 15 mL/hr of propofol (provides 396 kcal) and is not in the prone position at this time. Pt is also receiving Nepro @ 30 mL/hr per RN and tolerating tube feeding. Will continue to monitor. 09/01: Follow up. Pt re-evaluated today for follow up and now due to intubation. Pt intubated 08/29, remains on vent and sedated with propofol and fentanyl. No pressors currently. Pt on TF of Vital AF infusing at goal rate per documentation in chart. TF rec's discussed with SHIRA Kerns. Attempted to call , no answer. TF rec's provided pending pt continues on Propofol. Chart reviewed. Will continue to monitor. (08/26) 64 YOM admitted for viral PNA, hypoxia, diarrhea, and dehydration. Pt evaluated today per LOS. Pt PUI for Covid-19, test results remain pending. Unable to speak with pt via phone 2/2 very SOB and requiring BiPAP. Per chart no reported poor intake or wt loss WATER PU[employer]ING [employer]INE[employer], pt reported diarrhea which is ongoing during admission. Pt with 75% meal intake prior to BiPAP use. Chart reviewed. Labs and meds reviewed. Will monitor and continue to follow. Malnutrition Evaluation (09/16/19) The patient does not meet criteria for a specified degree of malnutrition at this time. Will re-evaluate at follow-up as appropriate. Unable to complete assessment. Nutrition Prescription (Diet Order): Nepro at 35 ml/hr at time of visit. Goal rate of 50 ml/hr per current order. Estimated Nutritional Needs: 9325-9519 calories/day (20-25 kcal/kg) Weight used: 179 lbs 106-162 g protein/day (1.3-2 g pro/kg) Weight used: 179 lbs Diet Adequacy: Not meeting calorie needs, not meeting protein needs with current tube feed rate Diet Tolerance: tolerating TF Diet Education Needs Assessment: Diet education not indicated at this time. Nutrition Care Level: Moderate Nutrition Diagnosis: Inadequate energy and protein intake related to respiratory status as evidenced by progression of BiPAP to intubation currently requiring EN. Goal: Patient will meet 75-100% of estimated needs by follow up Progress: Progressing Interventions: - Composition, Rate, Route, Recommended Modifications, Collaboration with other providers Monitoring/Evaluation: - Total energy intake, Total protein intake, Formula/Solution, Prescription medication Signed: Kathy Rojas RD, LD
[2019-09-25] MEDS: ENOXAPARIN 30 MG/0.3 ML SYR SC SCH (17:00)
[2019-09-25] MEDS ORDERED: ENOXAPARIN SOD INJ 40 MG/0.4 ML SYR SC SCH (17:00)
[2019-09-25] MEDS: NOREPINEPHRINE 8 MG/D5W 250 ML 250 ML IV SCH (17:44)
--- NOTE | 2019-09-25 18:33 | NUR ---
Venous doppler done of R arm today. Wound care done to wounds. Dr. Ramos gave orders for albumin. Sedation vacation caused pt's blood pressure to elevate to 200 systolic and desaturate to 84%. Sedation resumed. Dr. Luciano informed of situation and gave orders to wean sedation slowly. Will continue to monitor patient.
[2019-09-25] MEDS: CEFEPIME 1GM/NS 0.9% 50 ML 50 ML IV SCH (19:34)
[2019-09-26] VITALS (25 sets, daily range): BP systolic 92–177; BP diastolic 49–86
[2019-09-26] MEDS: BUMETANIDE 10 MG in SODIUM CHLORIDE 0.9% 100 ML 60 ML IV SCH ×2 (01:04→11:51)
[2019-09-26] MEDS: INSULIN REGULAR, HUMAN 100 UNIT/1 ML 3ML VIAL SQ SCH ×4 (06:00→16:58)
[2019-09-26 06:30] LABS: BASOPHILS # (AUTO) 0.1 (0.0-0.1); BASOPHILS % 0.9 % (0.0-1.0); EOSINOPHILS # (AUTO) 1.5 (0.0-0.4); EOSINOPHILS % 12.3 % (0.0-6.0); HEMATOCRIT 29.8 % (38.2-49.6); HEMOGLOBIN 9.3 g/dL (14.0-18.0); LYMPHOCYTES # (AUTO) 1.3 (1.0-3.2); LYMPHOCYTES % 10.7 % (18.0-39.1); MEAN CORPUSCULAR HEMOGLOBIN 27.8 pg (28-32); MEAN CORPUSCULAR HGB CONC 31.2 g/dL (31-35); MEAN CORPUSCULAR VOLUME 89.2 fL (81-99); MONOCYTES # (AUTO) 1.2 (0.2-0.8); MONOCYTES % 10.4 % (4.4-11.3); NEUTROPHILS # (AUTO) 7.7 (2.1-6.9); PLATELET COUNT 375 x10e3/uL (140-360); RED BLOOD COUNT 3.34 x10e6/uL (4.3-5.7); RED CELL DISTRIBUTION WIDTH 16.5 % (11.7-14.4)
[2019-09-26 06:57] LABS: ANION GAP 15.7 mmol/L (8-16); CALCIUM 10.1 mg/dL (8.4-10.2); CREATININE, SERUM 3.12 mg/dL (0.72-1.25)
[2019-09-26 06:59] LABS: POTASSIUM 2.7 mmol/L (3.5-5.1)
[2019-09-26] MEDS: LINEZOLID 600 MG/D5W 300ML 300 ML IV SCH ×2 (07:50→20:42)
[2019-09-26] MEDS: FAMOTIDINE 20 MG/2 ML VIAL IV SCH (08:14)
[2019-09-26] MEDS: BALSAM PERU/CASTOR OIL 60 GM OINT...G. TP SCH (08:14)
[2019-09-26] MEDS: AMIODARONE HCL 200 MG TAB PO SCH (08:14)
[2019-09-26] MEDS ORDERED: POTASSIUM CHLORIDE 20MEQ/100ML 300 ML IV ONE (09:30)
--- NOTE | 2019-09-26 11:51 | NUR ---
Pulmonary Medicine DATE 09/26/2019 SUBJECTIVE: versed 2/, fentanyl 60/ on slow wean down k low bumex 0.5/hr with UOP ventilator pc ac 22/24/40/5, pk 27-33, rr 30, mv 14.6 BCX x 2 off pressors since last evening chest tube no air leak REVIEW OF SYSTEMS: cant get, intubated OBJECTIVE: VITAL SIGNS: Vital signs as noted per the chart record. GENERAL: intubated, on ventilator HEENT: Normocephalic, atraumatic. NECK: Supple. Throat midline. LUNGS: Bilateral air entry, decreased exam. CARDIOVASCULAR: S1, S2. No murmurs, rubs, or gallops. ABDOMEN: Soft, nontender. EXTREMITIES: No clubbing, no cyanosis. edema INTEGUMENT: No rash or purpura. LABORATORY DATA: k 2.7, hco3 32, cr 3.12, bun 60 IMPRESSION AND PLAN: 1. Hypoxemia, acute/chronic respiratory failure. ARDS s/p tracheostomy 2. COVID pneumonitis 3. Hypoxemic respiratory failure, acute/chronic. Intubated 4. diarrhea, COVID related 5. hypertension. 6. Hx throat cancer. 7. gastroesophageal reflux disease. 8. acute respiratory failure, intubated 9. enterococcus bacteremia NOS 10. dense JULIETTE, toxic/hypotensive. Now polyuric 12. shock, distributive/septic. resolving 13. pneumothorax s/p left chest tube 14. dysphagia s/p peg tube Intubated maintain Ventilator management --lowest PEEP for pneumothorax as tolerated. --Intermittent ABG, down-titrate minute ventilation if safe. --continue tracheostomy --suction prn Slowly wean off sedation PEG feeds continue Nephrology for diuresis (bumex iv drip) +/- intermittent HD as needed. DVT prophylaxis. continue chest tube, follow air leak. Minimize ventilator pressures as feasible Restorative care Thank you very much, Dr. Santos and Dr. Larose, for allowing me a chance to participate in care of Mr. Marcus. Please call for questions
[2019-09-26] MEDS ORDERED: DEXMEDETOMIDINE HCL 200 MCG in SODIUM CHLORIDE 0.9% 50ML 48 ML IV PRN (13:00)
--- NOTE | 2019-09-26 14:22 | NUR ---
Spoke to Sherlyn, states decision for appeal due by 09/27, but insurance is asking for additional clinicals from yesterday. Clinicals faxed to [employer] at [phone].
[2019-09-26] MEDS: NOREPINEPHRINE 8 MG/D5W 250 ML 250 ML IV SCH (16:29)
[2019-09-26] MEDS: ENOXAPARIN 30 MG/0.3 ML SYR SC SCH (16:39)
--- NOTE | 2019-09-26 17:10 | Progress Note ---
DATE: SUBJECTIVE: Mr. Marcus remains in the intensive care unit, intubated on dialysis. OBJECTIVE: GENERAL: Noncommunicative, intubated. noncommunicative, intubated. VITALS: Stable, afebrile. HEENT: Not icteric. NECK: Supple. CHEST: Few crackles bilateral. COR: S1 and S2. No S3, S4, or murmurs. ABDOMEN: Soft. EXTREMITIES: No edema. The patient remains on Versed, fentanyl, Bumex, and feeding tube Levophed. IMPRESSION: 1. COVID-19 pneumonia, very slow progress. 2. Respiratory failure, very slow progress, Status post tracheostomy. 3. Hypoxemia. 4. Hypertension. 5. Acute on chronic kidney disease. 6. History of throat cancer, history of esophageal reflux disease, stable from Infectious Disease point of view. We will follow. MD PATRICK Oakley/MALIA /[id number]
--- NOTE | 2019-09-26 19:51 | NUR ---
Dr. Ramos notified of pt's potassium. replacement ordered. No dialysis today per MD. Labs ordered for tomorrow morning. Central line dressings changed.
[2019-09-26] MEDS: CEFEPIME 1GM/NS 0.9% 50 ML 50 ML IV SCH (20:42)
[2019-09-26] MEDS ORDERED: DEXMEDETOMIDINE 200MCG/NS 50ML 50 ML IV ONE (21:22)
[2019-09-26] MEDS ORDERED: SODIUM CHLORIDE 0.9% 50ML 50 ML ONE (21:22)
[2019-09-27] VITALS (19 sets, daily range): BP systolic 87–122; BP diastolic 48–77
[2019-09-27] MEDS: FENTANYL 2,000 MCG/250 ML BAG IV PRN (00:25)
[2019-09-27] MEDS: MIDAZOLAM HCL 5MG/ML 10ML VIAL 100 ML BAG IV PRN (00:25)
[2019-09-27] MEDS ORDERED: DEXMEDETOMIDINE 200MCG/NS 50ML 50 ML IV ONE (02:55)
[2019-09-27] MEDS: INSULIN REGULAR, HUMAN 100 UNIT/1 ML 3ML VIAL SQ SCH ×4 (06:00→18:00)
[2019-09-27] MEDS: BUMETANIDE 10 MG in SODIUM CHLORIDE 0.9% 100 ML 60 ML IV SCH (06:12)
[2019-09-27 06:16] LABS: BASOPHILS # (AUTO) 0.1 (0.0-0.1); BASOPHILS % 0.9 % (0.0-1.0); EOSINOPHILS # (AUTO) 1.1 (0.0-0.4); HEMATOCRIT 32.4 % (38.2-49.6); HEMOGLOBIN 10.1 g/dL (14.0-18.0); LYMPHOCYTES # (AUTO) 1.3 (1.0-3.2); LYMPHOCYTES % 10.9 % (18.0-39.1); MEAN CORPUSCULAR HEMOGLOBIN 28.1 pg (28-32); MEAN CORPUSCULAR HGB CONC 31.2 g/dL (31-35); MONOCYTES # (AUTO) 0.9 (0.2-0.8); MONOCYTES % 7.7 % (4.4-11.3); NEUTROPHILS # (AUTO) 8.2 (2.1-6.9); NEUTROPHILS % 70.6 % (38.7-80.0); PLATELET COUNT 409 x10e3/uL (140-360); RED CELL DISTRIBUTION WIDTH 16.3 % (11.7-14.4)
[2019-09-27 06:46] LABS: CALCIUM 10.4 mg/dL (8.4-10.2); CREATININE, SERUM 3.16 mg/dL (0.72-1.25)
[2019-09-27] MEDS: LINEZOLID 600 MG/D5W 300ML 300 ML IV SCH ×2 (09:30→19:57)
[2019-09-27] MEDS: FAMOTIDINE 20 MG/2 ML VIAL IV SCH (09:30)
[2019-09-27] MEDS: EYE LUBRICANT OPTH OINT 3.5GM TUBE OP SCH (09:30)
[2019-09-27] MEDS: BALSAM PERU/CASTOR OIL 60 GM OINT...G. TP SCH (09:31)
[2019-09-27] MEDS: AMIODARONE HCL 200 MG TAB PO SCH (09:31)
--- NOTE | 2019-09-27 09:39 | Diagnostic Imaging Report ---
X-ray chest AP portable Comparison: 09/25/2019 History: Follow-up Findings: Tracheostomy tube, right IJ route catheter, left subclavian central venous catheter, left chest tube are all unchanged. There is no significant change in the cardiomediastinal findings otherwise. There is no definite pleural effusion. There is persistent small left apical pneumothorax. There is no change in the lung findings which consist of bilateral bar multisegmental heterogeneous airspace opacities and interstitial opacities. No acute findings in the skeletal structures and upper abdomen. Impression: No significant change. Persistent small left apical pneumothorax. Signed by: Abdullahi Clemons MD on 09/27/2019 9:35 AM
--- NOTE | 2019-09-27 10:30 | NUR ---
Per Sherlyn with [employer], appeal was upheld. They are sending to [facility] for 2nd level review and will reinitiate case on Monday after [facility] has reviewed case. Dr. Santos was updated on status of referral.
[2019-09-27] MEDS: DILTIAZEM HCL 30 MG TAB PO SCH ×2 (11:55→18:50)
--- NOTE | 2019-09-27 12:54 | NUR ---
Pulmonary Medicine DATE 09/27/2019 SUBJECTIVE: versed 2/, fentanyl 70/ on slow wean down did not do as well with precedex tmax 100.8? bumex .5 / hr, good UOP tube feeds 40/hr, water 15 ccq3 hrs. PCAC 22/ 22/50/5, pk 30, mv 10, rr 24 REVIEW OF SYSTEMS: cant get, intubated OBJECTIVE: VITAL SIGNS: Vital signs as noted per the chart record. GENERAL: intubated, on ventilator HEENT: Normocephalic, atraumatic. NECK: Supple. Throat midline. LUNGS: Bilateral air entry, decreased exam. CARDIOVASCULAR: S1, S2. No murmurs, rubs, or gallops. ABDOMEN: Soft, nontender. EXTREMITIES: No clubbing, no cyanosis. edema INTEGUMENT: No rash or purpura. LABORATORY DATA: k 3.0, cr 3.16, wbc 11.6, hct 32, plt 409. 7.53/42/80/35 on MV ~14 L/min yesterday IMPRESSION AND PLAN: 1. Hypoxemia, acute/chronic respiratory failure. ARDS s/p tracheostomy 2. COVID pneumonitis 3. Hypoxemic respiratory failure, acute/chronic. Intubated 4. diarrhea, COVID related 5. hypertension. 6. Hx throat cancer. 7. gastroesophageal reflux disease. 8. acute respiratory failure, intubated 9. enterococcus bacteremia NOS 10. dense JULIETTE, toxic/hypotensive. Now polyuric 12. shock, distributive/septic. resolving 13. pneumothorax s/p left chest tube 14. dysphagia s/p peg tube Intubated maintain Ventilator management --lowest PEEP for pneumothorax as tolerated. --Intermittent ABG, adjust ventilator prn --continue tracheostomy --suction prn Slowly wean off sedation PEG feeds continue Nephrology for diuresis ; trial to d/c iv drip bumex and change to intermittent iv bumex +/- intermittent HD as needed. DVT prophylaxis. continue chest tube, follow air leak. Minimize ventilator pressures as feasible Restorative care Thank you very much, Dr. Santos and Dr. Larose, for allowing me a chance to participate in care of Mr. Marcus. Please call for questions
[2019-09-27] MEDS ORDERED: POTASSIUM CHLORIDE 20MEQ/100ML 100 ML IV ONE (13:00)
[2019-09-27] MEDS: BUMETANIDE INJ 0.25MG/ML 4ML VIAL IV SCH ×2 (14:52→23:50)
--- NOTE | 2019-09-27 16:02 | NUR ---
SSION: 1. COVID-19 pneumonia, very slow progress. 2. Respiratory failure, very slow progress, Status post tracheostomy. 3. Hypoxemia. 4. Hypertension. 5. Acute on chronic kidney disease. 6. History of throat cancer, history of esophageal reflux disease, stable from Infectious Disease point of view. [id number]
[2019-09-27] MEDS: ENOXAPARIN 30 MG/0.3 ML SYR SC SCH (16:57)
[2019-09-27] MEDS: NOREPINEPHRINE 8 MG/D5W 250 ML 250 ML IV SCH (17:45)
--- NOTE | 2019-09-27 18:39 | Progress Note ---
DATE: SUBJECTIVE: Mr. Marcus remains in intensive care unit. There is really no change. He is noncommunicative. PHYSICAL EXAMINATION: VITAL SIGNS: Stable, afebrile. HEENT: He is not icteric. NECK: Supple. CHEST: Clear. COR: S1 and S2. ABDOMEN: Soft. IMPRESSION: COVID 19. On physical examination, respiratory failure. From Infectious Disease point of view, he is about the same. Discharge planning is noted. Discussed with medical team. MD PATRICK Oakley/MALIA /[id number]
[2019-09-27] MEDS: CEFEPIME 1GM/NS 0.9% 50 ML 50 ML IV SCH (19:57)
[2019-09-28] VITALS (18 sets, daily range): BP systolic 92–160; BP diastolic 52–83
[2019-09-28] MEDS: DILTIAZEM HCL 30 MG TAB PO SCH ×4 (00:07→16:52)
[2019-09-28] MEDS: INSULIN REGULAR, HUMAN 100 UNIT/1 ML 3ML VIAL SQ SCH ×4 (00:08→16:53)
[2019-09-28] MEDS: MIDAZOLAM HCL 5MG/ML 10ML VIAL 100 ML BAG IV PRN ×2 (00:09→23:00)
[2019-09-28] MEDS: FENTANYL 2,000 MCG/250 ML BAG IV PRN (00:09)
[2019-09-28 06:24] LABS: BASOPHILS # (AUTO) 0.1 (0.0-0.1); BASOPHILS % 1.1 % (0.0-1.0); EOSINOPHILS % 17.1 % (0.0-6.0); HEMATOCRIT 32.2 % (38.2-49.6); HEMOGLOBIN 9.8 g/dL (14.0-18.0); LYMPHOCYTES # (AUTO) 1.9 (1.0-3.2); MEAN CORPUSCULAR HEMOGLOBIN 27.7 pg (28-32); MEAN CORPUSCULAR HGB CONC 30.4 g/dL (31-35); MONOCYTES # (AUTO) 1.1 (0.2-0.8); MONOCYTES % 9.1 % (4.4-11.3); NEUTROPHILS # (AUTO) 6.5 (2.1-6.9); NEUTROPHILS % 55.6 % (38.7-80.0); PLATELET COUNT 401 x10e3/uL (140-360); RED BLOOD COUNT 3.54 x10e6/uL (4.3-5.7); RED CELL DISTRIBUTION WIDTH 16.3 % (11.7-14.4)
[2019-09-28] MEDS: BUMETANIDE INJ 0.25MG/ML 4ML VIAL IV SCH ×3 (06:46→22:57)
[2019-09-28 06:53] LABS: ALBUMIN 2.2 g/dL (3.5-5.0); ALBUMIN/GLOBULIN RATIO 0.4 (0.8-2.0); ANION GAP 15.4 mmol/L (8-16); CALCIUM 10.1 mg/dL (8.4-10.2); CREATININE, SERUM 3.28 mg/dL (0.72-1.25); MAGNESIUM 2.1 MG/DL (1.3-2.1); POTASSIUM 3.4 mmol/L (3.5-5.1)
[2019-09-28] MEDS: FAMOTIDINE 20 MG/2 ML VIAL IV SCH (08:00)
[2019-09-28] MEDS: LINEZOLID 600 MG/D5W 300ML 300 ML IV SCH ×2 (08:00→20:00)
[2019-09-28] MEDS: BALSAM PERU/CASTOR OIL 60 GM OINT...G. TP SCH (08:01)
[2019-09-28] MEDS: EYE LUBRICANT OPTH OINT 3.5GM TUBE OP SCH (08:01)
[2019-09-28] MEDS: AMIODARONE HCL 200 MG TAB PO SCH (08:01)
[2019-09-28] MEDS ORDERED: NOREPINEPHRINE 8 MG/D5W 250 ML 250 ML IV PRN (08:15)
--- NOTE | 2019-09-28 10:51 | Progress Note ---
DATE: 09/28/2019 Nephrology Followup Note SUBJECTIVE: The patient was sedated and is on the vent through trach, on dialysis. No acute distress. No new issues overnight. I's and O's 1840 in and 1650 out, with good urine output. OBJECTIVE: VITAL SIGNS: Blood pressure 113/56, respirations 24-28, heart rate 113, temperature 99. CHEST: Revealed fair air entry with occasional crackles. HEART: S1, S2 with tachycardia. ABDOMEN: Soft. EXTREMITIES: No edema. 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 LABORATORY DATA: Sodium 143, potassium 3.4, chloride 96, CO2 25, BUN 100, creatinine 3.2, up from yesterday. White count 11.7, hemoglobin 9.8, hematocrit 32.2, platelets 401. IMPRESSION: Acute kidney injury secondary to ATN requiring dialysis, on hemodialysis right now for 3-1/2 hours. Sodium 140, 35 bicarb, 3 potassium, 2.5 calcium. UF of 0, since he is making urine and does not appear volume overloaded. PLAN: Continue present treatment. Further recommendations to follow. Franchesca Corona MD SA/MALIA /[id number]
--- NOTE | 2019-09-28 14:24 | NUR ---
Pulmonary Medicine DATE 09/28/2019 SUBJECTIVE: versed 2/, fentanyl 50/ on slow wean down good UOP again had HD today, no significant removal of fluid balance tube feeds 50/hr water 15 q3 hrs PCAC / 22/50/5, pk 28, mv 9 REVIEW OF SYSTEMS: cant get, intubated OBJECTIVE: VITAL SIGNS: Vital signs as noted per the chart record. GENERAL: intubated, on ventilator HEENT: Normocephalic, atraumatic. NECK: Supple. Throat midline. LUNGS: Bilateral air entry, decreased exam. CARDIOVASCULAR: S1, S2. No murmurs, rubs, or gallops. ABDOMEN: Soft, nontender. EXTREMITIES: No clubbing, no cyanosis. edema INTEGUMENT: No rash or purpura. LABORATORY DATA: k 3.4, cr 3.28, wbc 12, pct 32, plt 401 IMPRESSION AND PLAN: 1. Hypoxemia, acute/chronic respiratory failure. ARDS s/p tracheostomy 2. COVID pneumonitis 3. Hypoxemic respiratory failure, acute/chronic. Intubated 4. diarrhea, COVID related 5. hypertension. 6. Hx throat cancer. 7. gastroesophageal reflux disease. 8. acute respiratory failure, intubated 9. enterococcus bacteremia NOS 10. dense JULIETTE, toxic/hypotensive. Now polyuric 12. shock, distributive/septic. resolving 13. pneumothorax s/p left chest tube 14. dysphagia s/p peg tube Intubated maintain Ventilator management --Intermittent blood gas, adjust ventilator prn --continue tracheostomy --suction prn Slowly wean off sedation PEG feeds continue Nephrology for diuresis ; +/- intermittent HD as needed. DVT prophylaxis. continue chest tube, follow air leak. Minimize ventilator pressures as feasible Restorative care Thank you very much, Dr. Santos and Dr. Larose, for allowing me a chance to participate in care of Mr. Marcus. Please call for questions
[2019-09-28] MEDS: ENOXAPARIN 30 MG/0.3 ML SYR SC SCH (16:52)
[2019-09-28] MEDS: CEFEPIME 1GM/NS 0.9% 50 ML 50 ML IV SCH (19:30)
[2019-09-29] VITALS (24 sets, daily range): BP systolic 88–168; BP diastolic 49–78
[2019-09-29] MEDS: BUMETANIDE INJ 0.25MG/ML 4ML VIAL IV SCH ×3 (05:31→22:00)
[2019-09-29] MEDS: DILTIAZEM HCL 30 MG TAB PO SCH ×4 (05:32→17:05)
[2019-09-29] MEDS: INSULIN REGULAR, HUMAN 100 UNIT/1 ML 3ML VIAL SQ SCH ×4 (06:00→17:05)
[2019-09-29] MEDS: FENTANYL 2,000 MCG/250 ML BAG IV PRN (06:06)
[2019-09-29 06:24] LABS: BASOPHILS # (AUTO) 0.1 (0.0-0.1); BASOPHILS % 0.8 % (0.0-1.0); EOSINOPHILS # (AUTO) 1.9 (0.0-0.4); EOSINOPHILS % 14.7 % (0.0-6.0); HEMATOCRIT 30.8 % (38.2-49.6); HEMOGLOBIN 9.2 g/dL (14.0-18.0); LYMPHOCYTES # (AUTO) 1.7 (1.0-3.2); LYMPHOCYTES % 13.7 % (18.0-39.1); MEAN CORPUSCULAR HEMOGLOBIN 27.3 pg (28-32); MEAN CORPUSCULAR HGB CONC 29.9 g/dL (31-35); MEAN CORPUSCULAR VOLUME 91.4 fL (81-99); MONOCYTES # (AUTO) 1.3 (0.2-0.8); NEUTROPHILS # (AUTO) 7.6 (2.1-6.9); NEUTROPHILS % 59.7 % (38.7-80.0); PLATELET COUNT 351 x10e3/uL (140-360); RED BLOOD COUNT 3.37 x10e6/uL (4.3-5.7); RED CELL DISTRIBUTION WIDTH 16.1 % (11.7-14.4)
[2019-09-29 06:31] LABS: ANION GAP 14.3 mmol/L (8-16); CALCIUM 9.9 mg/dL (8.4-10.2); CREATININE, SERUM 1.96 mg/dL (0.72-1.25); POTASSIUM 4.3 mmol/L (3.5-5.1)
[2019-09-29] MEDS: EYE LUBRICANT OPTH OINT 3.5GM TUBE OP SCH (08:13)
[2019-09-29] MEDS: FAMOTIDINE 20 MG/2 ML VIAL IV SCH (08:13)
[2019-09-29] MEDS: LINEZOLID 600 MG/D5W 300ML 300 ML IV SCH ×2 (08:13→19:40)
[2019-09-29] MEDS: BALSAM PERU/CASTOR OIL 60 GM OINT...G. TP SCH (08:14)
[2019-09-29] MEDS: AMIODARONE HCL 200 MG TAB PO SCH (08:15)
[2019-09-29] MEDS: ENOXAPARIN 30 MG/0.3 ML SYR SC SCH (17:05)
--- NOTE | 2019-09-29 19:22 | NUR ---
Pulmonary Medicine DATE 09/29/2019 SUBJECTIVE: versed 2/, fentanyl 50/ on slow wean down reasonable UOP again tube feeds 50/hr water 15 q3 hrs PCAC / /50/5, pk 28, mv 9 . yesterday abg with ph 7.39 REVIEW OF SYSTEMS: cant get, intubated OBJECTIVE: VITAL SIGNS: Vital signs as noted per the chart record. GENERAL: intubated, on ventilator HEENT: Normocephalic, atraumatic. NECK: Supple. Throat midline. LUNGS: Bilateral air entry, decreased exam. CARDIOVASCULAR: S1, S2. No murmurs, rubs, or gallops. ABDOMEN: Soft, nontender. EXTREMITIES: No clubbing, no cyanosis. edema INTEGUMENT: No rash or purpura. LABORATORY DATA: k 4.3, ct 1.96. wbc 12.6, hct 31, plt 351 IMPRESSION AND PLAN: 1. Hypoxemia, acute/chronic respiratory failure. ARDS s/p tracheostomy 2. COVID pneumonitis 3. Hypoxemic respiratory failure, acute/chronic. Intubated 4. diarrhea, COVID related 5. hypertension. 6. Hx throat cancer. 7. gastroesophageal reflux disease. 8. acute respiratory failure, intubated 9. enterococcus bacteremia NOS 10. dense JULIETTE, toxic/hypotensive. Now polyuric 12. shock, distributive/septic. resolved 13. pneumothorax s/p left chest tube 14. dysphagia s/p peg tube Intubated maintain Ventilator management --Intermittent blood gas, adjust ventilator prn --continue tracheostomy --suction prn ---downadjust ventilator again today Slowly wean off sedation PEG feeds continue Nephrology for diuresis; +/- intermittent HD as needed. DVT prophylaxis. continue chest tube, follow air leak. Minimize ventilator pressures as feasible Restorative care Thank you very much, Dr. Santos and Dr. Larose, for allowing me a chance to participate in care of Mr. Marcus. Please call for questions
[2019-09-29] MEDS: CEFEPIME 1GM/NS 0.9% 50 ML 50 ML IV SCH (19:40)
[2019-09-29] MEDS ORDERED: DIPHENOXYLATE/ATROPINE TAB PO ONE (23:30)
[2019-09-30] VITALS (26 sets, daily range): BP systolic 84–184; BP diastolic 53–79
[2019-09-30] MEDS: MIDAZOLAM HCL 5MG/ML 10ML VIAL 100 ML BAG IV PRN
[2019-09-30] MEDS: DILTIAZEM HCL 30 MG TAB PO SCH ×5 (00:36→22:55)
[2019-09-30] MEDS: INSULIN REGULAR, HUMAN 100 UNIT/1 ML 3ML VIAL SQ SCH ×5 (00:37→23:47)
[2019-09-30] MEDS: DILTIAZEM HCL 5 MG/ML 5 ML VIAL IV PRN (00:55)
[2019-09-30] MEDS: BUMETANIDE INJ 0.25MG/ML 4ML VIAL IV SCH ×4 (06:17→22:02)
[2019-09-30 06:30] LABS: BASOPHILS # (AUTO) 0.1 (0.0-0.1); BASOPHILS % 0.5 % (0.0-1.0); EOSINOPHILS # (AUTO) 1.5 (0.0-0.4); EOSINOPHILS % 10.3 % (0.0-6.0); HEMATOCRIT 31.1 % (38.2-49.6); HEMOGLOBIN 9.6 g/dL (14.0-18.0); LYMPHOCYTES # (AUTO) 1.9 (1.0-3.2); LYMPHOCYTES % 13.3 % (18.0-39.1); MEAN CORPUSCULAR HEMOGLOBIN 27.4 pg (28-32); MEAN CORPUSCULAR HGB CONC 30.9 g/dL (31-35); MEAN CORPUSCULAR VOLUME 88.9 fL (81-99); MONOCYTES # (AUTO) 1.2 (0.2-0.8); MONOCYTES % 8.5 % (4.4-11.3); NEUTROPHILS # (AUTO) 9.7 (2.1-6.9); NEUTROPHILS % 66.4 % (38.7-80.0); PLATELET COUNT 337 x10e3/uL (140-360); RED CELL DISTRIBUTION WIDTH 16.1 % (11.7-14.4)
[2019-09-30 06:49] LABS: ANION GAP 14.1 mmol/L (8-16); CALCIUM 10.4 mg/dL (8.4-10.2); CREATININE, SERUM 2.4 mg/dL (0.72-1.25); POTASSIUM 4.1 mmol/L (3.5-5.1)
[2019-09-30] MEDS: LINEZOLID 600 MG/D5W 300ML 300 ML IV SCH ×2 (07:27→21:59)
[2019-09-30] MEDS: AMIODARONE HCL 200 MG TAB PO SCH (08:15)
[2019-09-30] MEDS: BALSAM PERU/CASTOR OIL 60 GM OINT...G. TP SCH (08:15)
[2019-09-30] MEDS: EYE LUBRICANT OPTH OINT 3.5GM TUBE OP SCH (08:15)
--- NOTE | 2019-09-30 12:47 | NUR ---
Pulmonary Medicine DATE 09/30/2019 SUBJECTIVE: versed weaned off fentanyl 55/hr tube feeds 50/hr water 15 q[address] pcac 22/20/40/5, MV 13 L/min, pk 25, rr 24 REVIEW OF SYSTEMS: cant get, intubated OBJECTIVE: VITAL SIGNS: Vital signs as noted per the chart record. GENERAL: intubated, on ventilator HEENT: Normocephalic, atraumatic. NECK: Supple. Throat midline. LUNGS: Bilateral air entry, decreased exam. CARDIOVASCULAR: S1, S2. No murmurs, rubs, or gallops. ABDOMEN: Soft, nontender. EXTREMITIES: No clubbing, no cyanosis. edema INTEGUMENT: No rash or purpura. LABORATORY DATA: k 4.1, cr 2.4. wbc 14.5, hct 31, plt 337 IMPRESSION AND PLAN: 1. Hypoxemia, acute/chronic respiratory failure. ARDS s/p tracheostomy 2. COVID pneumonitis 3. Hypoxemic respiratory failure, acute/chronic. Intubated 4. diarrhea, COVID related 5. hypertension. 6. Hx throat cancer. 7. gastroesophageal reflux disease. 8. acute respiratory failure, intubated via trach 9. enterococcus bacteremia NOS 10. dense JULIETTE, toxic/hypotensive. Now polyuric 12. shock, distributive/septic. resolved 13. pneumothorax s/p left chest tube 14. dysphagia s/p peg tube Intubated maintain Ventilator management --Intermittent blood gas, adjust ventilator prn --continue tracheostomy --suction prn ---downadjust ventilator again today Slowly wean off sedation PEG feeds continue Nephrology for diuresis; +/- intermittent HD as needed. DVT prophylaxis. continue chest tube, follow air leak. Minimize ventilator pressures as feasible Restorative care Thank you very much, Dr. Santos and Dr. Larose, for allowing me a chance to participate in care of Mr. Marcus. Please call for questions
[2019-09-30] MEDS: FENTANYL 2,000 MCG/250 ML BAG IV PRN (13:04)
--- NOTE | 2019-09-30 16:28 | NUR ---
Nutrition Intervention Note RD Recommendation for Physician: - Recommend Nepro with goal rate of 50 mL/hr (provides 2160 kcal, 97 g protein, and 872 mL water) - Water flushes and fluid management per MD. Plan of Care: RD following, monitoring for tolerance and adequacy. TF rec's. Nutrition reason for involvement: Follow up Primary Diagnose(s): viral PNA, hypoxia, diarrhea, dehydration PMH: HTN, reflux, dyslipidemia, HTN, throat cancer GI: Last recorded BM 09/28 x2 , soft, round abdomen, flatus + Skin: sacral stage II PU, L heel DTI resolved, L ear DTI per wound care note 09/15 Labs: 09/29: Na 139, BUN 77, Cr 2.40, Glu 137, Ca 02/22, Phos 5.0 (09/27) 09/23: Na 142, BUN 79, Cr 3.87, Phos 9.6, Mg 2.5 09/22: Na 135, K 4.1, BUN 48, Cr 3.19, Glu 102 09/15: Na 134, K 4.3, BUN 37, Cr 3.3, Gluc 166, POC Gluc 180, Phos 5.5, Mg 2.2 09/10: Na 132, BUN 64, Creat 5.85, Cl 94, Ca 7.8, Phos 9.6 (09/04) 09/05: Na 134, BUN 54, Cr 5.53, Glu 147, Ca 7.8, Phos 9.6 (09/04), Mg 2.2 (09/04) 09/01: Na 150, K 4.3, BUN 36, Cr 1.14, Gluc 140, POC Gluc 125-165, Ca 7.5 Meds: bumetanide, fentanyl, insulin, loveox, marinol, zofran Ht: 69 in Wt: 181 lbs (09/29) 179 lbs (09/24) 199 lbs (09/19) 221 lbs (09/10) 215 lbs (09/05) 179 lbs (09/01) 185.31 lb (08/25) Suspect weight difference to be possible weight error or fluid related BMI: 26.7 kg/m2 IBW: [address] Assessment: 09/29: Follow up. Pt continues to receive dialysis and be on the ventilator through trach. RN reports pt is tolerating tube feeding of Nepro @ 40 mL/hr. Recommend a goal rate of 50 mL/hr. Will continue to monitor. 09/24: Follow up. Pt received a trach and PEG. Pt is tolerating tube feeding of Nepro @ 35 mL/hr per nursing. Updated labs on 09/23 indicate Phos 9.6, BUN 79, and Cr 3.87, therefore, recommend to continue Nepro at this time and increase to goal rate as medically appropriate. Will continue to monitor. 09/19: Follow up. Pt remains intubated and is no longer on propofol. Pt is tolerating tube feeding of Nepro @ 35 mL/hr. Pt continues to receive dialysis. Spoke to RN regarding recommendation of modifying formula to Vital AF 1.2 to better meet pt's nutrition needs. Will continue to monitor. 09/15: Follow up. Pt remains intubated and sedated on fentanyl and propofol. No pressors. Pt received HD yesterday with 2L fluid removal, plan for HD tomorrow per RN. Spoke with SHIRA Kerns regarding TF change to Vital HP to better meet needs with vent and HD as Vital HP will provide adequate protein and prevent overfeeding per current propofol dosage. Change in order pending. No plan to prone at this time per RN. Nepro infusing at 35 ml/hr currently, tolerating per RN. Will continue to monitor. 09/10: Follow up. Pt remains mechanically ventilated and is receiving dialysis. Pt is currently receiving propofol @ 20 mL/hr which provides 528 kcal and is not currently in the prone position. Pt is tolerating tube feeding of Nepro @ 25 mL/hr. Recommend increasing tube feeding rate towards goal as medically appropriate. Provided TF recommendation to RN. Will continue to monitor. 09/05: Follow up. Pt remains mechanically ventilated with propofol and fentanyl. Pt is now receiving HD due to renal failure. Pt was also previously in the prone position as mentioned in pts chart. Spoke to RN, who stated that pt is receiving 15 mL/hr of propofol (provides 396 kcal) and is not in the prone position at this time. Pt is also receiving Nepro @ 30 mL/hr per RN and tolerating tube feeding. Will continue to monitor. 09/01: Follow up. Pt re-evaluated today for follow up and now due to intubation. Pt intubated 08/29, remains on vent and sedated with propofol and fentanyl. No pressors currently. Pt on TF of Vital AF infusing at goal rate per documentation in chart. TF rec's discussed with RN Saumya. Attempted to call MD, no answer. TF rec's provided pending pt continues on Propofol. Chart reviewed. Will continue to monitor. (08/26) 64 YOM admitted for viral PNA, hypoxia, diarrhea, and dehydration. Pt evaluated today per LOS. Pt PUI for Covid-19, test results remain pending. Unable to speak with pt via phone 2/2 very SOB and requiring BiPAP. Per chart no reported poor intake or wt loss [employer], pt reported diarrhea which is ongoing during admission. Pt with 75% meal intake prior to BiPAP use. Chart reviewed. Labs and meds reviewed. Will monitor and continue to follow. Malnutrition Evaluation (09/16/19) The patient does not meet criteria for a specified degree of malnutrition at this time. Will re-evaluate at follow-up as appropriate. Unable to complete assessment. Nutrition Prescription (Diet Order): Nepro at 40 mL/hr Estimated Nutritional Needs: 9895-8161 calories/day (20-25 kcal/kg) Weight used: 179 lbs 106-162 g protein/day (1.3-2 g pro/kg) Weight used: 179 lbs Diet Adequacy: Meeting calorie needs, not meeting protein needs Diet Tolerance: tolerating TF Diet Education Needs Assessment: Diet education not indicated at this time. Nutrition Care Level: Moderate Nutrition Diagnosis: Inadequate energy and protein intake related to respiratory status as evidenced by progression of BiPAP to intubation currently requiring EN. Goal: Patient will meet 75-100% of estimated needs by follow up Progress: Progressing Interventions: - Composition, Rate, Route, Recommended Modifications, Collaboration with other providers Monitoring/Evaluation: - Total energy intake, Total protein intake, Formula/Solution, Prescription medication Signed: Kathy Rojas, RD, LD
[2019-09-30] MEDS: ENOXAPARIN 30 MG/0.3 ML SYR SC SCH (16:41)
--- NOTE | 2019-09-30 17:20 | NUR ---
Dr. Santos and Dr. Luciano informed of pt's bloodshot red eyes and L subclavian CVC site reddened. Dr. Santos gave orders to exchange Malagon catheter for a new catheter. Wound care done to sacral wound. Dr. Garcia gave orders for RT to remove tracheostomy sutures. Will continue to monitor.
--- NOTE | 2019-09-30 18:05 | Progress Note ---
DATE: SUBJECTIVE: Mr. Marcus remains in Intensive Care Unit, intubated, sedated. Very slow progress. HEENT: Not icteric. NECK: Supple. CHEST: Few crackles. COR: S1, S2, no murmurs. ABDOMEN: Soft. Bowel sounds present. EXTREMITIES: No edema. SKIN: No rash. IMPRESSION AND PLAN: Respiratory failure and pneumonia, COVID-19 present on admission, concerned about ARDS with pulmonary fibrosis now, history of throat cancer, gastroesophageal reflux disease, and acute kidney injury. Continue with vent. Off antibiotic. Very slow progress. Concern he may have pulmonary fibrosis. We will follow. MD PATRICK Oakley/MODL /[id number]
[2019-09-30] MEDS: CEFEPIME 1GM/NS 0.9% 50 ML 50 ML IV SCH (20:46)
[2019-10-01] VITALS (26 sets, daily range): BP systolic 81–134; BP diastolic 53–76
[2019-10-01 05:45] LABS: BASOPHILS # (AUTO) 0.1 (0.0-0.1); BASOPHILS % 0.7 % (0.0-1.0); EOSINOPHILS # (AUTO) 1.5 (0.0-0.4); EOSINOPHILS % 10.3 % (0.0-6.0); HEMATOCRIT 30.7 % (38.2-49.6); HEMOGLOBIN 9.4 g/dL (14.0-18.0); LYMPHOCYTES # (AUTO) 1.8 (1.0-3.2); LYMPHOCYTES % 12.3 % (18.0-39.1); MEAN CORPUSCULAR HEMOGLOBIN 27.8 pg (28-32); MEAN CORPUSCULAR HGB CONC 30.6 g/dL (31-35); MEAN CORPUSCULAR VOLUME 90.8 fL (81-99); MONOCYTES # (AUTO) 1.3 (0.2-0.8); MONOCYTES % 9.2 % (4.4-11.3); NEUTROPHILS # (AUTO) 9.7 (2.1-6.9); NEUTROPHILS % 66.6 % (38.7-80.0); PLATELET COUNT 304 x10e3/uL (140-360); RED BLOOD COUNT 3.38 x10e6/uL (4.3-5.7); RED CELL DISTRIBUTION WIDTH 15.9 % (11.7-14.4)
[2019-10-01] MEDS: INSULIN REGULAR, HUMAN 100 UNIT/1 ML 3ML VIAL SQ SCH ×3 (06:00→18:00)
[2019-10-01 06:08] LABS: CALCIUM 10.3 mg/dL (8.4-10.2); CREATININE, SERUM 2.5 mg/dL (0.72-1.25)
[2019-10-01] MEDS: DILTIAZEM HCL 30 MG TAB PO SCH ×3 (06:30→17:16)
[2019-10-01] MEDS: LINEZOLID 600 MG/D5W 300ML 300 ML IV SCH ×2 (07:27→22:35)
[2019-10-01] MEDS: BALSAM PERU/CASTOR OIL 60 GM OINT...G. TP SCH (08:10)
[2019-10-01] MEDS: BUMETANIDE INJ 0.25MG/ML 4ML VIAL IV SCH (08:10)
[2019-10-01] MEDS: EYE LUBRICANT OPTH OINT 3.5GM TUBE OP SCH (08:10)
[2019-10-01] MEDS: AMIODARONE HCL 200 MG TAB PO SCH (08:10)
[2019-10-01] MEDS ORDERED: DIPHENOXYLATE/ATROPINE TAB PO SCH (09:00)
--- NOTE | 2019-10-01 12:06 | NUR ---
Pulmonary Medicine DATE 10/01/2019 SUBJECTIVE: fentanyl 20/hr heavy breathing on decreased sedation tube feeds 40/hr water 15 q[address] pcac 22/16/40/5; MV 9 L/min, pk 25, rr 25 REVIEW OF SYSTEMS: cant get, intubated OBJECTIVE: VITAL SIGNS: Vital signs as noted per the chart record. GENERAL: intubated, on ventilator HEENT: Normocephalic, atraumatic. NECK: Supple. Throat midline. LUNGS: Bilateral air entry, decreased exam. CARDIOVASCULAR: S1, S2. No murmurs, rubs, or gallops. ABDOMEN: Soft, nontender. EXTREMITIES: No clubbing, no cyanosis. edema INTEGUMENT: No rash or purpura. LABORATORY DATA: k 4.0, cr 2.5. wbc 14.5, hct 31, plt 304 IMPRESSION AND PLAN: 1. Hypoxemia, acute/chronic respiratory failure. ARDS s/p tracheostomy 2. COVID pneumonitis 3. Hypoxemic respiratory failure, acute/chronic. Intubated 4. diarrhea, COVID related 5. hypertension. 6. Hx throat cancer. 7. gastroesophageal reflux disease. 8. acute respiratory failure, intubated via trach 9. enterococcus bacteremia NOS 10. dense JULIETTE, toxic/hypotensive. Now polyuric 12. shock, distributive/septic. resolved 13. pneumothorax s/p left chest tube 14. dysphagia s/p peg tube Intubated maintain Ventilator management --Intermittent blood gas, adjust ventilator prn --continue tracheostomy --suction prn ---downadjust ventilator again today Slowly wean off sedation PEG feeds continue Nephrology for diuresis; +/- intermittent HD as needed. DVT prophylaxis. continue chest tube, follow air leak. Minimize ventilator pressures as feasible Restorative care Thank you very much, Dr. Santos and Dr. Larose, for allowing me a chance to participate in care of Mr. Marcus. Please call for questions
--- NOTE | 2019-10-01 13:30 | Progress Note ---
DATE: SUBJECTIVE: Mr. Marcus remains very weak and is on a ventilator. PHYSICAL EXAMINATION: VITAL SIGNS: His vitals are stable. T-max 100.3. HEENT: Not icteric. NECK: Supple. CHEST: Few crackles. HEART: S1 and S2. No S3, S4 or murmurs. ABDOMEN: Soft. IMPRESSION: 1. Low fever. The patient was on linezolid and cefepime. 2. Diabetes mellitus. 3. Respiratory failure concern. The patient maybe going into fibrotic changes from his acute respiratory distress syndrome. Elevated rheumatoid factor level. COVID 19 has been negative recently. Prognosis remains guarded . We will follow. MD PATRICK Oakley/MODL /[id number]
[2019-10-01] MEDS: ENOXAPARIN 30 MG/0.3 ML SYR SC SCH (16:12)
--- NOTE | 2019-10-01 19:23 | NUR ---
Dr. Santos and Dr. Luciano aware of pt's lack of responsiveness to painful stimuli despite sedation being held. VBG results called to Dr. Luciano, orders given to decrease pressure control to 15.
[2019-10-01] MEDS: CEFEPIME 1GM/NS 0.9% 50 ML 50 ML IV SCH (21:51)
[2019-10-01] MEDS: MIDAZOLAM HCL 5MG/ML 10ML VIAL 100 ML BAG IV PRN (21:54)
[2019-10-02] VITALS (24 sets, daily range): BP systolic 101–132; BP diastolic 51–74
[2019-10-02] MEDS: DILTIAZEM HCL 30 MG TAB PO SCH ×4 (00:37→17:07)
[2019-10-02] MEDS: INSULIN REGULAR, HUMAN 100 UNIT/1 ML 3ML VIAL SQ SCH ×4 (00:37→18:00)
[2019-10-02] MEDS: FENTANYL 2,000 MCG/250 ML BAG IV PRN (05:09)
[2019-10-02 05:32] LABS: BASOPHILS # (AUTO) 0.1 (0.0-0.1); BASOPHILS % 0.5 % (0.0-1.0); EOSINOPHILS # (AUTO) 1.8 (0.0-0.4); HEMATOCRIT 30.3 % (38.2-49.6); HEMOGLOBIN 9.4 g/dL (14.0-18.0); LYMPHOCYTES # (AUTO) 1.7 (1.0-3.2); LYMPHOCYTES % 10.3 % (18.0-39.1); MEAN CORPUSCULAR VOLUME 90.2 fL (81-99); MONOCYTES # (AUTO) 1.2 (0.2-0.8); MONOCYTES % 7.1 % (4.4-11.3); NEUTROPHILS # (AUTO) 11.9 (2.1-6.9); NEUTROPHILS % 70.4 % (38.7-80.0); PLATELET COUNT 310 x10e3/uL (140-360); RED BLOOD COUNT 3.36 x10e6/uL (4.3-5.7)
[2019-10-02 06:03] LABS: ALBUMIN 2.2 g/dL (3.5-5.0); ALBUMIN/GLOBULIN RATIO 0.4 (0.8-2.0); ANION GAP 17.7 mmol/L (8-16); CALCIUM 10.1 mg/dL (8.4-10.2); CREATININE, SERUM 2.16 mg/dL (0.72-1.25); POTASSIUM 3.7 mmol/L (3.5-5.1)
--- NOTE | 2019-10-02 07:15 | Diagnostic Imaging Report ---
EXAMINATION: CHEST SINGLE (PORTABLE) INDICATION: ^trach ^[id number] ^[id number] COMPARISON: None FINDINGS: AP view TUBES and LINES: Unchanged tracheostomy tube, right internal jugular vein catheter, and left chest tube. LUNGS: Unchanged diffuse pulmonary airspace disease. PLEURA: No discrete pleural effusion. The previously seen left apical pneumothorax is not discretely identified. HEART AND MEDIASTINUM: The cardiomediastinal silhouette is unremarkable. BONES AND SOFT TISSUES: No acute osseous lesion. Soft tissues are unremarkable. UPPER ABDOMEN: No free air under the diaphragm. IMPRESSION: Unchanged diffuse pulmonary airspace disease suggestive of ARDS. The previously seen small left apical pneumothorax is no longer discretely identified. Signed by: Corey Perez MD on 10/02/2019 7:10 AM
[2019-10-02] MEDS: EYE LUBRICANT OPTH OINT 3.5GM TUBE OP SCH (09:47)
[2019-10-02] MEDS: AMIODARONE HCL 200 MG TAB PO SCH (09:47)
[2019-10-02] MEDS: DIPHENOXYLATE/ATROPINE TAB PO SCH ×2 (09:47→16:34)
[2019-10-02] MEDS: LINEZOLID 600 MG/D5W 300ML 300 ML IV SCH ×2 (09:47→20:34)
[2019-10-02] MEDS: BALSAM PERU/CASTOR OIL 60 GM OINT...G. TP SCH (09:47)
--- NOTE | 2019-10-02 11:56 | NUR ---
IN ICU [id number]
--- NOTE | 2019-10-02 11:59 | NUR ---
Pulmonary Medicine DATE 10/02/2019 SUBJECTIVE: Chest tube with no air leak hastings with UOP 22/15/40/5 PC AC. pk 24, rr 25, MV 10 L/min CXR with gradual improvement fentanyl 60/, versed 1/ . was stopped with tachypnea. tube feeds 40/hr water 15 q3 hrs REVIEW OF SYSTEMS: cant get, intubated OBJECTIVE: VITAL SIGNS: Vital signs as noted per the chart record. GENERAL: intubated, on ventilator HEENT: Normocephalic, atraumatic. NECK: Supple. Throat midline. LUNGS: Bilateral air entry, decreased exam. CARDIOVASCULAR: S1, S2. No murmurs, rubs, or gallops. ABDOMEN: Soft, nontender. EXTREMITIES: No clubbing, no cyanosis. 1+ edema INTEGUMENT: No rash or purpura. LABORATORY DATA: 3.7 k, hco3 27, cr 2.16. wbc 16.8, hct 30, plt 310 7.39/53/ / 34 hco3 c diff came back negative, resulted yesterday IMPRESSION AND PLAN: 1. Hypoxemia, acute/chronic respiratory failure. ARDS s/p tracheostomy 2. COVID pneumonitis 3. Hypoxemic respiratory failure, acute/chronic. Intubated 4. diarrhea, COVID related 5. hypertension. 6. Hx throat cancer. 7. gastroesophageal reflux disease. 8. acute respiratory failure, intubated via trach 9. enterococcus bacteremia NOS 10. dense JULIETTE, toxic/hypotensive. Now polyuric 12. shock, distributive/septic. resolved 13. pneumothorax s/p left chest tube 14. dysphagia s/p peg tube Intubated maintain Ventilator management --Intermittent blood gas, adjust ventilator prn --continue tracheostomy --suction prn ---downadjust ventilator again today, weaning mode PC SIMV: PS 13 spontaneous, 15 backup Slowly wean off sedation PEG feeds continue Nephrology for diuresis; +/- intermittent HD as needed. DVT prophylaxis. continue chest tube, follow air leak. Minimize ventilator pressures as feasible Restorative care Thank you very much, Dr. Santos and Dr. Larose, for allowing me a chance to participate in care of Mr. Marcus. Please call for questions
[2019-10-02] MEDS ORDERED: SODIUM CHLORIDE 0.9% 1000ML 1,000 ML IV ONE (14:15)
[2019-10-02] MEDS ORDERED: ACETAMINOPHEN 325 MG/10 ML UDC NG PRN (16:00)
--- NOTE | 2019-10-02 17:55 | Progress Note ---
DATE: SUBJECTIVE: Mr. Marcus remains in intensive care unit. Mainly, he is still weak. PHYSICAL EXAMINATION: GENERAL: He has chest tube and Malagon catheter. He is intubated. VITAL SIGNS: Stable, afebrile. HEENT: Not icteric. NECK: Supple. CHEST: Crackles bilateral. HEART: S1 and S2. No S3, S4, or murmurs. ABDOMEN: Soft. Bowel sounds present. No tenderness. EXTREMITIES: No edema. LABORATORY DATA: Reviewed. IMPRESSION: Respiratory failure, status post COVID-19, pneumonitis, status post acute respiratory distress syndrome, concerned about fibrotic changes. Gastroenteritis is unresolved from COVID-19, throat cancer, gastroesophageal reflux disease, respiratory failure, acute kidney injury, and hypotensive. Prognosis remains very guarded. Continue supportive care. MD PATRICK Oakley/MODL /[id number]
[2019-10-02] MEDS: CEFEPIME 1GM/NS 0.9% 50 ML 50 ML IV SCH (18:56)
--- NOTE | 2019-10-02 19:00 | NUR ---
Report received. Assumed care. Assessment done. See interventions. Trach to vent. Vent settings: 40% FIO2, 5cm PEEP, Rate 18, an Pressure control 15. PEG with Nepro @ 50ml/hr. Addendum: 10/02/19 at 2028 by Rachel Kenyon RN Nepro @ 40ml/hr
[2019-10-03] VITALS (16 sets, daily range): BP systolic 125–151; BP diastolic 67–91
[2019-10-03] MEDS: INSULIN REGULAR, HUMAN 100 UNIT/1 ML 3ML VIAL SQ SCH ×4 (00:26→18:00)
[2019-10-03] MEDS: DILTIAZEM HCL 30 MG TAB PO SCH ×4 (00:33→18:17)
[2019-10-03 04:42] LABS: ANION GAP 15.7 mmol/L (8-16); CALCIUM 10.3 mg/dL (8.4-10.2); CREATININE, SERUM 1.71 mg/dL (0.72-1.25); POTASSIUM 3.7 mmol/L (3.5-5.1)
[2019-10-03] MEDS: DIPHENOXYLATE/ATROPINE TAB PO SCH ×2 (08:11→17:44)
[2019-10-03] MEDS: BALSAM PERU/CASTOR OIL 60 GM OINT...G. TP SCH (08:11)
[2019-10-03] MEDS: AMIODARONE HCL 200 MG TAB PO SCH (08:11)
[2019-10-03] MEDS: EYE LUBRICANT OPTH OINT 3.5GM TUBE OP SCH (08:11)
[2019-10-03] MEDS: LINEZOLID 600 MG/D5W 300ML 300 ML IV SCH ×2 (08:11→20:20)
--- NOTE | 2019-10-03 11:41 | NUR ---
Pulmonary Medicine DATE 10/03/2019 SUBJECTIVE: 18/15//13//40/5 PC SIMV. pk 19, rr 32, MV 14 L/min fentanyl 30/, versed off. tube feeds 40/hr water 400 cc q6hrs increased hastings with UOP REVIEW OF SYSTEMS: cant get, intubated OBJECTIVE: VITAL SIGNS: Vital signs as noted per the chart record. GENERAL: intubated via trach, on ventilator HEENT: Normocephalic, atraumatic. NECK: Supple. Throat midline. LUNGS: Bilateral air entry, decreased exam. CARDIOVASCULAR: S1, S2. No murmurs, rubs, or gallops. ABDOMEN: Soft, nontender. EXTREMITIES: No clubbing, no cyanosis. 1+ edema INTEGUMENT: No rash or purpura. LABORATORY DATA: k 3.7, bun 102, cr 1.7. IMPRESSION AND PLAN: 1. Hypoxemia, acute/chronic respiratory failure. ARDS s/p tracheostomy 2. COVID pneumonitis 3. Hypoxemic respiratory failure, acute/chronic. Intubated 4. hypertension. 5. Hx throat cancer. 6. gastroesophageal reflux disease. 7. acute respiratory failure, intubated via trach 8. enterococcus bacteremia NOS 9. dense JULIETTE, toxic/hypotensive. Now polyuric, recovering 10. shock, distributive/septic. resolved 11. pneumothorax s/p left chest tube 12. dysphagia s/p peg tube Intubated maintain Ventilator management --Intermittent blood gas, adjust ventilator prn --continue tracheostomy --suction prn ---downadjust ventilator as feasible, weaning mode PC SIMV: PS 13 spontaneous, 15 backup Slowly wean off sedation PEG feeds continue Nephrology for diuresis; +/- intermittent HD as needed. Follow up while on increased water loading DVT prophylaxis. continue chest tube, follow air leak. Minimize ventilator pressures as feasible Restorative care Thank you very much, Dr. Santos and Dr. Larose, for allowing me a chance to participate in care of Mr. Marcus. Please call for questions
[2019-10-03] MEDS ORDERED: ONDANSETRON HCL INJ 2MG/ML 2ML 2 MG/ML VIAL IV PRN (11:45)
--- NOTE | 2019-10-03 11:49 | NUR ---
CALLED MAU WITH [facility] TO SEE WHAT IS GOING ON WITH CASE, HAD DR CAMPOS WITH ME, STATES NOT ENOUGH RESPIRATORY NOTES SO DECLINED, ASKED IF CAN DO A PEER TO PEER, SET UP FOR 130 TODAY. WILL UPDATE GET INFORMATION.
--- NOTE | 2019-10-03 13:16 | NUR ---
Pulmonary Medicine DATE 10/03/2019 SUBJECTIVE: 18/15//13//40/5 PC SIMV. pk 19, rr 32, MV 14 L/min fentanyl 30/, versed off. tube feeds 40/hr water 400 cc q6hrs increased hastings with UOP REVIEW OF SYSTEMS: cant get, intubated OBJECTIVE: VITAL SIGNS: Vital signs as noted per the chart record. GENERAL: intubated via trach, on ventilator HEENT: Normocephalic, atraumatic. NECK: Supple. Throat midline. LUNGS: Bilateral air entry, decreased exam. CARDIOVASCULAR: S1, S2. No murmurs, rubs, or gallops. ABDOMEN: Soft, nontender. EXTREMITIES: No clubbing, no cyanosis. 1+ edema INTEGUMENT: No rash or purpura. LABORATORY DATA: k 3.7, bun 102, cr 1.7. IMPRESSION AND PLAN: 1. Hypoxemia, acute/chronic respiratory failure. ARDS s/p tracheostomy 2. COVID pneumonitis 3. Hypoxemic respiratory failure, acute/chronic. Intubated 4. hypertension. 5. Hx throat cancer. 6. gastroesophageal reflux disease. 7. acute respiratory failure, intubated via trach 8. enterococcus bacteremia NOS 9. dense JULIETTE, toxic/hypotensive. Now polyuric, recovering 10. shock, distributive/septic. resolved 11. pneumothorax s/p left chest tube 12. dysphagia s/p peg tube Intubated maintain Ventilator management, patient is being weaned for many days successfully --Intermittent blood gas, adjust ventilator prn --continue tracheostomy --suction prn ---downadjust ventilator as feasible, weaning mode PC SIMV: PS 13 spontaneous, 15 backup. Further weaning today is limited by RR low 30's, but we will keep weaning as pt allows. Slowly wean off sedation PEG feeds continue Nephrology for diuresis; +/- intermittent HD as needed. Follow up while on increased water loading DVT prophylaxis. continue chest tube, follow air leak. Minimize ventilator pressures as feasible Restorative care Thank you very much, Dr. Santos and Dr. Larose, for allowing me a chance to participate in care of Mr. Marcus. Please call for questions
--- NOTE | 2019-10-03 13:40 | NUR ---
FAXED UPDATED NOTE TO [facility] TO SUBMIT TO [employer]
[2019-10-03] MEDS ORDERED: FLUCONAZOLE 200 MG/100 ML 100 ML IV SCH (15:00)
--- NOTE | 2019-10-03 15:30 | Progress Note ---
DATE: SUBJECTIVE: Mr. Marcus remains in intensive care unit. He is extremely weak, noncommunicative. PHYSICAL EXAMINATION: GENERAL: Alert and nonverbal of Versed. HEENT: Not icteric. NECK: Supple. CHEST: Few crackles. COR: S1 and S2. No S3, S4, or murmurs. ABDOMEN: Soft. Bowel sounds present. No tenderness. EXTREMITIES: No edema. SKIN: No rash. : Malagon catheter. IMPRESSION: 1. Respiratory failure. 2. Concern about pulmonary fibrosis. 3. Status post acute respiratory distress syndrome, status post tracheostomy, COVID pneumonia, hypertension, history of throat cancer, history of radiation, history of chemotherapy, gastroesophageal reflux disease. 4. Continue to wean off ventilator. Continue with dialysis. Prognosis is guarded. Further recommendations to follow. 5. Leukocytosis. 6. We will put him on Diflucan. Discontinue cefepime. Discontinue Zyvox since I am concerned about fungal infection. Recheck CBC. MD PATRICK Oakley/MODL /[id number]
[2019-10-03] MEDS ORDERED: ENOXAPARIN 30 MG/0.3 ML SYR SC SCH (17:00)
--- NOTE | 2019-10-03 19:00 | NUR ---
Report received. Assumed care. Assessment done. See interventions. Trach to vent. Vent settings: FIO2 40%, PEEP 5cm, Rate 18 & PC 18cm. PEG tube with Nepro TF @ 40ml/hr with 400ml flushes Q6H. Fentanyl infusing @ 30 mcg/hr or 3.8ml/hr. Addendum: 10/03/19 at 4 by Rachel Kenyon RN left lateral chest tube to H2O seal with serous drng. Flexiseal with dk brown liquid stool.
[2019-10-03] MEDS: CEFEPIME 1GM/NS 0.9% 50 ML 50 ML IV SCH (19:04)
[2019-10-03] MEDS: FENTANYL 2,000 MCG/250 ML BAG IV PRN (19:48)
[2019-10-04] VITALS (14 sets, daily range): BP systolic 107–156; BP diastolic 51–80
[2019-10-04] MEDS: INSULIN REGULAR, HUMAN 100 UNIT/1 ML 3ML VIAL SQ SCH ×3 (00:35→12:18)
[2019-10-04] MEDS: DILTIAZEM HCL 30 MG TAB PO SCH ×3 (00:47→12:17)
--- NOTE | 2019-10-04 01:56 | NUR ---
Dr. Akins here. Orders to increase TF to 60ml/hr.
[2019-10-04 05:11] LABS: BASOPHILS # (AUTO) 0.1 (0.0-0.1); BASOPHILS % 0.6 % (0.0-1.0); EOSINOPHILS # (AUTO) 1.2 (0.0-0.4); EOSINOPHILS % 6.9 % (0.0-6.0); HEMOGLOBIN 8.6 g/dL (14.0-18.0); LYMPHOCYTES # (AUTO) 1.5 (1.0-3.2); LYMPHOCYTES % 8.2 % (18.0-39.1); MEAN CORPUSCULAR HEMOGLOBIN 28.1 pg (28-32); MEAN CORPUSCULAR HGB CONC 30.7 g/dL (31-35); MEAN CORPUSCULAR VOLUME 91.5 fL (81-99); MONOCYTES # (AUTO) 1.2 (0.2-0.8); MONOCYTES % 6.9 % (4.4-11.3); NEUTROPHILS # (AUTO) 13.7 (2.1-6.9); NEUTROPHILS % 76.6 % (38.7-80.0); PLATELET COUNT 270 x10e3/uL (140-360); RED BLOOD COUNT 3.06 x10e6/uL (4.3-5.7); RED CELL DISTRIBUTION WIDTH 16.4 % (11.7-14.4)
[2019-10-04 05:31] LABS: ANION GAP 14.6 mmol/L (8-16); CALCIUM 10.5 mg/dL (8.4-10.2); CREATININE, SERUM 1.37 mg/dL (0.72-1.25); POTASSIUM 3.6 mmol/L (3.5-5.1)
[2019-10-04] MEDS: EYE LUBRICANT OPTH OINT 3.5GM TUBE OP SCH (08:32)
[2019-10-04] MEDS: DIPHENOXYLATE/ATROPINE TAB PO SCH (08:32)
[2019-10-04] MEDS: BALSAM PERU/CASTOR OIL 60 GM OINT...G. TP SCH (08:32)
[2019-10-04] MEDS: AMIODARONE HCL 200 MG TAB PO SCH (08:32)
[2019-10-04] MEDS: LINEZOLID 600 MG/D5W 300ML 300 ML IV SCH (08:32)
[2019-10-04] MEDS ORDERED: DEXTROSE 5% 1,000 ML IV ONE (09:45)
--- NOTE | 2019-10-04 09:47 | NUR ---
[facility] FACILITY DISCHARGE INFORMATION PATIENT HAS BEEN ACCEPTED TO: NAME: [facility] ADDRESS:[address] [place] [address] ACCEPTING [employer] [employer] DEAN: MASON RODRÍGUEZ MD: JUNE ROOM:[id number] NURSE CALL REPORT TO: [phone] [employer] AT [facility], SPOKE WITH NURSE SELF.
--- NOTE | 2019-10-04 10:27 | NUR ---
Pulmonary Medicine DATE 10/04/2019 SUBJECTIVE: PC SIMV still weaning, vent settings limited by RR. Sedation is successfully being weaned down 18 / 15 PC / 13 PS / 40% / 5 rr 30-36, mv 14.6, pk 25 off sedation as stated since 8 am hastings chest tube in x 1 , no air leak nepro 60/ water 400 q6 hrs REVIEW OF SYSTEMS: cant get, intubated OBJECTIVE: VITAL SIGNS: Vital signs as noted per the chart record. GENERAL: intubated via trach, on ventilator HEENT: Normocephalic, atraumatic. NECK: Supple. Throat midline. LUNGS: Bilateral air entry, decreased exam. CARDIOVASCULAR: S1, S2. No murmurs, rubs, or gallops. ABDOMEN: Soft, nontender. EXTREMITIES: No clubbing, no cyanosis. 1+ edema INTEGUMENT: No rash or purpura. LABORATORY DATA: k 3.6, na 150, bun 96, cr 1.37. wbc 18,, hct 28, plt 270 IMPRESSION AND PLAN: 1. Hypoxemia, acute/chronic respiratory failure. ARDS s/p tracheostomy 2. COVID pneumonitis 3. Hypoxemic respiratory failure, acute/chronic. Intubated 4. hypertension. 5. Hx throat cancer. 6. gastroesophageal reflux disease. 7. acute respiratory failure, intubated via trach 8. enterococcus bacteremia NOS 9. dense JULIETTE, toxic/hypotensive. Now polyuric, recovering 10. shock, distributive/septic. resolved 11. pneumothorax s/p left chest tube 12. dysphagia s/p peg tube Intubated maintain Ventilator management, patient is being weaned for many days successfully --Intermittent blood gas, adjust ventilator prn --continue tracheostomy --suction prn ---downadjust ventilator as feasible, weaning mode PC SIMV: PS 13 spontaneous, 15 backup. Further weaning today is limited by RR low 30's --sedation is weaning still. Slowly wean off sedation PEG feeds continue Nephrology for diuresis; +/- intermittent HD as needed. Follow up while on increased water loading DVT prophylaxis. continue chest tube, follow air leak. Minimize ventilator pressures as feasible Restorative care Ok to [facility] when approved, possibly today Thank you very much, Dr. Santos and Dr. Larose, for allowing me a chance to participate in care of Mr. Marcus. Please call for questions
--- NOTE | 2019-10-04 17:16 | NUR ---
PC SIMV still weaning, vent settings limited by RR. Sedation is successfully being weaned down 18 / 15 PC / 13 PS / 40% / 5 rr 30-36, mv 14.6, pk 25 off sedation as stated since 8 am hastings chest tube in x 1 , no air leak nepro 60/ water 400 q6 hrs REVIEW OF SYSTEMS: cant get, intubated OBJECTIVE: VITAL SIGNS: Vital signs as noted per the chart record. GENERAL: intubated via trach, on ventilator HEENT: Normocephalic, atraumatic. NECK: Supple. Throat midline. LUNGS: Bilateral air entry, decreased exam. CARDIOVASCULAR: S1, S2. No murmurs, rubs, or gallops. ABDOMEN: Soft, nontender. EXTREMITIES: No clubbing, no cyanosis. 1+ edema INTEGUMENT: No rash or purpura. LABORATORY DATA: k 3.6, na 150, bun 96, cr 1.37. wbc 18,, hct 28, plt [id number]
--- NOTE | 2019-10-04 21:00 | Progress Note ---
DATE: SUBJECTIVE: Mr. Marcus is doing better. There is no new complaint. He is going to [facility]. REVIEW OF SYSTEMS: Could not be obtained. The patient is about the same. PHYSICAL EXAMINATION: GENERAL: He is currently alert. VITAL SIGNS: Stable. Currently afebrile. HEENT: Not icteric. NECK: Supple. CHEST: Clear bilateral. COR: S1 and S2. ABDOMEN: Soft. IMPRESSION: 1. Coronavirus 19 pneumonia. 2. History of throat cancer. 3. Esophageal reflux disease. 4. Chronic kidney disease. 5. bacteremia, stable. From Infectious Disease point of view, the patient is stable. He is going to [facility]. I will follow further recommendations to follow. MD PATRICK Oakley/MALIA /[id number]
--- NOTE | 2019-10-05 02:31 | Discharge Summary ---
PRIMARY CARE DOCTOR: Dr. Damon Larose. FINAL DIAGNOSIS: Coronavirus disease 2019 pneumonia with acute respiratory failure. SECONDARY DIAGNOSES: 1. Acute kidney injury, was dialysis dependent, now recovering. 2. Paroxysmal atrial fibrillation, currently sinus. 3. Distant history of throat cancer. CONSULTANTS: 1. Dr. Mckinney, ID. 2. Dr. Luciano, Pulmonary. 3. Dr. Ramos, Nephrology. 4. Dr. Gan, Cardiology. 5. Dr. Garcia, Surgeon. 6. Dr. Akins, GI. PROCEDURE/STUDIES PERFORMED: 1. PEG and trach. 2. Chest tube insertion. 3. Dialysis catheter insertion, then removal. 4. Central line insertion and removal. Subsequently, a new left subclavian central line is placed, today is day #12. 5. Upper extremity venous Doppler was negative for DVT. 6. Renal ultrasound. 7. Chest CT. HISTORY: Per [facility] HOSPITAL COURSE: The patient was admitted. We did try Plaquenil; however, does not appear to have any effect. The patient subsequently was intubated on and off shock requiring pressors. The patient was last dialyzed about a week ago. PEG and trach were done. The patient had some Enterococcus in the blood, likely contaminant per ID. Currently, the patient has leukocytosis, probably due to dialysis catheter infection, which is removed. The patient had AFib with RVR and amiodarone drip was given, now patient sinus. Currently, the patient is on 40% FiO2. We will continue a slow weaning process. Currently, the patient is on empiric cefepime and Zyvox. Empiric fluconazole was given for yeast in the sputum. The patient still has some low-grade fever. The patient also has antibiotic-induced diarrhea. C diff is negative. He does have a rectal tube. The patient also has left-sided pneumothorax. Chest tube was placed. The most recent chest x-ray did not show any more pneumothorax. The patient received Lovenox for DVT prophylaxis. The patient will be discharged to [facility] in [place]. The patient was seen and examined today. It took 33 minutes total to discharge this patient. CONDITION ON DISCHARGE: Fair. DISCHARGE MEDICATIONS: Please see medication reconciliation form. Of note, I have had multiple conversations and update with the family members. The patient's code status is DNR; however, they do want to continue all aggressive measures to give him a chance. MD PALMER Camacho/MALIA /[id number] cc: Damon Larose
== END 2019-10-04 13:44 | DRG 4 ==
LOC: ER 10:08 → ERHOLD 11:12 → IMCU 13:51 → MED/SURG3 08-23 13:34 → IMCU 08-25 09:43 → ICU 08-25 20:49
PROVIDERS: ADMIT Internal Medicine; ATTEND Internal Medicine
PROC: 0BH18EZ Insertion of Endotracheal Airway into Trachea, Via Natural or Artificial Opening Endoscopic (ICD-10-PCS; principal; 2019-08-30)
PROC: 5A1955Z Respiratory Ventilation, Greater than 96 Consecutive Hours (ICD-10-PCS; 2019-08-30)
PROC: 02HV33Z Insertion of Infusion Device into Superior Vena Cava, Percutaneous Approach (ICD-10-PCS; 2019-09-04)
PROC: 5A1D70Z Performance of Urinary Filtration, Intermittent, Less than 6 Hours Per Day (ICD-10-PCS; 2019-09-05)
PROC: 30243N1 Transfusion of Nonautologous Red Blood Cells into Central Vein, Percutaneous Approach (ICD-10-PCS; 2019-09-11)
PROC: 0W9B30Z Drainage of Left Pleural Cavity with Drainage Device, Percutaneous Approach (ICD-10-PCS; 2019-09-11)
PROC: 0DH63UZ Insertion of Feeding Device into Stomach, Percutaneous Approach (ICD-10-PCS; 2019-09-23)
PROC: 0B110F4 Bypass Trachea to Cutaneous with Tracheostomy Device, Open Approach (ICD-10-PCS; 2019-09-23 13:00)
DX: A41.9 Sepsis, unspecified organism (principal); U07.1 COVID-19; J96.01 Acute respiratory failure with hypoxia; J12.89 Other viral pneumonia; N17.0 Acute kidney failure with tubular necrosis; K52.1 Toxic gastroenteritis and colitis; B37.49 Other urogenital candidiasis; E87.0 Hyperosmolality and hypernatremia; Z99.11 Dependence on respirator [ventilator] status; J90 Pleural effusion, not elsewhere classified; E86.0 Dehydration; J06.9 Acute upper respiratory infection, unspecified; T36.95XA Adverse effect of unspecified systemic antibiotic, initial encounter; Z85.01 Personal history of malignant neoplasm of esophagus; K21.9 Gastro-esophageal reflux disease without esophagitis; E78.5 Hyperlipidemia, unspecified; B95.2 Enterococcus as the cause of diseases classified elsewhere; K20.9 Esophagitis, unspecified; D50.0 Iron deficiency anemia secondary to blood loss (chronic); I48.0 Paroxysmal atrial fibrillation; K29.70 Gastritis, unspecified, without bleeding; Z92.3 Personal history of irradiation; I12.9 Hypertensive chronic kidney disease with stage 1 through stage 4 chronic kidney disease, or unspecified chronic kidney disease; N18.9 Chronic kidney disease, unspecified; L89.152 Pressure ulcer of sacral region, stage 2
CPT/HCPCS: 31500; 36415; 36556; 36600; 43246; 71045; 71250; 74470; 76604; 76770; 76937; 80048; 80053; 80076; 80202; 81001; 82550; 82553; 82570; 82728; 82805; 82948; 83518; 83605; 83615; 83735; 83880; 83970; 84100; 84145; 84300; 84436; 84443; 84478; 84479; 84484; 85007; 85014; 85018; 85025; 85027; 85379; 85384; 85610; 85730; 86039; 86140; 86431; 86635; 86704; 86705; 86706; 86850; 86900; 86920; 87040; 87070; 87071; 87086; 87186; 87205; 87340; 87400; 87449; 87493; 87633; 87635; 90962; 93005; 93971; 94002; 94003; 94660; 94664; 96372; 99251; 99284; C1769; J0171; J0330; J0360; J0456; J0610; J0692; J0696; J1450; J1644; J1650; J1817; J1940; J2001; J2020; J2150; J2250; J2405; J2920; J2930; J2997; J3010; J3370; J3480; J7030; J7050; J7060; J7070; J7799; P9016; P9045; P9047